=== PATIENT | female | born 1975 | race Hispanic/Latino ===

== ENCOUNTER 2017-11-16 13:08 | Emergency (ER) | payer OTHER ==
[2017-11-16] MEDS ORDERED: CYCLOBENZAPRINE 10 MG TAB ONE (14:30)
[2017-11-16] MEDS ORDERED: HYDROCODONE/APAP 5/325 MG TAB ONE (14:30)
--- NOTE | 2017-11-16 15:04 | RAD REPORT ---
EXAM DESCRIPTION: VAS - Extremity Venous Uni Ltd - 11/16/2017 2:38 pm CLINICAL HISTORY: Left arm pain and swelling COMPARISON: None. TECHNIQUE: Real-time sonographic evaluation of the left upper extremity deep venous systems was perf ormed. FINDINGS: Normal compressibility, flow augmentation, phasic flow and spontaneous flow are identified in the left upper extremity deep venous system. No intraluminal filling defects seen. Internal jugul ar and subclavian veins are normal as well. IMPRESSION: No DVT in the left upper extremity.
--- NOTE | 2017-11-16 15:07 | EDPHYS ---
Physician Documentation [facility] Name: Tanya Solo Age: 42 yrs Sex: Female : 1975 Arrival Date: 11/16/2017 Time: 13:11 Bed 2 Private MD: ED Physician Michel Kaminski HPI: 11/16 14:06 This 42 yrs old Female presents to ER via Ambulatory with complaints of Neck cp Pain, <24hrs Old, Arm Pain. 14:06 The patient presents with pain that is acute, with no known mechanism of injury. The cp symptoms are located in the medial to left scapula. 14:06 Onset: The symptoms/episode began/occurred today. The pain radiates to the left arm. cp Associated signs and symptoms: Pertinent negatives: abdominal pain, fever, numbness, weakness. Patient reports history of RUE DVT and concerned about possible LUE DVT. Patient takes Xarelto and reports she has been taking medication as prescribed. 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 aj Historical: - Allergies: 13:24 Iodine; aj - Home Meds: 13:24 carvedilol 3.125 mg Oral tab 1 tab 2 times per day [Active]; digoxin 125 mcg Oral tab 1 aj tab once daily [Active]; Fish Oil 1,000 mg Oral cap daily [Active]; Lasix 40 mg Oral tab 1 tab 2 times per day [Active]; penicillin V potassium 250 mg Oral tab 1 tab daily [Active]; ramipril 5 mg Oral cap 1 cap 2 times per day [Active]; spironolactone 25 mg Oral tab 1 tab 2 times per day [Active]; Xarelto 20 mg oral tab 1 tab once daily [Active]; - PMHx: 13:24 Dextrocardia; Hypertension; aj - PSHx: 13:24 Appendectomy; Tubal ligation; uterine ablation; aj - Immunization history:: Adult Immunizations up to date. - Social history:: Smoking status: Patient/guardian denies using tobacco. ROS: 14:10 Constitutional: Negative for body aches, chills, fever, poor PO intake. cp 14:10 Eyes: Negative for injury, pain, redness, and discharge, ENT: Negative for injury, cp pain, and discharge, Neck: Negative for injury, pain, and swelling. 14:10 Cardiovascular: Negative for chest pain, edema, palpitations. 14:10 Respiratory: Negative for cough, shortness of breath, wheezing. 14:10 Back: Positive for of the right side medial to scapula, tenderness to palpation. 14:10 : Negative for urinary symptoms. 14:10 Skin: Negative for cellulitis, rash. 14:10 Neuro: Negative for altered mental status, headache, weakness. 14:10 All other systems are negative. Exam: 14:20 Constitutional: The patient appears in no acute distress, alert, awake, non-toxic, well cp developed, well nourished. 14:20 Head/Face: Normocephalic, atraumatic. cp 14:20 Eyes: Periorbital structures: appear normal, Conjunctiva: normal, no exudate, no injection, Sclera: no appreciated abnormality, Lids and lashes: appear normal, bilaterally. 14:20 ENT: External ear(s): are unremarkable, Nose: is normal, Mouth: is normal, Posterior pharynx: is normal, airway is patent. 14:20 Neck: C-spine: vertebral tenderness, is not appreciated, crepitus, is not appreciated, ROM/movement: is normal, is supple, without pain, no range of motions limitations, no meningismus, no nuchal rigidity. 14:20 Chest/axilla: Inspection: normal, Palpation: is normal, no crepitus, no tenderness. 14:20 Cardiovascular: Rate: normal, Rhythm: regular, Pulses: Pulses are 2+ in right radial artery and left radial artery. Edema: is not appreciated. 14:20 Respiratory: the patient does not display signs of respiratory distress, Respirations: normal, no use of accessory muscles, no retractions, no splinting, no tachypnea, labored breathing, is not present. 14:20 Abdomen/GI: Exam negative for discomfort, distension, guarding, Inspection: abdomen appears normal. 14:20 Back: pain, that is mild, of the medial to right scapula, vertebral tenderness, is not appreciated, muscle spasm, is appreciated in the medial to right scapula. 14:20 Musculoskeletal/extremity: Exam is negative for decreased range of motion, deformity, injury. 14:20 Skin: cellulitis, is not appreciated, no rash present. 14:20 Neuro: Motor: moves all fours, strength is normal, Sensation: no obvious gross deficits. Vital Signs: 13:24 BP 114 / 63; Pulse 79; Resp 20; Temp 97.2; Pulse Ox 97% on R/A; Weight 60.78 kg; Height aj 5 ft. 1 in. (154.94 cm); Pain 6/10; 13:24 Body Mass Index 25.32 (60.78 kg, 154.94 cm) aj MDM: 13:39 Patient medically screened. cp 14:00 Differential diagnosis: muscle spasm, DVT, cellulitis. cp 15:00 Data reviewed: vital signs, nurses notes, radiologic studies, ultrasound. ED course: cp VSS. Pain improved with oral meds. Will treat for musculoskeletal pain and discharge to home for continued monitoring. 11/16 13:57 Order name: US Extremity Venous Uni Ltd; Complete Time: 15:09 cp 11/16 15:09 Interpretation: Report reviewed. cp Administered Medications: 14:12 Drug: Flexeril 10 mg Route: PO; hb 15:00 Follow up: Response: No adverse reaction; Pain is decreased hb 14:12 Drug: HYDROcodone-acetaminophen 5 mg-325 mg 1 tabs Route: PO; hb 15:00 Follow up: Response: No adverse reaction; Pain is decreased hb Disposition: 11/16/17 15:06 Discharged to Home. Impression: Muscle spasm of back - Right Upper, Pain in left arm. - Condition is Stable. - Discharge Instructions: Muscle Cramps and Spasms, Musculoskeletal Pain. - Prescriptions for Cyclobenzaprine 10 mg Oral Tablet - take 1 tablet by ORAL route every 8 hours As needed no driving while taking medication; 20 tablet. Tramadol 50 mg Oral Tablet - take 1 tablet by ORAL route every 8 hours as needed. no driving while taking medication; 12 tablet. - Medication Reconciliation Form, Thank You Letter, Antibiotic Education, Prescription Opioid Use form. - Follow up: Private Physician; When: 1 - 2 days; Reason: Recheck today's complaints. - Problem is new. - Symptoms have improved. Signatures: Dispatcher [employer] Jenniffer Gonsales, RN RN Chriss Amaro PA PA cp Baxter, Heather, RN RN hb
--- NOTE | 2017-11-16 15:07 | ER ---
Nurse's Notes [facility] Name: Tanya Solo Age: 42 yrs Sex: Female : 1975 Arrival Date: 11/16/2017 Time: 13:11 Bed 2 Private MD: Diagnosis: Muscle spasm of back-Right Upper;Pain in left arm Presentation: 11/16 13:21 Presenting complaint: Patient states: Pain in left arm and neck that started yesterday. aj Patient has HX of DVT in right arm, believes she has another DVT in left arm. Left hand is slightly discolored. Transition of care: patient was not received from another setting of care. Onset of symptoms was November 15, 2017. Care prior to arrival: None. 13:21 Method Of Arrival: Ambulatory aj 13:21 Acuity: JOSE L 2 aj Triage Assessment: 13:24 General: Appears in no apparent distress. comfortable, Behavior is calm, cooperative, aj appropriate for age. Pain: Complains of pain in left arm Pain currently is 9 out of 10 on a pain scale. Neuro: Level of Consciousness is awake, alert, obeys commands, Oriented to person, place, time, situation. Respiratory: Airway is patent Respiratory effort is even, unlabored, Respiratory pattern is regular, symmetrical. Derm: Skin is intact, is healthy with good turgor, Skin is pink, warm \T\ dry. normal, discoloration to left hand. Musculoskeletal: Reports pain in left arm. 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 aj Historical: - Allergies: 13:24 Iodine; aj - Home Meds: 13:24 carvedilol 3.125 mg Oral tab 1 tab 2 times per day [Active]; digoxin 125 mcg Oral tab 1 aj tab once daily [Active]; Fish Oil 1,000 mg Oral cap daily [Active]; Lasix 40 mg Oral tab 1 tab 2 times per day [Active]; penicillin V potassium 250 mg Oral tab 1 tab daily [Active]; ramipril 5 mg Oral cap 1 cap 2 times per day [Active]; spironolactone 25 mg Oral tab 1 tab 2 times per day [Active]; Xarelto 20 mg oral tab 1 tab once daily [Active]; - PMHx: 13:24 Dextrocardia; Hypertension; aj - PSHx: 13:24 Appendectomy; Tubal ligation; uterine ablation; aj - Immunization history:: Adult Immunizations up to date. - Social history:: Smoking status: Patient/guardian denies using tobacco. Screenin:00 Abuse screen: Denies threats or abuse. Denies injuries from another. Nutritional hb screening: No deficits noted. Tuberculosis screening: No symptoms or risk factors identified. Fall Risk None identified. Assessment: 13:30 General: Appears in no apparent distress. Behavior is calm, cooperative. Pain: Pain hb currently is 7 out of 10 on a pain scale. Neuro: Level of Consciousness is awake, alert, obeys commands, Oriented to person, place, time, situation. Cardiovascular: Capillary refill < 3 seconds Patient's skin is warm and dry. Respiratory: Airway is patent Trachea midline Respiratory effort is even, unlabored, Respiratory pattern is regular, symmetrical, Breath sounds are clear bilaterally. GI: No signs and/or symptoms were reported involving the gastrointestinal system. : No signs and/or symptoms were reported regarding the genitourinary system. EENT: No signs and/or symptoms were reported regarding the EENT system. Derm: Skin is intact, is healthy with good turgor. Musculoskeletal: Circulation, motion, and sensation intact. 14:30 Reassessment: Patient appears in no apparent distress at this time. No changes from previously documented assessment. Patient and/or family updated on plan of care and expected duration. Pain level reassessed. Patient is alert, oriented x 3, equal unlabored respirations, skin warm/dry/pink. Vital Signs: 13:24 BP 114 / 63; Pulse 79; Resp 20; Temp 97.2; Pulse Ox 97% on R/A; Weight 60.78 kg; Height aj 5 ft. 1 in. (154.94 cm); Pain 6/10; 13:24 Body Mass Index 25.32 (60.78 kg, 154.94 cm) ED Course: 13:11 Patient arrived in ED. rg4 13:22 Triage completed. aj 13:24 Arm band placed on Patient placed in an exam room. aj 13:26 Georgina Bautista, RN is Primary Nurse. hb 13:30 Patient has correct armband on for positive identification. Bed in low position. Call light in reach. Side rails up X 1. 13:36 Chriss Ramirez PA is PHCP. cp 13:36 Michel Kaminski MD is Attending Physician. cp 14:25 US Extremity Venous Uni Ltd In Process Unspecified. EDMS 14:44 Ultrasound completed. Patient tolerated well. aa4 14:44 Patient moved back from ultrasound. aa4 15:20 No provider procedures requiring assistance completed. Patient did not have IV access hb during this emergency room visit. Administered Medications: 14:12 Drug: Flexeril 10 mg Route: PO; hb 15:00 Follow up: Response: No adverse reaction; Pain is decreased hb 14:12 Drug: HYDROcodone-acetaminophen 5 mg-325 mg 1 tabs Route: PO; hb 15:00 Follow up: Response: No adverse reaction; Pain is decreased hb Outcome: 15:06 Discharge ordered by MD. cp 15:20 Discharged to home ambulatory, with family. hb 15:20 Condition: stable 15:20 Discharge instructions given to patient, family, Instructed on discharge instructions, follow up and referral plans. medication usage, Demonstrated understanding of instructions, follow-up care, medications, Prescriptions given X 2. 15:21 Patient left the ED. hb Signatures: Dispatcher [employer] EDJenniffer Cárdenas, RN RN Jenniffer Petit aa4 Chriss Ramirez PA PA Georgina Renteria RN RN Kena Bolanos rg4
[2017-11-16 15:30] VITALS: BP 114/63; TEMP 97.2; O2SAT 97
== END 2017-11-16 15:21 | disposition home or self-care (01) ==
LOC: ER 13:08
DX: M62.830 Muscle spasm of back (principal); I10 Essential (primary) hypertension; Z86.718 Personal history of other venous thrombosis and embolism; Z79.01 Long term (current) use of anticoagulants; Z91.048 Other nonmedicinal substance allergy status
CPT/HCPCS: 93971; 99284

== ENCOUNTER 2018-01-07 22:04 | Emergency (ER) | payer OTHER ==
[2018-01-07] MEDS ORDERED: METOPROLOL TARTRATE 5 MG/5 ML INJ IV ONE (22:26)
[2018-01-07 22:55] LABS: Absolute Lymphocytes (CBC) 1.1 K/uL (0.7-4.9); Absolute Monocytes 0.8 K/uL (0.1-1.3); Absolute Neutrophil 4.2 K/uL (1.8-8.0); Basophils % 2.3 % (0-1.3); Eosinophils % 2.2 % (0-4.4); MCH 32.3 pg (27.0-35.0); MCV 99.4 fL (80-100); MPV 9.2 fL (7.6-11.3); Monocytes % 12.3 % (3.3-12.3); RBC Red Blood Cell Count 7.23 M/uL (3.86-4.86)
[2018-01-07 23:00] LABS: Hematocrit 71.9 % (36.0-45.0)
[2018-01-07 23:04] LABS: Protime INR 1.08
[2018-01-07] MEDS ORDERED: NA CHLORIDE 0.9% 250 ML ONE (23:12)
[2018-01-07 23:27] LABS: Albumin 3.7 g/dL (3.2-5.5); Bilirubin Direct 0.3 mg/dL (0-0.2); Bilirubin Total 1.4 mg/dL (0.3-1.2); Digoxin Level 0.2 ng/ml (1.0-2.0); Magnesium 1.8 mg/dL (1.8-2.5); Protein, Total 7.9 g/dL (6.0-8.3)
[2018-01-07 23:30] LABS: CKMB Creatine Kinase MB 2.9 ng/ml (0.3-4.0)
[2018-01-07 23:43] LABS: Potassium 3.2 mEq/L (3.6-5.0)
[2018-01-08] MEDS ORDERED: NA CHLORIDE 0.9% 250 ML ONE (00:02)
[2018-01-08] MEDS ORDERED: DIGOXIN 0.25 MG/ML AMP ONE ×2 (00:21→03:19)
[2018-01-08] MEDS ORDERED: POTASSIUM 25 MEQ EFFERV TAB ONE (02:08)
[2018-01-08 03:26] LABS: Urine Blood TRACE (NEG); Urine Glucose NEGATIVE (NEG); Urine Protein NEGATIVE (NEG); Urine pH 5.5 (5.0-7.0)
--- NOTE | 2018-01-08 03:35 | EDPHYS ---
Physician Documentation [facility] Name: Tanya Solo Age: 42 yrs Sex: Female : 1975 Arrival Date: 01/07/2018 Time: 22:05 Bed 2 Private MD: Terry Pope ED Physician Michel Kaminski HPI: 01/07 23:00 This 42 yrs old Female presents to ER via Ambulatory with complaints of pm1 Irregular Pulse. 23:00 The patient presents with a history of heart racing. Context: The symptoms occur at pm1 rest. Onset: The symptoms/episode began/occurred 30 minutes prior to arrival. Duration: The patient or guardian reports a single episode, that is still ongoing. Modifying factors: The symptoms are aggravated by nothing. The symptoms are alleviated by nothing. patient attempted valsalva maneuvers, patient usually coughs and its resolved it in the past. Associated signs and symptoms: Pertinent positives: SOB, Pertinent negatives: chest pain, fever, nausea, vomiting. The patient has experienced similar episodes in the past, multiple times. The patient has not recently seen a physician, the patient's primary care provider is Dr. Niko Stewart MD, Master Certified Rv Technician at [facility]. 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 ao Historical: - Allergies: 22:20 Iodine; ao - Home Meds: 22:20 carvedilol 3.125 mg Oral tab 1 tab 2 times per day [Active]; digoxin 125 mcg Oral tab 1 ao tab once daily [Active]; Fish Oil 1,000 mg Oral cap daily [Active]; Lasix 40 mg Oral tab 1 tab 2 times per day [Active]; penicillin V potassium 250 mg Oral tab 1 tab daily [Active]; ramipril 5 mg Oral cap 1 cap 2 times per day [Active]; spironolactone 25 mg Oral tab 1 tab 2 times per day [Active]; Xarelto 20 mg Oral tab 1 tab once daily [Active]; - PMHx: 22:20 Dextrocardia; Hypertension; ao - PSHx: 22:20 None; ao - Immunization history:: Adult Immunizations up to date. - Social history:: Smoking status: Patient/guardian denies using tobacco, Patient/guardian denies using alcohol, street drugs. - Ebola Screening: : Patient negative for fever greater than or equal to 101.5 degrees Fahrenheit, and additional compatible Ebola Virus Disease symptoms Patient denies exposure to infectious person Patient denies travel to an Ebola-affected area in the 21 days before illness onset. ROS: 23:00 Constitutional: Negative for fever, chills, and weight loss, Eyes: Negative for injury, pm1 pain, redness, and discharge, ENT: Negative for injury, pain, and discharge, Neck: Negative for injury, pain, and swelling. 23:00 Abdomen/GI: Negative for abdominal pain, nausea, vomiting, diarrhea, and constipation, Back: Negative for injury and pain, MS/Extremity: Negative for injury and deformity, Skin: Negative for injury, rash, and discoloration, Neuro: Negative for headache, weakness, numbness, tingling, and seizure. 23:00 Cardiovascular: Positive for palpitations, Negative for chest pain, Recent issues with edema. Lasix increased recently from 40 mg BID to 80 mg BID. 23:00 Respiratory: Positive for shortness of breath, Negative for cough, wheezing. Exam: 23:00 Constitutional: This is a well developed, well nourished patient who is awake, alert, pm1 and in no acute distress. Head/Face: Normocephalic, atraumatic. Eyes: Pupils equal round and reactive to light, extra-ocular motions intact. Lids and lashes normal. Conjunctiva and sclera are non-icteric and not injected. Cornea within normal limits. Periorbital areas with no swelling, redness, or edema. ENT: Nares patent. No nasal discharge, no septal abnormalities noted. Tympanic membranes are normal and external auditory canals are clear. Oropharynx with no redness, swelling, or masses, exudates, or evidence of obstruction, uvula midline. Mucous membranes moist. Neck: Trachea midline, no thyromegaly or masses palpated, and no cervical lymphadenopathy. Supple, full range of motion without nuchal rigidity, or vertebral point tenderness. No Meningismus. Chest/axilla: Normal chest wall appearance and motion. Nontender with no deformity. No lesions are appreciated. 23:00 Respiratory: Lungs have equal breath sounds bilaterally, clear to auscultation and percussion. No rales, rhonchi or wheezes noted. No increased work of breathing, no retractions or nasal flaring. Abdomen/GI: Soft, non-tender, with normal bowel sounds. No distension or tympany. No guarding or rebound. No evidence of tenderness throughout. Back: No spinal tenderness. No costovertebral tenderness. Full range of motion. Skin: Warm, dry with normal turgor. Normal color with no rashes, no lesions, and no evidence of cellulitis. MS/ Extremity: Pulses equal, no cyanosis. Neurovascular intact. Full, normal range of motion. Neuro: Awake and alert, GCS 15, oriented to person, place, time, and situation. Cranial nerves II-XII grossly intact. Motor strength 5/5 in all extremities. Sensory grossly intact. Cerebellar exam normal. Normal gait. 23:00 Cardiovascular: Rate: tachycardic, Rhythm: regular, Pulses: no pulse deficits are appreciated, Edema: is not appreciated. 23:00 ECG was reviewed by the Attending Physician. 23:00 Skin: Appearance: normal except for affected area, clubbing present to all finger and pm1 toe nails. Vital Signs: 22:17 BP 142 / 80; Pulse 108; Resp 18; Pulse Ox 88% on R/A; Weight 63.5 kg; Height 5 ft. 1 ao in. (154.94 cm); Pain 0/10; 22:41 BP 106 / 63; Pulse 103; Resp 19; Temp 97.8; Pulse Ox 89% on R/A; ao 23:04 BP 103 / 63; Pulse 99; Resp 18; Pulse Ox 90% on R/A; ao 23:40 BP 96 / 61; Pulse 100; Resp 18; Pulse Ox 82% on R/A; Pain 0/10; ao 01/08 00:10 BP 88 / 66; Pulse 97; Resp 18; Pulse Ox 86% ; Pain 0/10; ao 00:34 BP 100 / 63; Pulse 96; Resp 18; Pulse Ox 81% on R/A; Pain 0/10; ao 01:00 BP 91 / 57; Pulse 98; Resp 17; Pulse Ox 88% ; ao 01:30 BP 84 / 54; Pulse 115; Resp 16; Pulse Ox 88% on R/A; ao 02:00 BP 88 / 54; Pulse 105; Resp 18; Pulse Ox 88% on R/A; ao 02:31 BP 97 / 63; Pulse 93; Resp 23; Pulse Ox 93% ; ao 03:03 BP 86 / 56; Pulse 71; Resp 20; Pulse Ox 83% ; Pain 0/10; ao 03:30 BP 94 / 61; Pulse 92; Resp 19; Pulse Ox 87% on R/A; Pain 0/10; ao 03:45 BP 74 / 55; Pulse 49; Resp 19; Pulse Ox 84% on R/A; ao 03:57 BP 71 / 50; Pulse 55; Resp 14; Pulse Ox 81% on R/A; ao 04:00 BP 79 / 50; Pulse 47; Resp 24; Pulse Ox 82% on R/A; Pain 0/10; ao 04:10 BP 79 / 59; Pulse 48; Resp 20; Pulse Ox 85% on R/A; ao 04:15 BP 91 / 52; Pulse 51; Resp 18; Pulse Ox 83% on R/A; ao 04:25 BP 90 / 49; Pulse 63; Resp 12; Pulse Ox 82% on R/A; ao 04:37 BP 88 / 53; Pulse 61; Resp 19; Pulse Ox 89% on R/A; Pain 0/10; ao 01/07 22:17 Body Mass Index 26.45 (63.50 kg, 154.94 cm) ao MDM: 01/07 22:08 Patient medically screened. pm1 01/08 02:29 Physician consultation: Physician consultation: Terry Pope Received message from pm1 [facility] intensivists after consulting with him, that Dr. Stewart would like the patient to be transferred to [facility] cardiac unit instead of [facility] cardiac unit. He has admission privileges at [facility]. 03:21 Data reviewed: vital signs. Physician consultation: Terry Pope Accepted patient pm1 without report. Consulted with physicians from [facility]. 01/07 22:12 Order name: Basic Metabolic Panel; Complete Time: 23:47 pm01/07 22:12 Order name: BNP; Complete Time: 23:47 pm01/07 22:12 Order name: CBC with Diff; Complete Time: 23:29 pm01/07 22:12 Order name: Ckmb; Complete Time: 23:47 pm01/07 22:12 Order name: CPK; Complete Time: 23:47 pm01/07 22:12 Order name: LFT's; Complete Time: 23:47 pm01/07 22:12 Order name: Magnesium; Complete Time: 23:47 pm01/07 22:12 Order name: PT-INR; Complete Time: 23:29 pm01/07 22:12 Order name: Ptt, Activated; Complete Time: 23:29 pm01/07 22:12 Order name: Troponin (emerg Dept Use Only); Complete Time: 23:29 pm01/07 22:12 Order name: XRAY Chest (1 view) 01/07 22:30 Order name: Digoxin; Complete Time: 23:47 pm01/08 02:51 Order name: Urine Dipstick--Ancillary (enter results); Complete Time: 03:36 rg01/08 02:51 Order name: Urine --Ancillary (enter results); Complete Time: 03:36 01/07 22:12 Order name: Urine Test (obtain specimen); Complete Time: 04:16 pm01/07 22:12 Order name: EKG; Complete Time: 22:42 pm01/07 22:12 Order name: Cardiac monitoring; Complete Time: 22:48 pm01/07 22:12 Order name: EKG - Nurse/Tech; Complete Time: 22:48 pm01/07 22:12 Order name: IV Saline Lock; Complete Time: 22:22 pm01/07 22:12 Order name: Labs collected and sent; Complete Time: 22:48 pm01/07 22:12 Order name: O2 Per Protocol; Complete Time: 22:48 pm01/07 22:12 Order name: O2 Sat Monitoring; Complete Time: 22:49 pm01/08 01:39 Order name: EKG; Complete Time: 01:39 2 01/07 22:12 Order name: Urine Dipstick-Ancillary (obtain specimen); Complete Time: 04:16 pm01/08 01:39 Order name: EKG - Nurse/Tech; Complete Time: 02:10 rg2 Administered Medications: 01/07 22:27 Drug: Lopressor 5 mg Route: IVP; Site: right antecubital; ao 22:36 Drug: Lopressor 5 mg Route: IVP; Site: right antecubital; ao 22:41 Drug: Lopressor 5 mg Route: IVP; Site: right antecubital; ao 01/08 05:13 Follow up: Response: No adverse reaction; Cardiac rhythm changed ao 01/07 23:14 Drug: NS 0.9% 250 ml Route: IV; Rate: bolus; Site: left antecubital; ao 01/08 02:00 Follow up: IV Status: Completed infusion; IV Intake: 250ml ao 00:05 Drug: NS 0.9% 250 ml Route: IV; Rate: bolus; Site: left antecubital; ao 02:18 Follow up: Response: No adverse reaction; IV Status: Completed infusion; IV Intake: ea 1000ml 04:17 Follow up: IV Status: Completed infusion; IV Intake: 250ml ao 00:29 Drug: Digoxin 0.25 mg {Note: Order was verified with ANGI Junior and Dr Kaminski that ao would not affect BP and would be beneficial for the Pt..} Route: IVP; Site: left antecubital; 04:17 Follow up: Response: No adverse reaction; Other; Lower HR to 70st ao 02:18 Drug: Potassium Effervescent Tablet 50 mEq Route: PO; ea 04:18 Follow up: Response: No adverse reaction ao 03:30 Drug: Digoxin 0.25 mg {Note: order verified with elder WHITLEY. EXECUTIVE SOUS CHEF stated that it would ao not lower HR and it would be beneficial to the patient. HR is 74 at this moment ..} Route: IVP; Site: left antecubital; 04:18 Follow up: Response: Lower HR to the 40st. ANGI Junior aware of HR ao 03:48 Drug: Zofran 4 mg Route: IVP; Site: right antecubital; 04:19 Follow up: Response: No adverse reaction ao Disposition: 01/08/18 03:34 Transfer ordered to [facility]. Diagnosis are Paroxysmal tachycardia, Hypotension. - Reason for transfer: Higher level of care. - Accepting physician is Niko Stewart MD. - Condition is Stable. - Problem is new. - Symptoms have improved. Addendum: 01/11/2018 07:17 Co-signature as Attending Physician, Michel Kaminski MD. g s Signatures: Dispatcher [employer] Jane Kate rg2 Livia Snow RN RN fc Ortiz, Alex, RN RN ao Marinas, Patrick, NP EXECUTIVE SOUS CHEF pm1 Nita Perez RN RN ea Starr, Gregory, MD MD gs Corrections: (The following items were deleted from the chart) 01/08 03:25 02:29 Physician consultation: pm1 pm1 04:55 03:34 01/08/2018 03:34 Transfer ordered to [facility]. Diagnosis is ao Paroxysmal tachycardia; Hypotension. Reason for transfer: Higher level of care. Accepting physician is Niko Stewart MD. Condition is Stable. Problem is new. Symptoms have improved. pm1
--- NOTE | 2018-01-08 03:35 | ER ---
Nurse's Notes [facility] Name: Tanya Solo Age: 42 yrs Sex: Female : 1975 Arrival Date: 01/07/2018 Time: 22:05 Bed 2 Private MD: Terry Pope Diagnosis: Paroxysmal tachycardia;Hypotension Presentation: 01/07 22:16 Presenting complaint: Patient states: "C/O chest palpitations and SOB starting 30 min ao ago" Patient has a cardiac history. Transition of care: patient was not received from another setting of care. Onset of symptoms is unknown. Risk Assessment: Do you want to hurt yourself or someone else? Patient reports no desire to harm self or others. Initial Sepsis Screen: Does the patient meet any 2 criteria? No. Patient's initial sepsis screen is negative. Does the patient have a suspected source of infection? No. Patient's initial sepsis screen is negative. Care prior to arrival: None. 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: 22:17 LMP N/A - Hysterectomy ao Historical: - Allergies: 22:20 Iodine; ao - Home Meds: 22:20 carvedilol 3.125 mg Oral tab 1 tab 2 times per day [Active]; digoxin 125 mcg Oral tab 1 ao tab once daily [Active]; Fish Oil 1,000 mg Oral cap daily [Active]; Lasix 40 mg Oral tab 1 tab 2 times per day [Active]; penicillin V potassium 250 mg Oral tab 1 tab daily [Active]; ramipril 5 mg Oral cap 1 cap 2 times per day [Active]; spironolactone 25 mg Oral tab 1 tab 2 times per day [Active]; Xarelto 20 mg Oral tab 1 tab once daily [Active]; - PMHx: 22:20 Dextrocardia; Hypertension; ao - PSHx: 22:20 None; ao - Immunization history:: Adult Immunizations up to date. - Social history:: Smoking status: Patient/guardian denies using tobacco, Patient/guardian denies using alcohol, street drugs. - Ebola Screening: : Patient negative for fever greater than or equal to 101.5 degrees Fahrenheit, and additional compatible Ebola Virus Disease symptoms Patient denies exposure to infectious person Patient denies travel to an Ebola-affected area in the 21 days before illness onset. Screenin:20 Abuse screen: Denies threats or abuse. Denies injuries from another. Nutritional ao screening: No deficits noted. Tuberculosis screening: No symptoms or risk factors identified. Fall Risk None identified. Assessment: 22:15 General: Appears in no apparent distress. uncomfortable, Behavior is agitated, anxious. ao Pain: Complains of pain in chest Pain does not radiate. Pain radiates to chest Pain currently is 0 out of 10 on a pain scale. Pain began 30 min ago. Neuro: Level of Consciousness is awake, alert, obeys commands, Oriented to person, place, time, situation, Appropriate for age Moves all extremities. Speech is normal, Facial symmetry appears normal, Pupils are PERRLA. Cardiovascular: Capillary refill < 3 seconds Patient's skin is warm and dry. Respiratory: Airway is patent Respiratory effort is even, unlabored, Respiratory pattern is regular, symmetrical. Respiratory: Low O2 as reported by patient o be her norm. GI: Abdomen is non-distended. : No signs and/or symptoms were reported regarding the genitourinary system. EENT: No signs and/or symptoms were reported regarding the EENT system. Derm: No signs and/or symptoms reported regarding the dermatologic system. Skin is intact, Skin temperature is warm. 23:07 Reassessment: Patient appears in no apparent distress at this time. Patient and/or ao family updated on plan of care and expected duration. Pain level reassessed. Patient states feeling better. 01/08 00:30 Reassessment: Patient appears in no apparent distress at this time. Patient and/or ao family updated on plan of care and expected duration. Pain level reassessed. Patient was medicated with Digoxin as order by Elder WHITLEY. Orders was verified with elder and Dr Patel due to patient's BP is low. Dr patel and Elder CAFE SERVER stated that it would not bring down the BP and would be beneficial for the patient. 01:30 Reassessment: Patient appears in no apparent distress at this time. Patient and/or ao family updated on plan of care and expected duration. Pain level reassessed. 02:27 Reassessment: Patient appears in no apparent distress at this time. Patient and/or ao family updated on plan of care and expected duration. Pain level reassessed. Patient pending to be transferred. 03:03 Reassessment: Patient appears in no apparent distress at this time. Patient and/or ao family updated on plan of care and expected duration. Pain level reassessed. Pending transferred. 03:40 Reassessment: Patient medicated with digoxin as ordered by Elder Pepe NP. Order ao verified with ANGI Junior and stated that it would not lower her HR or BP. HR is about 74 at this moment and there is no parameter to hold medication. 03:41 Reassessment: Patient is alert, oriented x 3, equal unlabored respirations, skin fc warm/dry/pink. Pt started to complain of nausea and then vomited approx 100 ml of orange liquid. Discussed with Elder WHITLEY, pt to get Zofran. 03:54 Reassessment: Report called to Fela JORDAN at [facility]. 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 Patient VS at this moment 88/53, P 69, O2 ao 87, resp 17. Patient states that she is not in pain and is feeling good. Vital Signs: 01/07 22:17 BP 142 / 80; Pulse 108; Resp 18; Pulse Ox 88% on R/A; Weight 63.5 kg; Height 5 ft. 1 ao in. (154.94 cm); Pain 0/10; 22:41 BP 106 / 63; Pulse 103; Resp 19; Temp 97.8; Pulse Ox 89% on R/A; ao 23:04 BP 103 / 63; Pulse 99; Resp 18; Pulse Ox 90% on R/A; ao 23:40 BP 96 / 61; Pulse 100; Resp 18; Pulse Ox 82% on R/A; Pain 0/10; ao 01/08 00:10 BP 88 / 66; Pulse 97; Resp 18; Pulse Ox 86% ; Pain 0/10; ao 00:34 BP 100 / 63; Pulse 96; Resp 18; Pulse Ox 81% on R/A; Pain 0/10; ao 01:00 BP 91 / 57; Pulse 98; Resp 17; Pulse Ox 88% ; ao 01:30 BP 84 / 54; Pulse 115; Resp 16; Pulse Ox 88% on R/A; ao 02:00 BP 88 / 54; Pulse 105; Resp 18; Pulse Ox 88% on R/A; ao 02:31 BP 97 / 63; Pulse 93; Resp 23; Pulse Ox 93% ; ao 03:03 BP 86 / 56; Pulse 71; Resp 20; Pulse Ox 83% ; Pain 0/10; ao 03:30 BP 94 / 61; Pulse 92; Resp 19; Pulse Ox 87% on R/A; Pain 0/10; ao 03:45 BP 74 / 55; Pulse 49; Resp 19; Pulse Ox 84% on R/A; ao 03:57 BP 71 / 50; Pulse 55; Resp 14; Pulse Ox 81% on R/A; ao 04:00 BP 79 / 50; Pulse 47; Resp 24; Pulse Ox 82% on R/A; Pain 0/10; ao 04:10 BP 79 / 59; Pulse 48; Resp 20; Pulse Ox 85% on R/A; ao 04:15 BP 91 / 52; Pulse 51; Resp 18; Pulse Ox 83% on R/A; ao 04:25 BP 90 / 49; Pulse 63; Resp 12; Pulse Ox 82% on R/A; ao 04:37 BP 88 / 53; Pulse 61; Resp 19; Pulse Ox 89% on R/A; Pain 0/10; ao 01/07 22:17 Body Mass Index 26.45 (63.50 kg, 154.94 cm) ao ED Course: 01/07 22:05 Patient arrived in ED. ds1 22:08 Elder Pepe NP is PHCP. pm1 22:08 Michel Patel MD is Attending Physician. pm1 22:16 Sarthak Ruiz RN is Primary Nurse. ao 22:17 Triage completed. ao 22:17 Arm band placed on right wrist. Patient placed in an exam room, on a stretcher, on ao oxygen, on ekg monitor tech, on pulse oximetry. 22:21 Patient has correct armband on for positive identification. color television console monitor on. Pulse ao ox on. NIBP on. 22:21 Inserted saline lock: 18 gauge in right antecubital area, using aseptic technique. ao Blood collected. Patient maintains SpO2 saturation greater than 95% on room air. 22:52 XRAY Chest (1 view) In Process Unspecified. EDMS 22:59 Notified Nurse Practitioner and/or Physician Environmental Director of a critical lab result(s), hct fc 71.9, hgb 23.4. 23:00 Terry Pope is Private Physician. ds1 01/08 03:55 No provider procedures requiring assistance completed. ea 04:39 Patient transferred, IV remains in place. ao Administered Medications: 01/07 22:27 Drug: Lopressor 5 mg Route: IVP; Site: right antecubital; ao 22:36 Drug: Lopressor 5 mg Route: IVP; Site: right antecubital; ao 22:41 Drug: Lopressor 5 mg Route: IVP; Site: right antecubital; ao 01/08 05:13 Follow up: Response: No adverse reaction; Cardiac rhythm changed ao 01/07 23:14 Drug: NS 0.9% 250 ml Route: IV; Rate: bolus; Site: left antecubital; ao 01/08 02:00 Follow up: IV Status: Completed infusion; IV Intake: 250ml ao 00:05 Drug: NS 0.9% 250 ml Route: IV; Rate: bolus; Site: left antecubital; ao 02:18 Follow up: Response: No adverse reaction; IV Status: Completed infusion; IV Intake: ea 1000ml 04:17 Follow up: IV Status: Completed infusion; IV Intake: 250ml ao 00:29 Drug: Digoxin 0.25 mg {Note: Order was verified with ANGI Junior and Dr Patel that ao would not affect BP and would be beneficial for the Pt..} Route: IVP; Site: left antecubital; 04:17 Follow up: Response: No adverse reaction; Other; Lower HR to 70st ao 02:18 Drug: Potassium Effervescent Tablet 50 mEq Route: PO; ea 04:18 Follow up: Response: No adverse reaction ao 03:30 Drug: Digoxin 0.25 mg {Note: order verified with eledr WHITLEY. CAFE SERVER stated that it would ao not lower HR and it would be beneficial to the patient. HR is 74 at this moment ..} Route: IVP; Site: left antecubital; 04:18 Follow up: Response: Lower HR to the 40st. ANGI Junior aware of HR ao 03:48 Drug: Zofran 4 mg Route: IVP; Site: right antecubital; fc 04:19 Follow up: Response: No adverse reaction ao Intake: 02:00 IV: 250ml; Total: 250ml. ao 02:18 IV: 1000ml; Total: 1250ml. ea 04:17 IV: 250ml; Total: 1500ml. ao Outcome: 03:34 ER care complete, transfer ordered by MD. pm1 04:38 Transferred by ground EMS to [facility], Transfer form completed. ao X-rays sent w/ patient. 04:38 Condition: stable 04:38 Instructed on the need for transfer. 04:55 Patient left the ED. ao Signatures: Dispatcher [employer] EDMS Livia Snow RN RN fc Sanford, Demi ds1 Sarthak Ruiz RN RN ao Marinas, Patrick CAFE SERVER CAFE SERVER pm1 Nita Perez RN RN ea Corrections: (The following items were deleted from the chart) 04:04 03:30 Digoxin 0.25 mg IVP in left antecubital ao ao
[2018-01-08] MEDS ORDERED: ONDANSETRON 4 MG/2 ML VIAL ONE (03:45)
[2018-01-08 05:00] VITALS: TEMP 97.8
[2018-01-08 05:21] VITALS: BP 88/53; O2SAT 89
--- NOTE | 2018-01-08 10:04 | RAD REPORT ---
EXAM DESCRIPTION: RAD - Chest Single View - 01/07/2018 10:52 pm CLINICAL HISTORY: Chest pain. COMPARISON: 08/23/2017, 10/19/2016, 11/02/2014 FINDINGS: Portable technique limits examination quality. Prominent interstitial markings are again noted, chronic. The heart is mildly enlarged in size with d extrocardia is seen. No displaced fractures.No new finding is evident. IMPRESSION: Stable chest.
--- NOTE | 2018-01-08 10:19 | EKG ---
Test Date: 2018-01-07 Test Time: 22:14:39 Hired Help: JAZMIN MEASUREMENT RESULTS: Intervals: Rate: 124 SD: 272 QRSD: 86 QT: 260 QTc: 373 [place]: P: 108 SD: 272 QRS: 2 T: 242 INTERPRETIVE STATEMENTS: Sinus tachycardia with 1st degree AV block with premature supraventricular complexes and with frequent and consecutive prematur Low voltage QRS ST & T wave abnormality, consider inferior ischemia ST & T wave abnormality, consider anterolateral ischemia Abnormal ECG Compared to ECG 08/24/2017 07:59:27 Atrial premature complex(es) now present First degree AV block now present Low QRS voltage now present ST (T wave) deviation now present Possible ischemia now present Sinus rhythm no longer present Fusion complex(es) no longer present Left anterior fascicular block no longer present Myocardial infarct finding no longer present Electronically Signed On 01-08-18 10:18:24 CDT by Rajiv Lewis
--- NOTE | 2018-01-08 10:19 | EKG ---
Test Date: 2018-01-07 Test Time: 22:16:18 Manager Mortgage: JAZMIN MEASUREMENT RESULTS: Intervals: Rate: 138 DC: 152 QRSD: 116 QT: 468 QTc: 709 [place]: P: -44 DC: 152 QRS: -74 T: 266 INTERPRETIVE STATEMENTS: Age and gender specific ECG analysis afib with rvrLeft axis deviation Inferior-posterior infarct, age undetermined Abnormal ECG Compared to ECG 01/07/2018 22:14:39 Left-axis deviation now present Myocardial infarct finding now present Sinus tachycardia no longer present Atrial premature complex(es) no longer present First degree AV block no longer present ST (T wave) deviation no longer present Possible ischemia no longer present Electronically Signed On 01-08-18 10:18:17 CDT by Rajiv Lewis
--- NOTE | 2018-01-09 11:22 | EKG ---
Test Date: 2018-01-08 Test Time: 01:43:40 Tank Maker Wood: MIRIAM MEASUREMENT RESULTS: Intervals: Rate: 87 WI: 306 QRSD: 104 QT: 340 QTc: 409 [place]: P: WI: 306 QRS: -74 T: 148 INTERPRETIVE STATEMENTS: Sinus rhythm with 1st degree AV block with occasional premature ventricular complexes Left axis deviation Low voltage QRS Lateral infarct, age undetermined Inferior-posterior infarct, age undetermined Abnormal ECG Compared to ECG 01/07/2018 22:20:38 Left-axis deviation now present Low QRS voltage now present Myocardial infarct finding now present Sinus tachycardia no longer present Atrial abnormality no longer present ST (T wave) deviation no longer present Electronically Signed On 01-09-18 11:19:40 CDT by Rajiv Lewis
--- NOTE | 2018-01-09 11:22 | EKG ---
Test Date: 2018-01-07 Test Time: 22:20:38 Gps Field Data Collector: JAZMIN MEASUREMENT RESULTS: Intervals: Rate: 114 CO: 318 QRSD: 86 QT: 334 QTc: 460 [place]: P: 100 CO: 318 QRS: -6 T: 238 INTERPRETIVE STATEMENTS: Sinus tachycardia with 1st degree AV block with frequent and consecutive premature ventricular complexes Right atrial enlargement Marked ST abnormality, possible inferior subendocardial injury Abnormal ECG Compared to ECG 01/07/2018 22:16:18 Ventricular premature complex(es) now present First degree AV block now present Atrial abnormality now present ST (T wave) deviation now present Atrial fibrillation no longer present Myocardial infarct finding no longer present Electronically Signed On 01-09-18 11:19:42 CDT by Rajiv Lewis
== END 2018-01-08 04:55 | disposition short-term general hospital (02) ==
LOC: ER 22:04
DX: I47.9 Paroxysmal tachycardia, unspecified (principal); I95.9 Hypotension, unspecified; I10 Essential (primary) hypertension; Z79.02 Long term (current) use of antithrombotics/antiplatelets
CPT/HCPCS: 36415; 71045; 80048; 80076; 80162; 81003; 81025; 82550; 82553; 83735; 83880; 84484; 85025; 85610; 85730; 93005 ×4; 99285; J1160 ×2; J2405

== ENCOUNTER 2018-04-22 23:48 | Observation (INO) | payer OTHER ==
--- OUTSIDE RECORDS SUMMARY | 2018-04-22 23:50 | XMS REPORT | Clinical Summary ---
:1975 Author Organization [facility] Address [address] [place] [address] Phone Care Team Providers Name Role Phone Unavailable Primary Care Provider Unavailable Allergies Active Allergy Reactions Severity Noted Date Comments Shellfish Containing Products Itching 11/02/2014 Current Medications Prescription Sig. Disp. Refills Start Date End Date Status spironolactone Take 25 mg by mouth Active (ALDACTONE) 25 MG daily. tablet ramipril (ALTACE) 5 Take 5 mg by mouth 2 Active MG capsule (two) times daily. allopurinol Take 300 mg by mouth Active (ZYLOPRIM) 300 MG daily. tablet carvedilol (COREG) Take 3.125 mg by Active 3.125 MG tablet mouth 2 (two) times daily with breakfast and dinner. digoxin (LANOXIN) Take 125 mcg by Active 0.125 MG tablet mouth daily. penicillin v Take 250 mg by mouth 01/10/20 Discontinued potassium (VEETID) daily. 18 250 MG tablet furosemide (LASIX) Take 40 mg by mouth 01/10/20 Discontinued 40 MG tablet 2 (two) times daily 18 . aspirin 162 MG EC Take 162 mg by mouth 01/10/20 Discontinued tablet daily. 18 pneumoc 13-edita Inject 0.5 mLs 0.5 mL 0 01/09/2018 01/10/20 conj-dip cr,PF, intramuscularly once 18 (PRENVAR 13) 0.5 mL for 1 dose. 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 11/02/2014 Bradycardia - junctional escape down to 20s requiring resuscitation 11/02/2014 11/02/14 Sick sinus syndrome (HCC) 11/02/2014 Resolved Problems Problem Noted Date Resolved Date Tachycardia 01/08/2018 01/09/2018 Encounters Date Type Specialty Care Team Description 01/08/2018 - Hospital Encounter Cardiac Intensive Terry, Atrial flutter, 01/09/2018 Care Niko Ojeda MD unspecified type (HCC) 01/08/2018 Orders Only General Internal Medicine after 04/21/2017 Immunizations Name Dates Previously Given Next Due Pneumococcal Conjugate (Prevnar) 13-Valent 01/09/2018 Family History Medical History Relation Name Comments Cancer Father Hypertension Mother Hypertension Sister Relation Name Status Comments Father Mother Sister Social History Tobacco Use Types Packs/Day Years Used Date Never Smoker Smokeless Tobacco: Never Used Alcohol Use Drinks/Week oz/Week Comments No Sex Assigned at Date Recorded Not on file Last Filed Vital Signs Vital Sign Reading Time Taken Blood Pressure 100/65 01/09/2018 11:09 AM CDT Pulse 69 01/09/2018 11:09 AM CDT Temperature 36.6 C (97.8 F) 01/09/2018 9:00 AM CDT Respiratory Rate 30 01/09/2018 11:09 AM CDT Oxygen Saturation 81% 01/09/2018 11:09 AM CDT Inhaled Oxygen Concentration - - Weight 59.8 kg (131 lb 13.4 oz) 01/08/2018 6:16 AM CDT Height 154.9 cm (5' 1") 01/08/2018 6:16 AM CDT Body Mass Index 24.91 01/08/2018 6:16 AM CDT Plan of Treatment Not on file Results Magnesium (01/09/2018 6:33 AM)Only the most recent of2 resultswithin the time period is included. Component Value Ref Range Magnesium 2.1Comment: Specimen slightly hemolyzed 1.6 - 2.6 mg/dL Specimen Performing Laboratory Blood - Arm, Right [address] [address] Basic metabolic panel (01/09/2018 6:33 AM) Component Value Ref Range Sodium 133 (L) 136 - 145 meq/L Potassium 4.5Comment: Specimen slightly hemolyzed 3.5 - 5.1 meq/L Chloride 103 98 - 107 meq/L CO2 23 22 - 29 meq/L BUN 32 (H) 7 - 21 mg/dL Creatinine 0.84Comment: Specimen slightly hemolyzed 0.57 - 1.25 mg/dL Glucose 105 70 - 105 mg/dL Calcium 9.1 8.4 - 10.2 mg/dL EGFR 74Comment: ESTIMATED GFR IS NOT ACCURATE mL/min/1.73 sq m CREATININE CLEARANCE IN PREDICTING GLOMERULAR FILTRATION RATE. ESTIMATED GFR IS NOT APPLICABLE FOR DIALYSIS PATIENTS. Specimen Performing Laboratory Blood - Arm, [address] [address] CBC (Hemogram only) (01/09/2018 5:23 AM) Component Value Ref Range WBC 6.0 3.5 - 10.5 K/L RBC 6.40 (H) 3.93 - 5.22 M/L Hemoglobin 21.3 (H) 11.2 - 15.7 GM/DL Hematocrit 64.3 (H) 34.1 - 44.9 % MCV 100.5 (H) 79.4 - 94.8 fL MCH 33.3 (H) 25.6 - 32.2 pg MCHC 33.1 32.2 - 35.5 GM/DL RDW 17.5 (H) 11.7 - 14.4 % Platelets 184 150 - 450 K/CU MM MPV 10.2 9.4 - 12.3 fL nRBC 0 0 - 0 /100 WBC Specimen Performing Laboratory Blood - Arm, [address] [address] ECG 12 lead (01/08/2018 11:15 AM)Only the most recent of2 resultswithin the time period is included. Specimen Performing Laboratory GE MUSE Narrative Ventricular Rate 66 BPM Atrial Rate 66 BPM P-R Interval 258 ms QRS Duration 116 ms Q-T Interval 408 ms QTC Calculation(Bazett) 427 ms P [place] -36 degrees R [place] 229 degrees T [place] -5 degrees Unusual P axis, possible ectopic atrial rhythm with Fusion complexes Right bundle branch block Abnormal ECG When compared with ECG of 08-JAN-2018 06:39, PREVIOUS EKG HAD REVERSED LEADS Right bundle branch block has replaced RSR' pattern in V1 Criteria for Lateral infarct are no longer Present Criteria for Inferior-posterior infarct are no longer Present Confirmed by MD Enciso Roberto ([id number]) on 01/08/2018 11:07:21 PM Procedure Note Interface, External Ris In - 01/08/2018 11:07 PM CDT Ventricular Rate 66 BPM Atrial Rate 66 BPM P-R Interval 258 ms QRS Duration 116 ms Q-T Interval 408 ms QTC Calculation(Bazett) 427 ms P [place] -36 degrees R [place] 229 degrees T [place] -5 degrees Unusual P axis, possible ectopic atrial rhythm with Fusion complexes Right bundle branch block Abnormal ECG When compared with ECG of 08-JAN-2018 06:39, PREVIOUS EKG HAD REVERSED LEADS Right bundle branch block has replaced RSR' pattern in V1 Criteria for Lateral infarct are no longer Present Criteria for Inferior-posterior infarct are no longer Present Confirmed by MD Enciso Roberto ([id number]) on 01/08/2018 11:07:21 PM Phosphorus (01/08/2018 7:44 AM) Component Value Ref Range Phosphorus 4.1Comment: Specimen slightly hemolyzed 2.3 - 4.7 mg/dL Specimen Performing Laboratory Blood - Arm, [address] [address] Comprehensive metabolic panel (01/08/2018 7:44 AM) Component Value Ref Range Protein, Total 7.5Comment: Specimen slightly hemolyzed 6.0 - 8.3 gm/dL Albumin 3.5Comment: Specimen slightly hemolyzed 3.5 - 5.0 g/dL Alkaline Phosphatase 223 (H) 40 - 150 U/L Total Bilirubin 1.4 (H)Comment: Specimen slightly hemolyzed 0.2 - 1.2 mg/dL Sodium 135 (L) 136 - 145 meq/L Potassium 5.2 (H)Comment: Specimen slightly hemolyzed 3.5 - 5.1 meq/L Chloride 102 98 - 107 meq/L CO2 21 (L) 22 - 29 meq/L BUN 31 (H) 7 - 21 mg/dL Creatinine 1.06Comment: Specimen slightly hemolyzed 0.57 - 1.25 mg/dL Glucose 113 (H) 70 - 105 mg/dL Calcium 9.5 8.4 - 10.2 mg/dL AST 40 (H)Comment: Specimen slightly hemolyzed 5 - 34 U/L ALT 66 (H)Comment: Specimen slightly hemolyzed 6 - 55 U/L EGFR 56Comment: ESTIMATED GFR IS NOT ACCURATE mL/min/1.73 sq m CREATININE CLEARANCE IN PREDICTING GLOMERULAR FILTRATION RATE. ESTIMATED GFR IS NOT APPLICABLE FOR DIALYSIS PATIENTS. Specimen Performing Laboratory Blood - Arm, Left [address] [address] CBC with platelet count + automated diff (01/08/2018 6:54 AM) Component Value Ref Range WBC 6.9 3.5 - 10.5 K/L RBC 7.06 (H) 3.93 - 5.22 M/L Hemoglobin 22.8 (H) 11.2 - 15.7 GM/DL Hematocrit 69.9 (H) 34.1 - 44.9 % MCV 99.0 (H) 79.4 - 94.8 fL MCH 32.3 (H) 25.6 - 32.2 pg MCHC 32.6 32.2 - 35.5 GM/DL RDW 17.7 (H) 11.7 - 14.4 % Platelets 217 150 - 450 K/CU MM MPV 10.1 9.4 - 12.3 fL nRBC 0 0 - 0 /100 WBC % Neutros 77 % % Lymphs 11 % % Monos 10 % % Eos 1 % % Baso 2 % # Neutros 5.28 1.56 - 6.13 K/L # Lymphs 0.72 (L) 1.18 - 3.74 K/L # Monos 0.66 (H) 0.24 - 0.36 K/L # Eos 0.04 0.04 - 0.36 K/L # Baso 0.12 (H) 0.01 - 0.08 K/L Immature Granulocytes-Relative 1 0 - 1 % Specimen Performing Laboratory Blood - Arm, Right [address] [address] CBC with platelet count + automated diff (01/08/2018 6:54 AM) Specimen Performing Laboratory Blood Narrative The following orders were created for panel order CBC with platelet count + automated diff. Procedure Abnormality Status --------- ------ CBC with platelet count ...[[id number]]AbnormalFinal result Please view results for these tests on the individual orders. after 04/21/2017
--- OUTSIDE RECORDS SUMMARY | 2018-04-22 23:50 | XMS REPORT ---
:1975 [facility] [address] [place] [address] Care Team Providers Name Role Phone RADHAJIMIADDY BLAKE Unavailable Unavailable Problems This patient has no known problems. Allergies, Adverse Reactions, Alerts This patient has no known allergies or adverse reactions. Medications This patient has no known medications. Results Test Description Test Time Test Comments Text Results Atomic Results Result Comments MAGNESIUM 2018-01-09 07:13:00 Test Item Value Reference Range Comments MAGNESIUM (BEAKER) (test simw=489) 2.1 mg/dL 1.6-2.6 Specimen slightly hemolyzed BASIC METABOLIC [id number] 07:13:00 Test Item Value Reference Range Comments SODIUM (BEAKER) (test 133 meq/L 136-145 gcqz=786) POTASSIUM (BEAKER) (test 4.5 meq/L 3.5-5.1 Specimen slightly roxx=772) hemolyzed CHLORIDE (BEAKER) (test 103 meq/L 98-107 mlvd=077) CO2 (BEAKER) (test 23 meq/L 22-29 caxp=090) BLOOD UREA NITROGEN 32 mg/dL 7-21 (BEAKER) (test lhpw=620) CREATININE (BEAKER) (test 0.84 mg/dL 0.57-1.25 Specimen slightly feph=418) hemolyzed GLUCOSE RANDOM (BEAKER) 105 mg/dL 70-105 (test wfwe=909) CALCIUM (BEAKER) (test 9.1 mg/dL 8.4-10.2 jmwa=422) EGFR (BEAKER) (test 74 mL/min/1.73 sq m ESTIMATED GFR IS NOT mlnc=4492) ACCURATE CREATININE CLEARANCE IN PREDICTING GLOMERULAR FILTRATION RATE. ESTIMATED GFR IS NOT APPLICABLE FOR DIALYSIS PATIENTS. CBC (HEMOGRAM ONLY)2018-01-09 06:04:00 Test Item Value Reference Range Comments WHITE BLOOD CELL COUNT (BEAKER) (test umwd=486) 6.0 K/ L 3.5-10.5 RED BLOOD CELL COUNT (BEAKER) (test fvxa=323) 6.40 M/ L 3.93-5.22 HEMOGLOBIN (BEAKER) (test rixk=464) 21.3 GM/DL 11.2-15.7 HEMATOCRIT (BEAKER) (test dgrv=713) 64.3 % 34.1-44.9 MEAN CORPUSCULAR VOLUME (BEAKER) (test lmba=677) 100.5 fL 79.4-94.8 MEAN CORPUSCULAR HEMOGLOBIN (BEAKER) (test 33.3 pg 25.6-32.2 hoim=895) MEAN CORPUSCULAR HEMOGLOBIN CONC (BEAKER) (test 33.1 GM/DL 32.2-35.5 xmpi=852) RED CELL DISTRIBUTION WIDTH (BEAKER) (test 17.5 % 11.7-14.4 cbuf=006) PLATELET COUNT (BEAKER) (test skhf=079) 184 K/CU MM 150-450 MEAN PLATELET VOLUME (BEAKER) (test xzvo=710) 10.2 fL 9.4-12.3 NUCLEATED RED BLOOD CELLS (BEAKER) (test 0 /100 WBC 0-0 lkkk=540) [id number] 08:59:00 Test Item Value Reference Range Comments MAGNESIUM (BEAKER) (test 2.1 mg/dL 1.6-2.6 Specimen slightly hemolyzed jgad=024) [id number] 08:59:00 Test Item Value Reference Range Comments PHOSPHORUS (BEAKER) (test 4.1 mg/dL 2.3-4.7 Specimen slightly hemolyzed mxzm=482) COMPREHENSIVE METABOLIC [id number] 08:59:00 Test Item Value Reference Range Comments TOTAL PROTEIN (BEAKER) 7.5 gm/dL 6.0-8.3 Specimen slightly (test bzua=502) hemolyzed ALBUMIN (BEAKER) (test 3.5 g/dL 3.5-5.0 Specimen slightly tavr=5245) hemolyzed ALKALINE PHOSPHATASE 223 U/L 40-150 (BEAKER) (test tdsl=314) BILIRUBIN TOTAL (BEAKER) 1.4 mg/dL 0.2-1.2 Specimen slightly (test fqco=354) hemolyzed SODIUM (BEAKER) (test 135 meq/L 136-145 mrsw=183) POTASSIUM (BEAKER) (test 5.2 meq/L 3.5-5.1 Specimen slightly mood=980) hemolyzed CHLORIDE (BEAKER) (test 102 meq/L 98-107 irlk=531) CO2 (BEAKER) (test 21 meq/L 22-29 jdcg=879) BLOOD UREA NITROGEN 31 mg/dL 7-21 (BEAKER) (test wnmi=021) CREATININE (BEAKER) (test 1.06 mg/dL 0.57-1.25 Specimen slightly grlz=151) hemolyzed GLUCOSE RANDOM (BEAKER) 113 mg/dL 70-105 (test xcoc=029) CALCIUM (BEAKER) (test 9.5 mg/dL 8.4-10.2 ddaz=676) AST (SGOT) (BEAKER) (test 40 U/L 5-34 Specimen slightly sujz=803) hemolyzed ALT (SGPT) (BEAKER) (test 66 U/L 6-55 Specimen slightly smlg=282) hemolyzed EGFR (BEAKER) (test 56 mL/min/1.73 sq m ESTIMATED GFR IS NOT idpk=3456) ACCURATE CREATININE CLEARANCE IN PREDICTING GLOMERULAR FILTRATION RATE. ESTIMATED GFR IS NOT APPLICABLE FOR DIALYSIS PATIENTS. CBC W/PLT COUNT & AUTO [id number] 07:20:00 Test Item Value Reference Range Comments WHITE BLOOD CELL COUNT (BEAKER) (test yttb=906) 6.9 K/ L 3.5-10.5 RED BLOOD CELL COUNT (BEAKER) (test cduf=533) 7.06 M/ L 3.93-5.22 HEMOGLOBIN (BEAKER) (test xidc=347) 22.8 GM/DL 11.2-15.7 HEMATOCRIT (BEAKER) (test tswo=568) 69.9 % 34.1-44.9 MEAN CORPUSCULAR VOLUME (BEAKER) (test rggi=052) 99.0 fL 79.4-94.8 MEAN CORPUSCULAR HEMOGLOBIN (BEAKER) (test 32.3 pg 25.6-32.2 nhzv=964) MEAN CORPUSCULAR HEMOGLOBIN CONC (BEAKER) (test 32.6 GM/DL 32.2-35.5 pcnf=393) RED CELL DISTRIBUTION WIDTH (BEAKER) (test 17.7 % 11.7-14.4 exwq=921) PLATELET COUNT (BEAKER) (test ugwc=010) 217 K/CU MM 150-450 MEAN PLATELET VOLUME (BEAKER) (test nmid=338) 10.1 fL 9.4-12.3 NUCLEATED RED BLOOD CELLS (BEAKER) (test 0 /100 WBC 0-0 pabx=616) NEUTROPHILS RELATIVE PERCENT (BEAKER) (test 77 % xskk=130) LYMPHOCYTES RELATIVE PERCENT (BEAKER) (test 11 % ades=019) MONOCYTES RELATIVE PERCENT (BEAKER) (test 10 % kxcy=534) EOSINOPHILS RELATIVE PERCENT (BEAKER) (test 1 % sriw=382) BASOPHILS RELATIVE PERCENT (BEAKER) (test 2 % caii=160) NEUTROPHILS ABSOLUTE COUNT (BEAKER) (test 5.28 K/ L 1.56-6.13 eteg=855) LYMPHOCYTES ABSOLUTE COUNT (BEAKER) (test 0.72 K/ L 1.18-3.74 iwez=063) MONOCYTES ABSOLUTE COUNT (BEAKER) (test 0.66 K/ L 0.24-0.36 pmic=252) EOSINOPHILS ABSOLUTE COUNT (BEAKER) (test 0.04 K/ L 0.04-0.36 kpjj=310) BASOPHILS ABSOLUTE COUNT (BEAKER) (test 0.12 K/ L 0.01-0.08 joxf=520) IMMATURE GRANULOCYTES-RELATIVE PERCENT (BEAKER) 1 % 0-1 (test izlz=1804)
[2018-04-23] MEDS ORDERED: ONDANSETRON 4 MG/2 ML VIAL ONE (00:28)
[2018-04-23] MEDS ORDERED: FENTANYL CITR 100 MCG/2 ML ONE (00:28)
[2018-04-23 00:56] LABS: Absolute Lymphocytes (CBC) 2.3 K/uL (0.7-4.9); Absolute Monocytes 0.7 K/uL (0.1-1.3); Absolute Neutrophil 4.2 K/uL (1.8-8.0); Basophils % 1.1 % (0-1.3); Eosinophils % 3.8 % (0-4.4); Lymphocytes % 29.7 % (15.3-44.8); MCH 33.3 pg (27.0-35.0); MCV 99.1 fL (80-100); MPV 8.8 fL (7.6-11.3); Monocytes % 9.6 % (3.3-12.3)
[2018-04-23 01:00] LABS: Protime INR 1.24
[2018-04-23 01:02] LABS: Hematocrit 69.4 % (36.0-45.0)
[2018-04-23 01:24] LABS: ALT/SGPT 43 U/L (12-78); AST/SGOT 39 U/L (15-37); Albumin 2.9 g/dL (3.4-5.0); Alkaline Phosphatase 194 U/L (45-117); BUN Blood Urea Nitrogen 31 mg/dL (7-18); Bicarbonate 22 mmol/L (21-32); Bilirubin Direct 0.2 mg/dL (0-0.2); CKMB Creatine Kinase MB 1.5 ng/mL (0.3-3.6); Creatine Phosphokinase 73 U/L (26-192); Glucose Level 102 mg/dL (74-106); Magnesium 1.8 mg/dL (1.8-2.4); NT PRO-BNP 2254 pg/mL (<125); Potassium 4.5 mmol/L (3.5-5.1); Protein, Total 7.4 g/dL (6.4-8.2); Sodium Level 133 mmol/L (136-145); Troponin (Emerg Dept Use Only) < 0.02 ng/mL (0.0-0.045)
[2018-04-23] MEDS ORDERED: NA CHLORIDE 0.9% 250 ML ONE (01:24)
[2018-04-23 01:43] LABS: Blood Morphology Comment NOT SEEN (NOT SEEN); Platelet Estimate ADEQ; Urine White Blood Cell Casts OK
--- NOTE | 2018-04-23 02:57 | EDPHYS ---
Physician Documentation [facility] Name: Tanya Solo Age: 42 yrs Sex: Female : 1975 Arrival Date: 04/22/2018 Time: 23:48 Bed 4 Private MD: ED Physician Amol Salas HPI: 04/23 00:08 This 42 yrs old Female presents to ER via Ambulatory with complaints of Chest cp Pain, Irregular Pulse. 00:08 The patient or guardian reports chest pain that is located primarily in the anterior cp chest wall. Onset: today, at 17:00. The pain radiates to Duration: The patient or guardian reports a single episode, that is still ongoing. 00:09 The chest pain is described as a pressure. Severity of pain: in the emergency cp department the pain is a 8 / 10. SHACTOR: 04:51 LMP N/A - ablasion to uterus. ak1 Historical: - Allergies: 00:00 Iodine; la1 - PMHx: 00:00 Dextrocardia; Hypertension; la1 - PSHx: 01:58 oblasion of uterus; jd3 - Immunization history:: Adult Immunizations up to date. - Social history:: Smoking status: unknown. - Ebola Screening: : No symptoms or risks identified at this time. ROS: 00:22 Eyes: Negative for injury, pain, redness, and discharge. cp 00:22 Constitutional: Negative for body aches, chills, fever, poor PO intake. 00:22 ENT: Negative for drainage from ear(s), ear pain, sore throat, difficulty swallowing, difficulty handling secretions. 00:22 Cardiovascular: Positive for chest pain, palpitations, Negative for edema. 00:22 Respiratory: Negative for cough, shortness of breath, wheezing. 00:22 Abdomen/GI: Negative for abdominal pain, nausea, vomiting, and diarrhea. 00:22 Back: Positive for radiated pain. 00:22 : Negative for urinary symptoms. 00:22 Skin: Negative for cellulitis, rash. 00:22 Neuro: Negative for altered mental status, dizziness, headache, syncope, near syncope, weakness. 00:22 All other systems are negative. Exam: 00:05 ECG was reviewed by the Attending Physician. cp 00:20 ECG was reviewed by the Attending Physician. cp 00:22 Head/Face: Normocephalic, atraumatic. cp 00:22 Constitutional: The patient appears in no acute distress, alert, awake, non-diaphoretic, non-toxic, well developed, well nourished, uncomfortable. 00:22 Eyes: Periorbital structures: appear normal, Pupils: equal, round, and reactive to light and accomodation, Extraocular movements: intact throughout, Conjunctiva: normal, no exudate, no injection, Sclera: no appreciated abnormality, Lids and lashes: appear normal, bilaterally. 00:22 ENT: External ear(s): are unremarkable, Nose: is normal, Mouth: Lips: moist, Oral mucosa: pink and intact, moist, Posterior pharynx: is normal, airway is patent, no erythema, no exudate. 00:22 Neck: ROM/movement: is normal, is supple, without pain, no range of motions limitations, no nuchal rigidity. 00:22 Chest/axilla: Inspection: normal, Palpation: crepitus, is not appreciated, tenderness, is not appreciated. 00:22 Cardiovascular: Rate: tachycardic, Rhythm: regular, Pulses: Pulses are 2+ in right radial artery and left radial artery. Edema: is not appreciated, JVD: is not appreciated. 00:22 Respiratory: the patient does not display signs of respiratory distress, Respirations: normal, no use of accessory muscles, no retractions, no splinting, no tachypnea, labored breathing, is not present, Breath sounds: are clear throughout, no decreased breath sounds, no stridor, no wheezing. 00:22 Abdomen/GI: Inspection: abdomen appears normal, Bowel sounds: active, all quadrants, Palpation: abdomen is soft and non-tender, in all quadrants. 00:22 Back: pain, that is moderate, ROM is normal. 00:22 Skin: appears cyanotic, nail clubbing noted. 00:22 Neuro: Orientation: to person, place \T\ time. Mentation: lucid, able to follow commands, Cerebellar function: is grossly normal, Motor: moves all fours, strength is normal, Sensation: no obvious gross deficits. Vital Signs: 00:01 BP 94 / 66; Pulse 104; Resp 16; Temp 98.6(O); Pulse Ox 78% on R/A; Weight 60.33 kg; la1 Height 5 ft. 1 in. (154.94 cm); 00:33 BP 84 / 62; Pulse 107; Resp 15 S; Pulse Ox 82% on 2 lpm NC; jd3 00:45 Pain 4/10; jd3 00:56 BP 87 / 61; Pulse 104; Resp 19 S; Pulse Ox 81% on 2 lpm NC; jd3 01:15 BP 83 / 60; Pulse 105; Resp 14 S; Pulse Ox 80% on 2 lpm NC; jd3 01:30 BP 84 / 59; Pulse 103; Resp 16 S; Pulse Ox 80% on 2 lpm NC; jd3 01:45 BP 89 / 58; Pulse 100; Resp 18 S; Pulse Ox 80% on 2 lpm NC; Pain 3/10; jd3 02:00 BP 85 / 61; Pulse 99; Resp 14 S; Pulse Ox 80% on R/A; jd3 02:30 BP 89 / 67; Pulse 107; Resp 18 S; Pulse Ox 79% on 2 lpm NC; jd3 03:00 BP 91 / 66; Pulse 106; Resp 16 S; Pulse Ox 81% on 2 lpm NC; jd3 03:30 BP 89 / 60; Pulse 108; Resp 19 S; Pulse Ox 80% on 2 lpm NC; jd3 04:32 BP 83 / 56; Pulse 108; Resp 20; Pulse Ox 76% on 2 lpm NC; ak1 00:01 Body Mass Index 25.13 (60.33 kg, 154.94 cm) la1 00:33 provider notified of vitals. jd3 MDM: 04/22 23:53 Patient medically screened. cp 04/23 01:00 Differential diagnosis: abnormal EKG, acute myocardial infarction, chest wall pain, cp pleurisy, pneumonia, pneumothorax, pulmonary embolus, stable angina, thoracic aortic disection, unstable angina. The patient was not given aspirin in the Emergency Department. Not indicated due to patient's past medical history. 02:45 Data reviewed: vital signs, nurses notes, lab test result(s), EKG, radiologic studies, cp plain films, I have discussed the patient's presentation/case with the attending Emergency Department Physician; and as a result, I will admit patient. 02:47 Physician consultation: Miriam Ruffin MD was called at 02:47, was contacted at 02:47, regarding admission, to the telemetry unit. patient's condition. 09/08 00:07 Order name: Basic Metabolic Panel 04/23 01:28 Interpretation: Normal except: NA 133; BUN 31; GFR 60. 04/23 00:07 Order name: CBC with Diff; Complete Time: 01:58 cp 04/23 01:03 Interpretation: Normal except: RBC 7.00; HGB 23.3; HCT 69.4; RDW 15.6. 04/23 00:07 Order name: Ckmb 04/23 00:07 Order name: CPK 04/23 00:07 Order name: LFT's 04/23 01:59 Interpretation: Normal except: AST 39; ALK 194; ALB 2.9; GLOB 4.5; A/G 0.6. 04/23 00:07 Order name: Magnesium 04/23 00:07 Order name: NT PRO-BNP 04/23 01:28 Interpretation: Abnormal: NT PRO-BNP 2254. 04/23 00:07 Order name: PT-INR; Complete Time: 01:10 04/23 01:10 Interpretation: Reviewed. 04/23 00:07 Order name: Ptt, Activated; Complete Time: 01:10 04/23 01:59 Interpretation: PTT 47.5; Reviewed. 04/23 00:07 Order name: Troponin (emerg Dept Use Only) 04/23 01:59 Interpretation: TROPED < 0.02; Reviewed. 04/23 00:07 Order name: TSH 04/23 00:07 Order name: T3 Free 04/23 01:03 Order name: CBC Smear Scan; Complete Time: 01:58 EDMS 04/23 01:31 Order name: Digoxin 04/23 00:07 Order name: XRAY Chest (1 view) 04/23 00:07 Order name: EKG; Complete Time: 00:09 cp 04/23 01:15 Order name: CT Chest Wo Con cp 04/23 01:31 Order name: LAB Add On 04/23 01:57 Order name: Digoxin Level EDMS 04/23 03:01 Order name: T4 Free EDMS 04/23 03:16 Order name: Urine Dipstick--Ancillary (enter results) mw2 04/23 03:45 Order name: Urine Dipstick-Ancillary EDMS 09/08 00:07 Order name: Cardiac monitoring; Complete Time: 00:17 cp 09/08 00:07 Order name: EKG - Nurse/Tech; Complete Time: 00:17 cp 09/08 00:07 Order name: IV Saline Lock; Complete Time: 00:17 cp 09/08 00:07 Order name: Labs collected and sent; Complete Time: 00:17 cp 09/08 00:07 Order name: O2 Per Protocol; Complete Time: 00:17 cp 09/08 00:07 Order name: O2 Sat Monitoring; Complete Time: 00:17 cp 09/08 00:07 Order name: Urine Dipstick-Ancillary (obtain specimen); Complete Time: 03:39 cp EC:05 Rate is 113 beats/min. Rhythm is regular. RI interval is prolonged at 206 msec. QRS cp interval is prolonged at 118 msec. QT interval is normal. Clinical impression: Abnormal EKG without significant change. Interpreted by me. Reviewed by me. 00:20 Rate is 105 beats/min. Rhythm is regular. RI interval is normal. QRS interval is cp prolonged at 108 msec. QT interval is normal. Interpreted by me. Reviewed by me. Administered Medications: 00:17 CANCELLED (Physician Discretion): NS 0.9% 1000 ml IV at 75 ml/hr continuous cp 00:17 CANCELLED (Physician Discretion): NS 0.9% 250 ml IV at bolus once cp 00:27 Drug: fentaNYL (PF) 25 mcg Route: IVP; Site: left antecubital; jd3 00:45 Follow up: Pain 4/10 Adult; Response: No adverse reaction; Pain is decreased jd3 00:27 Drug: Zofran 4 mg Route: IVP; Site: left antecubital; jd3 00:42 Follow up: Response: No adverse reaction jd3 01:14 Drug: fentaNYL (PF) 25 mcg Route: IVP; Site: left antecubital; jd3 01:28 Follow up: Response: No adverse reaction jd3 01:28 Follow up: Response: Pain is decreased jd3 01:22 Drug: NS 0.9% 250 ml Route: IV; Rate: bolus; Site: left antecubital; jd3 01:44 Follow up: Response: No adverse reaction; IV Status: Completed infusion; IV Intake: jd3 250ml 03:35 Drug: fentaNYL (PF) 25 mcg Route: IVP; Site: left antecubital; jd3 04:52 Follow up: Response: No adverse reaction; Pain is decreased ak1 Disposition: 04/23/18 02:56 Hospitalization ordered by Miriam Ruffin for Observation. Preliminary diagnosis is Chest pain, unspecified. - Bed requested for Telemetry/MedSurg (observation). - Status is Observation. ak1 - Condition is Stable. - Problem is new. - Symptoms have improved. UTI on Admission? No Addendum: 04/24/2018 08:19 Co-signature as Attending Physician, Amol Salas MD I agree with the assessment and w a plan of care. Signatures: Dispatcher [employer] EDKY Lia Stark RN NIKKI kl Hermes Villarreal RN RN Carol Jose RN RN ak1 Chriss Ramirez PA PA cp Appiah, William, MD MD wa Davies, Jonathon, RN RN jd3 Corrections: (The following items were deleted from the chart) 04/23 00:17 00:10 NS 0.9% 1000 ml IV at 75 ml/hr continuous ordered. cp cp 00:17 00:10 NS 0.9% 250 ml IV at bolus once ordered. cp cp 01:56 01:31 Digoxin Level ordered. EDKY EDKY 04:13 02:56 Hospitalization Ordered by Miriam Ruffin MD for Observation. Preliminary kl diagnosis is Chest pain, unspecified. Bed requested for Telemetry/MedSurg (observation). Status is Observation. Condition is Stable. Problem is new. Symptoms have improved. UTI on Admission? No. cp 04:54 04:13 04/23/2018 02:56 Hospitalization Ordered by Miriam Ruffin MD for Observation. ak1 Preliminary diagnosis is Chest pain, unspecified. Bed requested for Telemetry/MedSurg (observation). Status is Observation. Condition is Stable. Problem is new. Symptoms have improved. UTI on Admission? No. kl
--- NOTE | 2018-04-23 02:57 | ER ---
Nurse's Notes [facility] Name: Tanya Solo Age: 42 yrs Sex: Female : 1975 Arrival Date: 04/22/2018 Time: 23:48 Bed 4 Private MD: Diagnosis: Chest pain, unspecified Presentation: 04/23 00:00 Presenting complaint: Patient states: 8/10 pressure like CP, extensive cardiac history. la1 Transition of care: patient was not received from another setting of care. Onset of symptoms was April 23, 2018. Risk Assessment: Do you want to hurt yourself or someone else? Patient reports no desire to harm self or others. Initial Sepsis Screen: Does the patient meet any 2 criteria? No. Patient's initial sepsis screen is negative. Does the patient have a suspected source of infection? No. Patient's initial sepsis screen is negative. Care prior to arrival: None. 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 ak1 Historical: - Allergies: 00:00 Iodine; la1 - PMHx: 00:00 Dextrocardia; Hypertension; la1 - PSHx: 01:58 oblasion of uterus; jd3 - Immunization history:: Adult Immunizations up to date. - Social history:: Smoking status: unknown. - Ebola Screening: : No symptoms or risks identified at this time. Screenin:16 Abuse screen: Denies threats or abuse. Nutritional screening: No deficits noted. la1 Tuberculosis screening: No symptoms or risk factors identified. Fall Risk None identified. Assessment: 00:15 Reassessment: pt states normal 02 sats for her are high 70s low 80s. General: Appears la1 uncomfortable, Behavior is cooperative. Pain: Complains of pain in mid-sternal area Pain radiates to back Pain currently is 8 out of 10 on a pain scale. Quality of pain is described as pressure, Pain began 4 hours ago. Neuro: Level of Consciousness is awake, alert, obeys commands, Oriented to person, place, time, situation. Cardiovascular: Heart tones S1 S2 present Murmur present Clubbing of nail beds is present Patient's skin is warm and dry. Rhythm is sinus tachycardia. Respiratory: Airway is patent Respiratory effort is even, unlabored, Respiratory pattern is regular, symmetrical, Breath sounds are clear bilaterally. GI: No signs and/or symptoms were reported involving the gastrointestinal system. : No signs and/or symptoms were reported regarding the genitourinary system. 00:19 Reassessment: No changes from previously documented assessment. Patient and/or family jd3 updated on plan of care and expected duration. Pain level reassessed. Patient is alert, oriented x 3, equal unlabored respirations, skin warm/dry/pink. 00:58 Reassessment: Patient and/or family updated on plan of care and expected duration. Pain jd3 level reassessed. Patient is alert, oriented x 3, equal unlabored respirations, skin warm/dry/pink. 01:15 Reassessment: No changes from previously documented assessment. Patient and/or family jd3 updated on plan of care and expected duration. Pain level reassessed. Patient is alert, oriented x 3, equal unlabored respirations, skin warm/dry/pink. report pain returning, provider notified. 01:30 Reassessment: No changes from previously documented assessment. Patient and/or family jd3 updated on plan of care and expected duration. Pain level reassessed. Patient is alert, oriented x 3, equal unlabored respirations, skin warm/dry/pink. 01:45 Reassessment: No changes from previously documented assessment. Patient and/or family jd3 updated on plan of care and expected duration. Pain level reassessed. Patient is alert, oriented x 3, equal unlabored respirations, skin warm/dry/pink. 02:00 Reassessment: No changes from previously documented assessment. Patient and/or family jd3 updated on plan of care and expected duration. Pain level reassessed. Patient is alert, oriented x 3, equal unlabored respirations, skin warm/dry/pink. 02:30 Reassessment: No changes from previously documented assessment. Patient and/or family jd3 updated on plan of care and expected duration. Pain level reassessed. Patient is alert, oriented x 3, equal unlabored respirations, skin warm/dry/pink. 03:00 Reassessment: No changes from previously documented assessment. Patient and/or family jd3 updated on plan of care and expected duration. Pain level reassessed. Patient is alert, oriented x 3, equal unlabored respirations, skin warm/dry/pink. 03:30 Reassessment: No changes from previously documented assessment. Patient and/or family jd3 updated on plan of care and expected duration. Pain level reassessed. Patient is alert, oriented x 3, equal unlabored respirations, skin warm/dry/pink. 04:42 Reassessment: No changes from previously documented assessment. Patient and/or family ak1 updated on plan of care and expected duration. Pain level reassessed. Patient is alert, oriented x 3, equal unlabored respirations, skin warm/dry/pink. Vital Signs: 00:01 BP 94 / 66; Pulse 104; Resp 16; Temp 98.6(O); Pulse Ox 78% on R/A; Weight 60.33 kg; la1 Height 5 ft. 1 in. (154.94 cm); 00:33 BP 84 / 62; Pulse 107; Resp 15 S; Pulse Ox 82% on 2 lpm NC; jd3 00:45 Pain 4/10; jd3 00:56 BP 87 / 61; Pulse 104; Resp 19 S; Pulse Ox 81% on 2 lpm NC; jd3 01:15 BP 83 / 60; Pulse 105; Resp 14 S; Pulse Ox 80% on 2 lpm NC; jd3 01:30 BP 84 / 59; Pulse 103; Resp 16 S; Pulse Ox 80% on 2 lpm NC; jd3 01:45 BP 89 / 58; Pulse 100; Resp 18 S; Pulse Ox 80% on 2 lpm NC; Pain 3/10; jd3 02:00 BP 85 / 61; Pulse 99; Resp 14 S; Pulse Ox 80% on R/A; jd3 02:30 BP 89 / 67; Pulse 107; Resp 18 S; Pulse Ox 79% on 2 lpm NC; jd3 03:00 BP 91 / 66; Pulse 106; Resp 16 S; Pulse Ox 81% on 2 lpm NC; jd3 03:30 BP 89 / 60; Pulse 108; Resp 19 S; Pulse Ox 80% on 2 lpm NC; jd3 04:32 BP 83 / 56; Pulse 108; Resp 20; Pulse Ox 76% on 2 lpm NC; ak1 00:01 Body Mass Index 25.13 (60.33 kg, 154.94 cm) la1 00:33 provider notified of vitals. jd3 ED Course: 04/22 23:48 Patient arrived in ED. al2 23:50 Page, Chriss, PA is PHCP. cp 23:51 Amol Salas MD is Attending Physician. cp 23:59 Hermes Villarreal RN is Primary Nurse. la1 09/08 00:00 Triage completed. la1 00:01 Arm band placed on right wrist. EKG completed in triage. Results shown to MD. la1 00:06 Inserted saline lock: 20 gauge in left antecubital area, using aseptic technique. Blood mg2 collected. 00:16 Placed in gown. Bed in low position. Call light in reach. manager monitoring on. Pulse ox la1 on. NIBP on. 00:19 Primary Nurse role handed off by Hermes Villarreal, RN jd3 00:19 Rell Hook RN is Primary Nurse. jd3 00:20 Oxygen administration via nasal cannula \T\ 2L/min. jd3 00:54 X-ray completed. Portable x-ray completed in exam room. Patient tolerated procedure kp1 well. 01:02 XRAY Chest (1 view) In Process Unspecified. EDMS 01:02 Notified Nurse Practitioner and/or Physician Data Collection Specialist of a critical lab result(s), fc hematocrit of 69.4. 01:29 Radiology exam delayed due to test not completed at this time. vr 01:49 Radiology exam delayed due to test not completed at this time. vr 02:[address] via stretcher. kw1 02:11 CT completed. Patient tolerated procedure well. Patient moved back from CT. kw1 02:14 CT Chest Wo Con In Process Unspecified. EDMS 02:56 Miriam Ruffin MD is Hospitalizing Provider. cp 04:49 No provider procedures requiring assistance completed. Patient admitted, IV remains in ak1 place. Administered Medications: 00:17 CANCELLED (Physician Discretion): NS 0.9% 1000 ml IV at 75 ml/hr continuous cp 00:17 CANCELLED (Physician Discretion): NS 0.9% 250 ml IV at bolus once cp 00:27 Drug: fentaNYL (PF) 25 mcg Route: IVP; Site: left antecubital; jd3 00:45 Follow up: Pain 4/10 Adult; Response: No adverse reaction; Pain is decreased jd3 00:27 Drug: Zofran 4 mg Route: IVP; Site: left antecubital; jd3 00:42 Follow up: Response: No adverse reaction jd3 01:14 Drug: fentaNYL (PF) 25 mcg Route: IVP; Site: left antecubital; jd3 01:28 Follow up: Response: No adverse reaction jd3 01:28 Follow up: Response: Pain is decreased jd3 01:22 Drug: NS 0.9% 250 ml Route: IV; Rate: bolus; Site: left antecubital; jd3 01:44 Follow up: Response: No adverse reaction; IV Status: Completed infusion; IV Intake: jd3 250ml 03:35 Drug: fentaNYL (PF) 25 mcg Route: IVP; Site: left antecubital; jd3 04:52 Follow up: Response: No adverse reaction; Pain is decreased ak1 Intake: 01:44 IV: 250ml; Total: 250ml. jd3 Outcome: 02:56 Decision to Hospitalize by Provider. cp 04:49 Admitted to Tele accompanied by junior, via stretcher, room 413, with chart, Report ak1 called to Ney 04:49 Condition: stable 04:49 Instructed on the need for admit, Demonstrated understanding of instructions. 04:54 Patient left the ED. ak1 Signatures: Dispatcher [employer] EDMS Livia Snow RN RN fc Davis, Victoria vr Attema, Lee, RN RN la1 Krenek, Amber, RN RN ak1 Chriss Ramirez PA PA cp Poole, Kathy kp1 Rell Hook RN RN jd3 Lia Alvarez1 Katarzyna Garcia al2 Gen Claros RN RN mg2 Corrections: (The following items were deleted from the chart) 00:58 00:19 Reassessment: No changes from previously documented assessment. Patient and/or jd3 family updated on plan of care and expected duration. Pain level reassessed. jd3 01:15 01:15 BP 83 / 60; Pulse 105bpm; Resp 14bpm; Spontaneous; Pulse Ox 80% 2 lpm Nasal jd3 Cannula; jd3 01:46 00:58 Reassessment: Patient and/or family updated on plan of care and expected jd3 duration. Pain level reassessed. Patient is alert, oriented x 3, equal unlabored respirations, skin warm/dry/pink. Patient states feeling better. jd3
[2018-04-23 02:58] LABS: T3 Free 2.83 pg/mL (2.18-3.98)
--- NOTE | 2018-04-23 03:39 | P.HP ---
Certification for Inpatient Patient admitted to: Observation With expected LOS: <2 Midnights Practitioner: I am a practitioner with admitting privileges, knowledge of patient current condition, hospital course, and medical plan of care. Services: Services provided to patient in accordance with Admission requirements found in Title 42 Section 412.3 of the Code of Federal Regulations Patient History Date of Service: 04/23/18 Reason for admission: chest pain History of Present Illness: Ms Solo is a 42 years old woman with history of congenital heart disease, dextrocardia, polycytemia, chronic hypoxemia, last time admitted to this hospital due to upper extremity DVT, she is still anticoagulated by his enamel shader cristi, who came to ER at this time complaining of chest pain. The pain is located on her left side of the chest, radiated to left neck and back. She describe the pain as dull, constant, worse with head movement and is reproducible with palpation. She denied any nausea, SOB or diaphoresis episode. Initial troponin I is negative, EKG shows sinus tachycardia with RBBB similar to previous one. Allergies iodine Allergy (Severe, Verified 08/24/17 00:48) Anaphylaxis SHELLFISH Allergy (Severe, Uncoded 08/24/17 00:48) Anaphylaxis Home medications list reviewed: Yes Home Medications: Aspirin [Aspirin EC 81 MG] 81 mg PO BID 08/24/17 Carvedilol [Coreg] 3.125 mg PO BID 08/24/17 Digoxin [Lanoxin] 0.125 mg PO DAILY 08/24/17 Furosemide 40 mg PO BID 08/24/17 Penicillin Vk [Veetids (Pen-Vee K)*] 250 mg PO DAILY 08/24/17 Ramipril [Altace*] 5 mg PO Q12H 08/24/17 Rivaroxaban [Xarelto] 20 mg PO DAILY #30 tablet 08/24/17 Spironolactone [Aldactone] 25 mg PO BID 08/24/17 - Past Medical/Surgical History Diabetic: No -: congenital heart disease -: dextrocardia -: polycytemia -: tubal ligation -: appendectomy -: uterine ablation -: cardiac surgery - Family History Family History: Reviewed- Non-Contributory - Social History Smoking Status: Never smoker Alcohol use: No CD- Drugs: No Caffeine use: Yes Place of Residence: Home Review of Systems 10-point ROS is otherwise unremarkable Physical Examination - Physical Exam General: Alert, In no apparent distress HEENT: Atraumatic, PERRLA, Mucous membr. moist/pink, EOMI, Sclerae nonicteric Neck: Supple, 2+ carotid pulse no bruit, No LAD, Without JVD or thyroid abnormality Respiratory: Clear to auscultation bilaterally, Normal air movement Cardiovascular: Regular rate/rhythm, Normal S1 S2 Gastrointestinal: Normal bowel sounds, No tenderness Musculoskeletal: Clubbing, Tenderness (tender to palpation on left chest wall) Integumentary: No rashes, Other Neurological: Normal speech, Normal strength at 5/5 x4 extr, Normal tone, Normal affect Lymphatics: No axilla or inguinal lymphadenopathy - Studies Laboratory Data (last 24 hrs) 04/23/18 00:12: PT 14.7 H, INR 1.24, APTT 47.5 H 04/23/18 00:12: WBC 7.6, Hgb 23.3 H, Hct 69.4 H*, Plt Count 204 04/23/18 00:12: Sodium 133 L, Potassium 4.5, BUN 31 H, Creatinine 1.00, Glucose 102, Magnesium 1.8, Total Bilirubin 1.0, AST 39 H, ALT 43, Alkaline Phosphatase 194 H Assessment and Plan - Problems (Diagnosis) (1) Chest pain Current Visit: Yes Status: Acute Qualifiers: Chest pain type: chest pain on breathing Qualified Code(s): R07.1 - Chest pain on breathing; R07.81 - Pleurodynia (2) Dextrocardia Onset Date: 08/24/17 Current Visit: No Status: Chronic (3) Polycythemia secondary to hypoxia Onset Date: 08/24/17 Current Visit: No Status: Chronic - Plan The patient will be admitted to the hospital due to atypical chest pain, initial troponin I is negative, EKG shows sinus tachycardia with RBBB similar to previous in record. However, due to her significant cardiac past medical history, she warranted to be evaluated by enamel shader before to be discharge home. Will order serial cardiac enzymes and EKG. - Advance Directives Does patient have a Living Will: No Does patient have a Durable POA for Healthcare: Yes - Code Status/Comfort Care Code Status Assessed: Yes Code Status: Full Code
[2018-04-23 03:45] LABS: Urine Blood 1+ (NEG); Urine Glucose NEGATIVE (NEG); Urine Protein 2+ (NEG); Urine Specific Gravity 1.015 (1.005-1.030)
[2018-04-23] MEDS ORDERED: ONDANSETRON 4 MG/2 ML VIAL IV PRN (05:05)
[2018-04-23] MEDS ORDERED: ACETAMINOPHEN 500 MG TAB PO PRN (05:05)
[2018-04-23 05:41] VITALS: BMI 25.1
[2018-04-23] MEDS ORDERED: RAMIPRIL 5 MG CAP PO SCH (06:00)
[2018-04-23 08:38] VITALS: O2SAT 85
[2018-04-23] MEDS ORDERED: FUROSEMIDE 40 MG TABLET PO SCH (09:00)
[2018-04-23] MEDS ORDERED: SPIRONOLACTONE 25 MG TABLET PO SCH (09:00)
[2018-04-23] MEDS ORDERED: ASPIRIN EC 81 MG TAB PO SCH (09:00)
[2018-04-23] MEDS ORDERED: CARVEDILOL 3.125 MG TAB PO SCH (09:00)
[2018-04-23] MEDS ORDERED: DIGOXIN 0.125 MG TABLET PO SCH (09:00)
--- NOTE | 2018-04-23 11:22 | CON ---
Date of Consultation: 04/23/2018 Admitted on 04/23/[address] Peters's service. Reason For Consultation: Chest pain and palpitation. History Of Present Illness: Mrs. Solo is a 42-year-old white woman who has a history of congenital heart disease, had her surgery at age 1, details are unknown. She used to see Dr. Niko rojas at [facility], but she moved to [place] now. She is about to see Dr. Gomes, who has replaced Dr. Stewart. She has a history of dextrocardia, has [id number] ASD shunt that is known by echocardiography here in the hospital in August of 2017. She has left ve ntricular hypertrophy. She has normal ejection fraction. She has chronic clubbing and cyanosis. Sh e runs at 84% oxygen saturation on room air at baseline. She also has polycythemia secondary to her hypoxia. Her hemoglobin is 23, hematocrit is 69. Her RBCs are 7000. She came in with palpitation a nd chest soreness. Denied nausea, vomiting, diaphoresis, PND, orthopnea, pedal edema, or syncope. W orkup so far shows BNP of 2254. CPKs, MBs, and troponin are negative. Rest of her blood work is neg ative. Chest x-ray did not show CHF. EKG shows right bundle-branch block. Allergies: SHE IS ALLERGIC TO IODINE. Review of Systems: Negative. Social History: Negative. Family History: Noncontributory. Medications At Home: Include Coreg, digoxin, Uloric, Altace, Xarelto, Demadex, and Aldactone. Physical Examination: Vital Signs: Stable. She was afebrile. She was in a sinus rhythm. O2 sats 84% on room air. HEENT: Negative. Neck: Supple. No bruit. Chest: Clear. Cardiac: Revealed a regular rhythm and rate with a 2/6 systolic ejection murmur at the left second i ntercostal space. It does not radiate. No gallops or rubs. Abdomen: Benign. Extremities: Revealed no clubbing, cyanosis, or edema. Diagnostic Data: As stated earlier. Impression And Plan: 1.Palpitation secondary to sinus tachycardia. 2.Congenital heart disease with [id number] shunt, left ventricular hypertrophy, dextrocardia, nor mal ejection fraction, cyanotic, congenital heart disease, chronically hypoxic with chronic polycythe jassi. 3.Hypertension. I think tachycardia may be secondary to dehydration, certainly could be related to some of her medication. Personally, I would continue her digoxin, Uloric, Demadex as well as the Xar elto and Aldactone. I would like her to double up her Coreg and maybe stop her Altace for now, and h opefully, she will see Dr. Gomes in the near future. She can go home from my standpoint. KAN/STEVO Voice ID: [id number] Report ID: [id number]
--- NOTE | 2018-04-23 12:05 | RAD REPORT ---
EXAM DESCRIPTION: RAD - Chest Single View - 04/23/2018 9:37 am CLINICAL HISTORY: CHEST PAIN Chest pain. COMPARISON: Chest Single View dated 01/07/2018; Chest Single View dated 08/23/2017; Chest Single View d ated 10/19/2016; CHEST SINGLE VIEW dated 11/02/2014 FINDINGS: Portable technique limits examination quality. Interstitial markings are prominent bilaterally, chronic. Cardiac size is moderately enlarged with de xtrocardia. No focal infiltrate seen. No displaced fracture. IMPRESSION: Stable chest since 01/07/2018.
[2018-04-23 12:22] VITALS: BP 97/64; TEMP 97
--- NOTE | 2018-04-23 12:27 | RAD REPORT ---
EXAM DESCRIPTION: CT - Thorax Wo Con CLINICAL HISTORY: Chest pain PAIN COMPARISON: Chest Single View dated 04/23/2018 FINDINGS: Mild pulmonary vascular congestion is noted. No focal pulmonary infiltrate. No pleural thi ckening or pleural effusion. No pneumothorax. No axillary, mediastinal or hilar adenopathy. Dextrocardia is seen. Aorta at the arch is ectatic magalie uring up to 4 cm. IVC is enlarged suggesting a component of right heart failure. No concerning bony finding. No gross upper abdominal finding. All CT scans are performed using dose optimization technique as appropriate and may include automated exposure control or mA/KV adjustment according to patient size. IMPRESSION: Dextrocardia. Mild pulmonary vascular congestion with findings suggesting a component of right heart failure.
--- NOTE | 2018-04-23 13:48 | P.DS ---
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 The pain is located on her left side of the chest, radiated to left neck and back. She describe the pain as dull, constant, worse with head movement and is reproducible with palpation. She denied any nausea, SOB or diaphoresis episode. Initial troponin I is negative, EKG shows sinus tachycardia with RBBB similar to previous one. Hospital Course: She was admitted for chest pain. Of note she has dextracardia and her kilo pain is located to left chest. She saw cardioogist Dr lewis. Dr Lewis cleared her of discharge. Chest pain is thought due to tachycardia. Her Coreg was increased to 6/25 mg. She is much better. Reviewing her record, she has sig increase H/H in the past 5 years and she had a normal reading of H/H in 2011. The possibility of P. Vera cannot be ruled out even she has a congenital heart disease and hypoxemia. Therefore she will need a hematology evaluation. Since the importance of P vera in the setting of DVT is high, and treatment of P vrera and secondary polycythemia is profoundly different. Vital Signs/Physical Exam: Temp Pulse Resp BP Pulse Ox 97 F 110 H 18 97/64 85 L 04/23/18 12:00 04/23/18 12:00 04/23/18 12:00 04/23/18 12:00 04/23/18 12:00 General: Alert, In no apparent distress HEENT: Atraumatic, PERRLA, EOMI Neck: Supple, JVD not distended Respiratory: Clear to auscultation bilaterally, Normal air movement Cardiovascular: Regular rate/rhythm, Normal S1 S2 Gastrointestinal: Normal bowel sounds, No tenderness Musculoskeletal: No tenderness Integumentary: No rashes Neurological: Normal speech, Normal tone, Normal affect Lymphatics: No axilla or inguinal lymphadenopathy Laboratory Data at Discharge: WBC 7.6 K/uL (4.3-10.9) 04/23/18 00:12 Hgb 23.3 g/dL (12.0-15.0) H 04/23/18 00:12 Hct 69.4 % (36.0-45.0) H* 04/23/18 00:12 Plt Count 204 K/uL (152-406) 04/23/18 00:12 PT 14.7 SECONDS (9.5-12.5) H 04/23/18 00:12 INR 1.24 04/23/18 00:12 APTT 47.5 SECONDS (24.3-36.9) H 04/23/18 00:12 Sodium 133 mmol/L (136-145) L 04/23/18 00:12 Potassium 4.5 mmol/L (3.5-5.1) 04/23/18 00:12 BUN 31 mg/dL (7-18) H 04/23/18 00:12 Creatinine 1.00 mg/dL (0.55-1.3) 04/23/18 00:12 Glucose 102 mg/dL (74-106) 04/23/18 00:12 Magnesium 1.8 mg/dL (1.8-2.4) 04/23/18 00:12 Total Bilirubin 1.0 mg/dL (0.2-1.0) 04/23/18 00:12 AST 39 U/L (15-37) H 04/23/18 00:12 ALT 43 U/L (12-78) 04/23/18 00:12 Alkaline Phosphatase 194 U/L (45-117) H 04/23/18 00:12 Troponin I < 0.02 ng/mL (0.0-0.045) 04/23/18 05:31 Home Medications: Carvedilol [Coreg] 3.125 mg PO BID 08/24/17 Digoxin [Lanoxin] 0.125 mg PO DAILY 08/24/17 Penicillin Vk [Veetids (Pen-Vee K)*] 250 mg PO DAILY 08/24/17 Ramipril [Altace*] 5 mg PO Q12H 08/24/17 Spironolactone [Aldactone] 25 mg PO BID 08/24/17 Febuxostat [Uloric] 40 mg PO DAILY 04/23/18 Rivaroxaban [Xarelto*] 10 mg PO DAILY 04/23/18 Torsemide 10 mg PO DAILY 04/23/18 Diet: Regular Activity: Ad tucker Time spent managing pt's care (in minutes): 15
[2018-04-23] MEDS ORDERED: RIVAROXABAN 20 MG TABLET PO SCH (17:00)
[2018-04-23] MEDS ORDERED: RIVAROXABAN 10 MG TABLET PO SCH (17:00)
[2018-04-23] MEDS ORDERED: CARVEDILOL 6.25 MG TAB PO SCH (21:00)
--- NOTE | 2018-04-24 08:56 | EKG ---
Test Date: 2018-04-23 Test Time: 00:14:03 Spray Gun Sizer: MARIO MEASUREMENT RESULTS: Intervals: Rate: 105 WI: 190 QRSD: 108 QT: 314 QTc: 415 [place]: P: 96 WI: 190 QRS: -76 T: 96 INTERPRETIVE STATEMENTS: Sinus tachycardia with premature atrial complexes with aberrant conduction Biatrial enlargement Left axis deviation Inferior-posterior infarct, age undetermined Anterolateral infarct, age undetermined Abnormal ECG Compared to ECG 04/22/2018 23:57:30 Atrial premature complex(es) now present Aberrant conduction of supraventricular beat(s) now present Ventricular premature complex(es) no longer present Myocardial infarct finding still present Electronically Signed On 04-24-18 08:53:29 CDT by Rajiv Lewis
--- NOTE | 2018-04-24 08:57 | EKG ---
Test Date: 2018-04-22 Test Time: 23:57:30 Budget Technician: MARIO MEASUREMENT RESULTS: Intervals: Rate: 113 MN: 206 QRSD: 118 QT: 320 QTc: 438 [place]: P: 94 MN: 206 QRS: -74 T: 98 INTERPRETIVE STATEMENTS: Age and gender specific ECG analysis Sinus tachycardia with frequent and consecutive premature ventricular complexes Biatrial enlargement Left axis deviation RBBB Abnormal ECG Compared to ECG 01/08/2018 01:43:40 Atrial abnormality now present Sinus rhythm no longer present First degree AV block no longer present Electronically Signed On 04-24-18 08:54:18 CDT by Rajiv Lewis
== END 2018-04-23 15:50 | disposition home or self-care (01) ==
LOC: ER 23:48 → ERHOLD 04-23 03:01 → 4TH 04-23 04:24
PROVIDERS: ADMIT Internal Medicine; ATTEND Internal Medicine Hematology & Oncology
DX: R07.81 Pleurodynia (principal); R00.0 Tachycardia, unspecified; D45 Polycythemia vera; I82.721 Chronic embolism and thrombosis of deep veins of right upper extremity; Q24.0 Dextrocardia; R09.02 Hypoxemia; I49.1 Atrial premature depolarization; I10 Essential (primary) hypertension; Z87.74 Personal history of (corrected) congenital malformations of heart and circulatory system; Z91.041 Radiographic dye allergy status; Z79.82 Long term (current) use of aspirin; Z79.01 Long term (current) use of anticoagulants
CPT/HCPCS: 36415; 71045; 71250; 80048; 80076; 80162; 81003; 82550; 82553; 83735; 83880; 84439; 84443; 84481; 84484 ×3; 85025; 85610; 85730; 93005 ×2; 94760 ×2; 96361; 96374; 96375; 99285; G0378 ×2; J2405; J3010; 96365

== ENCOUNTER 2018-10-03 13:52 | Emergency (ER) | payer OTHER ==
--- OUTSIDE RECORDS SUMMARY | 2018-10-03 13:55 | XMS REPORT | Clinical Summary ---
:1975 Author Organization [facility] Address [address] [place] [address] Care Team Providers Name Role Phone Niko Stewart MD Primary Care Provider Allergies Active Allergy Reactions Severity Noted Date Comments Shellfish Containing Products Itching 11/02/2014 Medications Medication Sig Dispensed Refills Start End Date Status Date spironolactone Take 25 mg by mouth 0 Active (ALDACTONE) 25 MG daily. tablet digoxin (LANOXIN) Take 125 mcg by 0 Active 0.125 MG tablet mouth daily. febuxostat 40 mg Take 40 mg by mouth 0 Active tablet daily. penicillin v Take 250 mg by 0 Active potassium (VEETID) mouth daily. 8 250 MG tablet torsemide Take 10 mg by mouth 0 Active (DEMADEX) 10 MG daily. 8 tablet carvedilol (COREG) Take 3.125 mg by 0 Active 3.125 MG tablet mouth 2 (two) times daily with breakfast and dinner. ramipril (ALTACE) Take 5 mg by mouth 0 Active 5 MG capsule 2 (two) times daily. rivaroxaban Take 1 tablet (20 90 tablet 0 Active (XARELTO) 20 mg mg total) by mouth 8 Tab tablet daily with dinner. penicillin v Take 250 mg by 0 01/10/20 Discontinued potassium (VEETID) mouth daily. 18 250 MG tablet furosemide (LASIX) Take 40 mg by mouth 0 01/10/20 Discontinued 40 MG tablet 2 (two) times daily 18 . aspirin 162 MG EC Take 162 mg by 0 01/10/20 Discontinued tablet mouth daily. 18 ramipril (ALTACE) Take 5 mg by mouth 0 04/26/20 Discontinued 5 MG capsule 2 (two) times 18 daily. allopurinol Take 300 mg by 0 04/26/20 Discontinued (ZYLOPRIM) 300 MG mouth daily. 18 tablet carvedilol (COREG) Take 3.125 mg by 0 04/26/20 Discontinued 3.125 MG tablet mouth 2 (two) times 18 daily with breakfast and dinner. pneumoc 13-edita Inject 0.5 mLs 0.5 mL 0 01/10/20 conj-dip cr,PF, intramuscularly 8 18 (PRENVAR 13) 0.5 once for 1 dose. mL Syrg carvedilol (COREG) Take 6.25 mg by 0 04/27/20 Discontinued 6.25 MG tablet mouth 2 (two) times 18 daily with breakfast and dinner. rivaroxaban Take 10 mg by mouth 0 04/27/20 Discontinued (XARELTO) 10 mg daily. 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 H/O Endocarditis 11/02/2014 Bradycardia - junctional escape down to 20s requiring resuscitation 11/02/2014 11/02/14 Sick sinus syndrome 11/02/2014 Resolved Problems Problem Noted Date Resolved Date Tachycardia 01/08/2018 01/09/2018 Encounters Date Type Specialty Care Team Description 04/26/2018 - Emergency Cardiology Georgina Nina Atrial flutter with rapid ventricular response (HCC) (Primary Dx); 04/27/2018 Luigi Dai MD Dextrocardia; Isaiah Gomes [place] Shunt 1975 [place]; MD Oziel Pulmonary atresia; Complete A-V canal, right dominant - unrepaired; SOB (shortness of breath) 04/26/2018 Orders Only General Internal Medicine 01/08/2018 - Hospital Encounter Cardiac Intensive Terry, Atrial flutter, 01/09/2018 Care Niko Ojeda MD unspecified type (HCC) 01/08/2018 Orders Only General Internal Medicine after 10/02/2017 Immunizations Name Dates Previously Given Next Due Pneumococcal Conjugate (Prevnar) 13-Valent 01/09/2018 Family History Medical History Relation Name Comments Cancer Father Hypertension Mother Diabetes Paternal Grandmother Hypertension Sister Relation Name Status Comments Father Mother Paternal Grandmother Sister Social History Tobacco Use Types Packs/Day Years Used Date Never Smoker Smokeless Tobacco: Never Used Tobacco Cessation: Counseling Given: No Alcohol Use Drinks/Week oz/Week Comments No Sex Assigned at Date Recorded Not on file Job Start Date Occupation Industry Not on file Not on file Not on file Travel History Travel Start Travel End No recent travel history available. Last Filed Vital Signs Vital Sign Reading Time Taken Blood Pressure 86/54 04/27/2018 7:24 AM CDT Pulse 64 04/27/2018 8:27 AM CDT Temperature 36.4 C (97.5 F) 04/27/2018 7:24 AM CDT Respiratory Rate 18 04/27/2018 7:24 AM CDT Oxygen Saturation 82% 04/27/2018 7:24 AM CDT Inhaled Oxygen Concentration - - Weight 60.6 kg (133 lb 9.6 oz) 04/27/2018 7:24 AM CDT Height 154.9 cm (5' 1") 04/26/2018 4:46 PM CDT Body Mass Index 25.24 04/27/2018 7:24 AM CDT Plan of Treatment Not on file Procedures Procedure Name Priority Date/Time Associated Diagnosis Comments RHYTHM STRIP - SCAN 04/28/2018 11:50 AM CDT ECG 12-LEAD Routine 04/27/2018 6:00 AM CDT Procedure Note - Interface, External Ris In - 04/27/2018 6:02 AM CDT Ventricular Rate 122 BPM Atrial Rate 122 BPM QRS Duration 136 ms Q-T Interval 236 ms QTC Calculation(Bazett) 336 ms R [place] 235 degrees T [place] 57 degrees Suspect arm lead reversal, interpretation assumes no reversal Wide QRS tachycardia with frequent Premature ventricular complexes in a pattern of bigeminy Non-specific intra-ventricular conduction block Possible Right ventricular hypertrophy Inferior infarct , age undetermined Anterolateral infarct , age undetermined Abnormal ECG When compared with ECG of 26-APR-2018 14:20, Wide QRS tachycardia has replaced Sinus rhythm Vent. rate has increased BY 58 BPM ECG 12-LEAD Routine 04/27/2018 6:00 AM CDT PROCEDURAL SEDATION Routine 04/26/2018 2:50 PM CDT ELECTRICAL CARDIOVERSION Routine 04/26/2018 2:50 PM CDT ECG 12-LEAD Routine 04/26/2018 2:20 PM CDT ECG 12-LEAD Routine 04/26/2018 2:20 PM CDT Procedure Note - Interface, External Ris In - 04/26/2018 3:30 PM CDT Ventricular Rate 64 BPM Atrial Rate 64 BPM P-R Interval 164 ms QRS Duration 110 ms Q-T Interval 402 ms QTC Calculation(Bazett) 414 ms P [place] 60 degrees R [place] -42 degrees T [place] 39 degrees Normal sinus rhythm Left axis deviation Inferior-posterior infarct , age undetermined Anterolateral infarct , age undetermined Abnormal ECG When compared with ECG of 26-APR-2018 11:34, Significant changes have occurred XR CHEST 1 VIEW STAT 04/26/2018 11:57 AM CDT Results for this PORTABLE/BEDSIDE procedure are in the results section. CBC W/PLT COUNT & AUTO STAT 04/26/2018 11:54 AM CDT Results for this DIFFERENTIAL procedure are in the results section. TSH/FREE T4 IF INDICATED STAT 04/26/2018 11:54 AM CDT DIGOXIN LEVEL STAT 04/26/2018 11:54 AM CDT PT/APTT STAT 04/26/2018 11:54 AM CDT CBC W/PLT COUNT & AUTO STAT 04/26/2018 11:54 AM CDT Results for this DIFFERENTIAL procedure are in the results section. TROPONIN I STAT 04/26/2018 11:54 AM CDT B-TYPE NATRIURETIC FACTOR STAT 04/26/2018 11:54 AM CDT Results for this (BNP) procedure are in the results section. MAGNESIUM STAT 04/26/2018 11:54 AM CDT BASIC METABOLIC PANEL (7) STAT 04/26/2018 11:54 AM CDT ECG 12-LEAD Routine 04/26/2018 11:34 AM CDT Procedure Note - Interface, External Ris In - 04/26/2018 3:29 PM CDT Ventricular Rate 181 BPM Atrial Rate 181 BPM QRS Duration 76 ms Q-T Interval 206 ms QTC Calculation(Bazett) 357 ms R [place] 71 degrees T [place] 232 degrees Undetermined rhythm Low voltage QRS ST & T wave abnormality, consider inferolateral ischemia Abnormal ECG When compared with ECG of 08-JAN-2018 11:15, Current undetermined rhythm precludes rhythm comparison, needs review Right bundle branch block is no longer Present ECG 12-LEAD STAT 04/26/2018 11:34 AM CDT MAGNESIUM Routine 01/09/2018 6:33 AM CDT BASIC METABOLIC PANEL (7) Routine 01/09/2018 6:33 AM CDT CBC (HEMOGRAM ONLY) Routine 01/09/2018 5:23 AM CDT ECG 12-LEAD Routine 01/08/2018 11:15 AM CDT PHOSPHORUS Routine 01/08/2018 7:44 AM CDT MAGNESIUM Routine 01/08/2018 7:44 AM CDT COMPREHENSIVE METABOLIC Routine 01/08/2018 7:44 AM CDT Results for this PANEL procedure are in the results section. CBC W/PLT COUNT & AUTO Routine 01/08/2018 6:54 AM CDT Results for this DIFFERENTIAL procedure are in the results section. CBC W/PLT COUNT & AUTO Routine 01/08/2018 6:54 AM CDT Results for this DIFFERENTIAL procedure are in the results section. ECG 12-LEAD Routine 01/08/2018 6:39 AM CDT Procedure Note - Interface, External Ris In - 01/08/2018 6:50 AM CDT Ventricular Rate 68 BPM Atrial Rate 68 BPM P-R Interval 210 ms QRS Duration 104 ms Q-T Interval 380 ms QTC Calculation(Bazett) 404 ms P [place] 56 degrees R [place] -29 degrees T [place] 107 degrees Sinus rhythm with 1st degree A-V block RSR' or QR pattern in V1 suggests right ventricular conduction delay Lateral infarct (cited on or before 11-JAN-2011) Inferior-posterior infarct , age undetermined Abnormal ECG When compared with ECG of 04-NOV-2014 06:05, Fusion complexes are no longer Present Inferior-posterior infarct is now Present Questionable change in initial forces of Lateral leads QT has shortened ECG 12-LEAD Routine 01/08/2018 6:39 AM CDT after 10/02/2017 Results RHYTHM STRIP - SCAN (04/28/2018 11:50 AM CDT) Narrative Performed At ECG 12 lead (04/27/2018 6:00 AM CDT)Only the most recent of5 resultswithin the time period is included. Narrative Performed At Ventricular Rate 122 BPM GE MUSE Atrial Rate 122 BPM QRS Duration 136 ms Q-T Interval 236 ms QTC Calculation(Bazett) 336 ms R [place] 235 degrees T [place] 57 degrees Suspect arm lead reversal, interpretation assumes no reversal SUGGEST REPEAT ECG Sinus rhythm first degree AV block Intra-atrial conduction delay. Non-specific intra-ventricular conduction block Abnormal ECG When compared with ECG of 26-APR-2018 14:20, Vent. rate has increased BY58 BPM QRS configuration has changed. Confirmed by Edmar TINEO MICHAEL ([id number]) on 04/27/2018 7:54:16 AM Procedure Note Interface, External Ris In - 04/27/2018 7:54 AM CDT Ventricular Rate 122 BPM Atrial Rate 122 BPM QRS Duration 136 ms Q-T Interval 236 ms QTC Calculation(Bazett) 336 ms R [place] 235 degrees T [place] 57 degrees Suspect arm lead reversal, interpretation assumes no reversal SUGGEST REPEAT ECG Sinus rhythm first degree AV block Intra-atrial conduction delay. Non-specific intra-ventricular conduction block Abnormal ECG When compared with ECG of 26-APR-2018 14:20, Vent. rate has increased BY 58 BPM QRS configuration has changed. Confirmed by Edmar TINEO MICHAEL ([id number]) on 04/27/2018 7:54:16 AM Performing Organization Address City/State/Zipcode Phone Number GE MUSE ELECTRICAL CARDIOVERSION (04/26/2018 2:50 PM CDT) Narrative Performed At Georgina Nina MD 04/26/20182:50 PM Cardioversion Date/Time: 04/26/2018 3:35 AM Performed by: GEORGINA NINA Authorized by: GEORGINA NINA Consent: Verbal consent obtained. Written consent obtained. Risks and benefits: risks, benefits and alternatives were discussed Consent given by: patient Patient understanding: patient states understanding of the procedure being performed Patient consent: the patient's understanding of the procedure matches consent given Procedure consent: procedure consent matches procedure scheduled Relevant documents: relevant documents present and verified Test results: test results available and properly labeled Site marked: the operative site was marked Imaging studies: imaging studies available Required items: required blood products, implants, devices, and special equipment available Patient identity confirmed: verbally with patient and hospital-assigned identification number Time out: Immediately prior to procedure a "time out" was called to verify the correct patient, procedure, equipment, clinical support specialist and site/side marked as required. Sedation: Patient sedated: yes Cardioversion basis: emergent Pre-procedure rhythm: atrial flutter Patient position: patient was placed in a supine position Chest area: chest area exposed Electrodes: pads Electrodes placed: anterior-posterior Number of attempts: 1 Attempt 1 mode: synchronous Attempt 1 waveform: biphasic Attempt 1 shock (in Joules): 50 Attempt 1 outcome: conversion to normal sinus rhythm Post-procedure rhythm: normal sinus rhythm Immediate Post-Procedure Note Date/Time: 04/26/2018 2:46 PM Assistants to the procedure: None Pre-procedure diagnosis: a flut Post-procedure diagnosis: nsr Procedures Performed: Cardioversion Specimens removed: None Estimated blood loss (mL): None Complications: None Type of anesthesia: None Grafts or Implants: None Comments: No comps Procedural sedation (04/26/2018 2:50 PM CDT) Narrative Performed At Georgina Nina MD 04/26/20182:50 PM Procedural sedation Date/Time: 04/26/2018 1:35 PM Performed by: GEORGINA NINA Authorized by: GEORGINA NINA Consent: Consent obtained:Written See paper consent form. Indications: Sedation is required to allow for: See chart. Procedure necessitating sedation performed by:Physician performing sedation Pre-sedation assessment: Clinician reviewed the following: allergies, anesthesia history, family history, patient summary, pertinent labs, problem list, family history of anesthetic complications and social history reviewed ASA classification: class 1 - normal, healthy patient Neck mobility: normal Mouth openin or more finger widths Mallampati score:I - soft palate, uvula, fauces, pillars visible History of difficult intubation: no Pre-sedation assessment completed:04/26/2018 1:37 PM Immediate pre-procedure details: Reassessment: Patient reassessed immediately prior to procedure Procedure details (see MAR for exact dosages): Sedation level: deep sedation, Sedation start time:04/26/2018 1:53 PM Preoxygenation:Nasal cannula Sedation:Methohexital Intra-procedure monitoring:Blood pressure monitoring, equipment monitor phototypesetting, continuous pulse oximetry, frequent vital sign checks and frequent LOC assessments Intra-procedure events: none Post Sedation Evaluation: Respiration: airway patent and returned to pre-procedure baselinsMental Status: returned to pre-procedure baseline. Cardiovascular Function: returned to pre-procedure baseline and post-procedural equipment monitor phototypesetting reviewed The following have been reviewed and found to be within acceptable parameters: RR, HR, pulse ox and BP Pain Scale: 0/10 Nausea/Vomiting: no Hydration status: wnl Temperature within expected parameters :Temperature within defined limits @SLHSEDMULTIPLEVITALS@ Comments: Sedated for cardioversion, 2 small doses of brevital given, no comps XR chest 1 view portable/bedside (04/26/2018 11:57 AM CDT) Narrative Performed At FINAL REPORT [facility] Chest x-ray Clinical History: chest pain Comparison: January 11, 2011 Views: One AP lordotic Chest x-ray: The cardiac and mediastinal silhouettes are remarkable for dextrocardia.There is no evidence of a pneumothorax.There is no evidence of apleural effusion.There is no evidence of overt cardiac failure.The visible regional skeleton is intact.There is no evidence of a focal parenchymal opacity. There is a mild increase in pulmonary vascular markings. Impression: Mild increase in pulmonary vascular congestion. Dextrocardia. Signed: Yolanda Champion MD Report Verified Date/Time:04/26/2018 12:19:57 Reading Location: [address] Radiology Reading Room Procedure Note Interface, External Ris In - 04/26/2018 12:22 PM CDT FINAL REPORT Chest x-ray Clinical History: chest pain Comparison: January 11, 2011 Views: One AP lordotic Chest x-ray: The cardiac and mediastinal silhouettes are remarkable for dextrocardia. There is no evidence of a pneumothorax. There is no evidence of a pleural effusion. There is no evidence of overt cardiac failure. The visible regional skeleton is intact. There is no evidence of a focal parenchymal opacity. There is a mild increase in pulmonary vascular markings. Impression: Mild increase in pulmonary vascular congestion. Dextrocardia. Signed: Yolanda Champion MD Report Verified Date/Time: 04/26/2018 12:19:57 Reading Location: [address] Radiology Reading Room Performing Organization Address City/[facility] Phone Number GE RIS TSH/Free T4 If Indicated (04/26/2018 11:54 AM CDT) TSH 2.04 0.35 - 4.94 uIU/mL [facility] Specimen Blood Performing Organization Address [facility] Phone Number [address] [address] CENTER PT/aPTT (04/26/2018 11:54 AM CDT) Protime 20.3 (H) 11.7 - 14.7 seconds [facility] INR 1.7 <=5.9 [facility] PTT 39.1 (H) 22.5 - 36.0 seconds [facility] Specimen Blood Narrative Performed At [facility] RECOMMENDED COUMADIN/WARFARIN INR THERAPY RANGES STANDARD DOSE: 2.0 - 3.0 Includes: PROPHYLAXIS for venous thrombosis, systemic embolization; TREATMENT for venous thrombosis and/or pulmonary embolus. HIGH RISK: Target INR is 2.5-3.5 for patients with mechanical heart valves. Performing Organization Address [facility] Phone Number [address] [address] [phone] CENTER CBC with platelet count + automated diff (04/26/2018 11:54 AM CDT)Only the most recent of2 resultswithin the time period is included. WBC 6.6 3.5 - 10.5 K/L [facility] RBC 7.02 (H) 3.93 - 5.22 M/L [facility] Hemoglobin 22.8 (H) 11.2 - 15.7 GM/DL [facility] Hematocrit 68.7 (H) 34.1 - 44.9 % [facility] MCV 97.9 (H) 79.4 - 94.8 fL [facility] MCH 32.5 (H) 25.6 - 32.2 pg [facility] MCHC 33.2 32.2 - 35.5 GM/DL [facility] RDW 16.9 (H) 11.7 - 14.4 % [facility] Platelets 183 150 - 450 K/CU MM [facility] MPV 10.0 9.4 - 12.3 fL [facility] nRBC 0 0 - 0 /100 WBC [facility] % Neutros 67 % [facility] % Lymphs 23 % [facility] % Monos 7 % [facility] % Eos 1 % [facility] % Baso 2 % [facility] # Neutros 4.43 1.56 - 6.13 K/L [facility] # Lymphs 1.48 1.18 - 3.74 K/L [facility] # Monos 0.44 (H) 0.24 - 0.36 K/L [facility] # Eos 0.07 0.04 - 0.36 K/L [facility] # Baso 0.13 (H) 0.01 - 0.08 K/L [facility] Immature Granulocytes-Relative 1 0 - 1 % [facility] Specimen Blood Performing Organization Address City/State/Zipcode Phone Number [facility] [address] [place] [address] CENTER Troponin I (04/26/2018 11:54 AM CDT) Troponin I <0.01 0.00 - 0.03 ng/mL [facility] Specimen Blood Narrative Performed At [facility] Troponin I (TnI) levels must be interpreted in the context of the presenting symptoms and the clinical findings. Elevated TnI levels indicate myocardial damage, but are not specific for ischemic heart disease. Elevated TnI levels are seen in patients with other cardiac conditions (including myocarditis and congestive heart failure), and slight TnI elevations occur in patients with other conditions, including sepsis, renal failure, acidosis, acute neurological disease, and persistent tachyarrhythmia. Performing Organization Address [facility] Cent[facility]ode Phone Number [address] [address] CENTER B-type Natriuretic Factor (BNP) (04/26/2018 11:54 AM CDT) BNP 1,527 (H) 0 - 100 pg/mL [facility] Specimen Blood Performing Organization Address [facility] Phone Number [address] [address] CENTER Magnesium (04/26/2018 11:54 AM CDT)Only the most recent of3 resultswithin the time period is included. Magnesium 2.1Comment: Specimen slightly 1.6 - 2.6 mg/dL [facility] hemolyzed [facility] Specimen Blood Performing Organization Address [facility] Phone Number [address] [address] CENTER Digoxin level (04/26/2018 11:54 AM CDT) Digoxin Lvl 0.5 (L) 0.8 - 2.0 ng/mL [facility] Specimen Blood Performing Organization Address [facility] Phone Number [address] [address] [phone] CENTER Basic Metabolic Panel (04/26/2018 11:54 AM CDT)Only the most recent of2 resultswithin the time period is included. Sodium 135 (L) 136 - 145 meq/L [facility] Potassium 5.4 (H)Comment: Specimen 3.5 - 5.1 meq/L [facility] slightly hemolyzed [facility] Chloride 106 98 - 107 meq/L [facility] CO2 20 (L) 22 - 29 meq/L [facility] BUN 31 (H) 7 - 21 mg/dL [facility] Creatinine 1.00Comment: Specimen 0.57 - 1.25 mg/dL [facility] slightly hemolyzed [facility] Glucose 185 (H) 70 - 105 mg/dL [facility] Calcium 9.5 8.4 - 10.2 mg/dL [facility] EGFR 60Comment: ESTIMATED GFR IS mL/min/1.73 sq m [facility] NOT ACCURATE CREATININE [facility] CLEARANCE IN PREDICTING GLOMERULAR FILTRATION RATE. ESTIMATED GFR IS NOT APPLICABLE FOR DIALYSIS PATIENTS. Specimen Blood Performing Organization Address City/State/Zipcode Phone Number [facility] [address] [place] [address] [phone] CENTER CBC (Hemogram only) (01/09/2018 5:23 AM CDT) WBC 6.0 3.5 - 10.5 K/L [facility] RBC 6.40 (H) 3.93 - 5.22 M/L [facility] Hemoglobin 21.3 (H) 11.2 - 15.7 GM/DL [facility] Hematocrit 64.3 (H) 34.1 - 44.9 % [facility] MCV 100.5 (H) 79.4 - 94.8 fL [facility] MCH 33.3 (H) 25.6 - 32.2 pg [facility] MCHC 33.1 32.2 - 35.5 GM/DL [facility] RDW 17.5 (H) 11.7 - 14.4 % [facility] Platelets 184 150 - 450 K/CU MM [facility] MPV 10.2 9.4 - 12.3 fL [facility] nRBC 0 0 - 0 /100 WBC [facility] Specimen Blood - Arm, Right Performing Organization Address [facility] Phone Number [address] [address] [phone] CENTER Phosphorus (01/08/2018 7:44 AM CDT) Phosphorus 4.1Comment: Specimen slightly 2.3 - 4.7 mg/dL [facility] Spec[facility] Blood - Arm, Left Performing Organization Address [facility] Phone Number [address] [address] [place] Comprehensive metabolic panel (01/08/2018 7:44 AM CDT) Protein, Total 7.5Comment: Specimen 6.0 - 8.3 gm/dL [facility] slightly hemolyzed [facility] Albumin 3.5Comment: Specimen 3.5 - 5.0 g/dL [facility] slightly hemolyzed [facility] Alkaline Phosphatase 223 (H) 40 - 150 U/L [facility] Total Bilirubin 1.4 (H)Comment: Specimen 0.2 - 1.2 mg/dL [facility] slightly hemolyzed [facility] Sodium 135 (L) 136 - 145 meq/L [facility] Potassium 5.2 (H)Comment: Specimen 3.5 - 5.1 meq/L [facility] slightly hemolyzed [facility] Chloride 102 98 - 107 meq/L [facility] CO2 21 (L) 22 - 29 meq/L [facility] BUN 31 (H) 7 - 21 mg/dL [facility] Creatinine 1.06Comment: Specimen 0.57 - 1.25 mg/dL [facility] slightly hemolyzed [facility] Glucose 113 (H) 70 - 105 mg/dL [facility] Calcium 9.5 8.4 - 10.2 mg/dL [facility] AST 40 (H)Comment: Specimen 5 - 34 U/L [facility] slightly hemolyzed [facility] ALT 66 (H)Comment: Specimen 6 - 55 U/L [facility] slightly hemolyzed [facility] EGFR 56Comment: ESTIMATED GFR mL/min/1.73 sq m [facility] IS NOT ACCURATE [facility] CREATININE CLEARANCE IN PREDICTING GLOMERULAR FILTRATION RATE. ESTIMATED GFR IS NOT APPLICABLE FOR DIALYSIS PATIENTS. Specimen Blood - Arm, Left Performing Organization Address City/State/Zipcode Phone Number [facility] [address] [place] [address] CENTER after 10/02/2017 Insurance Payer Benefit Plan / Group Subscriber ID Type Phone Address MEDICARE MEDICARE A B xxxxxxxxxxx Medicare (Home) [place] [address] Advance Directives For more information, please contact:[facility] [place], [place] [phone] Code Status Date Activated Date Inactivated Comments Full Code 04/26/2018 5:16 PM 04/27/2018 1:33 PM This code status was determined by: Patient Full Code 01/08/2018 6:31 AM 01/09/2018 2:01 PM This code status was determined by: Patient Full Code 11/02/2014 1:12 PM 11/04/2014 2:15 PM This code status was determined by: Patient
--- OUTSIDE RECORDS SUMMARY | 2018-10-03 13:55 | XMS REPORT ---
:1975 [facility] Address [address] [place] [address] Care Team Providers Name Role Phone GEORGINA HYLTON TASIA Unavailable Unavailable ADENIKE GARCIA Unavailable Unavailable Problems This patient has no known problems. Allergies, Adverse Reactions, Alerts This patient has no known allergies or adverse reactions. Medications This patient has no known medications. Results Test Description Test Time Test Comments Text Results Atomic Results Result Comments DIGOXIN LEVEL 2018-04-26 12:51:00 Test Item Value Reference Range Comments DIGOXIN LEVEL (BEAKER) (test dwjk=560) 0.5 ng/mL 0.8-2.0 TSH/FREE T4 IF [id number] 12:51:00 Test Item Value Reference Range Comments THYROID STIMULATING HORMONE (BEAKER) (test 2.04 uIU/mL 0.35-4.94 dmqa=512) TROPONIN [id number] 12:36:00 Test Item Value Reference Range Comments TROPONIN I (BEAKER) (test wepi=281) < ng/mL 0.00-0.03 Troponin I (TnI) levels must be interpreted [...] failure, acidosis, acute neurological disease, and persistent tachyarrhythmia.B-TYPE NATRIURETIC FACTOR (BNP) 12:36:00 Test Item Value Reference Range Comments B-TYPE NATRIURETIC PEPTIDE (BEAKER) (test 1527 pg/mL 0-100 kvfm=927) [id number] 12:28:00 Test Item Value Reference Range Comments MAGNESIUM (BEAKER) (test 2.1 mg/dL 1.6-2.6 Specimen slightly hemolyzed vxes=148) BASIC METABOLIC [id number] 12:28:00 Test Item Value Reference Range Comments SODIUM (BEAKER) (test 135 meq/L 136-145 lccz=697) POTASSIUM (BEAKER) (test 5.4 meq/L 3.5-5.1 Specimen slightly ncwp=560) hemolyzed CHLORIDE (BEAKER) (test 106 meq/L 98-107 zvsy=826) CO2 (BEAKER) (test 20 meq/L 22-29 pwjn=280) BLOOD UREA NITROGEN 31 mg/dL 7-21 (BEAKER) (test pjxh=012) CREATININE (BEAKER) (test 1.00 mg/dL 0.57-1.25 Specimen slightly xido=976) hemolyzed GLUCOSE RANDOM (BEAKER) 185 mg/dL 70-105 (test wtrn=665) CALCIUM (BEAKER) (test 9.5 mg/dL 8.4-10.2 ushx=723) EGFR (BEAKER) (test 60 mL/min/1.73 sq m ESTIMATED GFR IS NOT hnab=9387) ACCURATE CREATININE CLEARANCE IN PREDICTING GLOMERULAR FILTRATION RATE. ESTIMATED GFR IS NOT APPLICABLE FOR DIALYSIS PATIENTS. CBC W/PLT COUNT & AUTO [id number] 12:22:00 Test Item Value Reference Range Comments WHITE BLOOD CELL COUNT (BEAKER) (test wfik=550) 6.6 K/ L 3.5-10.5 RED BLOOD CELL COUNT (BEAKER) (test ufud=840) 7.02 M/ L 3.93-5.22 HEMOGLOBIN (BEAKER) (test llpm=115) 22.8 GM/DL 11.2-15.7 HEMATOCRIT (BEAKER) (test eukp=466) 68.7 % 34.1-44.9 MEAN CORPUSCULAR VOLUME (BEAKER) (test cbuh=126) 97.9 fL 79.4-94.8 MEAN CORPUSCULAR HEMOGLOBIN (BEAKER) (test 32.5 pg 25.6-32.2 gjkn=753) MEAN CORPUSCULAR HEMOGLOBIN CONC (BEAKER) (test 33.2 GM/DL 32.2-35.5 kfle=665) RED CELL DISTRIBUTION WIDTH (BEAKER) (test 16.9 % 11.7-14.4 mbdk=716) PLATELET COUNT (BEAKER) (test lgni=954) 183 K/CU MM 150-450 MEAN PLATELET VOLUME (BEAKER) (test anch=346) 10.0 fL 9.4-12.3 NUCLEATED RED BLOOD CELLS (BEAKER) (test 0 /100 WBC 0-0 vzpk=498) NEUTROPHILS RELATIVE PERCENT (BEAKER) (test 67 % dwzw=001) LYMPHOCYTES RELATIVE PERCENT (BEAKER) (test 23 % bdwa=524) MONOCYTES RELATIVE PERCENT (BEAKER) (test 7 % xkpe=038) EOSINOPHILS RELATIVE PERCENT (BEAKER) (test 1 % lcjq=752) BASOPHILS RELATIVE PERCENT (BEAKER) (test 2 % qbtc=443) NEUTROPHILS ABSOLUTE COUNT (BEAKER) (test 4.43 K/ L 1.56-6.13 nidi=692) LYMPHOCYTES ABSOLUTE COUNT (BEAKER) (test 1.48 K/ L 1.18-3.74 mkiu=486) MONOCYTES ABSOLUTE COUNT (BEAKER) (test 0.44 K/ L 0.24-0.36 cjqk=446) EOSINOPHILS ABSOLUTE COUNT (BEAKER) (test 0.07 K/ L 0.04-0.36 bxel=459) BASOPHILS ABSOLUTE COUNT (BEAKER) (test 0.13 K/ L 0.01-0.08 sdxl=389) IMMATURE GRANULOCYTES-RELATIVE PERCENT (BEAKER) 1 % 0-1 (test wdzk=0056) [id number] 12:21:00 Test Item Value Reference Range Comments PROTIME (BEAKER) (test ztyh=319) 20.3 seconds 11.7-14.7 INR (BEAKER) (test bkas=678) 1.7 <=5.9 PARTIAL THROMBOPLASTIN TIME (BEAKER) (test 39.1 seconds 22.5-36.0 fhnx=308) RECOMMENDED COUMADIN/WARFARIN INR THERAPY RANGESSTANDARD DOSE: 2.0 - 3.0 Includes: PROPHYLAXIS forvenous thrombosis, systemic embolization; TREATMENT for venous thrombosis and/or pulmonary embolus.HIGH RISK: Target INR is 2.5-3.5 for patients with mechanical heart valves.RAD, CHEST, 1 VIEW, NON [id number] 12:19:00Reason for exam:->chest painIs the patient ?-> UnknownFINAL REPORT Chest x-ray Clinical History: chest pain Comparison: January 11, 2011 Views: One AP lordotic Chest x-ray:The cardiac and mediastinal silhouettes are remarkable for dextrocardia. There is no evidence of a pneumothorax. There is no evidence of a pleural effusion. There is no evidence of overt cardiac failure. The visible regional skeleton is intact. There is no evidence of a focal parenchymal opacity. There is a mild increase in pulmonary vascular markings. Impression: Mild increase in pulmonary vascular congestion.Dextrocardia. Signed: Yolanda Championeport Verified Date/Time: 04/26/2018 12:19:57 Reading Location: [address] Radiology Reading Room Electronically signed by: YOLANDA CHAMPION M.D. on 06/2018 12:19 [id number] 07:13:00 Test Item Value Reference Range Comments MAGNESIUM (BEAKER) (test 2.1 mg/dL 1.6-2.6 Specimen slightly hemolyzed hfvw=279) BASIC METABOLIC [id number] 07:13:00 Test Item Value Reference Range Comments SODIUM (BEAKER) (test 133 meq/L 136-145 utmo=354) POTASSIUM (BEAKER) (test 4.5 meq/L 3.5-5.1 Specimen slightly yejv=869) hemolyzed CHLORIDE (BEAKER) (test 103 meq/L 98-107 vnbv=020) CO2 (BEAKER) (test 23 meq/L 22-29 qvay=317) BLOOD UREA NITROGEN 32 mg/dL 7-21 (BEAKER) (test euit=147) CREATININE (BEAKER) (test 0.84 mg/dL 0.57-1.25 Specimen slightly zabe=765) hemolyzed GLUCOSE RANDOM (BEAKER) 105 mg/dL 70-105 (test deii=119) CALCIUM (BEAKER) (test 9.1 mg/dL 8.4-10.2 tuoe=636) EGFR (BEAKER) (test 74 mL/min/1.73 sq m ESTIMATED GFR IS NOT idqq=1170) ACCURATE CREATININE CLEARANCE IN PREDICTING GLOMERULAR FILTRATION RATE. ESTIMATED GFR IS NOT APPLICABLE FOR DIALYSIS PATIENTS. CBC (HEMOGRAM ONLY)2018-01-09 06:04:00 Test Item Value Reference Range Comments WHITE BLOOD CELL COUNT (BEAKER) (test ftqk=624) 6.0 K/ L 3.5-10.5 RED BLOOD CELL COUNT (BEAKER) (test oitw=270) 6.40 M/ L 3.93-5.22 HEMOGLOBIN (BEAKER) (test kxpp=605) 21.3 GM/DL 11.2-15.7 HEMATOCRIT (BEAKER) (test ifnh=353) 64.3 % 34.1-44.9 MEAN CORPUSCULAR VOLUME (BEAKER) (test cryy=533) 100.5 fL 79.4-94.8 MEAN CORPUSCULAR HEMOGLOBIN (BEAKER) (test 33.3 pg 25.6-32.2 buik=909) MEAN CORPUSCULAR HEMOGLOBIN CONC (BEAKER) (test 33.1 GM/DL 32.2-35.5 vyoc=165) RED CELL DISTRIBUTION WIDTH (BEAKER) (test 17.5 % 11.7-14.4 unrk=688) PLATELET COUNT (BEAKER) (test xvly=254) 184 K/CU MM 150-450 MEAN PLATELET VOLUME (BEAKER) (test tuoo=415) 10.2 fL 9.4-12.3 NUCLEATED RED BLOOD CELLS (BEAKER) (test 0 /100 WBC 0-0 hbmv=189) [id number] 08:59:00 Test Item Value Reference Range Comments MAGNESIUM (BEAKER) (test 2.1 mg/dL 1.6-2.6 Specimen slightly hemolyzed swfj=881) [id number] 08:59:00 Test Item Value Reference Range Comments PHOSPHORUS (BEAKER) (test 4.1 mg/dL 2.3-4.7 Specimen slightly hemolyzed tcww=881) COMPREHENSIVE METABOLIC [id number] 08:59:00 Test Item Value Reference Range Comments TOTAL PROTEIN (BEAKER) 7.5 gm/dL 6.0-8.3 Specimen slightly (test rvwj=140) hemolyzed ALBUMIN (BEAKER) (test 3.5 g/dL 3.5-5.0 Specimen slightly egaf=6300) hemolyzed ALKALINE PHOSPHATASE 223 U/L 40-150 (BEAKER) (test jrlu=361) BILIRUBIN TOTAL (BEAKER) 1.4 mg/dL 0.2-1.2 Specimen slightly (test jvnp=687) hemolyzed SODIUM (BEAKER) (test 135 meq/L 136-145 etuf=883) POTASSIUM (BEAKER) (test 5.2 meq/L 3.5-5.1 Specimen slightly zaoz=188) hemolyzed CHLORIDE (BEAKER) (test 102 meq/L 98-107 opwb=458) CO2 (BEAKER) (test 21 meq/L 22-29 qdor=832) BLOOD UREA NITROGEN 31 mg/dL 7-21 (BEAKER) (test fzcp=081) CREATININE (BEAKER) (test 1.06 mg/dL 0.57-1.25 Specimen slightly fble=839) hemolyzed GLUCOSE RANDOM (BEAKER) 113 mg/dL 70-105 (test uwjw=972) CALCIUM (BEAKER) (test 9.5 mg/dL 8.4-10.2 imns=111) AST (SGOT) (BEAKER) (test 40 U/L 5-34 Specimen slightly wjqt=055) hemolyzed ALT (SGPT) (BEAKER) (test 66 U/L 6-55 Specimen slightly lumi=684) hemolyzed EGFR (BEAKER) (test 56 mL/min/1.73 sq m ESTIMATED GFR IS NOT cmbp=2950) ACCURATE CREATININE CLEARANCE IN PREDICTING GLOMERULAR FILTRATION RATE. ESTIMATED GFR IS NOT APPLICABLE FOR DIALYSIS PATIENTS. CBC W/PLT COUNT & AUTO [id number] 07:20:00 Test Item Value Reference Range Comments WHITE BLOOD CELL COUNT (BEAKER) (test hhjs=902) 6.9 K/ L 3.5-10.5 RED BLOOD CELL COUNT (BEAKER) (test qcrs=110) 7.06 M/ L 3.93-5.22 HEMOGLOBIN (BEAKER) (test fqbi=776) 22.8 GM/DL 11.2-15.7 HEMATOCRIT (BEAKER) (test uoxw=510) 69.9 % 34.1-44.9 MEAN CORPUSCULAR VOLUME (BEAKER) (test mezi=224) 99.0 fL 79.4-94.8 MEAN CORPUSCULAR HEMOGLOBIN (BEAKER) (test 32.3 pg 25.6-32.2 qpcp=658) MEAN CORPUSCULAR HEMOGLOBIN CONC (BEAKER) (test 32.6 GM/DL 32.2-35.5 ehjg=126) RED CELL DISTRIBUTION WIDTH (BEAKER) (test 17.7 % 11.7-14.4 spes=331) PLATELET COUNT (BEAKER) (test dyff=130) 217 K/CU MM 150-450 MEAN PLATELET VOLUME (BEAKER) (test edix=245) 10.1 fL 9.4-12.3 NUCLEATED RED BLOOD CELLS (BEAKER) (test 0 /100 WBC 0-0 gifl=366) NEUTROPHILS RELATIVE PERCENT (BEAKER) (test 77 % gwng=747) LYMPHOCYTES RELATIVE PERCENT (BEAKER) (test 11 % lmhy=970) MONOCYTES RELATIVE PERCENT (BEAKER) (test 10 % lltv=283) EOSINOPHILS RELATIVE PERCENT (BEAKER) (test 1 % gjbr=789) BASOPHILS RELATIVE PERCENT (BEAKER) (test 2 % mtld=419) NEUTROPHILS ABSOLUTE COUNT (BEAKER) (test 5.28 K/ L 1.56-6.13 dpdc=846) LYMPHOCYTES ABSOLUTE COUNT (BEAKER) (test 0.72 K/ L 1.18-3.74 aqve=289) MONOCYTES ABSOLUTE COUNT (BEAKER) (test 0.66 K/ L 0.24-0.36 iblw=889) EOSINOPHILS ABSOLUTE COUNT (BEAKER) (test 0.04 K/ L 0.04-0.36 oqpp=197) BASOPHILS ABSOLUTE COUNT (BEAKER) (test 0.12 K/ L 0.01-0.08 dekd=730) IMMATURE GRANULOCYTES-RELATIVE PERCENT (BEAKER) 1 % 0-1 (test vsmf=3500)
[2018-10-03 15:00] LABS: Absolute Lymphocytes (CBC) 1.2 K/uL (0.7-4.9); Absolute Monocytes 0.6 K/uL (0.1-1.3); Absolute Neutrophil 5.5 K/uL (1.8-8.0); Basophils % 1.1 % (0-1.3); Lymphocytes % 16.3 % (15.3-44.8); MPV 8.9 fL (7.6-11.3); Monocytes % 7.6 % (3.3-12.3); RBC Red Blood Cell Count 7.31 M/uL (3.86-4.86)
--- NOTE | 2018-10-03 15:15 | ER ---
Nurse's Notes [facility] Name: Tanya Solo Age: 43 yrs Sex: Female : 1975 Arrival Date: 10/03/2018 Time: 13:55 Bed 23 Private MD: Diagnosis: Other chest pain;Hypoxemia;Dextrocardia;Atrial fibrillation and flutter-RVR;Polycythemia vera;Cardiomegaly;Hypomagnesemia Presentation: 10/03 14:08 Presenting complaint: Patient states: right sided chest pain and right arm pain that aa5 began 1 hour ago. 14:08 Transition of care: patient was not received from another setting of care. Onset of aa5 symptoms was October 03, 2018. Care prior to arrival: None. 14:08 Method Of Arrival: Wheelchair aa5 14:08 Acuity: JOSE L 2 aa5 14:23 Initial Sepsis Screen: Does the patient meet any 2 criteria?. ca1 14:25 Risk Assessment: Do you want to hurt yourself or someone else? Patient reports no ca1 desire to harm self or others. Initial Sepsis Screen: Does the patient meet any 2 criteria? No. Patient's initial sepsis screen is negative. Does the patient have a suspected source of infection? No. Patient's initial sepsis screen is negative. 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: 14:22 LMP N/A - Uterine Ablation ca1 Historical: - Allergies: 14:08 Iodine; aa5 14:38 amoxicillin; ca1 - Home Meds: 14:38 ramipril 5 mg Oral cap 1 cap 2 times per day [Active]; B12 5000 mcg daily [Active]; ca1 Fish Oil 1,000 mg Oral cap daily [Active]; digoxin 125 mcg Oral tab 1 tab once daily [Active]; penicillin V potassium 250 mg Oral tab 1 tab daily [Active]; Oracea 40 mg oral CpID 1 cap once daily [Active]; spironolactone 25 mg Oral tab 1 tab 2 times per day [Active]; carvedilol 3.125 mg Oral tab 1 tab 2 times per day [Active]; torsemide 10 mg oral tab 1 tab once daily [Active]; Uloric 40 mg oral tab 1 tab once daily [Active]; Xarelto 20 mg Oral tab 1 tab once daily [Active]; - PMHx: 14:08 Dextrocardia; Hypertension; Blood clot to right arm; aa5 14:38 Singular Ventroculat Pulmonaryu Atresia; Gout; Rosacea; ca1 - PSHx: 14:08 Uterine ablation; aa5 14:38 Appendectomy; Open Heart Surgery \\T\\ 1YO; Water stent shunt; ca1 - Immunization history:: Flu vaccine is not up to date. - Ebola Screening: : No symptoms or risks identified at this time. - Social history:: Smoking status: Patient/guardian denies using tobacco. Screenin:16 Abuse screen: Denies threats or abuse. Denies injuries from another. Nutritional ca1 screening: No deficits noted. Tuberculosis screening: No symptoms or risk factors identified. Fall Risk 14:16 Fall Risk IV access (20 points). ca1 Assessment: 14:16 General: Appears in no apparent distress. uncomfortable, Behavior is calm, cooperative, ca1 appropriate for age. Pain: Complains of pain in chest Pain radiates to right arm and R neck Pain currently is 8 out of 10 on a pain scale. Pain began 1 hour ago. Neuro: Level of Consciousness is awake, alert, obeys commands, Oriented to person, place, time, situation, Appropriate for age. Neuro: Reports headache. Cardiovascular: Heart tones S1 S2 present Capillary refill is > 3 seconds Clubbing of nail beds is present Patient's skin is warm and dry. Rhythm is sinus tachycardia. Respiratory: Airway is patent Respiratory effort is even, unlabored, Respiratory pattern is regular, symmetrical, Breath sounds are clear bilaterally. GI: Abdomen is round non-distended, Bowel sounds present X 4 quads. Abd is soft and non tender X 4 quads. : No signs and/or symptoms were reported regarding the genitourinary system. EENT: No signs and/or symptoms were reported regarding the EENT system. Derm: Skin is intact, Skin is pink, warm \\T\\ dry. Musculoskeletal: Circulation, motion, and sensation intact. Capillary refill is > 3 seconds. 15:01 Reassessment: Patient appears in no apparent distress at this time. Patient and/or ca1 family updated on plan of care and expected duration. Pain level reassessed. Patient is alert, oriented x 3, equal unlabored respirations, skin warm/dry/pink. Dr. Kelly at bedside. 16:00 Reassessment: Patient appears in no apparent distress at this time. Patient and/or ca1 family updated on plan of care and expected duration. Pain level reassessed. Patient is alert, oriented x 3, equal unlabored respirations, skin warm/dry/pink. Called for report. [place] nurse says they don't have a room assignment for the pt. yet. 16:15 Reassessment: Called for report, no answer. ca1 16:40 Reassessment: Called report. Receiving facility gave another number. ca1 16:45 Reassessment: Pt reports nausea, notified provider. ca1 16:58 Reassessment: Patient appears in no apparent distress at this time. Patient and/or ca1 family updated on plan of care and expected duration. Pain level reassessed. Patient is alert, oriented x 3, equal unlabored respirations, skin warm/dry/pink. 17:30 Reassessment: Gave report to Jamar Dozier RN at [facility]. ca1 17:40 Reassessment: Pt vomiting. Notified provider. ca1 18:05 Reassessment: Patient appears in no apparent distress at this time. Patient and/or ca1 family updated on plan of care and expected duration. Pain level reassessed. Patient is alert, oriented x 3, equal unlabored respirations, skin warm/dry/pink. Vital Signs: 14:08 Resp 20 S; Pulse Ox 89% on R/A; aa5 14:23 BP 100 / 59; Pulse 126; Resp 21; Pulse Ox 86% on 2 lpm NC; ca1 14:23 Weight 58.97 kg; Height 5 ft. 1 in. (154.94 cm); Pain 8/10; ca1 15:01 BP 101 / 63; Pulse 103; Resp 23; Pulse Ox 85% on 2 lpm NC; ca1 16:10 BP 98 / 73; Pulse 100; Resp 16; Pulse Ox 83% 2 lpm ; ca1 17:00 BP 90 / 67; Pulse 96; Resp 24; Pulse Ox 88% on 2 lpm NC; ca1 17:59 BP 96 / 78; Pulse 94; Resp 21; Pulse Ox 82% on 2 lpm NC; ca1 14:23 Body Mass Index 24.56 (58.97 kg, 154.94 cm) ca1 14:08 Pt's states "her oxygen is always in the 70s and 80s and it's normal for her". aa5 ED Course: 13:55 Patient arrived in ED. mr 14:05 Jania Carr, RN is Primary Nurse. ca1 14:08 Arm band placed on. aa5 14:13 EKG done, by veterinary technologist. reviewed by Chriss Kelly MD. at1 14:14 Triage completed. aa5 14:16 Patient has correct armband on for positive identification. Placed in gown. Bed in low ca1 position. Call light in reach. Side rails up X2. investment counselor on. Pulse ox on. NIBP on. Warm blanket given. 14:16 Oxygen administration via nasal cannula \\T\\ 2L/min Response to oxygen therapy: symptoms ca1 improved. 14:32 Inserted saline lock: 20 gauge in right antecubital area, using aseptic technique. lt1 forearm, using aseptic technique. 14:32 Initial lab(s) drawn, by me, sent to lab. lt1 14:49 X-ray completed. Portable x-ray completed in exam room. Patient tolerated procedure ls3 well. 14:52 Chriss Kelly MD is Attending Physician. [facility] 14:52 XRAY Chest (1 view) In Process Unspecified. EDMS 15:28 Lab(s) recollected, by me, sent to lab. additional lab ordered. ca1 15:37 Notified ED physician of a critical lab result(s). 73.[address] jg Kelly. 15:55 Initial lab(s) drawn, by me, special redraw for PT with non-vacuum blood tube. Sent to ca1 lab. 18:06 No provider procedures requiring assistance completed. Patient transferred, IV remains ca1 in place. Administered Medications: 15:15 Drug: Zofran 4 mg Route: IVP; Site: right antecubital; ca1 16:30 Follow up: Response: No adverse reaction; Nausea is decreased ca1 15:20 Drug: morphine 2 mg Route: IVP; Site: right antecubital; ca1 16:30 Follow up: Response: No adverse reaction; Pain is decreased ca1 15:25 Drug: Lasix 20 mg Route: IVP; Site: right antecubital; ca1 18:10 Follow up: Response: No adverse reaction ca1 15:58 Drug: morphine 2 mg Route: IVP; Site: right antecubital; ca1 16:30 Follow up: Response: No adverse reaction; Pain is decreased ca1 16:49 Drug: Zofran 4 mg Route: IVP; Site: right antecubital; ca1 18:09 Follow up: Response: No adverse reaction; Vomiting unchanged ca1 16:50 Drug: Magnesium Sulfate 1 grams Route: IVPB; Infused Over: 1 hrs; Site: right ca1 antecubital; 18:09 Follow up: IV Status: Completed infusion ca1 17:23 Drug: Digoxin 0.25 mg Route: IVP; Site: right antecubital; ca1 18:09 Follow up: Response: No adverse reaction ca1 17:45 Drug: Phenergan 12.5 mg Route: IVP; Site: right antecubital; ca1 18:10 Follow up: Response: No adverse reaction; Vomiting decreased ca1 Outcome: 15:15 ER care complete, transfer ordered by . [facility] 18:06 Transferred by ground EMS to [facility], Transfer form completed. X-rays sent ca1 w/ patient. Note: [facility]. Hand off given to [facility]. 18:06 Condition: stable 18:06 Instructed on the need for transfer. 18:24 Patient left the ED. ca1 Signatures: Dispatcher [employer] EDMS Chriss Kelly MD MD cha Rivera, Mary mr RinconRayna, RN RN aa5 Pamella Howard RN RN ss Jenniffer Prescott, ocean rescue lieutenant EKG Tat1 Brii Gill ls3 Jania Carr RN RN ca1 Leonor Chávez lt1 Corrections: (The following items were deleted from the chart) 14:14 14:00 Presenting complaint: Patient states: right sided chest pain and right arm pain aa5 that began 1 hour ago. aa5
--- NOTE | 2018-10-03 15:16 | EDPHYS ---
Physician Documentation [facility] Name: Tanya Solo Age: 43 yrs Sex: Female : 1975 Arrival Date: 10/03/2018 Time: 13:55 Bed 23 Private MD: EVERARDO Physician Chriss Kelly HPI: 10/03 15:07 This 43 yrs old Female presents to ER via Wheelchair with complaints of High lavinia Blood Pressure, Chest Pain. 15:07 The patient has elevated blood pressure and discovered this at home. Onset: The lavinia symptoms/episode began/occurred 2 day(s) ago. Modifying factors: The symptoms are aggravated by activity, The symptoms are alleviated by remaining still. Associated signs and symptoms: The patient has no apparent associated signs or symptoms. Severity of symptoms: At its worst the blood pressure was mild, in the emergency department the blood pressure is now normal. The blood pressure problem is resolved, and did so while in waiting room. The patient has experienced similar episodes in the past, a few times. 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 LMP N/A - Uterine Ablation ca1 Historical: - Allergies: 14:08 Iodine; aa5 14:38 amoxicillin; ca1 - Home Meds: 14:38 ramipril 5 mg Oral cap 1 cap 2 times per day [Active]; B12 5000 mcg daily [Active]; ca1 Fish Oil 1,000 mg Oral cap daily [Active]; digoxin 125 mcg Oral tab 1 tab once daily [Active]; penicillin V potassium 250 mg Oral tab 1 tab daily [Active]; Oracea 40 mg oral CpID 1 cap once daily [Active]; spironolactone 25 mg Oral tab 1 tab 2 times per day [Active]; carvedilol 3.125 mg Oral tab 1 tab 2 times per day [Active]; torsemide 10 mg oral tab 1 tab once daily [Active]; Uloric 40 mg oral tab 1 tab once daily [Active]; Xarelto 20 mg Oral tab 1 tab once daily [Active]; - PMHx: 14:08 Dextrocardia; Hypertension; Blood clot to right arm; aa5 14:38 Singular Ventroculat Pulmonaryu Atresia; Gout; Rosacea; ca1 - PSHx: 14:08 Uterine ablation; aa5 14:38 Appendectomy; Open Heart Surgery \\T\\ 1YO; Water stent shunt; ca1 - Immunization history:: Flu vaccine is not up to date. - Ebola Screening: : No symptoms or risks identified at this time. - Social history:: Smoking status: Patient/guardian denies using tobacco. ROS: 15:08 Constitutional: Negative for fever, chills, and weight loss, Eyes: Negative for injury, lavinia pain, redness, and discharge, ENT: Negative for injury, pain, and discharge, Neck: Negative for injury, pain, and swelling, Abdomen/GI: Negative for abdominal pain, nausea, vomiting, diarrhea, and constipation, Back: Negative for injury and pain, : Negative for injury, bleeding, discharge, and swelling, MS/Extremity: Negative for injury and deformity, Skin: Negative for injury, rash, and discoloration, Neuro: Negative for headache, weakness, numbness, tingling, and seizure, Psych: Negative for depression, anxiety, suicide ideation, homicidal ideation, and hallucinations, Allergy/Immunology: Negative for hives, rash, and allergies, Endocrine: Negative for neck swelling, polydipsia, polyuria, polyphagia, and marked weight changes, Hematologic/Lymphatic: Negative for swollen nodes, abnormal bleeding, and unusual bruising. 15:08 Cardiovascular: Positive for chest pain. 15:08 Respiratory: Positive for shortness of breath, at rest. Exam: 15:08 Constitutional: This is a well developed, well nourished patient who is awake, alert, lavinia and in no acute distress. Head/Face: Normocephalic, atraumatic. Eyes: Pupils equal round and reactive to light, extra-ocular motions intact. Lids and lashes normal. Conjunctiva and sclera are non-icteric and not injected. Cornea within normal limits. Periorbital areas with no swelling, redness, or edema. ENT: Nares patent. No nasal discharge, no septal abnormalities noted. Tympanic membranes are normal and external auditory canals are clear. Oropharynx with no redness, swelling, or masses, exudates, or evidence of obstruction, uvula midline. Mucous membranes moist. Neck: Trachea midline, no thyromegaly or masses palpated, and no cervical lymphadenopathy. Supple, full range of motion without nuchal rigidity, or vertebral point tenderness. No Meningismus. Chest/axilla: Normal chest wall appearance and motion. Nontender with no deformity. No lesions are appreciated. Cardiovascular: Regular rate and rhythm with a normal S1 and S2. No gallops, murmurs, or rubs. Normal PMI, no JVD. No pulse deficits. Respiratory: Lungs have equal breath sounds bilaterally, clear to auscultation and percussion. No rales, rhonchi or wheezes noted. No increased work of breathing, no retractions or nasal flaring. Abdomen/GI: Soft, non-tender, with normal bowel sounds. No distension or tympany. No guarding or rebound. No evidence of tenderness throughout. Back: No spinal tenderness. No costovertebral tenderness. Full range of motion. Skin: Warm, dry with normal turgor. Normal color with no rashes, no lesions, and no evidence of cellulitis. MS/ Extremity: Pulses equal, no cyanosis. Neurovascular intact. Full, normal range of motion. Neuro: Awake and alert, GCS 15, oriented to person, place, time, and situation. Cranial nerves II-XII grossly intact. Motor strength 5/5 in all extremities. Sensory grossly intact. Cerebellar exam normal. Normal gait. Psych: Awake, alert, with orientation to person, place and time. Behavior, mood, and affect are within normal limits. Vital Signs: 14:08 Resp 20 S; Pulse Ox 89% on R/A; aa5 14:23 BP 100 / 59; Pulse 126; Resp 21; Pulse Ox 86% on 2 lpm NC; ca1 14:23 Weight 58.97 kg; Height 5 ft. 1 in. (154.94 cm); Pain 8/10; ca1 15:01 BP 101 / 63; Pulse 103; Resp 23; Pulse Ox 85% on 2 lpm NC; ca1 16:10 BP 98 / 73; Pulse 100; Resp 16; Pulse Ox 83% 2 lpm ; ca1 17:00 BP 90 / 67; Pulse 96; Resp 24; Pulse Ox 88% on 2 lpm NC; ca1 17:59 BP 96 / 78; Pulse 94; Resp 21; Pulse Ox 82% on 2 lpm NC; ca1 14:23 Body Mass Index 24.56 (58.97 kg, 154.94 cm) ca1 14:08 Pt's states "her oxygen is always in the 70s and 80s and it's normal for her". aa5 MDM: 14:52 Patient medically screened. [facility] 15:10 Data reviewed: vital signs, nurses notes, lab test result(s), EKG, radiologic studies, lavinia plain films. 10/03 14:20 Order name: Basic Metabolic Panel; Complete Time: 16:38 ss 10/03 14:20 Order name: CBC with Diff; Complete Time: 18:16 ss 10/03 14:20 Order name: LFT's; Complete Time: 16:38 ss 10/03 14:20 Order name: Magnesium; Complete Time: 16:38 ss 10/03 14:20 Order name: NT PRO-BNP; Complete Time: 16:38 ss 10/03 14:20 Order name: PT-INR; Complete Time: 16:38 ss 10/03 14:20 Order name: Troponin (emerg Dept Use Only); Complete Time: 16:38 ss 10/03 14:20 Order name: XRAY Chest (1 view); Complete Time: 15:58 ss 10/03 15:06 Order name: TSH; Complete Time: 16:38 [facility] 10/03 15:06 Order name: Digoxin; Complete Time: 16:38 [facility] 10/03 16:23 Order name: CBC Smear Scan; Complete Time: 18:16 EDMS 10/03 14:15 Order name: EKG; Complete Time: 14:15 ss 10/03 14:15 Order name: EKG - Nurse/Tech; Complete Time: 14:15 ss 10/03 14:20 Order name: EKG; Complete Time: 14:22 ss 10/03 14:20 Order name: Cardiac monitoring; Complete Time: 14:36 ss 10/03 14:20 Order name: EKG - Nurse/Tech; Complete Time: 14:36 ss 10/03 14:20 Order name: IV Saline Lock; Complete Time: 14:35 ss 10/03 14:20 Order name: Labs collected and sent; Complete Time: 14:36 ss 10/03 14:20 Order name: O2 Per Protocol; Complete Time: 14:36 ss 10/03 14:20 Order name: O2 Sat Monitoring; Complete Time: 14:36 ss Administered Medications: 15:15 Drug: Zofran 4 mg Route: IVP; Site: right antecubital; ca1 16:30 Follow up: Response: No adverse reaction; Nausea is decreased ca1 15:20 Drug: morphine 2 mg Route: IVP; Site: right antecubital; ca1 16:30 Follow up: Response: No adverse reaction; Pain is decreased ca1 15:25 Drug: Lasix 20 mg Route: IVP; Site: right antecubital; ca1 18:10 Follow up: Response: No adverse reaction ca1 15:58 Drug: morphine 2 mg Route: IVP; Site: right antecubital; ca1 16:30 Follow up: Response: No adverse reaction; Pain is decreased ca1 16:49 Drug: Zofran 4 mg Route: IVP; Site: right antecubital; ca1 18:09 Follow up: Response: No adverse reaction; Vomiting unchanged ca1 16:50 Drug: Magnesium Sulfate 1 grams Route: IVPB; Infused Over: 1 hrs; Site: right ca1 antecubital; 18:09 Follow up: IV Status: Completed infusion ca1 17:23 Drug: Digoxin 0.25 mg Route: IVP; Site: right antecubital; ca1 18:09 Follow up: Response: No adverse reaction ca1 17:45 Drug: Phenergan 12.5 mg Route: IVP; Site: right antecubital; ca1 18:10 Follow up: Response: No adverse reaction; Vomiting decreased ca1 Disposition: 10/03/18 15:15 Transfer ordered to [facility]. Diagnosis are Other chest pain, Hypoxemia, Dextrocardia, Atrial fibrillation and flutter - RVR, Polycythemia vera, Cardiomegaly, Hypomagnesemia. - Reason for transfer: Higher level of care. - Accepting physician is to cardio , dr. ezio perla. - Condition is Serious. - Problem is new. - Symptoms have improved. Signatures: Dispatcher [employer] EDMS Chriss Kelly MD MD cha Calderon, Audri, RN RN aa5 Pamella Howard RN RN ss Jania Carr RN RN ca1 Corrections: (The following items were deleted from the chart) 16:01 15:15 10/03/2018 15:15 Transfer ordered to [facility]. lavinia Diagnosis is Other chest pain; Hypoxemia; Dextrocardia; Atrial fibrillation and flutter - RVR. Reason for transfer: Higher level of care. Accepting physician is to [facility]. Condition is Serious. Problem is new. Symptoms have improved. lavinia 16:02 16:01 10/03/2018 15:15 Transfer ordered to [facility]. lavinia Diagnosis is Other chest pain; Hypoxemia; Dextrocardia; Atrial fibrillation and flutter - RVR; Polycythemia vera. Reason for transfer: Higher level of care. Accepting physician is to cardio . Condition is Serious. Problem is new. Symptoms have improved. lavinia 16:40 16:02 10/03/2018 15:15 Transfer ordered to [facility]. lavinia Diagnosis is Other chest pain; Hypoxemia; Dextrocardia; Atrial fibrillation and flutter - RVR; Polycythemia vera. Reason for transfer: Higher level of care. Accepting physician is to cardio , dr. ezio perla. Condition is Serious. Problem is new. Symptoms have improved. lavinia 18:24 16:40 10/03/2018 15:15 Transfer ordered to [facility]. ca1 Diagnosis is Other chest pain; Hypoxemia; Dextrocardia; Atrial fibrillation and flutter - RVR; Polycythemia vera; Cardiomegaly; Hypomagnesemia. Reason for transfer: Higher level of care. Accepting physician is to cardio dr. ezio. Condition is Serious. Problem is new. Symptoms have improved. lavinia
--- NOTE | 2018-10-03 15:30 | RAD REPORT ---
EXAM DESCRIPTION: RAD - Chest Single View - 10/03/2018 2:51 pm CLINICAL HISTORY: CHEST PAIN Chest pain. COMPARISON: Chest Single View dated 04/23/2018; Chest Single View dated 01/07/2018; Chest Single View d ated 08/23/2017; Chest Single View dated 10/19/2016; Thorax Wo Con dated 04/23/2018 FINDINGS: Portable technique limits examination quality. Interstitial lung markings are mildly prominent, unchanged. Dextrocardia is seen, stable. No displace d fractures. IMPRESSION: No acute intrathoracic process suspected.
[2018-10-03 15:40] LABS: Hematocrit 73.2 % (36.0-45.0)
[2018-10-03] MEDS ORDERED: FUROSEMIDE 20 MG/ 2ML VIAL ONE (15:42)
[2018-10-03] MEDS ORDERED: MORPHINE 4 MG/ML SYR ONE (15:43)
[2018-10-03] MEDS ORDERED: ONDANSETRON 4 MG/2 ML VIAL ONE ×2 (15:43→17:00)
[2018-10-03 15:59] LABS: ALT/SGPT 48 U/L (12-78); AST/SGOT 37 U/L (15-37); Albumin 3.1 g/dL (3.4-5.0); Alkaline Phosphatase 168 U/L (45-117); BUN Blood Urea Nitrogen 20 mg/dL (7-18); Bicarbonate 20 mmol/L (21-32); Bilirubin Direct 0.3 mg/dL (0-0.2); Bilirubin Total 1.4 mg/dL (0.2-1.0); Glucose Level 112 mg/dL (74-106); Magnesium 1.6 mg/dL (1.8-2.4); NT PRO-BNP 1017 pg/mL (<125); Protein, Total 7.4 g/dL (6.4-8.2); Sodium Level 136 mmol/L (136-145); Troponin (Emerg Dept Use Only) < 0.02 ng/mL (0.0-0.045)
[2018-10-03 16:03] LABS: Potassium 4.6 mmol/L (3.5-5.1)
[2018-10-03 16:10] LABS: Protime INR 1.13
[2018-10-03 16:35] LABS: Digoxin Level 0.9 ng/mL (0.80-2.00); Thyroid Stimulating Hormone 2.45 uIU/mL (0.360-3.740)
[2018-10-03] MEDS ORDERED: MAGNESIUM SULFATE 1 gm IVPB 1 GM/100 ML BAG IV ONE (16:54)
[2018-10-03] MEDS ORDERED: DIGOXIN 0.25 MG/ML AMP ONE (16:54)
[2018-10-03 17:11] LABS: Blood Morphology Comment NOTED (NOT SEEN); Macrocytosis 1+; Platelet Estimate ADEQ
[2018-10-03 17:17] LABS: Urine White Blood Cell Casts OK
[2018-10-03] MEDS ORDERED: PROMETHAZINE 25 MG/ML VIAL ONE (17:48)
[2018-10-03 19:27] VITALS: BP 96/78; O2SAT 82
--- NOTE | 2018-10-04 08:49 | EKG ---
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: DESIRE MEASUREMENT RESULTS: Intervals: Rate: 123 NV: 264 QRSD: 144 QT: 292 QTc: 418 [place]: P: 105 NV: 264 QRS: -44 T: 147 INTERPRETIVE STATEMENTS: atrial fib with rvr Left axis deviation Right bundle branch block Septal infarct, age undetermined T wave abnormality, consider lateral ischemia Abnormal ECG Compared to ECG 04/23/2018 00:14:03 Fusion complex(es) now present Ventricular premature complex(es) now present First degree AV block now present Right bundle-branch block now present T-wave abnormality now present Myocardial infarct finding still present Electronically Signed On 10-04-18 08:48:00 STATIONARY STEAM ENGINEER by Rajiv Lewis
== END 2018-10-03 18:24 | disposition short-term general hospital (02) ==
LOC: ER 13:52
DX: R07.89 Other chest pain (principal); R09.02 Hypoxemia; Q24.0 Dextrocardia; I48.2 Chronic atrial fibrillation; D45 Polycythemia vera; I51.7 Cardiomegaly; E83.42 Hypomagnesemia; I10 Essential (primary) hypertension; Z79.01 Long term (current) use of anticoagulants; Z88.0 Allergy status to penicillin; Z88.8 Allergy status to other drugs, medicaments and biological substances
CPT/HCPCS: 36415; 71045; 80048; 80076; 80162; 83735; 83880; 84443; 84484; 85025; 85610; 93005 ×2; J1160; J1940; J2405 ×2; J2550; J3475; 96375; 99285

== ENCOUNTER 2018-10-10 18:33 | Emergency (ER) | payer OTHER ==
--- OUTSIDE RECORDS SUMMARY | 2018-10-10 18:36 | XMS REPORT | Clinical Summary ---
:1975 Author Organization [facility] Address [address] [place] [address] Care Team Providers Name Role Phone Niko [...] ventricular response 04/26/2018 Dextrocardia 11/02/2014 [place] Shunt [address] [place] [address] 11/02/2014 Pulmonary atresia 11/02/2014 Complete A-V canal, [...] MD Dextrocardia; Isaiah Gomes [place] Shunt 1975 [place]; MD Oziel Pulmonary atresia; Complete A-V canal, right dominant - unrepaired; SOB (shortness of breath) 04/26/2018 Orders Only General Internal Medicine 01/08/2018 - Hospital Encounter Cardiac Intensive Terry, Atrial flutter, 01/09/2018 Care Niko Ojeda MD unspecified type (HCC) 01/08/2018 Orders Only General Internal Medicine after 10/09/2017 Immunizations Name Dates Previously Given Next Due [...] 236 ms QTC Calculation(Bazett) 336 ms R [place] 235 degrees T [place] 57 degrees Suspect arm lead reversal, interpretation [...] 402 ms QTC Calculation(Bazett) 414 ms P [place] 60 degrees R [place] -42 degrees T [place] 39 degrees Normal sinus rhythm Left axis [...] 206 ms QTC Calculation(Bazett) 357 ms R [place] 71 degrees T [place] 232 degrees Undetermined rhythm Low voltage QRS [...] 380 ms QTC Calculation(Bazett) 404 ms P [place] 56 degrees R [place] -29 degrees T [place] 107 degrees Sinus rhythm with 1st degree [...] 12-LEAD Routine 01/08/2018 6:39 AM CDT after 10/09/2017 Results RHYTHM STRIP - SCAN (04/28/2018 11:50 AM CDT) Narrative Performed At ECG 12 lead (04/27/2018 6:00 AM CDT)Only the most recent of5 resultswithin the time period is included. Narrative Performed At Ventricular Rate 122 BPM GE MUSE Atrial Rate 122 BPM QRS Duration 136 ms Q-T Interval 236 ms QTC Calculation(Bazett) 336 ms R [place] 235 degrees T [place] 57 degrees Suspect arm lead reversal, interpretation [...] 236 ms QTC Calculation(Bazett) 336 ms R [place] 235 degrees T [place] 57 degrees Suspect arm lead reversal, interpretation [...] to verify the correct patient, procedure, equipment, accounting support specialist and site/side marked as required. [...] Preoxygenation:Nasal cannula Sedation:Methohexital Intra-procedure monitoring:Blood pressure monitoring, personnel monitor, continuous pulse oximetry, frequent vital sign checks and frequent LOC assessments Intra-procedure events: none Post Sedation Evaluation: Respiration: airway patent and returned to pre-procedure baselinsMental Status: returned to pre-procedure baseline. Cardiovascular Function: returned to pre-procedure baseline and post-procedural personnel monitor reviewed The following have been reviewed and found to be within acceptable parameters: RR, HR, pulse ox and BP Pain Scale: 0/10 Nausea/Vomiting: no Hydration status: wnl Temperature within expected parameters :Temperature within defined limits @SLHSEDMULTIPLEVITALS@ Comments: Sedated for cardioversion, 2 small doses of brevital given, no comps XR chest 1 view portable/bedside (04/26/2018 11:57 AM CDT) Narrative Performed At FINAL REPORT [facility] Chest x-ray Clinical History: [...] MD Report Verified Date/Time:04/26/2018 12:19:57 Reading Location: [address] Radiology Reading Room Procedure Note Interface, [...] Report Verified Date/Time: 04/26/2018 12:19:57 Reading Location: [address] Radiology Reading Room Performing Organization Address City/[facility] Phone Number GE RIS TSH/Free T4 If Indicated (04/26/2018 11:54 AM CDT) TSH 2.04 0.35 - 4.94 uIU/mL [facility] Specimen Blood Performing Organization Address [facility] Phone Number [address] [address] CENTER PT/aPTT (04/26/2018 11:54 AM CDT) Protime 20.3 (H) 11.7 - 14.7 seconds [facility] INR 1.7 <=5.9 [facility] PTT 39.1 (H) 22.5 - 36.0 seconds [facility] Specimen Blood Narrative Performed At [facility] RECOMMENDED COUMADIN/WARFARIN INR THERAPY RANGES STANDARD DOSE: 2.0 - 3.0 Includes: PROPHYLAXIS for venous thrombosis, systemic embolization; TREATMENT for venous thrombosis and/or pulmonary embolus. HIGH RISK: Target INR is 2.5-3.5 for patients with mechanical heart valves. Performing Organization Address [facility] Phone Number [address] [address] [phone] CENTER CBC with platelet count + automated diff (04/26/2018 11:54 AM CDT)Only the most recent of2 resultswithin the time period is included. WBC 6.6 3.5 - 10.5 K/L [facility] RBC 7.02 (H) 3.93 - 5.22 M/L [facility] Hemoglobin 22.8 (H) 11.2 - 15.7 GM/DL [facility] Hematocrit 68.7 (H) 34.1 - 44.9 % [facility] MCV 97.9 (H) 79.4 - 94.8 fL [facility] MCH 32.5 (H) 25.6 - 32.2 pg [facility] MCHC 33.2 32.2 - 35.5 GM/DL [facility] RDW 16.9 (H) 11.7 - 14.4 % [facility] Platelets 183 150 - 450 K/CU MM [facility] MPV 10.0 9.4 - 12.3 fL [facility] nRBC 0 0 - 0 /100 WBC [facility] % Neutros 67 % [facility] % Lymphs 23 % [facility] % Monos 7 % [facility] % Eos 1 % [facility] % Baso 2 % [facility] # Neutros 4.43 1.56 - 6.13 K/L [facility] # Lymphs 1.48 1.18 - 3.74 K/L [facility] # Monos 0.44 (H) 0.24 - 0.36 K/L [facility] # Eos 0.07 0.04 - 0.36 K/L [facility] # Baso 0.13 (H) 0.01 - 0.08 K/L [facility] Immature Granulocytes-Relative 1 0 - 1 % [facility] Specimen Blood Performing Organization Address City/State/Zipcode Phone Number [facility] [address] [place] [address] CENTER Troponin I (04/26/2018 11:54 AM CDT) Troponin I <0.01 0.00 - 0.03 ng/mL [facility] Specimen Blood Narrative Performed At [facility] Troponin I (TnI) levels must be interpreted [...] disease, and persistent tachyarrhythmia. Performing Organization Address [facility] Phone Number [address] [address] [phone] CENTER B-type Natriuretic Factor (BNP) (04/26/2018 11:54 AM CDT) BNP 1,527 (H) 0 - 100 pg/mL [facility] Specimen Blood Performing Organization Address [facility] Phone Number [address] [address] CENTER Magnesium (04/26/2018 11:54 AM CDT)Only the most recent of3 resultswithin the time period is included. Magnesium 2.1Comment: Specimen slightly 1.6 - 2.6 mg/dL [facility] hemolyzed [facility] Specimen Blood Performing Organization Address [facility] Phone Number [address] [address] [phone] CENTER Digoxin level (04/26/2018 11:54 AM CDT) Digoxin Lvl 0.5 (L) 0.8 - 2.0 ng/mL [facility] Specimen Blood Performing Organization Address [facility] Phone Number [address] [address] CENTER Basic Metabolic Panel (04/26/2018 11:54 AM CDT)Only the most recent of2 resultswithin the time period is included. Sodium 135 (L) 136 - 145 meq/L [facility] Potassium 5.4 (H)Comment: Specimen 3.5 - 5.1 meq/L [facility] slightly hemolyzed [facility] Chloride 106 98 - 107 meq/L [facility] CO2 20 (L) 22 - 29 meq/L [facility] BUN 31 (H) 7 - 21 mg/dL [facility] Creatinine 1.00Comment: Specimen 0.57 - 1.25 mg/dL [facility] slightly hemolyzed [facility] Glucose 185 (H) 70 - 105 mg/dL [facility] Calcium 9.5 8.4 - 10.2 mg/dL [facility] EGFR 60Comment: ESTIMATED GFR IS mL/min/1.73 sq m [facility] NOT ACCURATE CREATININE [facility] CENTER CLEARANCE IN PREDICTING GLOMERULAR FILTRATION RATE. ESTIMATED GFR IS NOT APPLICABLE FOR DIALYSIS PATIENTS. Specimen Blood Performing Organization Address City/State/Zipcode Phone Number [facility] [address] [place] [address] [phone] CENTER CBC (Hemogram only) (01/09/2018 5:23 AM CDT) WBC 6.0 3.5 - 10.5 K/L [facility] RBC 6.40 (H) 3.93 - 5.22 M/L [facility] Hemoglobin 21.3 (H) 11.2 - 15.7 GM/DL [facility] Hematocrit 64.3 (H) 34.1 - 44.9 % [facility] MCV 100.5 (H) 79.4 - 94.8 fL [facility] MCH 33.3 (H) 25.6 - 32.2 pg [facility] MCHC 33.1 32.2 - 35.5 GM/DL [facility] RDW 17.5 (H) 11.7 - 14.4 % [facility] Platelets 184 150 - 450 K/CU MM [facility] MPV 10.2 9.4 - 12.3 fL [facility] nRBC 0 0 - 0 /100 WBC [facility] Specimen Blood - Arm, Right Performing Organization Address [facility] Phone Number [address] [address] [phone] CENTER Phosphorus (01/08/2018 7:44 AM CDT) Phosphorus 4.1Comment: Specimen slightly 2.3 - 4.7 mg/dL [facility] Spec[facility] Blood - Arm, Left Performing Organization Address [facility] Phone Number [address] [address] [phone] [place] Comprehensive metabolic panel (01/08/2018 7:44 AM CDT) Protein, Total 7.5Comment: Specimen 6.0 - 8.3 gm/dL [facility] slightly hemolyzed [facility] Albumin 3.5Comment: Specimen 3.5 - 5.0 g/dL [facility] slightly hemolyzed [facility] Alkaline Phosphatase 223 (H) 40 - 150 U/L [facility] Total Bilirubin 1.4 (H)Comment: Specimen 0.2 - 1.2 mg/dL [facility] slightly hemolyzed [facility] Sodium 135 (L) 136 - 145 meq/L [facility] Potassium 5.2 (H)Comment: Specimen 3.5 - 5.1 meq/L [facility] slightly hemolyzed [facility] Chloride 102 98 - 107 meq/L [facility] CO2 21 (L) 22 - 29 meq/L [facility] BUN 31 (H) 7 - 21 mg/dL [facility] Creatinine 1.06Comment: Specimen 0.57 - 1.25 mg/dL [facility] slightly hemolyzed [facility] Glucose 113 (H) 70 - 105 mg/dL [facility] Calcium 9.5 8.4 - 10.2 mg/dL [facility] AST 40 (H)Comment: Specimen 5 - 34 U/L [facility] slightly hemolyzed [facility] ALT 66 (H)Comment: Specimen 6 - 55 U/L [facility] slightly hemolyzed [facility] EGFR 56Comment: ESTIMATED GFR mL/min/1.[address] [facility] IS NOT ACCURATE [facility] CREATININE CLEARANCE IN PREDICTING GLOMERULAR FILTRATION RATE. ESTIMATED GFR IS NOT APPLICABLE FOR DIALYSIS PATIENTS. Specimen Blood - Arm, Left Performing Organization Address City/State/Zipcode Phone Number [facility] [address] [place] [address] [phone] CENTER after 10/09/2017 Insurance Payer Benefit Plan / Group Subscriber ID Type Phone Address MEDICARE MEDICARE A B xxxxxxxxxxx Medicare (Home) [place] [address] Advance Directives For more information, please contact:[facility] [place], [place] [phone] Code Status Date Activated Date Inactivated Comments Full Code 04/26/2018 5:16 PM 04/27/2018 1:33 PM This code status was determined by: Patient Full Code 01/08/2018 6:31 AM 01/09/2018 2:01 PM This code status was determined by: Patient Full Code 11/02/2014 1:12 PM 11/04/2014 2:15 PM This code status was determined by: Patient
--- OUTSIDE RECORDS SUMMARY | 2018-10-10 18:37 | XMS REPORT ---
:1975 [facility] Address [address] [place] [address] Care Team Providers Name Role Phone GEORGINA [...] Reference Range Comments DIGOXIN LEVEL (BEAKER) (test cfbw=581) 0.5 ng/mL 0.8-2.0 TSH/FREE T4 IF [id number] 12:51:00 Test Item Value Reference Range Comments THYROID STIMULATING HORMONE (BEAKER) (test 2.04 uIU/mL 0.35-4.94 wzkl=593) TROPONIN [id number] 12:36:00 Test Item Value Reference Range Comments TROPONIN I (BEAKER) (test qhol=175) < ng/mL 0.00-0.03 Troponin I (TnI) levels [...] NATRIURETIC PEPTIDE (BEAKER) (test 1527 pg/mL 0-100 wizs=237) [id number] 12:28:00 Test Item Value Reference Range Comments MAGNESIUM (BEAKER) (test 2.1 mg/dL 1.6-2.6 Specimen slightly hemolyzed bwdz=239) BASIC METABOLIC [id number] 12:28:00 Test Item Value Reference Range Comments SODIUM (BEAKER) (test 135 meq/L 136-145 auto=271) POTASSIUM (BEAKER) (test 5.4 meq/L 3.5-5.1 Specimen slightly gjii=668) hemolyzed CHLORIDE (BEAKER) (test 106 meq/L 98-107 ghuf=440) CO2 (BEAKER) (test 20 meq/L 22-29 fckn=413) BLOOD UREA NITROGEN 31 mg/dL 7-21 (BEAKER) (test sspl=117) CREATININE (BEAKER) (test 1.00 mg/dL 0.57-1.25 Specimen slightly ymsz=880) hemolyzed GLUCOSE RANDOM (BEAKER) 185 mg/dL 70-105 (test fayr=233) CALCIUM (BEAKER) (test 9.5 mg/dL 8.4-10.2 dcol=875) EGFR (BEAKER) (test 60 mL/min/1.73 sq m ESTIMATED GFR IS NOT xqmj=1091) ACCURATE CREATININE CLEARANCE IN PREDICTING GLOMERULAR FILTRATION RATE. ESTIMATED GFR IS NOT APPLICABLE FOR DIALYSIS PATIENTS. CBC W/PLT COUNT & AUTO [id number] 12:22:00 Test Item Value Reference Range Comments WHITE BLOOD CELL COUNT (BEAKER) (test lckr=444) 6.6 K/ L 3.5-10.5 RED BLOOD CELL COUNT (BEAKER) (test tbgj=913) 7.02 M/ L 3.93-5.22 HEMOGLOBIN (BEAKER) (test vzlk=766) 22.8 GM/DL 11.2-15.7 HEMATOCRIT (BEAKER) (test kyfd=372) 68.7 % 34.1-44.9 MEAN CORPUSCULAR VOLUME (BEAKER) (test ryxg=773) 97.9 fL 79.4-94.8 MEAN CORPUSCULAR HEMOGLOBIN (BEAKER) (test 32.5 pg 25.6-32.2 olbg=838) MEAN CORPUSCULAR HEMOGLOBIN CONC (BEAKER) (test 33.2 GM/DL 32.2-35.5 uvub=171) RED CELL DISTRIBUTION WIDTH (BEAKER) (test 16.9 % 11.7-14.4 qdag=137) PLATELET COUNT (BEAKER) (test vsxd=880) 183 K/CU MM 150-450 MEAN PLATELET VOLUME (BEAKER) (test vcle=392) 10.0 fL 9.4-12.3 NUCLEATED RED BLOOD CELLS (BEAKER) (test 0 /100 WBC 0-0 vghf=012) NEUTROPHILS RELATIVE PERCENT (BEAKER) (test 67 % epzo=107) LYMPHOCYTES RELATIVE PERCENT (BEAKER) (test 23 % zwxj=601) MONOCYTES RELATIVE PERCENT (BEAKER) (test 7 % ccvx=771) EOSINOPHILS RELATIVE PERCENT (BEAKER) (test 1 % kjvy=179) BASOPHILS RELATIVE PERCENT (BEAKER) (test 2 % pdky=765) NEUTROPHILS ABSOLUTE COUNT (BEAKER) (test 4.43 K/ L 1.56-6.13 zzcp=559) LYMPHOCYTES ABSOLUTE COUNT (BEAKER) (test 1.48 K/ L 1.18-3.74 xyys=072) MONOCYTES ABSOLUTE COUNT (BEAKER) (test 0.44 K/ L 0.24-0.36 kkfc=805) EOSINOPHILS ABSOLUTE COUNT (BEAKER) (test 0.07 K/ L 0.04-0.36 gqhv=014) BASOPHILS ABSOLUTE COUNT (BEAKER) (test 0.13 K/ L 0.01-0.08 htdg=333) IMMATURE GRANULOCYTES-RELATIVE PERCENT (BEAKER) 1 % 0-1 (test dtlo=4028) [id number] 12:21:00 Test Item Value Reference Range Comments PROTIME (BEAKER) (test xxuc=450) 20.3 seconds 11.7-14.7 INR (BEAKER) (test ngum=691) 1.7 <=5.9 PARTIAL THROMBOPLASTIN TIME (BEAKER) (test 39.1 seconds 22.5-36.0 bgvq=364) RECOMMENDED COUMADIN/WARFARIN INR THERAPY RANGESSTANDARD DOSE: 2.0 - 3.0 Includes: PROPHYLAXIS forvenous thrombosis, systemic embolization; TREATMENT for venous thrombosis and/or pulmonary embolus.HIGH RISK: Target INR is 2.5-3.5 for patients with mechanical heart valves.RAD, CHEST, 1 VIEW, NON [id number] 12:19:00Reason for exam:->chest painIs the patient [...] [place] Verified Date/Time: 04/26/2018 12:19:57 Reading Location: [address] Radiology Reading Room Electronically signed by: YOLANDA CHAMPION M.D. on 06/2018 12:19 [id number] 07:13:00 Test Item Value Reference Range Comments MAGNESIUM (BEAKER) (test 2.1 mg/dL 1.6-2.6 Specimen slightly hemolyzed gnvu=016) BASIC METABOLIC [id number] 07:13:00 Test Item Value Reference Range Comments SODIUM (BEAKER) (test 133 meq/L 136-145 phqj=501) POTASSIUM (BEAKER) (test 4.5 meq/L 3.5-5.1 Specimen slightly dgwb=159) hemolyzed CHLORIDE (BEAKER) (test 103 meq/L 98-107 gqza=425) CO2 (BEAKER) (test 23 meq/L 22-29 uvtt=796) BLOOD UREA NITROGEN 32 mg/dL 7-21 (BEAKER) (test qzfo=623) CREATININE (BEAKER) (test 0.84 mg/dL 0.57-1.25 Specimen slightly wnih=337) hemolyzed GLUCOSE RANDOM (BEAKER) 105 mg/dL 70-105 (test dbwu=009) CALCIUM (BEAKER) (test 9.1 mg/dL 8.4-10.2 qdds=522) EGFR (BEAKER) (test 74 mL/min/1.73 sq m ESTIMATED GFR IS NOT nthh=3917) ACCURATE CREATININE CLEARANCE IN PREDICTING GLOMERULAR FILTRATION RATE. ESTIMATED GFR IS NOT APPLICABLE FOR DIALYSIS PATIENTS. CBC (HEMOGRAM ONLY)2018-01-09 06:04:00 Test Item Value Reference Range Comments WHITE BLOOD CELL COUNT (BEAKER) (test bgsp=547) 6.0 K/ L 3.5-10.5 RED BLOOD CELL COUNT (BEAKER) (test fdtx=398) 6.40 M/ L 3.93-5.22 HEMOGLOBIN (BEAKER) (test oxma=365) 21.3 GM/DL 11.2-15.7 HEMATOCRIT (BEAKER) (test ezlj=858) 64.3 % 34.1-44.9 MEAN CORPUSCULAR VOLUME (BEAKER) (test lanf=507) 100.5 fL 79.4-94.8 MEAN CORPUSCULAR HEMOGLOBIN (BEAKER) (test 33.3 pg 25.6-32.2 xdtb=565) MEAN CORPUSCULAR HEMOGLOBIN CONC (BEAKER) (test 33.1 GM/DL 32.2-35.5 skqs=304) RED CELL DISTRIBUTION WIDTH (BEAKER) (test 17.5 % 11.7-14.4 qvax=837) PLATELET COUNT (BEAKER) (test tyrs=193) 184 K/CU MM 150-450 MEAN PLATELET VOLUME (BEAKER) (test htqz=063) 10.2 fL 9.4-12.3 NUCLEATED RED BLOOD CELLS (BEAKER) (test 0 /100 WBC 0-0 fnwh=589) [id number] 08:59:00 Test Item Value Reference Range Comments MAGNESIUM (BEAKER) (test 2.1 mg/dL 1.6-2.6 Specimen slightly hemolyzed rutp=000) [id number] 08:59:00 Test Item Value Reference Range Comments PHOSPHORUS (BEAKER) (test 4.1 mg/dL 2.3-4.7 Specimen slightly hemolyzed vhfl=566) COMPREHENSIVE METABOLIC [id number] 08:59:00 Test Item Value Reference Range Comments TOTAL PROTEIN (BEAKER) 7.5 gm/dL 6.0-8.3 Specimen slightly (test mxow=719) hemolyzed ALBUMIN (BEAKER) (test 3.5 g/dL 3.5-5.0 Specimen slightly wflh=6639) hemolyzed ALKALINE PHOSPHATASE 223 U/L 40-150 (BEAKER) (test iljl=702) BILIRUBIN TOTAL (BEAKER) 1.4 mg/dL 0.2-1.2 Specimen slightly (test fjze=244) hemolyzed SODIUM (BEAKER) (test 135 meq/L 136-145 stup=677) POTASSIUM (BEAKER) (test 5.2 meq/L 3.5-5.1 Specimen slightly glgk=044) hemolyzed CHLORIDE (BEAKER) (test 102 meq/L 98-107 tidn=487) CO2 (BEAKER) (test 21 meq/L 22-29 qfbk=027) BLOOD UREA NITROGEN 31 mg/dL 7-21 (BEAKER) (test lawx=493) CREATININE (BEAKER) (test 1.06 mg/dL 0.57-1.25 Specimen slightly eahq=161) hemolyzed GLUCOSE RANDOM (BEAKER) 113 mg/dL 70-105 (test kbyo=049) CALCIUM (BEAKER) (test 9.5 mg/dL 8.4-10.2 yinz=198) AST (SGOT) (BEAKER) (test 40 U/L 5-34 Specimen slightly eecb=452) hemolyzed ALT (SGPT) (BEAKER) (test 66 U/L 6-55 Specimen slightly ndly=392) hemolyzed EGFR (BEAKER) (test 56 mL/min/1.73 sq m ESTIMATED GFR IS NOT resl=0173) ACCURATE CREATININE CLEARANCE IN PREDICTING GLOMERULAR FILTRATION RATE. ESTIMATED GFR IS NOT APPLICABLE FOR DIALYSIS PATIENTS. CBC W/PLT COUNT & AUTO [id number] 07:20:00 Test Item Value Reference Range Comments WHITE BLOOD CELL COUNT (BEAKER) (test gzkw=474) 6.9 K/ L 3.5-10.5 RED BLOOD CELL COUNT (BEAKER) (test kius=738) 7.06 M/ L 3.93-5.22 HEMOGLOBIN (BEAKER) (test ppkw=041) 22.8 GM/DL 11.2-15.7 HEMATOCRIT (BEAKER) (test banw=882) 69.9 % 34.1-44.9 MEAN CORPUSCULAR VOLUME (BEAKER) (test ftxc=854) 99.0 fL 79.4-94.8 MEAN CORPUSCULAR HEMOGLOBIN (BEAKER) (test 32.3 pg 25.6-32.2 clkl=577) MEAN CORPUSCULAR HEMOGLOBIN CONC (BEAKER) (test 32.6 GM/DL 32.2-35.5 adcw=885) RED CELL DISTRIBUTION WIDTH (BEAKER) (test 17.7 % 11.7-14.4 pirr=465) PLATELET COUNT (BEAKER) (test ably=171) 217 K/CU MM 150-450 MEAN PLATELET VOLUME (BEAKER) (test qzur=053) 10.1 fL 9.4-12.3 NUCLEATED RED BLOOD CELLS (BEAKER) (test 0 /100 WBC 0-0 mzff=391) NEUTROPHILS RELATIVE PERCENT (BEAKER) (test 77 % gfxj=561) LYMPHOCYTES RELATIVE PERCENT (BEAKER) (test 11 % gozb=871) MONOCYTES RELATIVE PERCENT (BEAKER) (test 10 % rcdd=522) EOSINOPHILS RELATIVE PERCENT (BEAKER) (test 1 % mjyf=825) BASOPHILS RELATIVE PERCENT (BEAKER) (test 2 % aevl=311) NEUTROPHILS ABSOLUTE COUNT (BEAKER) (test 5.28 K/ L 1.56-6.13 rkkq=418) LYMPHOCYTES ABSOLUTE COUNT (BEAKER) (test 0.72 K/ L 1.18-3.74 luwv=130) MONOCYTES ABSOLUTE COUNT (BEAKER) (test 0.66 K/ L 0.24-0.36 kwdg=155) EOSINOPHILS ABSOLUTE COUNT (BEAKER) (test 0.04 K/ L 0.04-0.36 eflj=734) BASOPHILS ABSOLUTE COUNT (BEAKER) (test 0.12 K/ L 0.01-0.08 yvfu=882) IMMATURE GRANULOCYTES-RELATIVE PERCENT (BEAKER) 1 % 0-1 (test fcek=[id number])
--- NOTE | 2018-10-10 20:11 | RAD REPORT ---
EXAM DESCRIPTION: US - Extremity Venous Uni Ltd - 10/10/2018 8:03 pm CLINICAL HISTORY: Right arm pain and swelling COMPARISON: None. TECHNIQUE: Real-time sonographic evaluation of the right upper extremity deep venous systems was per formed. FINDINGS: Normal compressibility, flow augmentation, phasic flow and spontaneous flow are identified in the right upper extremity deep venous system. No intraluminal filling defects seen. Internal jugu lar and subclavian veins are normal as well. IMPRESSION: No DVT in the right upper extremity.
--- NOTE | 2018-10-10 20:20 | ER ---
Nurse's Notes [facility] Name: Tanya Solo Age: 43 yrs Sex: Female : 1975 Arrival Date: 10/10/2018 Time: 18:36 Bed 15 Private MD: Diagnosis: Pain in right arm Presentation: 10/10 18:47 Presenting complaint: Patient states: right arm pain that began Wednesday. Pt states "I aa5 am worried that I have a blood clot because I've had them before". Transition of care: patient was not received from another setting of care. Onset of symptoms was September 2018. Risk Assessment: Do you want to hurt yourself or someone else? Patient reports no desire to harm self or others. Care prior to arrival: None. 18:47 Method Of Arrival: Ambulatory aa5 18:47 Acuity: JOSE L 3 aa5 20:25 Initial Sepsis Screen: Does the patient meet any 2 criteria? No. Patient's initial aj1 sepsis screen is negative. Does the patient have a suspected source of infection? No. Patient's initial sepsis screen is negative. 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 - Social history:: Smoking status: Patient/guardian denies using tobacco. - Ebola Screening: : No symptoms or risks identified at this time. Screenin:10 Abuse screen: Denies threats or abuse. Denies injuries from another. Nutritional aj1 screening: No deficits noted. Tuberculosis screening: No symptoms or risk factors identified. 21:00 Fall Risk None identified. aj1 Assessment: 19:10 General: Appears in no apparent distress. uncomfortable, Behavior is calm, cooperative, aj1 appropriate for age. Pain: Complains of pain in right arm Pain does not radiate. Pain currently is 8 out of 10 on a pain scale. Quality of pain is described as aching, Pain began 2-3 days ago. Is continuous. Neuro: Level of Consciousness is awake, alert, obeys commands, Oriented to person, place, time, situation. Cardiovascular: Denies chest pain, Patient's skin is warm and dry. Patient has clubbed fingers, O2 sat in the low 80's, patient states that her normal O2 sat is between 75-82% on room air because of her cardiac history. Respiratory: Airway is patent Respiratory effort is even, unlabored, Respiratory pattern is regular, symmetrical. GI: No signs and/or symptoms were reported involving the gastrointestinal system. : EENT: No signs and/or symptoms were reported regarding the EENT system. Derm: No signs and/or symptoms reported regarding the dermatologic system. Skin is pink, warm \\T\\ dry. normal. Musculoskeletal: Circulation, motion, and sensation intact. Range of motion: intact in all extremities. 20:50 Reassessment: Patient appears in no apparent distress at this time. No changes from aj1 previously documented assessment. Patient and/or family updated on plan of care and expected duration. Pain level reassessed. Patient is alert, oriented x 3, equal unlabored respirations, skin warm/dry/pink. Vital Signs: 18:49 BP 109 / 64; Pulse 84; Resp 18 S; Temp 97.2(TE); Pulse Ox 83% on R/A; Weight 63.05 kg aa5 (R); Height 5 ft. 1 in. (154.94 cm) (R); Pain 7/10; 19:10 BP 107 / 67; Pulse 81; Resp 20; Pulse Ox 81% on R/A; aj1 20:59 BP 108 / 62; Pulse 88; Resp 20; Pulse Ox 81% on R/A; aj1 18:49 Body Mass Index 26.26 (63.05 kg, 154.94 cm) aa5 18:49 Pt states "80s is good for me (refers to O2 saturation)" aa5 ED Course: 18:36 Patient arrived in ED. mr 18:47 Arm band placed on. aa5 18:48 Triage completed. aa5 19:04 Snow Blas, RN is Primary Nurse. aj1 19:10 Patient has correct armband on for positive identification. Bed in low position. Call aj light in reach. Side rails up X 1. 19:10 No provider procedures requiring assistance completed. aj1 19:25 Ladonna Orozco FNP-C [facility]. snw 19:25 Estevan He MD is Attending Physician. snw 20:03 US Extremity Venous Unilateral Ltd In Process Unspecified. EDMS 21:00 Patient did not have IV access during this emergency room visit. aj1 Administered Medications: 20:42 Drug: fentaNYL (PF) 25 mcg Route: IM; Site: left deltoid; aj1 21: Follow up: Response: No adverse reaction; Pain is decreased aj1 20:42 Drug: Decadron - Dexamethasone 10 mg {Note: Given PO per orders.} Route: IVP; Site: aj1 Other; : Follow up: Response: No adverse reaction aj1 Outcome: : Discharge ordered by . snw 21:00 Discharged to home ambulatory. aj1 21:00 Condition: good 21:00 Discharge instructions given to patient, Instructed on discharge instructions, follow up and referral plans. medication usage, Demonstrated understanding of instructions, follow-up care, medications, Prescriptions given X 1. 21:01 Patient left the ED. aj1 Signatures: Dispatcher [employer] EDNC Snow Blas RN RN aj1 Ladonna Orozco FNP-C SHIP SUPERINTENDENT-Gertrudis Agnieszka Terrazas Rayna Rincon, RN RN aa5
--- NOTE | 2018-10-10 20:21 | EDPHYS ---
Physician Documentation [facility] Name: Tanya Solo Age: 43 yrs Sex: Female : 1975 Arrival Date: 10/10/2018 Time: 18:36 Bed 15 Private MD: ED Physician Estevan He HPI: 10/11 02:57 This 43 yrs old Female presents to ER via Ambulatory with complaints of Blood snw clot. 02:57 The patient or guardian complains of pain, that is acute. The complaints affect the snw anterior aspect of right shoulder, right bicep and right antecubital area. Context: The problem was sustained at an unknown location, resulted from possible from multiple iv placements over the past week. Onset: The symptoms/episode began/occurred gradually. Modifying factors: The symptoms are alleviated by nothing. Associated signs and symptoms: The patient has no apparent associated signs or symptoms. Severity of symptoms: At their worst the symptoms were moderate, in the emergency department the symptoms are unchanged. The patient has experienced a previous episode, hx of DVT in right arm. The patient has been recently seen by a physician: The patient has been recently been admitted at [facility], and transfer to another facility. Pt without complaints of palpitations, chest pain since discharge several days ago. hx of dextrocardia. 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 - Social history:: Smoking status: Patient/guardian denies using tobacco. - Ebola Screening: : No symptoms or risks identified at this time. ROS: 10/11 02:56 Constitutional: Negative for fever, chills, and weight loss, Eyes: Negative for injury, snw pain, redness, and discharge, ENT: Negative for injury, pain, and discharge, Neck: Negative for injury, pain, and swelling, Cardiovascular: Negative for chest pain, palpitations, and edema, Respiratory: Negative for shortness of breath, cough, wheezing, and pleuritic chest pain, Abdomen/GI: Negative for abdominal pain, nausea, vomiting, diarrhea, and constipation, Back: Negative for injury and pain, : Negative for injury, bleeding, discharge, and swelling, Skin: Negative for injury, rash, and discoloration, Neuro: Negative for headache, weakness, numbness, tingling, and seizure. MS/extremity: Positive for tenderness, of the right lateral neck down to right ac space. Skin: Positive for ecchymosis. Exam: 01:37 Constitutional: This is a well developed, well nourished patient who is awake, alert, snw and in no acute distress. Head/Face: Normocephalic, atraumatic. Eyes: Pupils equal round and reactive to light, extra-ocular motions intact. Lids and lashes normal. Conjunctiva and sclera are non-icteric and not injected. Cornea within normal limits. Periorbital areas with no swelling, redness, or edema. ENT: Nares patent. No nasal discharge, no septal abnormalities noted. Tympanic membranes are normal and external auditory canals are clear. Oropharynx with no redness, swelling, or masses, exudates, or evidence of obstruction, uvula midline. Mucous membranes moist. Neck: Trachea midline, no thyromegaly or masses palpated, and no cervical lymphadenopathy. Supple, full range of motion without nuchal rigidity, or vertebral point tenderness. No Meningismus. Chest/axilla: Normal chest wall appearance and motion. Nontender with no deformity. No lesions are appreciated. Respiratory: Lungs have equal breath sounds bilaterally, clear to auscultation and percussion. No rales, rhonchi or wheezes noted. No increased work of breathing, no retractions or nasal flaring. Abdomen/GI: Soft, non-tender, with normal bowel sounds. No distension or tympany. No guarding or rebound. No evidence of tenderness throughout. Back: No spinal tenderness. No costovertebral tenderness. Full range of motion. Neuro: Awake and alert, GCS 15, oriented to person, place, time, and situation. Cranial nerves II-XII grossly intact. Motor strength 5/5 in all extremities. Sensory grossly intact. Cerebellar exam normal. Normal gait. Psych: Awake, alert, with orientation to person, place and time. Behavior, mood, and affect are within normal limits. 01:37 Cardiovascular: Rate: normal, Rhythm: regular, Pulses: no pulse deficits are appreciated, Heart sounds: murmur, crescendo, grade 3 over 6, Edema: is not appreciated, JVD: is not appreciated. 01:37 Cardiovascular: dextrocardia, severe clubbing to fingers. 01:37 Skin: injury, contusion(s), that are deep, of the medial arm and ac space and bicep area with ecchymosis s/p iv last week.. Vital Signs: 10/10 18:49 BP 109 / 64; Pulse 84; Resp 18 S; Temp 97.2(TE); Pulse Ox 83% on R/A; Weight 63.05 kg aa5 (R); Height 5 ft. 1 in. (154.94 cm) (R); Pain 7/10; 19:10 BP 107 / 67; Pulse 81; Resp 20; Pulse Ox 81% on R/A; aj1 20:59 BP 108 / 62; Pulse 88; Resp 20; Pulse Ox 81% on R/A; aj1 18:49 Body Mass Index 26.26 (63.05 kg, 154.94 cm) aa5 18:49 Pt states "80s is good for me (refers to O2 saturation)" aa5 MDM: 19:31 Patient medically screened. snw 10/11 01:40 Data reviewed: vital signs, nurses notes. Data interpreted: Pulse oximetry: on room air snw is 81 %. Interpretation: norm for pt. Counseling: I had a detailed discussion with the patient and/or guardian regarding: the historical points, exam findings, and any diagnostic results supporting the discharge/admit diagnosis, radiology results, the need for outpatient follow up, to return to the emergency department if symptoms worsen or persist or if there are any questions or concerns that arise at home. Response to treatment: the patient's symptoms have mildly improved after treatment. Special discussion: Based on the history and exam findings, there is no indication for further emergent testing or inpatient evaluation. 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 I discussed with the patient/guardian the need to see the primary care provider for further evaluation of the symptoms. ED course: pt has recent iv starts and hospitalization, previous DVT in right arm. US negative for DVT today. Encouraged pt to use warm compresses to area of iv start and follow up with PCP. 10/10 19:26 Order name: US Extremity Venous Unilateral Ltd; Complete Time: 20:16 snw Administered Medications: 10/10 20:42 Drug: fentaNYL (PF) 25 mcg Route: IM; Site: left deltoid; aj1 21:01 Follow up: Response: No adverse reaction; Pain is decreased aj1 20:42 Drug: Decadron - Dexamethasone 10 mg {Note: Given PO per orders.} Route: IVP; Site: aj1 Other; 21:01 Follow up: Response: No adverse reaction aj1 Disposition: 10/10/18 20:19 Discharged to Home. Impression: Pain in right arm. - Condition is Stable. - Discharge Instructions: Phlebitis, Heat Therapy. - Prescriptions for Ultram 50 mg Oral Tablet - take 1 tablet by ORAL route every 6 hours As needed; 12 tablet. - Medication Reconciliation Form, Thank You Letter, Antibiotic Education, Prescription Opioid Use form. - Follow up: Private Physician; When: as scheduled 10/19/18; Reason: Recheck today's complaints, Continuance of care, Re-evaluation by your physician. Follow up: Emergency Department; When: As needed; Reason: Worsening of condition. Signatures: Dispatcher [employer] Snow Lane RN RN aj1 Ladonna Orozco, RECRUITER MANAGER-C RECRUITER MANAGER-Csnw Rayna Rincon RN RN aa5 Corrections: (The following items were deleted from the chart) 21:01 20:19 10/10/2018 20:19 Discharged to Home. Impression: Pain in right arm. Condition is aj1 Stable. Forms are Medication Reconciliation Form, Thank You Letter, Antibiotic Education, Prescription Opioid Use. Follow up: Private Physician; When: as scheduled 10/19/18; Reason: Recheck today's complaints, Continuance of care, Re-evaluation by your physician. Follow up: Emergency Department; When: As needed; Reason: Worsening of condition. snw
[2018-10-10] MEDS ORDERED: FENTANYL CITR 100 MCG/2 ML ONE (20:45)
[2018-10-10] MEDS ORDERED: DEXAMETHASONE 4 MG/ML VIAL ONE (20:46)
[2018-10-10 21:21] VITALS: TEMP 97.2
[2018-10-10 21:23] VITALS: O2SAT 81
[2018-10-10 21:24] VITALS: BP 108/62
== END 2018-10-10 21:01 | disposition home or self-care (01) ==
LOC: ER 18:33
DX: M79.601 Pain in right arm (principal); I10 Essential (primary) hypertension; Q25.5 Atresia of pulmonary artery; Z88.1 Allergy status to other antibiotic agents; Z91.048 Other nonmedicinal substance allergy status
CPT/HCPCS: 93971; J3010; 96372; 96374; 99283

== ENCOUNTER 2018-11-27 14:33 | Emergency (ER) | payer OTHER ==
--- OUTSIDE RECORDS SUMMARY | 2018-11-27 14:36 | XMS REPORT | Clinical Summary ---
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, [...] Dai MD Dextrocardia; Isaiah Gomes [place] [address] [place] [address]; MD Oziel Pulmonary atresia; Complete A-V canal, right dominant - unrepaired; SOB (shortness of breath) 04/26/2018 Orders Only General Internal Medicine 01/08/2018 - Hospital Encounter Cardiac Intensive Terry, Atrial flutter, 01/09/2018 Care Niko Ojeda MD unspecified type (HCC) 01/08/2018 Orders Only General Internal Medicine after 11/26/2017 Immunizations Name Dates Previously Given Next Due [...] 236 ms QTC Calculation(Bazett) 336 ms R Garvin 235 degrees T Garvin 57 degrees Suspect arm lead reversal, interpretation [...] 402 ms QTC Calculation(Bazett) 414 ms P Garvin 60 degrees R Garvin -42 degrees T Garvin 39 degrees Normal sinus rhythm Left axis [...] 206 ms QTC Calculation(Bazett) 357 ms R Garvin 71 degrees T Garvin 232 degrees Undetermined rhythm Low voltage QRS [...] 380 ms QTC Calculation(Bazett) 404 ms P Garvin 56 degrees R Garvin -29 degrees T Garvin 107 degrees Sinus rhythm with 1st degree [...] 12-LEAD Routine 01/08/2018 6:39 AM CDT after 11/26/2017 Results RHYTHM STRIP - SCAN (04/28/2018 11:50 AM CDT) Narrative Performed At ECG 12 lead (04/27/2018 6:00 AM CDT)Only the most recent of5 resultswithin the time period is included. Narrative Performed At Ventricular Rate 122 BPM GE MUSE Atrial Rate 122 BPM QRS Duration 136 ms Q-T Interval 236 ms QTC Calculation(Bazett) 336 ms R Garvin 235 degrees T Garvin 57 degrees Suspect arm lead reversal, interpretation [...] 236 ms QTC Calculation(Bazett) 336 ms R Garvin 235 degrees T Garvin 57 degrees Suspect arm lead reversal, interpretation [...] to verify the correct patient, procedure, equipment, residential support specialist and site/side marked as required. [...] sedation Date/Time: 04/26/2018 1:35 PM Performed by: GEORIGNA NINA Authorized by: GEORGINA NINA Consent: Consent [...] Preoxygenation:Nasal cannula Sedation:Methohexital Intra-procedure monitoring:Blood pressure monitoring, bus driver/monitor, continuous pulse oximetry, frequent vital sign checks and frequent LOC assessments Intra-procedure events: none Post Sedation Evaluation: Respiration: airway patent and returned to pre-procedure baselinsMental Status: returned to pre-procedure baseline. Cardiovascular Function: returned to pre-procedure baseline and post-procedural bus driver/monitor reviewed The following have been reviewed and [...] MD Report Verified Date/Time:04/26/2018 12:19:57 Reading Location: [address] Radiology Reading Room Procedure Note [...] Report Verified Date/Time: 04/26/2018 12:19:57 Reading Location: [address] Radiology Reading Room Performing Organization Address City/[facility] Phone Number GE RIS TSH/Free T4 If Indicated (04/26/2018 11:54 AM CDT) TSH 2.04 0.35 - 4.94 uIU/mL [facility] Specimen Blood Performing Organization Address [facility] Phone Number [address] [address] CENTER PT/aPTT (04/26/2018 11:54 AM CDT) Protime 20.3 (H) 11.7 - 14.7 seconds [facility] INR 1.7 <=5.9 [facility] PTT 39.1 (H) 22.5 - 36.0 seconds [facility] Specimen Blood Narrative Performed At [facility] RECOMMENDED COUMADIN/WARFARIN INR THERAPY RANGES STANDARD DOSE: 2.0 - 3.0 Includes: PROPHYLAXIS for venous thrombosis, systemic embolization; TREATMENT for venous thrombosis and/or pulmonary embolus. HIGH RISK: Target INR is 2.5-3.5 for patients with mechanical heart valves. Performing Organization Address [facility] Phone Number [address] [address] CENTER CBC with platelet count + automated diff (04/26/2018 11:54 AM CDT)Only the most recent of2 resultswithin the time period is included. WBC 6.6 3.5 - 10.5 K/L [facility] RBC 7.02 (H) 3.93 - 5.22 M/L [facility] Hemoglobin 22.8 (H) 11.2 - 15.7 GM/DL [facility] Hematocrit 68.7 (H) 34.1 - 44.9 % [facility] MCV 97.9 (H) 79.4 - 94.8 fL [facility] MCH 32.5 (H) 25.6 - 32.2 pg [facility] MCHC 33.2 32.2 - 35.5 GM/DL [facility] RDW 16.9 (H) 11.7 - 14.4 % [facility] Platelets 183 150 - 450 K/CU MM [facility] MPV 10.0 9.4 - 12.3 fL [facility] nRBC 0 0 - 0 /100 WBC [facility] % Neutros 67 % [facility] % Lymphs 23 % [facility] % Monos 7 % [facility] % Eos 1 % [facility] % Baso 2 % [facility] # Neutros 4.43 1.56 - 6.13 K/L [facility] # Lymphs 1.48 1.18 - 3.74 K/L [facility] # Monos 0.44 (H) 0.24 - 0.36 K/L [facility] # Eos 0.07 0.04 - 0.36 K/L [facility] # Baso 0.13 (H) 0.01 - 0.08 K/L [facility] Immature Granulocytes-Relative 1 0 - 1 % [facility] Specimen Blood Performing Organization Address City/State/Zipcode Phone Number [facility] [address] [place] [address] CENTER Troponin I (04/26/2018 11:54 AM CDT) Troponin I <0.01 0.00 - 0.03 ng/mL [facility] Specimen Blood Narrative Performed At [facility] Troponin I (TnI) levels must be interpreted [...] disease, and persistent tachyarrhythmia. Performing Organization Address [facility] Phone Number [address] [address] CENTER B-type Natriuretic Factor (BNP) (04/26/2018 11:54 AM CDT) BNP 1,527 (H) 0 - 100 pg/mL [facility] Specimen Blood Performing Organization Address [facility] Phone Number [address] [address] CENTER Magnesium (04/26/2018 11:54 AM CDT)Only the most recent of3 resultswithin the time period is included. Magnesium 2.1Comment: Specimen slightly 1.6 - 2.6 mg/dL [facility] hemolyzed [facility] Specimen Blood Performing Organization Address [facility] Phone Number [address] [address] CENTER Digoxin level (04/26/2018 11:54 AM CDT) Digoxin Lvl 0.5 (L) 0.8 - 2.0 ng/mL [facility] Specimen Blood Performing Organization Address [facility] Phone Number [address] [address] [phone] CENTER Basic Metabolic Panel (04/26/2018 11:54 AM CDT)Only the most recent of2 resultswithin the time period is included. Sodium 135 (L) 136 - 145 meq/L [facility] Potassium 5.4 (H)Comment: Specimen 3.5 - 5.1 meq/L [facility] slightly hemolyzed [facility] Chloride 106 98 - 107 meq/L [facility] CO2 20 (L) 22 - 29 meq/L [facility] BUN 31 (H) 7 - 21 mg/dL [facility] Creatinine 1.00Comment: Specimen 0.57 - 1.25 mg/dL [facility] slightly hemolyzed [facility] Glucose 185 (H) 70 - 105 mg/dL [facility] Calcium 9.5 8.4 - 10.2 mg/dL [facility] EGFR 60Comment: ESTIMATED GFR IS mL/min/1.73 sq m [facility] NOT ACCURATE CREATININE [facility] CENTER CLEARANCE IN PREDICTING GLOMERULAR FILTRATION RATE. ESTIMATED GFR IS NOT APPLICABLE FOR DIALYSIS PATIENTS. Specimen Blood Performing Organization Address City/State/Zipcode Phone Number [facility] [address] [place] [address] [phone] CENTER CBC (Hemogram only) (01/09/2018 5:23 AM CDT) WBC 6.0 3.5 - 10.5 K/L [facility] RBC 6.40 (H) 3.93 - 5.22 M/L [facility] Hemoglobin 21.3 (H) 11.2 - 15.7 GM/DL [facility] Hematocrit 64.3 (H) 34.1 - 44.9 % [facility] MCV 100.5 (H) 79.4 - 94.8 fL [facility] MCH 33.3 (H) 25.6 - 32.2 pg [facility] MCHC 33.1 32.2 - 35.5 GM/DL [facility] RDW 17.5 (H) 11.7 - 14.4 % [facility] Platelets 184 150 - 450 K/CU MM [facility] MPV 10.2 9.4 - 12.3 fL [facility] nRBC 0 0 - 0 /100 WBC [facility] Specimen Blood - Arm, Right Performing Organization Address [facility] Phone Number [address] [address] [phone] CENTER Phosphorus (01/08/2018 7:44 AM CDT) Phosphorus 4.1Comment: Specimen slightly 2.3 - 4.7 mg/dL [facility] Spec[facility] Blood - Arm, Left Performing Organization Address [facility] Phone Number [address] [address] [phone] ARIEL Comprehensive metabolic panel (01/08/2018 7:44 AM CDT) Protein, Total 7.5Comment: Specimen 6.0 - 8.3 gm/dL [facility] slightly hemolyzed [facility] Albumin 3.5Comment: Specimen 3.5 - 5.0 g/dL [facility] slightly hemolyzed [facility] Alkaline Phosphatase 223 (H) 40 - 150 U/L [facility] Total Bilirubin 1.4 (H)Comment: Specimen 0.2 - 1.2 mg/dL [facility] slightly hemolyzed [facility] Sodium 135 (L) 136 - 145 meq/L [facility] Potassium 5.2 (H)Comment: Specimen 3.5 - 5.1 meq/L [facility] slightly hemolyzed [facility] Chloride 102 98 - 107 meq/L [facility] CO2 21 (L) 22 - 29 meq/L [facility] BUN 31 (H) 7 - 21 mg/dL [facility] Creatinine 1.06Comment: Specimen 0.57 - 1.25 mg/dL [facility] slightly hemolyzed [facility] Glucose 113 (H) 70 - 105 mg/dL [facility] Calcium 9.5 8.4 - 10.2 mg/dL [facility] AST 40 (H)Comment: Specimen 5 - 34 U/L [facility] slightly hemolyzed [facility] ALT 66 (H)Comment: Specimen 6 - 55 U/L [facility] slightly hemolyzed [facility] EGFR 56Comment: ESTIMATED GFR mL/min/1.73 sq m [facility] IS NOT ACCURATE [facility] CREATININE CLEARANCE IN PREDICTING GLOMERULAR FILTRATION RATE. ESTIMATED GFR IS NOT APPLICABLE FOR DIALYSIS PATIENTS. Specimen Blood - Arm, Left Performing Organization Address City/State/Zipcode Phone Number [facility] [address] [place] [address] [phone] CENTER after 11/26/2017 Insurance Payer Benefit Plan / Group Subscriber ID Type Phone Address MEDICARE MEDICARE A B xxxxxxxxxxx Medicare (Home) [place] [address] Advance Directives For more information, please contact:[facility] [place], [place] [phone] Code Status Date Activated Date Inactivated Comments Full Code 04/26/2018 5:16 PM 04/27/2018 1:33 PM This code status was determined by: Patient Full Code 01/08/2018 6:31 AM 01/09/2018 2:01 PM This code status was determined by: Patient Full Code 11/02/2014 1:12 PM 11/04/2014 2:15 PM This code status was determined by: Patient
--- OUTSIDE RECORDS SUMMARY | 2018-11-27 14:36 | XMS REPORT ---
:1975 Author Organization [facility] Address [address] [place] [address] Care Team Providers Name Role Phone CONCETTAGEORGINA Ballesteros TASIA Unavailable Unavailable ADENIKE GARCIA Unavailable Unavailable Problems This patient has no known problems. Allergies, Adverse Reactions, Alerts This patient has no known allergies or adverse reactions. Medications This patient has no known medications. Results Test Description Test Time Test Comments Text Results Atomic Results Result Comments DIGOXIN LEVEL 2018-04-26 12:51:00 Test Item Value Reference Range Comments DIGOXIN LEVEL (BEAKER) (test rczv=428) 0.5 ng/mL 0.8-2.0 TSH/FREE T4 IF [id number] 12:51:00 Test Item Value Reference Range Comments THYROID STIMULATING HORMONE (BEAKER) (test 2.04 uIU/mL 0.35-4.94 znnw=871) TROPONIN [id number] 12:36:00 Test Item Value Reference Range Comments TROPONIN I (BEAKER) (test tbeh=473) < ng/mL 0.00-0.03 Troponin I (TnI) levels [...] NATRIURETIC PEPTIDE (BEAKER) (test 1527 pg/mL 0-100 qckg=091) [id number] 12:28:00 Test Item Value Reference Range Comments MAGNESIUM (BEAKER) (test 2.1 mg/dL 1.6-2.6 Specimen slightly hemolyzed wvuz=904) BASIC METABOLIC [id number] 12:28:00 Test Item Value Reference Range Comments SODIUM (BEAKER) (test 135 meq/L 136-145 tnwe=595) POTASSIUM (BEAKER) (test 5.4 meq/L 3.5-5.1 Specimen slightly npkj=326) hemolyzed CHLORIDE (BEAKER) (test 106 meq/L 98-107 bhaw=720) CO2 (BEAKER) (test 20 meq/L 22-29 zqeo=494) BLOOD UREA NITROGEN 31 mg/dL 7-21 (BEAKER) (test kgzj=773) CREATININE (BEAKER) (test 1.00 mg/dL 0.57-1.25 Specimen slightly nobi=930) hemolyzed GLUCOSE RANDOM (BEAKER) 185 mg/dL 70-105 (test ilmn=916) CALCIUM (BEAKER) (test 9.5 mg/dL 8.4-10.2 fxwn=866) EGFR (BEAKER) (test 60 mL/min/1.73 sq m ESTIMATED GFR IS NOT lnoi=5071) ACCURATE CREATININE CLEARANCE IN PREDICTING GLOMERULAR FILTRATION RATE. ESTIMATED GFR IS NOT APPLICABLE FOR DIALYSIS PATIENTS. CBC W/PLT COUNT & AUTO [id number] 12:22:00 Test Item Value Reference Range Comments WHITE BLOOD CELL COUNT (BEAKER) (test twom=360) 6.6 K/ L 3.5-10.5 RED BLOOD CELL COUNT (BEAKER) (test dkqt=197) 7.02 M/ L 3.93-5.22 HEMOGLOBIN (BEAKER) (test egyr=348) 22.8 GM/DL 11.2-15.7 HEMATOCRIT (BEAKER) (test kawp=825) 68.7 % 34.1-44.9 MEAN CORPUSCULAR VOLUME (BEAKER) (test dpzz=435) 97.9 fL 79.4-94.8 MEAN CORPUSCULAR HEMOGLOBIN (BEAKER) (test 32.5 pg 25.6-32.2 jopj=545) MEAN CORPUSCULAR HEMOGLOBIN CONC (BEAKER) (test 33.2 GM/DL 32.2-35.5 twwt=074) RED CELL DISTRIBUTION WIDTH (BEAKER) (test 16.9 % 11.7-14.4 pmga=723) PLATELET COUNT (BEAKER) (test tvwy=456) 183 K/CU MM 150-450 MEAN PLATELET VOLUME (BEAKER) (test aljv=486) 10.0 fL 9.4-12.3 NUCLEATED RED BLOOD CELLS (BEAKER) (test 0 /100 WBC 0-0 qnph=869) NEUTROPHILS RELATIVE PERCENT (BEAKER) (test 67 % yxza=032) LYMPHOCYTES RELATIVE PERCENT (BEAKER) (test 23 % uhyl=358) MONOCYTES RELATIVE PERCENT (BEAKER) (test 7 % kncg=860) EOSINOPHILS RELATIVE PERCENT (BEAKER) (test 1 % ghmx=708) BASOPHILS RELATIVE PERCENT (BEAKER) (test 2 % bexl=230) NEUTROPHILS ABSOLUTE COUNT (BEAKER) (test 4.43 K/ L 1.56-6.13 naqu=326) LYMPHOCYTES ABSOLUTE COUNT (BEAKER) (test 1.48 K/ L 1.18-3.74 mbxa=215) MONOCYTES ABSOLUTE COUNT (BEAKER) (test 0.44 K/ L 0.24-0.36 oxpe=543) EOSINOPHILS ABSOLUTE COUNT (BEAKER) (test 0.07 K/ L 0.04-0.36 zejg=452) BASOPHILS ABSOLUTE COUNT (BEAKER) (test 0.13 K/ L 0.01-0.08 jrpa=159) IMMATURE GRANULOCYTES-RELATIVE PERCENT (BEAKER) 1 % 0-1 (test cjdd=7837) [id number] 12:21:00 Test Item Value Reference Range Comments PROTIME (BEAKER) (test pbse=159) 20.3 seconds 11.7-14.7 INR (BEAKER) (test xovn=407) 1.7 <=5.9 PARTIAL THROMBOPLASTIN TIME (BEAKER) (test 39.1 seconds 22.5-36.0 fbkd=059) RECOMMENDED COUMADIN/WARFARIN INR THERAPY RANGESSTANDARD DOSE: 2.0 - 3.0 Includes: PROPHYLAXIS forvenous thrombosis, systemic embolization; TREATMENT for venous thrombosis and/or pulmonary embolus.HIGH RISK: Target INR is 2.5-3.5 for patients with mechanical heart valves.RAD, CHEST, 1 VIEW, NON [id number] 12:19:00Reason for exam:->chest painIs the patient [...] [place] Verified Date/Time: 04/26/2018 12:19:57 Reading Location: [address] Radiology Reading Room Electronically signed by: YOLANDA CHAMPION M.D. on 06/2018 12:19 [id number] 07:13:00 Test Item Value Reference Range Comments MAGNESIUM (BEAKER) (test 2.1 mg/dL 1.6-2.6 Specimen slightly hemolyzed oxxq=296) BASIC METABOLIC [id number] 07:13:00 Test Item Value Reference Range Comments SODIUM (BEAKER) (test 133 meq/L 136-145 yyhm=285) POTASSIUM (BEAKER) (test 4.5 meq/L 3.5-5.1 Specimen slightly qkru=720) hemolyzed CHLORIDE (BEAKER) (test 103 meq/L 98-107 jgyc=770) CO2 (BEAKER) (test 23 meq/L 22-29 npsn=996) BLOOD UREA NITROGEN 32 mg/dL 7-21 (BEAKER) (test bgyc=638) CREATININE (BEAKER) (test 0.84 mg/dL 0.57-1.25 Specimen slightly ixkd=209) hemolyzed GLUCOSE RANDOM (BEAKER) 105 mg/dL 70-105 (test gicq=439) CALCIUM (BEAKER) (test 9.1 mg/dL 8.4-10.2 sjvh=804) EGFR (BEAKER) (test 74 mL/min/1.73 sq m ESTIMATED GFR IS NOT ttoh=1227) ACCURATE CREATININE CLEARANCE IN PREDICTING GLOMERULAR FILTRATION RATE. ESTIMATED GFR IS NOT APPLICABLE FOR DIALYSIS PATIENTS. CBC (HEMOGRAM ONLY)2018-01-09 06:04:00 Test Item Value Reference Range Comments WHITE BLOOD CELL COUNT (BEAKER) (test djow=955) 6.0 K/ L 3.5-10.5 RED BLOOD CELL COUNT (BEAKER) (test degh=264) 6.40 M/ L 3.93-5.22 HEMOGLOBIN (BEAKER) (test doir=479) 21.3 GM/DL 11.2-15.7 HEMATOCRIT (BEAKER) (test ingm=951) 64.3 % 34.1-44.9 MEAN CORPUSCULAR VOLUME (BEAKER) (test wbbc=160) 100.5 fL 79.4-94.8 MEAN CORPUSCULAR HEMOGLOBIN (BEAKER) (test 33.3 pg 25.6-32.2 cncf=127) MEAN CORPUSCULAR HEMOGLOBIN CONC (BEAKER) (test 33.1 GM/DL 32.2-35.5 yksi=158) RED CELL DISTRIBUTION WIDTH (BEAKER) (test 17.5 % 11.7-14.4 fgaf=647) PLATELET COUNT (BEAKER) (test bgej=937) 184 K/CU MM 150-450 MEAN PLATELET VOLUME (BEAKER) (test dlrv=225) 10.2 fL 9.4-12.3 NUCLEATED RED BLOOD CELLS (BEAKER) (test 0 /100 WBC 0-0 ogzw=991) [id number] 08:59:00 Test Item Value Reference Range Comments MAGNESIUM (BEAKER) (test 2.1 mg/dL 1.6-2.6 Specimen slightly hemolyzed diry=293) [id number] 08:59:00 Test Item Value Reference Range Comments PHOSPHORUS (BEAKER) (test 4.1 mg/dL 2.3-4.7 Specimen slightly hemolyzed wpxa=428) COMPREHENSIVE METABOLIC [id number] 08:59:00 Test Item Value Reference Range Comments TOTAL PROTEIN (BEAKER) 7.5 gm/dL 6.0-8.3 Specimen slightly (test lwkz=729) hemolyzed ALBUMIN (BEAKER) (test 3.5 g/dL 3.5-5.0 Specimen slightly qtef=7436) hemolyzed ALKALINE PHOSPHATASE 223 U/L 40-150 (BEAKER) (test oygk=618) BILIRUBIN TOTAL (BEAKER) 1.4 mg/dL 0.2-1.2 Specimen slightly (test gkpr=686) hemolyzed SODIUM (BEAKER) (test 135 meq/L 136-145 zvkf=835) POTASSIUM (BEAKER) (test 5.2 meq/L 3.5-5.1 Specimen slightly pplt=846) hemolyzed CHLORIDE (BEAKER) (test 102 meq/L 98-107 vyup=651) CO2 (BEAKER) (test 21 meq/L 22-29 pxwm=507) BLOOD UREA NITROGEN 31 mg/dL 7-21 (BEAKER) (test qilb=857) CREATININE (BEAKER) (test 1.06 mg/dL 0.57-1.25 Specimen slightly siqj=028) hemolyzed GLUCOSE RANDOM (BEAKER) 113 mg/dL 70-105 (test utit=013) CALCIUM (BEAKER) (test 9.5 mg/dL 8.4-10.2 uymh=574) AST (SGOT) (BEAKER) (test 40 U/L 5-34 Specimen slightly idip=931) hemolyzed ALT (SGPT) (BEAKER) (test 66 U/L 6-55 Specimen slightly jjgm=693) hemolyzed EGFR (BEAKER) (test 56 mL/min/1.73 sq m ESTIMATED GFR IS NOT orvl=1240) ACCURATE CREATININE CLEARANCE IN PREDICTING GLOMERULAR FILTRATION RATE. ESTIMATED GFR IS NOT APPLICABLE FOR DIALYSIS PATIENTS. CBC W/PLT COUNT & AUTO [id number] 07:20:00 Test Item Value Reference Range Comments WHITE BLOOD CELL COUNT (BEAKER) (test yggv=976) 6.9 K/ L 3.5-10.5 RED BLOOD CELL COUNT (BEAKER) (test sxtd=269) 7.06 M/ L 3.93-5.22 HEMOGLOBIN (BEAKER) (test sbih=667) 22.8 GM/DL 11.2-15.7 HEMATOCRIT (BEAKER) (test kdpx=958) 69.9 % 34.1-44.9 MEAN CORPUSCULAR VOLUME (BEAKER) (test cjyn=429) 99.0 fL 79.4-94.8 MEAN CORPUSCULAR HEMOGLOBIN (BEAKER) (test 32.3 pg 25.6-32.2 nkrd=044) MEAN CORPUSCULAR HEMOGLOBIN CONC (BEAKER) (test 32.6 GM/DL 32.2-35.5 wpwz=951) RED CELL DISTRIBUTION WIDTH (BEAKER) (test 17.7 % 11.7-14.4 johx=552) PLATELET COUNT (BEAKER) (test cgbv=452) 217 K/CU MM 150-450 MEAN PLATELET VOLUME (BEAKER) (test tfhw=895) 10.1 fL 9.4-12.3 NUCLEATED RED BLOOD CELLS (BEAKER) (test 0 /100 WBC 0-0 ygjs=427) NEUTROPHILS RELATIVE PERCENT (BEAKER) (test 77 % dhvi=707) LYMPHOCYTES RELATIVE PERCENT (BEAKER) (test 11 % isub=851) MONOCYTES RELATIVE PERCENT (BEAKER) (test 10 % pufe=936) EOSINOPHILS RELATIVE PERCENT (BEAKER) (test 1 % chcc=263) BASOPHILS RELATIVE PERCENT (BEAKER) (test 2 % vkir=505) NEUTROPHILS ABSOLUTE COUNT (BEAKER) (test 5.28 K/ L 1.56-6.13 vbbu=468) LYMPHOCYTES ABSOLUTE COUNT (BEAKER) (test 0.72 K/ L 1.18-3.74 wsnw=650) MONOCYTES ABSOLUTE COUNT (BEAKER) (test 0.66 K/ L 0.24-0.36 ywcz=407) EOSINOPHILS ABSOLUTE COUNT (BEAKER) (test 0.04 K/ L 0.04-0.36 vzee=938) BASOPHILS ABSOLUTE COUNT (BEAKER) (test 0.12 K/ L 0.01-0.08 rilz=525) IMMATURE GRANULOCYTES-RELATIVE PERCENT (BEAKER) 1 % 0-1 (test ktrj=3061)
[2018-11-27 15:29] LABS: Absolute Lymphocytes (CBC) 1.2 K/uL (0.7-4.9); Absolute Monocytes 0.8 K/uL (0.1-1.3); Basophils % 1.2 % (0-1.3); Eosinophils % 2.1 % (0-4.4); Lymphocytes % 14.5 % (15.3-44.8); Monocytes % 9.4 % (3.3-12.3); RBC Red Blood Cell Count 6.94 M/uL (3.86-4.86)
[2018-11-27 15:42] LABS: Arterial Blood Carboxyhemoglob 1.4 % (0-1.5); Blood Gas Oxyhemoglobin 81.9 % (94-97); Blood O2 Saturation 83.5 % (92-98.5)
[2018-11-27] MEDS ORDERED: ALBUTEROL 2.5 MG/3 ML NEB SOL ONE (15:45)
[2018-11-27] MEDS ORDERED: IPRATROPIUM BROM 0.5MG/2.5ML ONE (15:45)
[2018-11-27 15:52] LABS: Albumin 3.2 g/dL (3.4-5.0); Bilirubin Direct 0.3 mg/dL (0-0.2); Bilirubin Total 1.4 mg/dL (0.2-1.0); Protein, Total 7.6 g/dL (6.4-8.2); Troponin (Emerg Dept Use Only) 0.05 ng/mL (0.0-0.045)
[2018-11-27 16:01] LABS: Potassium 5.1 mmol/L (3.5-5.1)
[2018-11-27 16:09] LABS: Blood Morphology Comment NOTED (NOT SEEN); Macrocytosis 1+; Platelet Estimate ADEQ; Platelets, Giant NOTED; Urine White Blood Cell Casts OK
[2018-11-27 16:52] LABS: Protime INR 1.35
[2018-11-27] MEDS ORDERED: ASPIRIN 81 MG CHEWABLE TABLET ONE (16:59)
--- NOTE | 2018-11-27 17:19 | ER ---
Nurse's Notes [facility] Name: Tanya Solo Age: 43 yrs Sex: Female : 1975 Arrival Date: 11/27/2018 Time: 14:34 Bed 27 Private MD: Diagnosis: Chest pain, unspecified;Shortness of breath Presentation: 11/27 14:39 Presenting complaint: Patient states: "I just had a heart cath on November [address] Pt c/o left sided chest pain and left arm pain that began this morning. Transition of care: patient was not received from another setting of care. Onset of symptoms was November 27, 2018. Risk Assessment: Do you want to hurt yourself or someone else? Patient reports no desire to harm self or others. Care prior to arrival: None. 14:39 Method Of Arrival: Wheelchair [facility] 14:39 Acuity: JOSE L 2 aa 16:08 Initial Sepsis Screen: Does the patient meet any 2 criteria? No. Patient's initial rv sepsis screen is negative. Does the patient have a suspected source of infection? No. Patient's initial sepsis screen is negative. Triage Assessment: 16:08 General: Appears in no apparent distress. uncomfortable, Behavior is calm, cooperative. rv Respiratory: Reports shortness of breath Onset: The symptoms/episode began/occurred this morning, the patient has mild shortness of breath. 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 - Social history:: Smoking status: Patient/guardian denies using tobacco. - Ebola Screening: : No symptoms or risks identified at this time. Screenin:08 Abuse screen: Denies threats or abuse. Denies injuries from another. Nutritional rv screening: No deficits noted. Tuberculosis screening: No symptoms or risk factors identified. Fall Risk None identified. Assessment: 16:07 General: Appears in no apparent distress. uncomfortable, Behavior is calm, cooperative. rv Pain: Complains of pain in chest Pain radiates to left arm. Neuro: Level of Consciousness is awake, alert, obeys commands, Oriented to person, place, time, situation. Cardiovascular: Rhythm is regular. Respiratory: Airway is patent Respiratory effort is unlabored, Breath sounds with wheezes bilaterally. GI: No signs and/or symptoms were reported involving the gastrointestinal system. : No signs and/or symptoms were reported regarding the genitourinary system. EENT: No signs and/or symptoms were reported regarding the EENT system. Derm: Bruising that is dark purple, on left antecubital area. Musculoskeletal: No signs and/or symptoms reported regarding the musculoskeletal system. 17:30 Reassessment: Patient appears in no apparent distress at this time. Patient and/or rv family updated on plan of care and expected duration. Pain level reassessed. Patient is alert, oriented x 3, equal unlabored respirations, skin warm/dry/pink. Patient states feeling better. Patient states symptoms have improved. Vital Signs: 14:41 BP 120 / 65; Pulse 83; Resp 20 S; Temp 97.8(TE); Pulse Ox 83% on R/A; Weight 61.23 kg; aa5 15:30 BP 118 / 71 RA; Pulse 81; Resp 24 S; Pulse Ox 85% on 3 lpm NC; rv 16:30 BP 124 / 81 RA Supine; Pulse 79; Resp 19 S; Pulse Ox 82% on 3 lpm NC; rv 17:30 BP 121 / 79 RA Supine; Pulse 83; Resp 21 S; Pulse Ox 85% on 3 lpm NC; rv 18:00 BP 119 / 68 RA Supine; Pulse 86; Resp 18 S; Pulse Ox 85% on 3 lpm NC; rv 14:41 Pt reports O2 sat around 80% is her baseline aa5 ED Course: 14:34 Patient arrived in ED. as 14:39 Arm band placed on. aa5 14:40 Triage completed. aa5 14:57 Jacky Adorno, NIKKI is Primary Nurse. rv 15:08 Chriss Ramirez PA is PHCP. cp 15:08 Chriss Kelly MD is Attending Physician. cp 15:22 Basic Metabolic Panel Sent. rv 15:22 CBC with Diff Sent. rv 15:40 Inserted saline lock: 20 gauge in right antecubital area, using aseptic technique. rv Blood collected. 15:40 Initial lab(s) drawn, by ED staff, sent to lab. jp3 16:10 Patient has correct armband on for positive identification. Bed in low position. Call rv light in reach. Side rails up X 1. engine monitor on. Pulse ox on. NIBP on. 16:30 XRAY Chest (1 view) In Process Unspecified. EDMS 16:40 Lab(s) recollected, by me, sent to lab. jp3 16:47 initiated a transfer with Jerod at the [facility] transfer center. eb 16:51 PT-INR Sent. jp3 17:[address] Stark the emergency room doctor from [facility] with Chriss De La Fuente for patient eb transfer consultation. 17:10 administrative approval given by Jerod Simpson network development coordinator/ Dr. Juan Stark eb has accepted the patient in transfer/ patient is going to the [facility] ER/ report to be called to [phone]. 18:13 No provider procedures requiring assistance completed. Patient transferred, IV remains rv in place. Administered Medications: 15:43 Drug: Albuterol - atroVENT (3:1) (2.5 mg - 0.5 mg) 3 ml Route: Nebulizer; rv 18:11 Follow up: Response: Marked relief of symptoms rv 17:40 Drug: fentaNYL (PF) 25 mcg Route: IVP; Site: right antecubital; ca1 18:12 Follow up: Response: Pain is decreased rv 17:45 Drug: Lasix 20 mg Route: IVP; Site: right antecubital; rv 18:12 Follow up: Response: No adverse reaction rv 18:12 Not Given (Patient Refused): Aspirin Chewable Tablet 324 mg PO once; 81 mg tablets x 4 rv Outcome: 17:19 ER care complete, transfer ordered by MD. kearns 18:13 Transferred by ground EMS to [facility], Transfer form completed. X-rays rv sent w/ patient. 18:13 Condition: stable 18:13 Discharge instructions given to patient, family, Instructed on the need for transfer, Demonstrated understanding of instructions. 18:13 Patient left the ED. rv Signatures: Dispatcher [employer] EDLiz [place] Audri, RN RN aa5 Chriss Ramirez PA PA cp Botello, Elizabeth eb Vicente, Ronaldo, RN RN rv Ponce Lyles jp3 Jania Carr RN RN ca1 Corrections: (The following items were deleted from the chart) 16:11 16:10 Bladder scan completed. 0 ml rv rv
--- NOTE | 2018-11-27 17:19 | EDPHYS ---
Physician Documentation [facility] Name: Tanya Solo Age: 43 yrs Sex: Female : 1975 Arrival Date: 11/27/2018 Time: 14:34 Bed 27 Private MD: ED Physician Chriss Kelly HPI: 11/27 15:20 This 43 yrs old Female presents to ER via Wheelchair with complaints of cp Shortness Of Breath, Arm Pain, Neck Pain, >24Hrs Old. 15:20 The patient has shortness of breath at rest. cp 15:20 Onset: The symptoms/episode began/occurred this morning. Duration: The symptoms are cp continuous, and are steadily getting worse. The patient or guardian reports chest pain that is located primarily in the anterior chest wall, left upper chest. 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 - Social history:: Smoking status: Patient/guardian denies using tobacco. - Ebola Screening: : No symptoms or risks identified at this time. ROS: 15:25 Constitutional: Negative for body aches, chills, fever, poor PO intake. cp 15:25 Eyes: Negative for injury, pain, redness, and discharge. cp 15:25 Neck: Negative for pain with movement, pain at rest, stiffness. 15:25 Cardiovascular: Positive for chest pain, of the left upper chest, Negative for edema. 15:25 Respiratory: Positive for shortness of breath, at rest. Negative for cough. 15:25 Abdomen/GI: Negative for abdominal pain, nausea, vomiting, and diarrhea. 15:25 Skin: Negative for cellulitis, rash. 15:25 Neuro: Negative for altered mental status, dizziness, headache, weakness. 15:25 All other systems are negative. Exam: 14:55 ECG was reviewed by the Attending Physician. cp 15:30 Constitutional: The patient appears in no acute distress, alert, awake, cp non-diaphoretic, non-toxic, well developed, well nourished. 15:30 Head/Face: Normocephalic, atraumatic. cp 15:30 Eyes: Periorbital structures: appear normal, Pupils: equal, round, and reactive to light and accomodation, Extraocular movements: intact throughout, Conjunctiva: normal, no exudate, no injection, Sclera: no appreciated abnormality, Lids and lashes: appear normal, bilaterally. 15:30 ENT: External ear(s): are unremarkable, Ear canal(s): are normal, clear, TM's: bulging, is not appreciated, bilaterally, dullness, bilaterally, erythema, is not appreciated, bilaterally, Nose: is normal, Mouth: Lips: moist, Oral mucosa: moist, Posterior pharynx: Airway: no evidence of obstruction, patent, Tonsils: are normal in appearance, Uvula: midline, swelling, is not appreciated, erythema, is not appreciated. 15:30 Neck: ROM/movement: is normal, is supple, without pain, no range of motions limitations, no nuchal rigidity. 15:30 Chest/axilla: Inspection: normal, Palpation: is normal, no crepitus, no tenderness. 15:30 Cardiovascular: Rate: normal, Rhythm: regular, Edema: is not appreciated, JVD: is not appreciated. 15:30 Respiratory: mild respiratory distress is noted, Respirations: labored breathing, that is mild, Breath sounds: decreased breath sounds, that are mild, throughout, stridor, is not appreciated, wheezing: is not appreciated. 15:30 Abdomen/GI: Inspection: abdomen appears normal, Bowel sounds: active, all quadrants, Palpation: abdomen is soft and non-tender, in all quadrants. 15:30 Back: ROM is normal. 15:30 Skin: no rash present. 15:30 Neuro: Orientation: to person, place \T\ time. Mentation: is normal, Cerebellar function: is grossly normal, Motor: moves all fours, strength is normal, Sensation: is normal. Vital Signs: 14:41 BP 120 / 65; Pulse 83; Resp 20 S; Temp 97.8(TE); Pulse Ox 83% on R/A; Weight 61.23 kg; aa5 15:30 BP 118 / 71 RA; Pulse 81; Resp 24 S; Pulse Ox 85% on 3 lpm NC; rv 16:30 BP 124 / 81 RA Supine; Pulse 79; Resp 19 S; Pulse Ox 82% on 3 lpm NC; rv 17:30 BP 121 / 79 RA Supine; Pulse 83; Resp 21 S; Pulse Ox 85% on 3 lpm NC; rv 18:00 BP 119 / 68 RA Supine; Pulse 86; Resp 18 S; Pulse Ox 85% on 3 lpm NC; rv 14:41 Pt reports O2 sat around 80% is her baseline aa5 MDM: 15:08 Patient medically screened. cp 17:15 The patient was not given aspirin in the Emergency Department. Aspirin not given, cp patient refused. 17:15 Data reviewed: vital signs, nurses notes, lab test result(s), EKG, radiologic studies, cp plain films. Response to treatment: the patient's symptoms have mildly improved after treatment. Physician consultation: was contacted at 17:10, regarding regarding transfer, to [facility]. patient's condition, DR Stark, ER physician \T\[facility], will accept patient as transfer. 11/27 15:16 Order name: Basic Metabolic Panel cp 11/27 15:16 Order name: CBC with Diff cp 11/27 15:16 Order name: LFT's; Complete Time: 16:41 cp 11/27 15:16 Order name: Magnesium; Complete Time: 16:41 cp 11/27 15:16 Order name: NT PRO-BNP; Complete Time: 16:41 cp 11/27 15:16 Order name: PT-INR; Complete Time: 17:04 cp 11/27 15:16 Order name: Troponin (emerg Dept Use Only); Complete Time: 16:41 cp 11/27 15:16 Order name: XRAY Chest (1 view); Complete Time: 17:27 cp 11/27 15:16 Order name: ABG; Complete Time: 16:41 cp 11/27 15:18 Order name: Basic Metabolic Panel; Complete Time: 16:41 EDMS 11/27 15:18 Order name: CBC with Automated Diff; Complete Time: 16:41 EDMS 11/27 15:38 Order name: CBC Smear Scan; Complete Time: 16:41 EDMS 11/27 15:16 Order name: EKG; Complete Time: 15:18 cp 11/27 15:16 Order name: Cardiac monitoring; Complete Time: 15:18 cp 11/27 15:16 Order name: EKG - Nurse/Tech; Complete Time: 15:18 cp 11/27 15:16 Order name: IV Saline Lock; Complete Time: 15:22 cp 11/27 15:16 Order name: Labs collected and sent; Complete Time: 15:22 cp 11/27 15:16 Order name: O2 Per Protocol; Complete Time: 15:18 cp 11/27 15:16 Order name: O2 Sat Monitoring; Complete Time: 15:18 cp EC:55 Rate is 77 beats/min. Rhythm is regular. LA interval is prolonged at 214 msec. QRS cp interval is prolonged at 110 msec. QT interval is normal. Interpreted by me. Reviewed by me. Administered Medications: 15:43 Drug: Albuterol - atroVENT (3:1) (2.5 mg - 0.5 mg) 3 ml Route: Nebulizer; rv 18:11 Follow up: Response: Marked relief of symptoms rv 17:40 Drug: fentaNYL (PF) 25 mcg Route: IVP; Site: right antecubital; ca1 18:12 Follow up: Response: Pain is decreased rv 17:45 Drug: Lasix 20 mg Route: IVP; Site: right antecubital; rv 18:12 Follow up: Response: No adverse reaction rv 18:12 Not Given (Patient Refused): Aspirin Chewable Tablet 324 mg PO once; 81 mg tablets x 4 rv Disposition: 11/28 09:05 Co-signature as Attending Physician, Chriss Kelly MD I agree with the assessment and lavinia plan of care. Disposition: 11/27/18 17:19 Transfer ordered to [facility]. Diagnosis are Chest pain, unspecified, Shortness of breath. - Reason for transfer: Higher level of care. - Accepting physician is DR Stark. - Condition is Stable. - Problem is new. - Symptoms have improved. Signatures: Dispatcher [employer] Chriss Ortiz MD MD cha Calderon, Audri, RN RN aa5 Chriss Ramirez PA PA cp Vicente, Ronaldo, RN RN rv Jania Carr RN RN ca1 Corrections: (The following items were deleted from the chart) 11/27 18:13 17:19 11/27/2018 17:19 Transfer ordered to [facility]. rv Diagnosis is Chest pain, unspecified; Shortness of breath. Reason for transfer: Higher level of care. Accepting physician is DR Stark. Condition is Stable. Problem is new. Symptoms have improved. cp
--- NOTE | 2018-11-27 17:23 | RAD REPORT ---
EXAM DESCRIPTION: RAD - Chest Single View - 11/27/2018 4:29 pm CLINICAL HISTORY: Chest pain, shortness of breath, history recent cardiac catheterization at [facility], known dextrocardia COMPARISON: October 03, 2018 TECHNIQUE: AP portable chest image was obtained 1622 hours . FINDINGS: Lung volumes normal. Dextrocardia noted. Aortic arch is on the left. Enlarged left pulmona ry artery stable. Trachea is midline. Heart size is upper normal, stable. No abnormal upper lobe vasc ular engorgement. Diffusely prominent interstitial markings are present. These are fractionally increased over comparis on. Interval is minimal but could indicate viral infiltrate or edema. No focal consolidation. No magalie urable pleural effusion and no pneumothorax. No acute bony abnormality seen. No acute aortic findings suspected. IMPRESSION: Prominent interstitial markings fractionally increased over or already prominent baselin e pattern. Mild edema or infiltrate superimposed on chronic disease suspected. No pneumothorax, mass or focal consolidation. No pleural fluid.
[2018-11-27 18:25] VITALS: TEMP 97.8
[2018-11-27 18:30] VITALS: O2SAT 85
[2018-11-27 18:32] VITALS: BP 119/68
[2018-11-27] MEDS ORDERED: FENTANYL CITR 100 MCG/2 ML ONE (20:14)
--- NOTE | 2018-11-28 05:53 | EKG ---
Test Date: 2018-11-27 Test Time: 14:50:39 Inspector Repairer: SOHEILA MEASUREMENT RESULTS: Intervals: Rate: 77 IN: 214 QRSD: 110 QT: 386 QTc: 436 [place]: P: 60 IN: 214 QRS: -69 T: 85 INTERPRETIVE STATEMENTS: Sinus rhythm with 1st degree AV block Right atrial enlargement Left axis deviation Right bundle branch block Inferior infarct, age undetermined Abnormal ECG Compared to ECG 10/27/2018 11:54:58 Left-axis deviation now present Right bundle-branch block now present Sinus bradycardia no longer present Incomplete right bundle-branch block no longer present Electronically Signed On 11-28-18 05:52:45 CDT by Ari Alanis
== END 2018-11-27 18:13 | disposition designated cancer center or children's hospital (05) ==
LOC: ER 14:33
DX: R07.9 Chest pain, unspecified (principal); I10 Essential (primary) hypertension; Z88.1 Allergy status to other antibiotic agents; Z91.048 Other nonmedicinal substance allergy status
CPT/HCPCS: 93005; 85025; 80048; 36415; 83735; 85610; 80076; 84484; 83880; 71045; 94640; 82805; 96375; 96374; 99285; J3010

== ENCOUNTER 2021-05-17 13:27 | Emergency (ER) | payer OTHER ==
[2021-05-17 14:38] LABS: Basophils % 1.8 % (0-1.3); Hematocrit 45.7 % (36.0-45.0); Lymphocytes % 16.7 % (15.3-44.8); MPV 7.6 fL (7.6-11.3); RBC Red Blood Cell Count 5.58 M/uL (3.86-4.86)
--- NOTE | 2021-05-17 14:57 | RAD REPORT ---
EXAM DESCRIPTION: RAD - Chest Single View - 05/17/2021 2:42 pm CLINICAL HISTORY: rapid heart rate COMPARISON: Chest Single View dated 11/27/2018; Chest Single View dated 10/03/2018; Chest Single View dated 04/23/2018; Chest Single View dated 01/07/2018; Abdomen Pelvis Wo Contrast dated 10/16/2020 FINDINGS: Lines: None. Lungs: Prominence of the pulmonary interstitium. Enlarged pulmonary artery. Pleural: No significant pleural effusions or pneumothorax. Cardiac: Dextrocardia again noted. Bones: No acute fractures. Other: IMPRESSION: Chronic prominence of the pulmonary interstitium in the setting of enlarged main pulmona ry artery may reflect sequela of chronic pulmonary artery hypertension. No definite acute process daily ntified
[2021-05-17] MEDS ORDERED: NA CHLORIDE 0.9% 500 ML ONE (15:09)
[2021-05-17 15:27] LABS: CKMB Creatine Kinase MB 1.3 ng/mL (1.0-3.6)
--- NOTE | 2021-05-17 16:27 | ER ---
Nurse's Notes [facility] Name: Ana Solo Age: 45 yrs Sex: Female : 1975 Arrival Date: 05/17/2021 Time: 13:31 Bed 7 Private MD: Diagnosis: Primary pulmonary hypertension Presentation: 05/17 13:38 Chief complaint: Palpitations and SOB x 1 hour. Coronavirus screen: At this time, the hb client does not indicate any symptoms associated with coronavirus-19. Ebola Screen: No symptoms or risks identified at this time. Initial Sepsis Screen: Does the patient meet any 2 criteria? No. Patient's initial sepsis screen is negative. Does the patient have a suspected source of infection? No. Patient's initial sepsis screen is negative. Risk Assessment: Do you want to hurt yourself or someone else? Patient reports no desire to harm self or others. Onset of symptoms was May 17, 2021. 13:38 Method Of Arrival: Wheelchair 13:38 Acuity: JOSE L 2 hb Triage Assessment: 14:31 General: Appears in no apparent distress. Behavior is calm, cooperative. 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 - Social history:: Smoking status: Patient denies any tobacco usage or history of. - Family history:: not pertinent. Screenin:26 Abuse screen: Denies threats or abuse. Denies injuries from another. Nutritional tw5 screening: No deficits noted. Tuberculosis screening: No symptoms or risk factors identified. 16:53 Fall Risk None identified. tw5 Assessment: 14:00 General: Reports "My oxygen level is usually in the 70's and 80's at home" She further tw5 states that she wears 3 L usually. She states " I woke up took my medication and I was fine. I took a shower, still fine. 14:26 General: Reports "Around 1205 I started feeling palpitations, so I gave myself some tw5 extra oxygen and I check my pulse and it was high and my oxygen level was lower than normal. At that point I decided to come in." Patient also reports that her heart is located on her right side. Cardiovascular: Parent/caregiver reports patient has had lightheadedness, palpitations, shortness of breath. Cardiovascular: Rhythm is sinus tachycardia with unifocal PVCs. 14:31 Pain: Complains of pain in right arm. tw5 14:48 Reassessment: Patient appears in no apparent distress at this time. tw5 14:49 Pain: Complains of pain in chest and right arm Pain currently is 3 out of 10 on a pain tw5 scale. 15:29 Reassessment: Patient states symptoms have improved. General: Appears in no apparent tw5 distress. Behavior is calm, cooperative, appropriate for age. Cardiovascular: Rhythm is sinus rhythm with unifocal PVCs. 16:25 Reassessment: Patient states symptoms have improved. General: Appears in no apparent tw5 distress. Behavior is calm, cooperative, appropriate for age. 16:53 Reassessment: Patient appears in no apparent distress at this time. Patient states tw5 symptoms have improved. General: Reports "I am feeling much bettter, just ready to go home.". Vital Signs: 13:38 BP 89 / 63; Pulse 109; Resp 24; Temp 98.3; Pulse Ox 85% on R/A; Weight 48.9 kg (M); hb Height 5 ft. (152.40 cm); Pain 0/10; 14:20 BP 96 / 65; Pulse 106; Resp 22; Temp 98.3; Pulse Ox 87% on 3 lpm NC; Pain 0/10; tw5 14:48 BP 89 / 63; Pulse 106; Resp 18; Pulse Ox 88% on 3 lpm NC; Pain 3/10; tw5 15:29 BP 94 / 50; Pulse 74; Resp 14; Pulse Ox 87% on 3 lpm NC; Pain 3/10; tw5 16:25 BP 93 / 60; Pulse 76; Resp 14; Pulse Ox 87% on 3 lpm NC; Pain 0/10; tw5 16:53 BP 100 / 57; Pulse 72; Resp 18; Temp 98.5; Pulse Ox 86% on 3 lpm NC; Pain 0/10; tw5 13:38 Body Mass Index 21.05 (48.90 kg, 152.40 cm) hb ED Course: 13:31 Patient arrived in ED. mr 13:40 Triage completed. hb 13:40 Arm band placed on. hb 13:45 Estevan He MD is Attending Physician. ma2 13:50 Bernadette Santos is Primary Nurse. tw5 13:58 EKG done, by ED staff, reviewed by Estevan He MD. em1 14:00 Patient has correct armband on for positive identification. Placed in gown. Bed in low tw5 position. Call light in reach. Side rails up X 1. 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 Pulse ox on. NIBP on. Door closed. Noise minimized. Lights dimmed. tw5 14:05 Inserted saline lock: 20 gauge in right antecubital area, using aseptic technique. tw5 14:20 ED physician to see patient. tw5 14:20 No apparent distress. tw5 14:20 Awaiting lab results. tw5 14:20 COVID swab sent to lab. Inserted saline lock: 20 gauge in left wrist, using aseptic tw5 technique. 14:22 X-ray(s) taken. tw5 14:31 Oxygen administration via nasal cannula \\T\\ 3L/min Response to oxygen therapy: symptoms tw5 improved. 14:33 XRAY Chest (1 view) Sent. tw5 14:41 XRAY Chest (1 view) In Process Unspecified. EDMS 14:49 Warm blanket given. Assisted to bedside commode. tw5 16:53 No provider procedures requiring assistance completed. IV discontinued, intact, tw5 bleeding controlled, No redness/swelling at site. Administered Medications: 14:37 CANCELLED (Duplicate Order): NS 0.9% 1000 ml IV at 1 bolus Per protocol; 1000 mL bolus tw5 14:47 Drug: NS 0.9% 500 ml Route: IV; Rate: bolus; Site: right antecubital; tw5 15:49 Follow up: Response: No adverse reaction; IV Status: Completed infusion tw5 Outcome: 16:27 Discharge ordered by . ma2 16:53 Discharged to home ambulatory, with family. tw5 16:53 Condition: stable 16:53 Discharge instructions given to patient. 16:57 Patient left the ED. tw5 Signatures: Dispatcher [employer] Agnieszka Tapia, Delon em1 Georgina Bautista, RN RN Estevan Chavez MD MD ma2 Bernadette Santos Corrections: (The following items were deleted from the chart) 14:31 14:26 Pain: Denies pain.
--- NOTE | 2021-05-17 16:27 | EDPHYS ---
Physician Documentation [facility] Name: Ana Solo Age: 45 yrs Sex: Female : 1975 Arrival Date: 05/17/2021 Time: 13:31 Bed 7 Private MD: ED Physician Estevan He HPI: 05/17 15:06 This 45 yrs old Female presents to ER via Wheelchair with complaints of Rapid ma2 Heart Rate. 15:06 The patient has shortness of breath at rest. Onset: The symptoms/episode began/occurred ma2 gradually, 3 hour(s) ago. Associated signs and symptoms: Pertinent negatives: diaphoresis, hemoptysis, loss of consciousness, numbness in extremities. Severity of symptoms: At their worst the symptoms were moderate in the emergency department the symptoms are unchanged. The patient has experienced similar episodes in the past. 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 - Social history:: Smoking status: Patient denies any tobacco usage or history of. - Family history:: not pertinent. ROS: 15:06 Constitutional: Negative for fever, chills, and weight loss. ma2 15:06 All other systems are negative. Exam: 15:06 Constitutional: This is a well developed, well nourished patient who is awake, alert, ma2 and in no acute distress. Head/Face: Normocephalic, atraumatic. Eyes: Pupils equal round and reactive to light, extra-ocular motions intact. Lids and lashes normal. Conjunctiva and sclera are non-icteric and not injected. Cornea within normal limits. Periorbital areas with no swelling, redness, or edema. ENT: Nares patent. No nasal discharge, no septal abnormalities noted. Tympanic membranes are normal and external auditory canals are clear. Oropharynx with no redness, swelling, or masses, exudates, or evidence of obstruction, uvula midline. Mucous membranes moist. Neck: Trachea midline, no thyromegaly or masses palpated, and no cervical lymphadenopathy. Supple, full range of motion without nuchal rigidity, or vertebral point tenderness. No Meningismus. Chest/axilla: Normal chest wall appearance and motion. Nontender with no deformity. No lesions are appreciated. Cardiovascular: Regular rate and rhythm with a normal S1 and S2. No gallops, murmurs, or rubs. Normal PMI, no JVD. No pulse deficits. Respiratory: Patient has hypoxemia, SPO2 is 88 on 3 L, lungs have equal breath sounds bilaterally, clear to auscultation and percussion. No rales, rhonchi or wheezes noted. No increased work of breathing, no retractions or nasal flaring. Abdomen/GI: Soft, non-tender, with normal bowel sounds. No distension or tympany. No guarding or rebound. No evidence of tenderness throughout. Back: No spinal tenderness. No costovertebral tenderness. Full range of motion. Skin: Warm, dry with normal turgor. Normal color with no rashes, no lesions, and no evidence of cellulitis. MS/ Extremity: Pulses equal, no cyanosis. Neurovascular intact. Full, normal range of motion. Neuro: Awake and alert, GCS 15, oriented to person, place, time, and situation. Cranial nerves II-XII grossly intact. Motor strength 5/5 in all extremities. Sensory grossly intact. Cerebellar exam normal. Normal gait. Vital Signs: 13:38 BP 89 / 63; Pulse 109; Resp 24; Temp 98.3; Pulse Ox 85% on R/A; Weight 48.9 kg (M); hb Height 5 ft. (152.40 cm); Pain 0/10; 14:20 BP 96 / 65; Pulse 106; Resp 22; Temp 98.3; Pulse Ox 87% on 3 lpm NC; Pain 0/10; tw5 14:48 BP 89 / 63; Pulse 106; Resp 18; Pulse Ox 88% on 3 lpm NC; Pain 3/10; tw5 15:29 BP 94 / 50; Pulse 74; Resp 14; Pulse Ox 87% on 3 lpm NC; Pain 3/10; tw5 16:25 BP 93 / 60; Pulse 76; Resp 14; Pulse Ox 87% on 3 lpm NC; Pain 0/10; tw5 16:53 BP 100 / 57; Pulse 72; Resp 18; Temp 98.5; Pulse Ox 86% on 3 lpm NC; Pain 0/10; tw5 13:38 Body Mass Index 21.05 (48.90 kg, 152.40 cm) hb MDM: 13:56 Patient medically screened. ma2 15:06 Differential diagnosis: Anemia Anxiety Reaction asthma, reactive airway disease. ks2 16:25 Data reviewed: vital signs, nurses notes. Counseling: I had a detailed discussion with ilia the patient and/or guardian regarding: the historical points, exam findings, and any diagnostic results supporting the discharge/admit diagnosis, the presence of at least one elevated blood pressure reading (>120/80) during this emergency department visit, the need for outpatient follow up. ED course: Heart rate improved to 70 bpm after 500 NS. SPO2 is 88 at 3 L oxygen via nasal cannula. This oxygen saturation are baseline. She is on 3 L oxygen at home. All symptom has resolved, work-up is within normal limits... 16:27 ED course: Patient is on Eliquis, for right upper arm DVT, EKG shows right heart ma2 strain, [id number], although this pattern is consistent with atrial fibrillation, however PE cannot be ruled out, I offered admission, given that she has pulmonary hypertension and high risk. Recommendation is low threshold for admission/observation. However patient does not want to be admitted. She would like to go home, as her symptom has improved. And she will follow up with primary care doctor in 2 days. She will return to ER if her symptoms worsen.. 05/17 13:39 Order name: CBC with Diff; Complete Time: 14:59 ks2 05/17 13:58 Order name: Blood Culture Adult (2) ks2 05/17 13:58 Order name: CPK; Complete Time: 15:57 ma2 05/17 13:58 Order name: Ckmb; Complete Time: 15:57 ma2 05/17 13:58 Order name: D-Dimer; Complete Time: 14:59 ma2 05/17 13:58 Order name: Lipase; Complete Time: 15:57 ks2 05/17 13:58 Order name: Ptt, Activated; Complete Time: 14:59 ks2 05/17 13:39 Order name: XRAY Chest (1 view); Complete Time: 14:59 ma2 05/17 13:39 Order name: EKG; Complete Time: 13:40 ma2 05/17 13:39 Order name: Cardiac monitoring; Complete Time: 14:32 ma2 05/17 13:39 Order name: EKG - Nurse/Tech; Complete Time: 13:57 ma2 05/17 13:39 Order name: IV Saline Lock; Complete Time: 14:33 ma2 05/17 13:39 Order name: Labs collected and sent; Complete Time: 14:33 ma2 05/17 13:39 Order name: O2 Per Protocol; Complete Time: 14:33 ma2 05/17 13:39 Order name: O2 Sat Monitoring; Complete Time: 14:33 ma2 05/17 15:17 Order name: Oxygen: HFNC; Complete Time: 15:34 ma2 05/17 16:06 Order name: SARS-COV-2 RT PCR; Complete Time: 16:27 EDMS Administered Medications: 14:37 CANCELLED (Duplicate Order): NS 0.9% 1000 ml IV at 1 bolus Per protocol; 1000 mL bolus tw5 14:47 Drug: NS 0.9% 500 ml Route: IV; Rate: bolus; Site: right antecubital; tw5 15:49 Follow up: Response: No adverse reaction; IV Status: Completed infusion tw5 Disposition Summary: 05/17/21 16:27 Discharge Ordered Location: Home ma2 Condition: Stable ma2 Diagnosis - Primary pulmonary hypertension ma2 Followup: ma2 - With: Private Physician - When: Tomorrow - Reason: Continuance of care Discharge Instructions: - Discharge Summary Sheet ma2 - Pulmonary Hypertension ma2 Forms: - Medication Reconciliation Form ma2 - Thank You Letter ma2 - Antibiotic Education ma2 - Prescription Opioid Use ma2 Signatures: Dispatcher [employer] EDMS Georgina Bautista RN RN Estevan Chavez MD MD ma2 Bernadette Santos tw5 Corrections: (The following items were deleted from the chart) 14:36 14:00 CORONAVIRUS+MR.LAB.BRZ ordered. EDMS EDMS 14:37 13:41 NS 0.9% 1000 ml IV at 1 bolus Per protocol; 1000 mL bolus ordered. ma2 tw5 15:17 13:58 Chest For PE Angio+CT.RAD.BRZ ordered. EDMS EDMS
[2021-05-17 17:12] VITALS: BP 100/57; TEMP 98.5; O2SAT 86
== END 2021-05-17 16:57 | disposition home or self-care (01) ==
LOC: ER 13:27
DX: I27.0 Primary pulmonary hypertension (principal); I50.9 Heart failure, unspecified; Z79.01 Long term (current) use of anticoagulants; Z20.822 Contact with and (suspected) exposure to COVID-19; Z88.1 Allergy status to other antibiotic agents; Z91.048 Other nonmedicinal substance allergy status
CPT/HCPCS: 87040 ×2; 85025; 36415; 82550; 85379; 85730; 82553; 83690; 71045; 96360; 99285; U0003; J7040

== ENCOUNTER 2021-09-11 18:33 | Emergency (ER) | payer OTHER ==
--- OUTSIDE RECORDS SUMMARY | 2021-09-11 18:39 | XMS REPORT | Continuity of Care Document ---
:1975 Author Organization [facility] t Address [address] [place] [address] Care Team Providers Name Role Phone YARON DAVIS Primary Care Physician Unavailable NORA ALEGRIA Attending Clinician Unavailable CHAY FLOYD Attending Clinician Unavailable Farzad PADILLA Attending Clinician Unavailable NICOLE CABAN Attending Clinician Unavailable Rhett FERMIN Attending Clinician Unavailable YARON DAVIS Attending Clinician Unavailable MANNY Attending Clinician Unavailable DALIA MARES Attending Clinician Unavailable TRICIA FINE Attending Clinician Unavailable SAMMI DUNLAP Attending Clinician Unavailable TASIA HYLTON Attending Clinician Unavailable LOU GARCIA Attending Clinician Unavailable Rhett FERMIN Admitting Clinician Unavailable LOU GARCIA Admitting Clinician Unavailable Payers Payer Name Policy Type Policy Number Effective Date Expiration Date Farzad morales [facility]/MEDICARE [id number] 2021 COMPLETE 00:00:00 [facility] [id number] 2021 ONLY 00:00:00 MEDICARE PART A \\T\\ [id number] B - MEDICARE [facility]P [facility] [id number] [facility] COVID19 [facility] [id number] MEDICARE A B [id number] 1998 00:00:00 CDC REVIEW [id number] 2020 00:00:00 Problems Condition Condition Condition Status Onset Resolution Last Treating Co mments Source Name Details Category Date Date Treatment Clinician Date Other Other Disease Active 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 combined combined 0 Colleg e systolic systolic 00:00: of and and 00 Medicin diastolic diastolic e congestive congestive heart heart failure failure (HCCode) (HCCode) Hypervolem Hypervolem Disease Active [facility] ia ia 05-14 [place] 00:00: of 00 Medicin e MALKA (acute MALKA (acute Disease Active [facility] kidney kidney 05-13 [place] injury) injury) 00:00: of (HCCode) (HCCode) 00 Medici n e Hyperkalem Hyperkalem Disease Active [facility] ia ia 05-13 [place] 00:00: of 00 Medicin e Pulmonary Pulmonary Disease Active [facility] HTN, HTN, 825 [employer] secondary secondary 00:00: t & Plan: o f 00 Formattin Medicin g of this e note might be different from the original. Her last cath was [address] Menjivar. She had normal RPA pressure, but LPA pressure of 68/40, mean=50, so I suspect this is higher now.Plan: 1. 6 min walk to evnm Fxnl Class2. Consider repeat cath to eval PA pressure, PVR3. After, consider her for pulm vasodilat or tx MENORRHAGI MENORRHAGI Disease Active [facility] A A 3-11 College 00:00: of 00 Medicin e UTERINE UTERINE Disease Active [facility] ENLARGEMEN ENLARGEMEN -11 Co llege T T 00:00: of 00 Medicin e SCREENING SCREENING Disease Active [facility] FOR FOR 10-24 College MALIGNANT MALIGNANT 00:00: of NEOPLASM NEOPLASM 00 Medici n OF THE OF THE e CERVIX CERVIX ROUTINE ROUTINE Disease Active [facility] GYNECOLOGI GYNECOLOGI -11 Co llege FRANCESCO FRANCESCO 00:00: of EXAMINATIO EXAMINATIO 00 Me dicin N N e CONTRACEPT CONTRACEPT Disease Active [facility] DIOGENES DIOGENES 826 [place] COUNSELING COUNSELING 00:00: of NEC NEC 00 Medicin e INTRAUTERI INTRAUTERI Disease Active B glenis NE NE 09-12 College 00:00: of 00 Medicin e Disease Active [facility] EXAMINATON EXAMINATON 1-17 Co llege OR TEST, OR TEST, 00:00: of UNCONFIRME UNCONFIRME 00 Me dicin D D e DIZZINESS DIZZINESS Disease Active [facility] 9-25 College 00:00: of 00 Medicin e CHEST CHEST Disease Active 2005-[address] [facility] PAIN, PAIN, 2-13 [place] ATYPICAL ATYPICAL 00:00: of 00 Medicin e COMMON COMMON Disease Active [facility] VENTRICLE, VENTRICLE, 03-17 Co llege CONGENITAL CONGENITAL 00:00: of 00 Medicin e CYANOSIS CYANOSIS Disease Active [facility] 03-17 [facility] 00:00: t & Plan: of 00 Formattin Medicin g of this e note might be different from the original. This continues to be a chronic problem. She has this for years, but tolerates this well.Plan :1. Stay well hydrated2 . She has not had polycythe jassi/hyper viscosity syndrome yet DEXTROCARD DEXTROCARD Disease Active Yvonne galvin [place] 03-17 [place] 00:00: of 00 Medicin e DEFECT, DEFECT, Disease Active [facility] CONGENITAL CONGENITAL 03-17 [facility] , , 00:00: t & Plan: of ENDOCARDIA ENDOCARDIA 00 Formattin Medicin L CUSHION L CUSHION g of this e NEC NEC note might be different from the original. Chronic problem.H er AV-valves are regurgita nt, but tolerable . ATRESIA, ATRESIA, Disease Active [facility] CONGENITAL CONGENITAL 03-17 [facility] , , 00:00: t & Plan: of PULMONARY PULMONARY 00 Formattin M edicin VALVE VALVE g of this e note might be different from the original. Main issue. Has W-Ramos shunt but is chronical ly cyanotic with some of the sequelae. HX, HX, Disease Active [facility] PERSONAL, PERSONAL, 03-17 [place] MAJOR MAJOR 00:00: of CARDIOVASC CARDIOVASC 00 Me dickai SNIDER e SURGERY SURGERY TRANSPOSIT TRANSPOSIT Disease Active Yvonne galvin ION GREAT ION GREAT 03-17 [place] VESSEL, VESSEL, 00:00: of COMPLETE, COMPLETE, 00 Medi gisella CNGN CNGN e CHF CHF Disease Active [facility] 03-17 [place] 00:00: of 00 Medicin e PALPITATIO PALPITATIO Disease Active B glenis NS NS 03-17 [place] 00:00: of 00 Medicin e Allergies, Adverse Reactions, Alerts Allergy Allergy Status Severity Reaction(s) Onset Inactive Treating Comm ents Source Name Type Date Date Clinician ALLOPURI Allergy Active Low Rash [facility] NOL 6-04 ANALOGUE 00:00: S 00 Allopuri Propensi Active Rash [facility] nol ty to 03-16 [place] adverse 00:00: of reaction 00 Medicin s to e drug IODINE Allergy Active [facility] SHELLFIS Allergy Active Itching [facility] H 3-20 CONTAINI 00:00: NG 00 PRODUCTS SHELLFIS Allergy Active High Itching [facility] CON[facility]I 00:[facility] Medical NG 00 [place] PRODUCTS Shellfis Propensi Active [facility] h ty to 26 [place] adverse 00:00: of reaction 00 Medicin s to e food AMOXICIL Allergy Active Nausea [facility] [place] Amoxil Propensi Active GI [facility] ty to 513 [place] adverse 00:00: of reaction 00 Medicin s to e drug Social History Social Habit Start Date Stop Date Quantity Comments Source Exposure to Not sure [facility] Colleteresa marquez of SARS-CoV-2 (event) Medici ne Sex Assigned At 1975 [address] [facility] Co llege of 00:00:00 00:00:00 Medicine Smoking Status Start Date Stop Date Source Never smoker [facility] o f Medicine Medications Ordered Filled Start Stop Current Ordering Indication Dosage Frequency Signature Comments Components Source Medication Medication Date Date Medication? Clinician (SIG) Name Name allopurinol 2020-08 Yes 100mg Take 1 Harvey samy (ZYLOPRIM) 0-15 Tablet by [place] 100 MG 00:00: mouth of tablet 00 daily. Medicin e ursodiol Yes TAKE 1 Vin (ACTIGALL) 9-09 CAPSULE BY Col lege 300 MG 00:00: MOUTH of capsule 00 TWICE Medicin DAILY e Ferrous Yes 1{tbl} Take [address] [facility] Gluconate 4-02 Tablet by [facility] ge 324 (37.5 00:00: mouth two of Fe) MG TABS 00 times Medicin daily. e linaCLOtide Yes 145ug Take 145 B aylor (LINZESS) 3-16 mcg by [place] 145 MCG 00:00: mouth of CAPS 00 daily. Medicin e metolazone 2019-08- No 1{tbl} Take 1 [facility] (ZAROXOLYN) 2-18 10-15 Tablet by Nv llege 2.5 MG 00:00: 00:00 mouth of tablet 00 :00 every 3 Medicin days. e midodrine 2019-08 Yes 2.5mg Take 2.5 Harvey samy (PROAMATINE 1-13 mg by [place] ) 2.5 MG 00:00: mouth 3 of tablet 00 times Medicin daily. e Apixaban 2019-08 Yes 2.5mg Take 2.5 [facility] (ELIQUIS) 5 0-30 mg by [place] MG TABS 00:00: mouth two of 00 times Medicin daily. e metoprolol 2019-08 Yes 50mg Take 50 mg B a[facility]or (TOPROL-XL) 0-21 by mouth [place] 50 MG XL 00:00: two times of tablet 00 daily. Medicin e bumetanide 2019-08 Yes 2mg Take 1 Tab B a[facility] (BUMEX) 2 0-09 by mouth Ariasg e MG tablet 00:00: two times of 00 daily. Medicin e spironolact 2019-08 Yes TAKE 1 [facility] one 0-09 TABLET BY [place] (ALDACTONE) 00:00: MOUTH of 25 MG 00 TWICE Medicin tablet DAILY . e Esomeprazol 2019-08 Yes 5mg Take 5 mg B aylor e Magnesium 0-03 by mouth [place] 5 MG PACK 00:00: daily. of 00 Medicin e Sildenafil Yes 20mg Take 20 mg [facility] Citrate 20 9-01 by mouth 3 Col [facility] MG TABS 00:00: times of 00 daily. Medicin e penicillin Yes TAKE 1 [facility] r v potassium 4-14 TABLET BY Col [facility] (VEETID) 00:00: MOUTH of 250 MG 00 EVERY DAY Medicin tablet e Vital Signs Vital Name Observation Time Observation Value Comments Source HEIGHT 2021-08-22 20:46:00 152.4 cm WEIGHT 2021-08-22 20:46:00 53.615 kg Systolic blood 2021-05-30 13:49:00 84 mm[Hg] [facility] pressure Medicine Diastolic blood 2021-05-30 13:49:00 49 mm[Hg] [facility] Medicine Heart rate 2021-05-30 13:49:00 62 /min [facility] ollege of [facility] Body height 2021-05-30 13:49:00 154.9 cm [facility] ollege of [facility] Body weight 2021-05-30 13:49:00 49.624 kg [facility] ollege of Medicine BMI 2021-05-30 13:49:00 20.67 [facility] HEIGHT 2021-04-16 14:17:00 154.9 cm WEIGHT 2021-04-16 14:17:00 50.621 kg HEIGHT 2021-04-02 07:43:00 154.9 cm WEIGHT 2021-04-02 07:43:00 49.896 kg HEIGHT 2021-04-02 07:43:00 154.9 cm WEIGHT 2021-04-02 07:43:00 49.896 kg WEIGHT 2021-03-31 08:22:00 51.03 kg HEIGHT 2021-03-31 08:22:00 154.9 cm WEIGHT 2021-03-31 08:22:00 51.03 kg HEIGHT 2021-03-31 08:22:00 154.9 cm HEIGHT 2021-03-12 09:06:00 154.9 cm WEIGHT 2021-03-12 09:06:00 49.941 kg HEIGHT 2021-03-12 09:06:00 154.9 cm WEIGHT 2021-03-12 09:06:00 49.941 kg HEIGHT 2021-01-22 13:36:00 154.9 cm WEIGHT 2021-01-22 13:36:00 51.71 kg HEIGHT 2021-01-22 13:36:00 154.9 cm WEIGHT 2021-01-22 13:36:00 51.71 kg HEIGHT 2020-03-06 00:00:00 154.9 cm WEIGHT 2020-03-06 00:00:00 59.512 kg HEIGHT 2020-01-18 00:00:00 154.9 cm WEIGHT 2020-01-18 00:00:00 60.782 kg HEIGHT 2020-01-18 00:00:00 154.9 cm WEIGHT 2020-01-18 00:00:00 60.782 kg Procedures Procedure Date / Time Performing Clinician Source Performed COMPREHENSIVE METABOLIC 2021-05-30 14:48:00 David Padilla [facility] PTH INTACT 2021-05-30 14:48:00 David Padilla [facility] PHOSPHORUS 2021-05-30 14:48:00 David Padilla [facility] CBC W/AUTO DIFF WITH 2021-05-30 14:48:00 David Padilla [facility] URINALYSIS AUTO W/SCOPE 2021-05-30 14:48:00 David Padilla [facility] RANDOM URINE 2021-05-30 14:48:00 David Padilla [facility] PROTEIN/CREATININE Medicine Plan of Care Planned Activity Planned Date Details Comments Source Future Scheduled 2021-05-31 Screening for Vin [facility] of Test 16:40:05 malignant neoplasm Medicine of colon (procedure) [code = 816822697] Future Scheduled 2021-05-31 Screening for Vin [facility]ge of Test 16:40:05 malignant neoplasm Medicine of breast (procedure) [code = 461351400] Future Scheduled 2021-05-31 TETANUS SHOT (ADULT) [facility] of [facility] 16:40:05 [code = TETANUS SHOT Medicin e (ADULT)] Future Scheduled 2021-05-31 Screening [address] [facility] Col lege of Test 16:40:05 malignant neoplasm Medicine of cervix (procedure) [code = 927380877] Future Scheduled 2021-05-31 MEDICARE AWV [facility] [place] of Test 16:40:05 (Initial) [code = Medicine MEDICARE AWV (Initial)] Future Scheduled 2021-05-31 COVID-19 Vaccine (2 [facility] [employer] of Test 16:40:05 - Pfizer 2-dose Medicine series) [code = COVID-19 Vaccine (2 - Pfizer 2-dose series)] Future Scheduled 2021-05-31 FLU VACCINE > 6 [facility] of Test 16:40:05 MONTHS [code = FLU Medicine VACCINE > 6 MONTHS] Encounters Start End Encounter Admission Attending Care Care Encounter Source Date/Time Date/Time Type Type Clinicians Facility Department ID 2022-04-17 2022-04-17 Outpatient EL [facility] [id number] [facility] 00:00:00 00:00:00 2021-08-23 2021-08-23 Emergency ER BRUSAGERALDINEI, [facility] Emergency [id number] [facility] 01:03:00 01:40:00 DOUG 2021-07-02 2021-07-02 Outpatient EL SLE SLE [id number] [facility] 12:56:38 23:59:00 2021-07-02 2021-07-02 Outpatient EL SLE SLE [id number] [facility] 12:56:27 23:59:00 2021-07-02 2021-07-02 Outpatient EL MARIEL SLE SLE [id number] [facility] 13:33:40 13:33:40 [facility] 2021-07-02 2021-07-02 Outpatient EL MARIEL SLE SLE [id number] [facility] 12:11:02 12:55:00 [facility] 2021-05-30 2021-05-30 Office CORNELL PADILLA [id number] [facility] 08:47:46 09:39:52 Visit DAVID AMBULATOR [id number] College Y [id number] Medi gisella 335 e 2021-04-23 2021-04-23 Outpatient MEE [facility] SLE [id number] [facility] 00:00:00 00:00:00 BHAMIDIPATI 2021-04-23 2021-04-23 Outpatient EL MEE [facility] SLE [id number] [facility] 00:00:00 00:00:00 BHAMIDIPATI 2021-04-16 2021-04-16 Outpatient EL [facility] SLE [id number] [facility] 00:00:00 00:00:00 2021-04-16 2021-04-16 Outpatient EL [facility]H SLEH [id number] [facility] 00:00:00 00:00:00 2021-04-16 2021-04-16 Outpatient EL [facility]H SLEH [id number] [facility] 00:00:00 00:00:00 2021-04-15 2021-04-15 Outpatient EL [facility] SLEH [id number] [facility] 00:00:00 00:00:00 2021-04-02 2021-04-02 Outpatient CHOLANKERIL SLEH SLEH [id number] SLEH 00:00:00 00:00:00 , CORIE 2021-03-31 2021-03-31 Outpatient EL SLEH SLEH [id number] [facility] 00:00:00 00:00:00 2021-03-27 2021-03-27 Outpatient BECKY FLOYD, SLEH SLEH [id number] SLEH 00:00:00 00:00:00 PEÑA 2021-03-14 2021-03-14 Outpatient BECKY FLOYD, SLEH SLEH [id number] [facility]H 00:00:00 00:00:00 PEÑA 2021-03-12 2021-03-12 Outpatient MARIEL, SLEH SLEH [id number] [facility]H 00:00:00 00:00:00 PEÑA 2021-03-12 2021-03-12 Outpatient EL SLEH SLEH [id number] [facility]H 00:00:00 00:00:00 2021-03-12 2021-03-12 Outpatient SLEH SLEH [id number] [facility]H 00:00:00 00:00:00 2021-03-12 2021-03-12 Outpatient MANNY, SLEH SLEH [id number] [facility]H 00:00:00 00:00:00 JUNIOR 2021-03-12 2021-03-12 Outpatient COSMOSabas, SLEH SLEH [id number] [facility] 00:00:00 00:00:00 IBAN 2021-03-12 2021-03-12 Outpatient EL SLEH SLEH [id number] SLEH 00:00:00 00:00:00 2021-03-052021-03-05 Outpatient MARIEL SLEH SLEH [id number] [facility] 00:00:00 00:00:00 PEÑA 2021-03-05 2021-03-05 Outpatient EL MARIEL SLEH SLEH [id number] [facility]H 00:00:00 00:00:00 PEÑA 2021-03-05 2021-03-05 Outpatient BECKY FLOYD SLEH SLEH [id number] [facility]H 00:00:00 00:00:00 PEÑA 2021-02-28 2021-02-28 Outpatient MARIEL SLEH SLEH [id number] [facility] 00:00:00 00:00:00 PEÑA 2021-02-28 2021-02-28 Outpatient MARIEL SLEH SLEH [id number] [facility]H 00:00:00 00:00:00 [facility] 2021-02-28 2021-02-28 Outpatient MARIEL SLEH SLEH [id number] SLEH 00:00:00 00:00:00 [facility] 2021-02-28 2021-02-28 Outpatient MARIEL SLEH SLEH [id number] [facility] 00:00:00 00:00:00 [facility] 2021-02-28 2021-02-28 Outpatient MARIEL SLEH SLEH [id number] [facility]H 00:00:00 00:00:00 [facility] 2021-02-28 2021-02-28 Outpatient BECKY FLOYD SLE[facility] SLEH [id number] [facility]H 00:00:00 00:00:00 PEÑA 2021-02-27 2021-02-27 Outpatient MARIEL SLE[facility] SLEH [id number] [facility] 00:00:00 00:00:00 [facility] 2021-02-27 2021-02-27 Outpatient BECKY FLOYD SLE[facility] SLEH [id number] [facility] 00:00:00 00:00:00 [facility] 2021-02-27 2021-02-27 Outpatient BECKY SLEH SLEH [id number] SLEH 00:00:00 00:00:00 2021-01-22 2021-01-22 Outpatient MARIEL SLEH SLEH [id number] [facility]H 00:00:00 00:00:00 PEÑA 2021-01-22 2021-01-22 Outpatient MARIEL, SLE SLEH [id number] SLEH 00:00:00 00:00:00 PEÑA 2021-01-22 2021-01-22 Outpatient SLEH SLEH [id number] SLEH 00:00:00 00:00:00 2021-01-22 2021-01-22 Outpatient SLEH SLEH [id number] [facility]H 00:00:00 00:00:00 2021-01-22 2021-01-22 Outpatient SLEH SLEH [id number] SLEH 00:00:00 00:00:00 2021-01-22 2021-01-22 Outpatient SLEH SLEH [id number] SLEH 00:00:00 00:00:00 2021-01-22 2021-01-22 Outpatient BECKY SLEFavian SLEH [id number] SLEH 00:00:00 00:00:00 2020-11-15 2020-11-15 Outpatient BECKY FINE SLE SLE [id number] SLEH 00:00:00 00:00:00 SALMAAN 2020-10-28 2020-10-28 Outpatient BABATUNDE SLE SLEH [id number] SLEH 00:00:00 00:00:00 SALMAAN 2020-04-23 2020-04-23 Outpatient BECKY DUNLAP SLE SLE [id number] SLEH 00:00:00 00:00:00 SHI 2020-04-08 2020-04-08 Outpatient BECKY DUNLAP SLE SLE [id number] [facility]H 00:00:00 00:00:00 SHI 2020-03-06 2020-03-06 Outpatient BECKY DUNLAP SLE SLE [id number] [facility]H 00:00:00 00:00:00 SHI 2020-01-18 2020-01-18 Outpatient BECKY DUNLAP SLE SLE [id number] SLEH 00:00:00 00:00:00 SHI Results Test Description Test Time Test Comments Results Result Sourc e Comments RAD, CHEST, 2 2021-07-02 COVID-19 virus- VIEWS 15:59:00 Screened -CLEARReferring: Dr[facility] Am[facility]lung KALEY SKAGGS transplant DINORA : evaluation 1975 Sex: F *FINAL REPORT CLINICAL HISTORY: lung transplant evaluation TECHNIQUE: 2 views of the chest COMPARISON: 02/28/2021 IMPRESSION: Coarsened bilateral interstitial lung markings are again seen without lobar consolidation or pleural effusions. Dextrocardia is again seen with cardiomegaly. Signed: [facility] Verified Date/Time: 07/02/2021 15:59:09 Reading Location: [facility] Radiology Reading Room REHENSIVE METABOLIC PANEL 2021-07-02 15:54:41 Test Item Value Reference Range Interpretation Comme nts TOTAL PROTEIN (BEAKER) 8.2 gm/dL 6.0-8.3 (test code = 770) ALBUMIN (BEAKER) (test code 4.3 g/dL 3.5-5.0 = 1145) ALKALINE PHOSPHATASE 171 U/L 40-150 H (BEAKER) (test code = 346) BILIRUBIN TOTAL (BEAKER) 1.8 mg/dL 0.2-1.2 H (test code = 377) SODIUM (BEAKER) (test code 138 meq/L 136-145 = 381) POTASSIUM (BEAKER) (test 3.4 meq/L 3.5-5.1 L code = 379) CHLORIDE (BEAKER) (test 99 meq/L 98-107 code = 382) CO2 (BEAKER) (test code = 24 meq/L 22-29 355) BLOOD UREA NITROGEN 74 mg/dL 7-21 H (BEAKER) (test code = 354) CREATININE (BEAKER) (test 2.22 mg/dL 0.57-1.25 H code = 358) GLUCOSE RANDOM (BEAKER) 118 mg/dL 70-105 H (test code = 652) CALCIUM (BEAKER) (test code 10.0 mg/dL 8.4-10.2 = 697) AST (SGOT) (BEAKER) (test 24 U/L 5-34 code = 353) ALT (SGPT) (BEAKER) (test 18 U/L 6-55 code = 347) EGFR (BEAKER) (test code = 24 mL/min/1.73 sq m ESTIMATED GFR IS NOT 1092) ACCURATE CRE ATININE CLEARANCE IN MO EDICTING GLOMERULAR FILT RATION RATE. ESTIMATED GFR IS NOT APPLICABLE FOR DIALYSIS PATIENTS. Manual Tester ID - BSCBC W/PLT COUNT & AUTO [id number] 15:40:57 Test Item Value Reference Range Interpretation Comments WHITE BLOOD CELL COUNT (BEAKER) 5.4 K/ L 3.5-10.5 (test code = 775) RED BLOOD CELL COUNT (BEAKER) 5.45 M/ L 3.93-5.22 H (test code = 761) HEMOGLOBIN (BEAKER) (test code = 14.1 GM/DL 11.2-15.7 410) HEMATOCRIT (BEAKER) (test code = 47.3 % 34.1-44.9 H 411) MEAN CORPUSCULAR VOLUME (BEAKER) 86.8 fL 79.4-94.8 (test code = 753) MEAN CORPUSCULAR HEMOGLOBIN 25.9 pg 25.6-32.2 (BEAKER) (test code = 751) MEAN CORPUSCULAR HEMOGLOBIN CONC 29.8 GM/DL 32.2-35.5 L (BEAKER) (test code = 752) RED CELL DISTRIBUTION WIDTH 20.4 % 11.7-14.4 H (BEAKER) (test code = 412) PLATELET COUNT (BEAKER) (test 187 K/CU MM 150-450 code = 756) MEAN PLATELET VOLUME (BEAKER) 10.2 fL 9.4-12.3 (test code = 754) NUCLEATED RED BLOOD CELLS 0 /100 WBC 0-0 (BEAKER) (test code = 413) NEUTROPHILS RELATIVE PERCENT 61 % (BEAKER) (test code = 429) LYMPHOCYTES RELATIVE PERCENT 23 % (BEAKER) (test code = 430) MONOCYTES RELATIVE PERCENT 12 % (BEAKER) (test code = 431) EOSINOPHILS RELATIVE PERCENT 2 % (BEAKER) (test code = 432) BASOPHILS RELATIVE PERCENT 2 % (BEAKER) (test code = 437) NEUTROPHILS ABSOLUTE COUNT 3.25 K/ L 1.56-6.13 (BEAKER) (test code = 670) LYMPHOCYTES ABSOLUTE COUNT 1.24 K/ L 1.18-3.74 (BEAKER) (test code = 414) MONOCYTES ABSOLUTE COUNT (BEAKER) 0.65 K/ L 0.24-0.36 H (test code = 415) EOSINOPHILS ABSOLUTE COUNT 0.09 K/ L 0.04-0.36 (BEAKER) (test code = 416) BASOPHILS ABSOLUTE COUNT (BEAKER) 0.11 K/ L 0.01-0.08 H (test code = 417) IMMATURE GRANULOCYTES-RELATIVE 0 % 0-1 PERCENT (BEAKER) (test code = 2801) PTH [id number] 14:31:33 Test Item Value Reference Range Interpretation Comments PARATHYROID HORMONE 94 PG/ML 15-65 H Unless INTACT (test code = Otherwis e Indicated, 2731-8) All Testing Per formed At: [facility], [address] [place] [address] Laboratory Dire ctor: Hakan mccollum M.D. [place] Num dana [id number] Cap Accreditation N o. [id number] Lab Interpretation Abnormal (test code = 70472-2) [facility]/[id number] 10:13:13 Test Item Value Reference Range Interpretation Comments URINE PROTEIN (test NOT ESTAB MG/DL Reference code = 2888-6) interval for random urine samples h as not been establ ished. CREATININE URINE NOT ESTAB MG/DL Re ference (test code = 2161-8) interva l for random urine samples h as not been establ ished. CALC SEE BELOW MG/G CREAT $$$$$ PROTEIN/CREATININE INTERPRET DIOGENES (test code = 88462-8) INFORM ATION $$$$$NKF ADULT AND CHILD NORMAL RANGE . . . . . .MG/G CREAT <200AAFP (6-24 MONTHS) N ORMAL RANGE . . .MG/G CREAT <500NEPHROTIC R JANET PROTEINURIA (AP PROX) . . . .MG/G CREAT >2-3,000 NKF NO RMAL RANGES PREFERRE D FOR FIRST MORNING V OID, BUT NON-FIRSTMORNIN G SPECIMENS ARE ACCEPTABLE. FO R ASSESSMENT OF NON-FIRSTMORNIN G SPECIMENS, MELONY TIONAL INTERPRETIVE INFORMATION PROVIDEDBELOW: AGE MALE FEM ABHI (MG/G CREAT) (MG /G CREAT) 7-9 <220 <300 10-12 <220 <340 13-15 <150 <39 0 16-17 <190 <350 Refs: National Kid[employer] K/DO QI 2001. [facility] Chris and [facility] Sulaiman; Proteinur ia in Children. Amer. Fam. Phys. 2010; 8 2(6): 645-651. [place] Sl ev et al. Pediatric R eference Intervals for Random Urine Calcium, Phosphorus and Total Protein. Pedi atr Nephrol. 2010; 25:7937-3479. Unless Otherwis e Indicated, All Testing Performed At: [facility], [address] [place] [address] Pull Tab Dealer: Hakan Schaefer M.D. CLIA Number [id number] [facility] [id number] [facility]PRE[facility] METABOL[facility] [id number] 10:11:21 Test Item Value Reference Range Interpretation Comments GLUCOSE (test code = See_Comment [Autom ated message] 5145-7) The system [employer] generated this result transmitted ref erence range: 70 - 99 MG/DL. The reference r janet was not used to interpret this result as normal/abnor mal. BLOOD UREA NITROGEN See_Comment H [Automa bibi message] (test code = 3091-6) The s tem which generated this result transmitted ref erence range: 6 - 20 M G/DL. The reference r janet was not used to interpret this result as normal/abnor mal. CREATININE (test code = See_Comment H [Au tomated message] 2160-0) The system [employer] generated this result transmitted ref erence range: 0.60 - 1 .30 MG/DL. The refe rence range was not u sed to interpret this result as normal/abnor mal. EGFR AA (test code = See_Comment L [Autom ated message] 46225-3) The system [employer] generated this result transmitted ref erence range: >60 ML/MIN/1.73. Th e reference range was not used to int erpret this result as normal/abnormal . EGFR (test code = See_Comment L [Automate d message] 57379-0) The system [facility] generated this result transmitted ref erence range: >60 ML/MIN/1.73. Th e reference range was not used to int erpret this result as normal/abnormal . BUN/CREAT RATIO (test See_Comment H [Auto mated message] code = 3097-3) The system [facility] generated this result transmitted ref erence range: 6 - 28 R ATIO. The reference r janet was not used to interpret this result as normal/abnor mal. SODIUM (test code = See_Comment [Automa bibi message] 2951-2) The system [employer] generated this result transmitted ref erence range: 133 - 14 6 MEQ/L. The refe rence range was not u sed to interpret this result as normal/abnor mal. POTASSIUM (test code = See_Comment [Aut omated message] 3633-3) The system [employer] generated this result transmitted ref erence range: 3.5 - 5. 4 MEQ/L. The refe rence range was not u sed to interpret this result as normal/abnor mal. CHLORIDE (test code = See_Comment L [Auto mated message] 4935-0) The system [facility] generated this result transmitted ref erence range: 95 - 107 MEQ/L. The reference r janet was not used to interpret this result as normal/abnor mal. CO2 (test code = See_Comment [Automated message] 1963-8) The system [facility] generated this result transmitted ref erence range: 19 - 31 MEQ/L. The reference r janet was not used to interpret this result as normal/abnor mal. CALCIUM (test code = See_Comment [Autom ated message] 13053-7) The system [facility] generated this result transmitted ref erence range: 8.5 - 10 .5 MG/DL. The refe rence range was not u sed to interpret this result as normal/abnor mal. PROTEIN TOTAL (test See_Comment H [Automa bibi message] code = 2885-2) The system [facility] generated this result transmitted ref erence range: 6.1 - 8. 3 G/DL. The reference r janet was not used to interpret this result as normal/abnor mal. ALBUMIN (test code = See_Comment [Autom ated message] 69847-2) The system [facility] generated this result transmitted ref erence range: 3.5 - 5. 2 G/DL. The reference r janet was not used to interpret this result as normal/abnor mal. GLOBULINS, SERUM, TOTAL See_Comment [Au tomated message] (test code = 55884-5) The sy stem which generated this result transmitted ref erence range: 1.9 - 3. 7 G/DL. The reference r janet was not used to interpret this result as normal/abnor mal. A/G RATIO (test code = See_Comment [Aut omated message] 1759-0) The system [facility] generated this result transmitted ref erence range: 1.0 - 2. 6 RATIO. The refe rence range was not u sed to interpret this result as normal/abnor mal. BILIRUBIN TOTAL (test See_Comment H [Auto mated message] code = 1975-2) The system [facility] generated this result transmitted ref erence range: <=1.2 MG /DL. The reference r janet was not used to interpret this result as normal/abnor mal. ALKALINE PHOSPHATASE 183 U/L 40-120 H (test code = 6768-6) AST (SGOT) (test code = 20 U/L 9-40 1920-8) ALT (SGPT) (test code = 12 U/L 5-40 Unless 1744-2) Otherwise Indic ated, All Testing Per formed At: [facility], [address] [place] [address] Laboratory Dire ctor: Hakan mccollum M.D. CLIA Num dana [id number] Cap Accreditation N o. [id number] Lab Interpretation Abnormal (test code = 26600-4) [id number] 10:10:54 Test Item Value Reference Range Interpretation Comments PHOSPHORUS (test code = See_Comment H Unless 2777-1) Otherwise Indic ated, All Testing Per formed At: [facility], [address] [facility], [place] [address] Laboratory Dire ctor: Hakan mccollum M.D. CLIA Num dana [id number] Cap Accreditation N o. [id number] [Auto mated message] The sy stem which generated this result transmit bibi reference range : 2.5 - 4.5 MG/DL. The reference range was not used to int erpret this result as normal/abnormal . Lab Interpretation Abnormal (test code = 38717-7) [facility] AUT[facility] [id number] 08:53:16 Test Item Value Reference Range Interpretation Comments COLOR UA (test code = YELLOW YELLOW-STRAW 5778-6) CLARITY UA (test code = CLEAR CLEAR 5767-9) SPECIFIC GRAVITY UA 1.005-1.035 (test code = 5811-5) LEUKOCYTE ESTERASE UA TRACE NEGATIVE A (test code = 5799-2) NITRITE UA (test code = NEGATIVE NEGATIVE 5802-4) PH UA (test code = 5.0-9.0 5803-2) PROTEIN UA (test code = NEGATIVE NEGATIVE 27639-5) GLUCOSE UA (test code = NEGATIVE NEGATIVE 5792-7) KETONES UA (test code = NEGATIVE NEGATIVE 5797-6) UROBILINOGEN UA (test See_Comment [Auto mated message] code = 67292-9) The system [facility] generated this result transmitted ref erence range: <=2.0 M G/DL. The reference r janet was not used to interpret this result as normal/abnor mal. BILIRUBIN UA (test code NEGATIVE NEGATIVE = 5770-3) OCCULT BLOOD UA (test NEGATIVE NEGATIVE code = 5794-3) WBC UA (test code = 5-10 See_Comment A [Automa bibi message] 14368-1) The system [employer] generated this result transmitted ref erence range: 0 - 5 / HPF. The reference r janet was not used to interpret this result as normal/abnor mal. RBC UA (test code = 0-2 See_Comment [Automa bibi message] 51075-3) The system [employer] generated this result transmitted ref erence range: 0 - 5 / HPF. The reference r janet was not used to interpret this result as normal/abnor mal. EPITHELIAL CELLS (test 5-10 See_Comment [Aut omated message] code = 88317-8) [facility] this result transmitted ref erence range: 0 - 10 /HPF. The reference r janet was not used to interpret this result as normal/abnor mal. BACTERIA (test code = NONE SEEN NONE SEEN 89646-7) HYALINE CASTS (test MANY NONE-TRACE A Unless code = 73258-3) Otherwise In dicated, All Testing Per formed At: [facility], [address] [facility] [place] [address] Laboratory Dire ctor: Hakan mccollum M.D. CLI A Number [id number] [place] [id number] Lab Interpretation Abnormal (test code = 18056-3) [facility] W/AUTO DIFF WITH [id number] 08:50:44 Test Item Value Reference Range Interpretation Comments WHITE BLOOD CELL COUNT See_Comment [Aut omated message] (test code = 50780-7) The sy stem which generated this result transmitted ref erence range: 3.5 - 11 .0 K/UL. The refer ence range was not u sed to interpret this result as normal/abnor mal. RED BLOOD CELL COUNT See_Comment H [Autom ated message] (test code = 30780-9) The sy stem which generated this result transmitted ref erence range: 3.80 - 5 .40 M/UL. The refer ence range was not u sed to interpret this result as normal/abnor mal. HEMOGLOBIN (test code = See_Comment [Au tomated message] 718-7) The system [facility] generated this result transmitted ref erence range: 11.5 - 1 5.5 G/DL. The refer ence range was not u sed to interpret this result as normal/abnor mal. HEMATOCRIT (test code = 45.3 % 34.0-45.0 H 27427-7) MEAN CORPUSCULAR VOLUME 83.1 fL 80.0-99.0 (test code = 69251-7) MEAN CORPUSCULAR 26.2 PG 25.0-33.0 HEMOGLOBIN (test code = 00704-5) MEAN CORPUSCULAR See_Comment [Automated message] HEMOGLOBIN CONC (test The sy stem which code = 85843-3) generated th is result transmitted ref erence range: 31 - 36 G/DL. The reference r janet was not used to interpret this result as normal/abnor mal. RED CELL DISTRIBUTION 18.5 % 11.5-15.0 H WIDTH (test code = 85441-7) NEUTROPHILS % (test 61.2 % 40.0-75.0 code = 46453-3) LYMPHOCYTES % (test 21.6 % 20.0-45.0 code = 20832-9) MONOCYTES % (test code 11.9 % 4.0-12.0 = 82841-8) EOSINOPHILS % (test 2.8 % 0.0-7.0 code = 25095-3) BASOPHILS % (test code 1.9 % 0.0-2.0 = 85954-0) IMMATURE GRANULOCYTES 0.6 % 0.0-1.0 (test code = 58873-8) NUCLEATED RBC'S See_Comment Unl ess MYELOPEROX STAIN (test Other carroen Indicated, code = 82238-9) All Testing Performed At: [facility], [address] [place] [address] Laboratory Dire ctor: Hakan mccollum M.D. CLIA Num dana [id number] Cap Accreditation N o. [id number] [Auto mated message] The sy stem which generated this result transmit bibi reference range : 0.00 - 0.11 K/UL. Th e reference range was not used to int erpret this result as normal/abnormal . PLATELET COUNT (test See_Comment [Autom ated message] code = 36469-0) The system [facility] generated this result transmitted ref erence range: 130 - 40 0 K/UL. The reference r janet was not used to interpret this result as normal/abnor mal. NEUTROPHILS ABSOLUTE See_Comment [Autom ated message] COUNT (test code = The syste m which 68166-3) generated this result transmitted ref erence range: 1.50 - 7 .50 K/UL. The refer ence range was not u sed to interpret this result as normal/abnor mal. LYMPHOCYTES ABSOLUTE See_Comment [Autom ated message] COUNT (test code = The syste m which 64220-0) generated this result transmitted ref erence range: 1.00 - 4 .00 K/UL. The refer ence range was not u sed to interpret this result as normal/abnor mal. MONOCYTES ABSOLUTE See_Comment [Automat ed message] COUNT (test code = The syste m which 90613-7) generated this result transmitted ref erence range: 0.20 - 1 .00 K/UL. The refer ence range was not u sed to interpret this result as normal/abnor mal. BASOPHILS ABSOLUTE See_Comment [Automat ed message] COUNT (test code = The syste m which 98177-9) generated this result transmitted ref erence range: 0.00 - 0 .20 K/UL. The refer ence range was not u sed to interpret this result as normal/abnor mal. IMMATURE GRANS (ABS) See_Comment [Autom ated message] (test code = 9987) The syste m which generated this result transmitted ref erence range: 0.00 - 0 .10 K/UL. The refer ence range was not u sed to interpret this result as normal/abnor mal. Lab Interpretation Abnormal (test code = 20431-8) [facility], PELVIS, WITH [id number] 14:53:00COVID-19 virus- Screened -CLEARReferring: Dr. Amol Tyson for Exam:->kidney [facility]evaluation [facility] 1975 Sex: FFINAL REPORT US, PELVIS, WITH DOPPLER CLINICAL HISTORY: kidney tra nsplant evaluation COMPARISON: CT abdomen pelvis 02/28/2021. TECHNIQUE: Real time grayscale, color, and spectral Doppler evaluation was performed of the common and external iliac arteries and veins, andinferior abdominal aorta and IVC. FINDINGS: Murguia-scale images demonstrate mild atherosclerosis. Distal abdominal aorta measures up to 1.6 cm. Right common iliac artery measures 1.0 cm. Left common iliac artery measures 0.96 cm. Right external iliac artery measures 0.66 cm. Left external iliac artery measures 0.67 cm. The visualized bilateral common and external iliac veins are patent and unremarkable. IMPRESSION: Patent bilateral common and external iliac arteries and veins. Signed: Yazmin Whitley Verified Date/Time: 04/23/2021 14:53:46 US, ABDOMINAL, [id number] 13:32:00COVID-19 virus- Screened -CLEARReferring: Dr. Amol Tyson for Exam:->ckd, assess kidneys [facility] 1975 Sex: FFINAL REPORT US, ABDOMINAL, COMPLETE CLINICAL HISTORY: CKD, assess kidneys COMPARISON: CT abdomen and pelvis 02/28/2021. TECHNIQUE: Real time grayscale and color Doppler images of the abdominal organs were obtained using a curved transducer. FINDINGS: Pancreas: Partially visualized and unremarkable. Liver: Normal in size and homogeneous in echogenicity. Focal liverlesions: None. Portal vein: Normal, hepatopetal flow. Normal diameter main portal vein. Bile ducts: Normal in caliber. Gallbladder: Mild gallbladder wall thickening circumferentially. Gallstones. Normal gallbladder distention. Negative sonographic Fitzpatrick's sign Kidneys: Normal in size with normal cortical thickness and echogenicity. No hydronephrosis. Spleen: Mildly enlarged. Ascites: None in the upper abdomen. Visualized aorta and IVC: Unremarkable. MEASUREMENTS:Liver: 15 cm Common Duct: 4.6 mm Right Kidney: 10.5 cm Left Kidney: 10.7 cmSpleen: 12.1 cm Maximum Diameter Aorta: 2.2 cm IMPRESSION: 1.Gallstones and mild gallbladder wall thickening, correlate for any signs or symptoms of acute cholecystitis. Negative sonographic Fitzpatrick sign and no biliary ductal dilation. 2.Mild splenomegaly. 3.Nohydronephrosis and sonographically unremarkable kidneys. Signed: Yazmin Whitleyepedyta Verified Date/Time: 04/23/2021 13:32:17 PROTEIN ELECTROPHORESIS, [id number] 14:36:00 Test Item Value Reference Range Interpretation Comments ALBUMIN FRACTION 3.9 gm/dL 3.5-5.5 (BEAKER) (test code = 405) ALPHA 1 FRACTION 0.3 gm/dL 0.2-0.4 (BEAKER) (test code = 389) ALPHA 2 FRACTION 0.7 gm/dL 0.5-0.9 (BEAKER) (test code = 390) BETA FRACTION 1.4 gm/dL 0.6-1.1 H (BEAKER) (test code = 392) GAMMA GLOBULIN 1.6 gm/dL 0.7-1.7 FRACTION (BEAKER) (test code = 391) INTERPRETATION-119 Beta globulins (BEAKER) (test code = increased. This suggests 2615) an increase in transferrin or C3. [id number] Tamir Davenport M.D. (BEAKER) (test code = (electonic signature) 2616) PROTEIN TOTAL SERUM, 7.9 gm/dL 6.0-8.3 SPEP (BEAKER) (test code = 2660) Manual Tester ID - BSURINE [id number] 09:08:00 Test Item Value Reference Range Interpretation Comments CULTURE (BEAKER) (test ESCHERICHIA COLI A 8 0-89,000 col/mL code = 1095) Escherichia col i Amikacin (test code = S 1) Ampicillin + Sulbactam S (test code = 6) Aztreonam (test code = S 32) Cefepime (test code = S 51) Cefoxitin (test code = S 68) Ceftazidime (test code S = 27) Ceftriaxone (test code S = 52) Ertapenem (test code = S 38) Gentamicin (test code S = 18) Levofloxacin (test S code = 22) Meropenem (test code = S 34) Nitrofurantoin (test S code = 23) Piperacillin + S Tazobactam (test code = 29) Tetracycline (test S code = 2) Tobramycin (test code S = 25) Trimethoprim + S Sulfamethoxazole (test code = 47) HEPATIC FUNCTION [id number] 17:07:00 Test Item Value Reference Range Interpretation Comments TOTAL PROTEIN (BEAKER) (test code = 8.2 gm/dL 6.0-8.3 770) ALBUMIN (BEAKER) (test code = 1145) 4.2 g/dL 3.5-5.0 BILIRUBIN TOTAL (BEAKER) (test code 1.9 mg/dL 0.2-1.2 H = 377) BILIRUBIN DIRECT (BEAKER) (test 1.0 mg/dL 0.1-0.5 H code = 706) ALKALINE PHOSPHATASE (BEAKER) (test 186 U/L 40-150 H code = 346) AST (SGOT) (BEAKER) (test code = 23 U/L 5-34 353) ALT (SGPT) (BEAKER) (test code = 22 U/L 6-55 347) Manual Tester ID - [id number] 17:07:00 Test Item Value Reference Range Interpretation Comments PHOSPHORUS (BEAKER) (test code = 5.3 mg/dL 2.3-4.7 H 604) Manual Tester ID - BSURIC [id number] 17:07:00 Test Item Value Reference Range Interpretation Comments URIC ACID (BEAKER) (test code = 17.4 mg/dL 2.6-7.2 H 773) Manual Tester ID - BSHEPATIC FUNCTION [id number] 17:07:00 Test Item Value Reference Range Interpretation Comments TOTAL PROTEIN (BEAKER) (test code = 8.2 gm/dL 6.0-8.3 770) ALBUMIN (BEAKER) (test code = 1145) 4.2 g/dL 3.5-5.0 BILIRUBIN TOTAL (BEAKER) (test code 1.9 mg/dL 0.2-1.2 H = 377) BILIRUBIN DIRECT (BEAKER) (test 1.0 mg/dL 0.1-0.5 H code = 706) ALKALINE PHOSPHATASE (BEAKER) (test 181 U/L 40-150 H code = 346) AST (SGOT) (BEAKER) (test code = 23 U/L 5-34 353) ALT (SGPT) (BEAKER) (test code = 22 U/L 6-55 347) Manual Tester ID - [id number] 17:07:00 Test Item Value Reference Range Interpretation Comments PHOSPHORUS (BEAKER) (test code = 5.2 mg/dL 2.3-4.7 H 604) Manual Tester ID - BSURIC [id number] 17:07:00 Test Item Value Reference Range Interpretation Comments URIC ACID (BEAKER) (test code = 17.4 mg/dL 2.6-7.2 H 773) Manual Tester ID - BSGAMMA GLUTAMYL TRANSFERASE (GGT)[id number] 17:07:00 Test Item Value Reference Range Interpretation Comments GAMMA GLUTAMYL TRANSFERASE (BEAKER) 56 U/L 9-64 (test code = 364) Manual Tester ID - BSURINALYSIS W/ [id number] 17:00:00 Test Item Value Reference Range Interpretation Comments COLOR (BEAKER) (test code = 470) Light Yellow CLARITY (BEAKER) (test code = Clear 469) SPECIFIC GRAVITY UA (BEAKER) 1.008 1.001-1.035 (test code = 468) PH UA (BEAKER) (test code = 467) 5.0 5.0-8.0 PROTEIN UA (BEAKER) (test code = Negative Negative 464) GLUCOSE UA (BEAKER) (test code = Negative Negative 365) KETONES UA (BEAKER) (test code = Negative Negative 371) BILIRUBIN UA (BEAKER) (test code Negative Negative = 462) BLOOD UA (BEAKER) (test code = Negative Negative 461) NITRITE UA (BEAKER) (test code = Negative Negative 465) LEUKOCYTE ESTERASE UA (BEAKER) Negative Negative (test code = 466) UROBILINOGEN UA (BEAKER) (test 0.2 mg/dL 0.2-1.0 code = 463) RBC UA (BEAKER) (test code = < /HPF 519) WBC UA (BEAKER) (test code = < /HPF 520) BACTERIA (BEAKER) (test code = None Seen 517) SQUAMOUS EPITHELIAL (BEAKER) < /HPF (test code = 516) HYALINE CASTS (BEAKER) (test 9 /LPF code = 514) CRYSTALS, URINE (BEAKER) (test None Seen code = 1521) SOURCE(BEAKER) (test code = 2795) Manual Tester ID - [auto]Manual Tester ID - techPT/[id number] 16:56:00 Test Item Value Reference Range Interpretation Comments PROTIME (BEAKER) (test 18.0 seconds 11.9-14.2 H code = 759) INR (BEAKER) (test 1.51 See_Comment [Automat ed code = 370) message] The sy stem which generated this result transmitted reference range : <=5.90. The reference range was not used to interpret this result as normal/abnormal . PARTIAL THROMBOPLASTIN 32.3 seconds 22.5-36.0 TIME (BEAKER) (test code = 760) RECOMMENDED COUMADIN/WARFARIN INR THERAPY RANGESSTANDARD DOSE: 2.0 - 3.0 Includes: PROPHYLAXIS forvenous thrombosis, systemic embolization; TREATMENT for venous thrombosis and/or pulmonary embolus.HIGH RISK: Target INR is 2.5-3.5 for patients with mechanical heart valves.ANG, TRANSCATHETER [id number] 10:14:00COD virus- Screened -CLEARReferring: Dr. Amol Ballesteros SweattWith pressure measurementsWith pressures measurementsSpecify Organ:->LiverReason for Exam:->concern for cirrhosis transplant clearance for lung [facility] 1975 Sex: FFINAL REPORT Transjugular liver biopsy. History: Lung transplant evaluation, concern for cirrhosis. Modality: Fluoroscopy. Sedation: Versed 1 mg and fentanyl 50 mcg was given intravenously for conscious sedation. Vital signs were monitored throughout the procedure by a nurse, and remained stable. Physician intra-service time was 30 min. Byproducts Pump Operator: Damian Cordoba MD. Division Manager: None. Approach: Right internal jugular vein Estimated blood loss: < 5 cc. Specimen: Four 19-gauge core specimens placed within formalin and sent to pathology. Fluoroscopy Time: 3.1 min.ReferenceAir Kerma (Ka, r): 20.6 mGy. Technique: Informed written consent was obtained. Discussion of risks, benefits, and alternatives were made with the patient. The patient expressed understanding and agreedto proceed. A universal timeout was performed prior to starting the procedure. All elements maximal sterile barrier technique was utilized for this procedure, including utilization of sterile scrub solution for skin prep, a large sterile sheet to cover the areas of the patient that were not prepped,and hand hygiene, mask, head covering, and sterile gown for performing radiologist and scrub technologist. Ultrasound evaluation showed a patent and compressible right internal jugular vein, which waspunctured under direct real-time ultrasound guidance with a micropuncture needle. An ultrasound image was saved to PACS. A 0.018 inch wire was placed through the needle into the right atrium. A 4 Bermudian micropuncture sheath was placed. A 0.035 inch J-wire was placed through the micropuncture sheathand the sheath was exchanged for a 9 Bermudian sheath. A 5 Bermudian angled tip catheter was used to select the right hepatic vein. Venogram was performed. Pressures were obtained through the catheter with measurements as follows: wedged hepatic - 20 mmHg, free hepatic - 16, and right atrium - 15. A long metal reinforced 7 Bermudian sheath was placed through the 9 Bermudian sheath into the right hepatic vein. Along 19-gauge core biopsy needle was then placed through sheath with 4 core samples obtained within the liver. The needle and sheath were removed. Hemostasis was obtained with manual compression. The patient tolerated the procedure well and left the department in the same condition. Findings: Venogram demonstrates patent right hepatic vein and intrahepatic IVC. Impression: Successful, uncomplicated transjugular liver biopsy, using fluoroscopic guidance and conscious sedation. HVPG 4 mmHg. Signed: Damian CordobaMDReport Verified Date/Time: 04/03/2021 10:14:44 Reading Location: [facility] P048 Angio Body Reading Room TISSUE [id number] 10:07:00Surgical Pathology Report Case: [id number] Authorizing Provider: Corie Fermin MD Collected: 04/02/2021 10:20 AM Ordering Location: [facility] Radiology Angio Received: 04/02/2021 02:20 PM Pathologist: Mahnaz Zuniga MD Specimen: Biopsy, Liver LIVER, RANDOM NEEDLE CORE BIOPSY, ULTRASOUND-GUIDED: - LIVER PARENCHYMA WITH MODERATE ZONE 3 SINUSOIDAL DILATATIONAND CONGESTION - ZONE 3 PERISINUSOIDAL FIBROSIS AND PORTAL PERIPORTAL FIBROSIS (STAGE 1-2) - NO S IGNIFICANT STEATOSIS, LOBULAR INFLAMMATION, NECROSIS OR PORTAL INFLAMMATION - SEE COMMENT Signing Pathologist Direct Phone Line: [phone] signed by Mahnaz Zuniga MD on 04/03/2021 at 10:07 [place] this 46-year-old female with AST 22, ALT 15, alkaline phosphatase 153, total bilirubin 1.5, direct 0.5, and under evaluation for lung transplant, the findings are suggestive of stage 1-2 fibrosis and may be related to cardiac causes. The staging is done based on congestive hepatic fibrosis score (see ref.)Reference: Erica WETZEL et al. Congestive hepatic fibrosis score: a novel histologic assessment of clinical severity. Modern Path[employer] (2014) 27, [id number] x 4Elevated labsLiver Part A. Received in formalin labeled with the patient's information and "transjugular liver biopsy" are four dodd needle core biopsies, 1.0 to 1.2 cm in length, all measuring 0.1 cm in diameter.Submitted in toto in cassette A1 following filtration. MP/ewThere are two to three thin liver cores with adequate number of portal triads (approximately 10) with vaguely nodular parenchyma with centrivenular sinusoidal dilatation and congestion. The portal triads are small with no significant portal inflammation or interface hepatitis. The bile ducts at the portal triads are preserved. No bile duct destruction, granuloma or loss noted. The lobules show minimal lobular inflammation. No significant steatosis is noted. Trichrome stain shows perisinusoidal fibrosis in a zone-3 and mild portal periportal fibrosis (stage 1-2). PAS-D stain shows similar kind of findings.Iron stain is negative for increased iron. Reticulin stains shows preserved architecture with 1 to 2 cell layer thick hepatocyte trabeculae. The interpretation of this case included the use of immunohistochemistry or special stains.Control Slides Examined: In-house known positive controls were evaluated along with the test tissue. These control slides run alongside of the patients sample show appropriate staining. Internal positiveand negative controls when available are evaluated Immunohistochemistry technical testing was performed at [facility], Pathology Laboratory where it was developed and its performance characteristics were determined. It has not been cleared or approved by the U.S. Food and Drug Administration. The FDA has determined that such clearance or approval is not necessary. The test is used for clinical purposes. It should not be regarded as investigational or for research. This laboratory is certified under the Clinical Laboratory Improvement Amendments of 1988 (CLIA-88) as qualified to perform high complexity clinical laboratory testing. SARS-COV2/RT-PCR ([facility])2021-03-31 15:17:00 Test Item Value Reference Range Interpretation Comments SARS-COV2/RT-PCR (test Negative Not Detected, Negative, code = 3384880) See external report for linked test SARS-COV-2 PERFORMING LAB [facility] (test code = 5981913) Negative result for this test determines that SARS-CoV-2 RNA was not present in the specimen above the Limit of Detection (LOD). However, Negative results do not preclude SARS-CoV-2 infection and should not be used as the sole basis for treatment or patient management decisions. Negative results mustbe combined with clinical observations, patient history, and epidemiological information. A false negative result may occur if a specimen is improperly collected, transported or handled. A false negative result should be considered if patient's recent exposures or clinical presentation indicate that COVID-19 (SARS-CoV-2) is likely and diagnostic tests for other causes of illness are negative. Re-testing should be considered in cases of suspected false negatives.The limit of detection for this assay is 800 copies/mL.This SARS CoV-2 test is a real-time RT-PCR test intended for the qualitative detection of nucleic acid from SARS-CoV-2 in a nasopharyngeal swab specimen collected from individuals susp ected of COVID-19 by their healthcare provider.This test has not been Food and Drug Administration (FDA) cleared or approved. This is a modified version of an approved Emergency Use Authorization (EUA) and is in the process of review by the FDA. Once authorized by the FDA, the issued EUA will be effective until the declaration that circumstances exist justifying the authorization of the emergency use of in vitro diagnostic tests for detection and/or diagnosis of COVID-19 is terminated under Section 564(b)(2) of the Act or the EUA is revoked under Section 564(g) of the Act.Fact Sheet for Healthcare Providers:https://www.[employer]/sites/default/files/product/documents/Fact_Shee d_HN_Zybertzra_Akko_ZLYB-JpS-2.pdfFact Sheet for Healthcare Patients:https://www.[employer]/sites/default/files/product/ documents/Bjud_Pfipl_Xgpxwnar_Nuyy_ZHSN-AvQ-2.pdfPerforming Laboratory:[place] [address], [place] [address]TYVCD GAS, ARTERIAL 2021-03-12 12:48:00 Test Item Value Reference Range Interpretation Comments PH ARTERIAL (BEAKER) (test code = 7.50 7.35-7.45 H 383) PCO2 ARTERIAL (BEAKER) (test code 31 mm Hg 35-45 L = 384) PO2 ARTERIAL (BEAKER) (test code = 47 mm Hg 80-90 L 385) O2 SATURATION ARTERIAL (BEAKER) 86.8 % 96.0-97.0 L (test code = 386) HCO3 ARTERIAL (BEAKER) (test code 23 mmol/L 21-29 = 388) BASE EXCESS ARTERIAL (BEAKER) 0.9 mmol/L -2.0-3.0 (test code = 387) PATIENT TEMPERATURE (BEAKER) (test 37.0 code = 1818) FIO2 (BEAKER) (test code = 1819) 21.0 COMPREHENSIVE METABOLIC [id number] 09:45:00 Test Item Value Reference Range Interpretation Comments TOTAL PROTEIN 8.3 gm/dL 6.0-8.3 (BEAKER) (test code = 770) ALBUMIN (BEAKER) 4.0 g/dL 3.5-5.0 (test code = 1145) ALKALINE PHOSPHATASE 189 U/L 40-150 H (BEAKER) (test code = 346) BILIRUBIN TOTAL 1.6 mg/dL 0.2-1.2 H (BEAKER) (test code = 377) SODIUM (BEAKER) (test 134 meq/L 136-145 L code = 381) POTASSIUM (BEAKER) 3.7 meq/L 3.5-5.1 (test code = 379) CHLORIDE (BEAKER) 97 meq/L 98-107 L (test code = 382) CO2 (BEAKER) (test 24 meq/L 22-29 code = 355) BLOOD UREA NITROGEN 80 mg/dL 7-21 H (BEAKER) (test code = 354) CREATININE (BEAKER) 2.31 mg/dL 0.57-1.25 H (test code = 358) GLUCOSE RANDOM 106 mg/dL 70-105 H (BEAKER) (test code = 652) CALCIUM (BEAKER) 9.8 mg/dL 8.4-10.2 (test code = 697) AST (SGOT) (BEAKER) 23 U/L 5-34 (test code = 353) ALT (SGPT) (BEAKER) 15 U/L 6-55 (test code = 347) EGFR (BEAKER) (test 23 mL/min/1.73 ESTIMA BIBI GFR IS code = 1092) sq m NOT ACCURATE CREATININE CLEARANCE IN PREDICTING GLOMERULAR FILTRATION RATE . ESTIMATED GFR I S NOT APPLICABLE FOR DIALYSIS PATIEN TS. Manual Tester ID - BSCBC W/PLT COUNT & AUTO [id number] 09:25:00 Test Item Value Reference Range Interpretation Comments WHITE BLOOD CELL COUNT (BEAKER) 6.1 K/ L 3.5-10.5 (test code = 775) RED BLOOD CELL COUNT (BEAKER) 5.26 M/ L 3.93-5.22 H (test code = 761) HEMOGLOBIN (BEAKER) (test code = 14.1 GM/DL 11.2-15.7 410) HEMATOCRIT (BEAKER) (test code = 46.0 % 34.1-44.9 H 411) MEAN CORPUSCULAR VOLUME (BEAKER) 87.5 fL 79.4-94.8 (test code = 753) MEAN CORPUSCULAR HEMOGLOBIN 26.8 pg 25.6-32.2 (BEAKER) (test code = 751) MEAN CORPUSCULAR HEMOGLOBIN CONC 30.7 GM/DL 32.2-35.5 L (BEAKER) (test code = 752) RED CELL DISTRIBUTION WIDTH 20.0 % 11.7-14.4 H (BEAKER) (test code = 412) PLATELET COUNT (BEAKER) (test 165 K/CU MM 150-450 code = 756) MEAN PLATELET VOLUME (BEAKER) 10.0 fL 9.4-12.3 (test code = 754) NUCLEATED RED BLOOD CELLS 0 /100 WBC 0-0 (BEAKER) (test code = 413) NEUTROPHILS RELATIVE PERCENT 67 % (BEAKER) (test code = 429) LYMPHOCYTES RELATIVE PERCENT 17 % (BEAKER) (test code = 430) MONOCYTES RELATIVE PERCENT 12 % (BEAKER) (test code = 431) EOSINOPHILS RELATIVE PERCENT 3 % (BEAKER) (test code = 432) BASOPHILS RELATIVE PERCENT 1 % (BEAKER) (test code = 437) NEUTROPHILS ABSOLUTE COUNT 4.06 K/ L 1.56-6.13 (BEAKER) (test code = 670) LYMPHOCYTES ABSOLUTE COUNT 1.01 K/ L 1.18-3.74 L (BEAKER) (test code = 414) MONOCYTES ABSOLUTE COUNT (BEAKER) 0.73 K/ L 0.24-0.36 H (test code = 415) EOSINOPHILS ABSOLUTE COUNT 0.17 K/ L 0.04-0.36 (BEAKER) (test code = 416) BASOPHILS ABSOLUTE COUNT (BEAKER) 0.07 K/ L 0.01-0.08 (test code = 417) IMMATURE GRANULOCYTES-RELATIVE 0 % 0-1 PERCENT (BEAKER) (test code = 2801) PULMONARY QUANT DIFFERENTIAL FUNCT WITH [id number] 17:19:00COVID-19 virus- Screened -CLEAR Referring: Dr. Amol Gallardo Unlisted Reason for Exam - Click Yesand Enter Reason Below->Yes Unlisted Reason for Exam->lung [facility] : 1975 Sex: FFINAL REPORT PROCEDURE: V/Q LUNG SCAN w/differential quantitative perfusion CPT CODE: [id number] INDICATION: Pulmonary hypertension PROTOCOL: 4.3 mCi of Tc-99m MAA was then injected intravenously through the left antecubital fossa, and static perfusion images were obtained in multiple projections. Relative tracer distributions were determined using the geometric mean method for the anterior and posterior projections. FINDINGS: Perfusion: Traceris unevenly distributed with most tracer accumulation in the left lung espinal. Pulmonary artery flowis divided 46% to the left lung (10, 19, and 16% to the upper, mid, and lower lung espinal respectively) and 54% to the right lung (12, 23, and 19% to the upper, mid, and lower lung espinal respectively). Renal activity is present consistent with a right to left shunt, however the head was not imaged therefore radiopharmaceutical breakdown cannot be completely excluded. IMPRESSION: 1. Uneven tracer distribution with 54% in the right and 46% in the left lung espinal. Signed: Cristopher Underwood MDReport V erified Date/Time: 03/05/2021 17:19:50 Reading Location: [address] [address] Med Reading Room [place], [id number] 12:21:00COVID-19 virus- Screened - CLEARReferring: Dr. Amol Tyson for Exam:->pre lung transplant [facility] : 1975 Sex: FFINAL REPORT EXAM: Esophagram was performed with sodium carbonateand barium. INDICATION: 45-year-old woman with pulmonary hypertension, congenital heart disease, andpretransplant evaluation for lung transplant. COMPARISON: Chest CT 01/22/2021. FINDINGS:Swallow: Swallowing mechanism is grossly normal. Esophagus is normally distensible and the mucosa is normal in appearance. Esophageal motility is within normal limits. Gastroesophageal junction: No hiatal hernia. Nogastroesophageal reflux. Visualized portions of the stomach and proximal small bowel are unremarkable. Fluoroscopy time: 1.3 minutesNumber of images: 35 IMPRESSION:Unremarkable esophagram. Signed: Trey Faustin MDReport Verified Date/Time: 03/05/2021 12:21:30 [place], SNIFF TEST, WITH [id number] 12:18:00[facility] : 1975 Sex: FFINAL REPORT EXAM: Sniff test INDICATION: 45-year-old woman with p ulmonary hypertension, congenital heart disease, and pretransplant evaluation for lung transplant. COMPARISON: Chest CT 01/22/2021. FINDINGS: Fluoroscopic evaluation of diaphragmatic movement was performed. Both hemidiaphragms move in unison, with normal excursion on inspiration and expiration. Fluoroscopy time: 0.8 minutesNumber of images: 0 IMPRESSION:No evidence of diaphragmatic paralysis. Signed:Trey Faustin MDReport Verified Date/Time: 03/05/2021 12:18:31 HERPES VIRUS ANTIBODY, [id number] 07:17:00 Test Item Value Reference Range Interpretation Comments HERPES VIRUS IGG (BEAKER) (test code Positive = 1807) HSV 1 IGG = POSITIVEHSV 2 IGG = NEGATIVETOXOPLASMA GONDII ANTIBODY, IGG 2021-03-03 13:43:00 Test Item Value Reference Range Interpretation Comments TOXOPLASMA GONDII IGG QUANTITATIVE < IU/mL <10.0 (BEAKER) (test code = 3428) Toxoplasma Gondii IgG Result Interpretation: </= 9.9 IU/mL Normal 10-11 IU/mL Equivocal >/= 12 IU/mL PositiveHEPATITIS C PCR, QUANTITATIVE 2021-02-28 19:06:00 Test Item Value Reference Range Interpretation Comments HCV RESULT COMPONENT HCV RNA not detected HCV RNA not detected (BEAKER) (test code = 2699) This test uses a Real-Time Polymerase Chain Reaction (RT-PCR) methodology and was performed using [employer] Ampliprep/AMAURY TaqMan HCV test kit version 2.0 ([employer]Reportable range for this assay is 15 - 100,000,000 IU per mL (1.18 - 8.00 Log IU/mL).[id number] 15:27:00 Test Item Value Reference Range Interpretation Comments RPR SCREEN (BEAKER) (test code = Nonreactive Nonreactive 420) CRYPTOCOCCAL [id number] 15:16:00 Test Item Value Reference Range Interpretation Comments CRYPTOCOCCAL ANTIGEN, SERUM Negative Negative, Interference (BEAKER) (test code = 1828) VARICELLA ZOSTER ANTIBODY, [id number] 14:13:00 Test Item Value Reference Range Interpretation Comments VARICELLA ZOSTER IGG (AL) (BEAKER) 4.0 (test code = 3197) VARICELLA ZOSTER RESULT INTERPRETATIONS: <=0.8 Al Nonreactive: Presumed non-immune to VZV 0.9-1.0 Al Equivocal >=1.1 Al Reactive: Presumed immune to VZVRAD, CHEST, 2 [id number] 13:11:00COVID- 19 virus- Screened -CLEARReferring: Dr. Amol Tyson for Exam:- >lung [facility] evaluation [facility] : 1975 Sex: FFINAL REPORT EXAMINATION: RAD, CHEST, 2 VIEWS INDICATION: lung transplant evaluation COMPARISON: April 26, 2018. CT scan 01/22/2021 FINDINGS:TUBES and LINES: None. LUNGS: Lungs are well inflated. Mild chronic appearing change in the lungs. There is no evidence of pneumonia or pulmonary edema. PLEURA: No pleural effusion or pneumothorax. HEART AND MEDIASTINUM: Dextrocardia . The heart appears enlarged. The cardiomediastinal silhouette is otherwise unremarkable. BONES AND SOFT TISSUES: No acute osseous lesion. Soft tissues are unremarkable. UPPER ABDOMEN: No free air under the diaphragm. IMPRESSION: Dextrocardia with apparent cardiomegaly.No acute thoracic abnormality. Signed: Danuta Morin MDReport Verified Date/Time: 02/28/2021 13:11:47 Reading Location: [facility] Reading Room [address] [place] [address] Electronically signed by: DANUTA MORIN on02/28/2021 01:11 PMRAD, BONE DENSITY [id number] 13:05:00COVID19 virus- Screened -CLEARReferring: Dr. Amol yTson for Exam:->pre lung transplant evaluation [facility] : 1975 Sex: FFINAL REPORT Exam: Bone mineral density study. History: Osteopenia. Comparison: None Discussion: Evaluation of the left hip and lumbar spine was performed utilizingHamilton Insurance GroupA Hologic bone densitometer. The study is technically adequate. Left hip total bone mineral density: 0.896gm/cm2, T-score is -0.5, Z- score is -0.3. Left hip femoral neck bone mineral density: 0.714gm/cm2, T-score is -1.4, Z-score is -0.9. Lumbar spine total bone mineral density:0.759gm/cm2, T-score is-2.6, Z-score is -2.0. Impression:1. Osteopenia of the left hip, fracture risk is increased2. Osteoporosis of the lumbar spine, fracture risk is high Least significant change (LSC) for bone mineral density as provided by rn vascular is 0.023 g/cm2 for lumbar spine and 0.027 g/cm2 for total hip. 10 - year fracture risk per WHO Fracture Risk Assessment Tool (FRAX) for:Not reported because some T-scores at or below -2.5 The patient's fracture risk is compared to an age-matched control. Medical evaluation for secondary causes of low bone bone mineral density may be appropriate. Correlate clinically for the necessity and timing of the next bone mineral density study. Signed: Danuta Morin Verified Date/Time: 02/28/2021 13:05:53 Reading Location: [facility] Room [address] [place] [address] RAD, MANDIBLE, MIN 4 [id number] 13:04:00COVID-19 virus- Screened - CLEARReferring: Dr. Amol Tyson for Exam:->lung transplant ev aluationHE[facility]ALES : 1975 Sex: FFINAL REPORT Radiographs of the mandible HISTORY: Lung transplant evaluationCOMPARISON: None available. FINDINGS:Bones:No acute displaced fracture. Osseous alignment is within normal limits. Joints:Scattered degenerative change. No osseous erosion. Soft tissues:Dental fillings. IMPRESSION: No acute radiographic abnormality. Signed: Danuta Morin Verified Date/Time: 02/28/2021 13:04:41 Reading Location: [facility] Reading Room [address] [place] [address] CT, [id number] 12:59:00COVID-19 virus- Screened -CLEARReferring: Dr. Amol Tyson for Exam:->lung transplant evaluation [facility] : 1975 Sex: FFINAL REPORT CT of the abdomen and pelvis, without contrast Clinical History: Unlisted Reason for Examlung transplant evaluation Technique: CT of the abdomen and pelvis is performed without intravenous contrast administration. This exam was performed according to our departmental dose optimization program which includes automated exposure control, adjustment of themA and/or kV according to patient's size and/or use of iterative reconstructive technique. Comparison Film: None Discussion: Status post extracardiac and cardiomegaly. Mild degree of septal thickeningis noted at the lung bases. The IVC and hepatic veins are enlarged, likely reflecting right-sided cardiac dysfunction. Liver has a mildly nodular contour, concerning for cirrhosis. No discrete liver lesion is identified on this noncontrast exam. No biliary ductal dilatation. There is a small amount oflayering hyperdensity in the gallbladder, which may reflect sludge or tiny stones. The spleen is mildly enlarged, and measures 13.1 cm axially. The pancreas, adrenal glands appear unremarkable. Kidneysdemonstrate no hydronephrosis, contour deforming lesion, or radiopaque stone. No evidence of bowel obstruction, or abnormal bowel wall thickening. Appendix is not identified. There is a small area of fat stranding the right lower quadrant. In the pelvis, bladder, uterus and adnexa are unremarkable. Bilateral tubal occlusive devices are present. There is presacral hazy soft tissue density/stranding inthe fat. No ascites, free air, or adenopathy. Bony structures demonstrate mild degenerative changes.A lucency in the L1 vertebral body with a thin sclerotic rim and striated appearance centrally may represent a hemangioma. Impression: Cirrhotic morphology of liver. Mild splenomegaly. Sludge or small stones within the gallbladder. There are small foci of nonspecific fat stranding the right lower quadrant, and presacral region, of uncertain etiology or significance. Findings may reflect fat necrosis,a neoplastic process is less likely. This finding is amenable to follow-up. Signed: Benji Astorgaort Verified Date/Time: 02/28/2021 12:59:21 Reading Location: [address] Consult Reading Room CYTOMEGALOVIRUS ANTIBODY, [id number] 11:33:00 Test Item Value Reference Range Interpretation Comments CYTOMEGALOVIRUS, IGG (nPicker) Negative Negative, Equivocal (test code = 3429) CMV IgG Result Interpretation: </= 0.8 Al Negative 0.9-1.0 Al Equivocal >/=1.1 Al PositiveEBV ANTIBODY, [id number] 11:33:00 Test Item Value Reference Range Interpretation Comments BERKLEY COX VIRAL CAPSID Positive Negative, Equivocal A ANTIGEN IGG (nPicker) (test code = 3415) Berkley Cox Viral Capsid Antigen IgG Result Interpretation: </= 0.8 Al Negative 0.9-1.0 Al Equivocal >/= 1.1 Al PositiveHEPATITIS A ANTIBODY, IGG 2021-02-27 11:31:00 Test Item Value Reference Range Interpretation Comments HEPATITIS A IGG ANTIBODY (nPicker) Reactive Nonreactive A (test code = 2797) Manual Tester ID - PIAYA LVITAMIN D, [id number] 11:28:00 Test Item Value Reference Range Interpretation Comments VITAMIN D 25-OH (nPicker) (test 15.3 ng/mL 6.6-49.9 code = 2764) Effective 05/26/2017: Reference Range ChangeNew: 6.6-49.9 ng/mL Previous: 13.0-47.8 ng/mLRecommended Vitamin D Target Range: 30.0-40.0 ng/mLOperator ID - PIAYA LTSH/FREE T4 IF [id number] 11:28:00 Test Item Value Reference Range Interpretation Comments THYROID STIMULATING HORMONE 3.233 uIU/mL 0.350-4.940 (nPicker) (test code = 772) Manual Tester ID - PIAYA LHIV-1 ANTIGEN WITH HIV-1/2 [id number] 11:28:00 Test Item Value Reference Range Interpretation Comments HIV-1 ANTIGEN WITH HIV 1\\T\\2 Nonreactive Nonreactive ANTIBODY (2) (nPicker) (test code = 2586) Manual Tester ID - PIAYA LHEPATITIS B SURFACE [id number] 11:27:00 Test Item Value Reference Range Interpretation Comments HEPATITIS B SURFACE ANTIBODY 125.2 mIU/mL <8.0 H (nPicker) (test code = 647) Manual Tester ID - PIAYA LHEPATITIS B CORE ANTIBODY, [id number] 11:27:00 Test Item Value Reference Range Interpretation Comments HEPATITIS B CORE TOTAL ANTIBODY Nonreactive Nonreactive (BEAKER) (test code = 497) Manual Tester ID - MARÍA MISHRAEPATITIS PANEL, [id number] 11:27:00 Test Item Value Reference Range Interpretation Comments HEPATITIS A IGM ANTIBODY (BEAKER) Nonreactive Nonreactive (test code = 498) HEPATITIS B CORE IGM ANTIBODY Nonreactive Nonreactive (BEAKER) (test code = 645) HEPATITIS C ANTIBODY (BEAKER) Nonreactive Nonreactive (test code = 367) HEPATITIS B SURFACE ANTIGEN (2) Nonreactive Nonreactive (BEAKER) (test code = 2585) Manual Tester ID - MARÍA MISHRAEPATITIS B SURFACE [id number] 11:27:00 Test Item Value Reference Range Interpretation Comments HEPATITIS B SURFACE ANTIGEN (2) Nonreactive Nonreactive (BEAKER) (test code = 2585) Specimen is considered negative for HBsAg.HEMOGLOBIN [id number] 11:19:00 Test Item Value Reference Range Interpretation Comments HEMOGLOBIN A1C (BEAKER) (test code = 6.3 % 4.3-6.1 H 368) COMPREHENSIVE METABOLIC [id number] 11:05:00 Test Item Value Reference Range Interpretation Comments TOTAL PROTEIN 7.8 gm/dL 6.0-8.3 (BEAKER) (test code = 770) ALBUMIN (BEAKER) 3.9 g/dL 3.5-5.0 (test code = 1145) ALKALINE PHOSPHATASE 155 U/L 40-150 H (BEAKER) (test code = 346) BILIRUBIN TOTAL 2.3 mg/dL 0.2-1.2 H (BEAKER) (test code = 377) SODIUM (BEAKER) (test 132 meq/L 136-145 L code = 381) POTASSIUM (BEAKER) 4.3 meq/L 3.5-5.1 (test code = 379) CHLORIDE (BEAKER) 95 meq/L 98-107 L (test code = 382) CO2 (BEAKER) (test 24 meq/L 22-29 code = 355) BLOOD UREA NITROGEN 89 mg/dL 7-21 H (BEAKER) (test code = 354) CREATININE (BEAKER) 2.19 mg/dL 0.57-1.25 H (test code = 358) GLUCOSE RANDOM 96 mg/dL 70-105 (BEAKER) (test code = 652) CALCIUM (BEAKER) 9.7 mg/dL 8.4-10.2 (test code = 697) AST (SGOT) (BEAKER) 21 U/L 5-34 (test code = 353) ALT (SGPT) (BEAKER) 13 U/L 6-55 (test code = 347) EGFR (BEAKER) (test 24 mL/min/1.73 ESTIMA BIBI GFR IS code = 1092) sq m NOT ACCURATE CREATININE CLEARANCE IN PREDICTING GLOMERULAR FILTRATION RATE . ESTIMATED GFR I S NOT APPLICABLE FOR DIALYSIS PATIEN TS. Manual Tester ID - PIAYA LSpecimen slightly ictericCOMPREHENSIVE METABOLIC PANEL 2021-02-27 11:04:00 Test Item Value Reference Range Interpretation Comments TOTAL PROTEIN 7.8 gm/dL 6.0-8.3 (BEAKER) (test code = 770) ALBUMIN (BEAKER) 3.8 g/dL 3.5-5.0 (test code = 1145) ALKALINE PHOSPHATASE 152 U/L 40-150 H (BEAKER) (test code = 346) BILIRUBIN TOTAL 2.2 mg/dL 0.2-1.2 H (BEAKER) (test code = 377) SODIUM (BEAKER) (test 130 meq/L 136-145 L code = 381) POTASSIUM (BEAKER) 4.4 meq/L 3.5-5.1 (test code = 379) CHLORIDE (BEAKER) 95 meq/L 98-107 L (test code = 382) CO2 (BEAKER) (test 22 meq/L 22-29 code = 355) BLOOD UREA NITROGEN 84 mg/dL 7-21 H (BEAKER) (test code = 354) CREATININE (BEAKER) 2.04 mg/dL 0.57-1.25 H (test code = 358) GLUCOSE RANDOM 98 mg/dL 70-105 (BEAKER) (test code = 652) CALCIUM (BEAKER) 9.5 mg/dL 8.4-10.2 (test code = 697) AST (SGOT) (BEAKER) 21 U/L 5-34 (test code = 353) ALT (SGPT) (BEAKER) 13 U/L 6-55 (test code = 347) EGFR (BEAKER) (test 26 mL/min/1.73 ESTIMA BIBI GFR IS code = 1092) sq m NOT ACCURATE CREATININE CLEARANCE IN PREDICTING GLOMERULAR FILTRATION RATE . ESTIMATED GFR I S NOT APPLICABLE FOR DIALYSIS PATIEN TS. Manual Tester ID - PIRIMA LSpecimen slightly ictericLIPID [id number] 11:03:00 Test Item Value Reference Range Interpretation Comments TRIGLYCERIDES (BEAKER) (test code = 92 mg/dL 540) CHOLESTEROL (BEAKER) (test code = 117 mg/dL 631) HDL CHOLESTEROL (BEAKER) (test code 34 mg/dL = 976) LDL CHOLESTEROL CALCULATED (BEAKER) 65 mg/dL (test code = 633) Triglyceride Reference Range: Low Risk <150 Borderline 150-199 High Risk 200-499 Very High Risk >=500Cholesterol Reference Range: Low Risk <200 Borderline 200-239 High Risk >240HDL Cholesterol Reference Range: Low Risk >=60 High Risk <40LDL Cholesterol Reference Range: Optimal <100 Near Optimal 100-129 Borderline 130-159 High 160-189 Very High >=190 Manual Tester ID - PIAYALSpecimen slightly ictericURINALYSIS W/ [id number] 11:02:00 Test Item Value Reference Range Interpretation Comments COLOR (BEAKER) (test code = 470) Yellow CLARITY (BEAKER) (test code = 469) Clear SPECIFIC GRAVITY UA (BEAKER) (test 1.012 1.001-1.035 code = 468) PH UA (BEAKER) (test code = 467) 6.0 5.0-8.0 PROTEIN UA (BEAKER) (test code = Negative Negative 464) GLUCOSE UA (BEAKER) (test code = Negative Negative 365) KETONES UA (BEAKER) (test code = Negative Negative 371) BILIRUBIN UA (BEAKER) (test code = Negative Negative 462) BLOOD UA (BEAKER) (test code = 461) Negative Negative NITRITE UA (BEAKER) (test code = Negative Negative 465) LEUKOCYTE ESTERASE UA (BEAKER) Negative Negative (test code = 466) UROBILINOGEN UA (BEAKER) (test code 0.2 mg/dL 0.2-1.0 = 463) RBC UA (BEAKER) (test code = 519) 0 /HPF WBC UA (BEAKER) (test code = 520) 2 /HPF BACTERIA (BEAKER) (test code = 517) None Seen SQUAMOUS EPITHELIAL (BEAKER) (test 3 /HPF code = 516) HYALINE CASTS (BEAKER) (test code = 14 /LPF 514) CRYSTALS, URINE (BEAKER) (test code None Seen = 1521) SOURCE(BEAKER) (test code = 2795) Manual Tester ID - [auto]Manual Tester ID - techCBC W/PLT COUNT & AUTO DIFFERENTIAL 2021-02-27 10:47:00 Test Item Value Reference Range Interpretation Comments WHITE BLOOD CELL COUNT (BEAKER) 6.0 K/ L 3.5-10.5 (test code = 775) RED BLOOD CELL COUNT (BEAKER) 5.53 M/ L 3.93-5.22 H (test code = 761) HEMOGLOBIN (BEAKER) (test code = 14.8 GM/DL 11.2-15.7 410) HEMATOCRIT (BEAKER) (test code = 47.9 % 34.1-44.9 H 411) MEAN CORPUSCULAR VOLUME (BEAKER) 86.6 fL 79.4-94.8 (test code = 753) MEAN CORPUSCULAR HEMOGLOBIN 26.8 pg 25.6-32.2 (BEAKER) (test code = 751) MEAN CORPUSCULAR HEMOGLOBIN CONC 30.9 GM/DL 32.2-35.5 L (BEAKER) (test code = 752) RED CELL DISTRIBUTION WIDTH 20.8 % 11.7-14.4 H (BEAKER) (test code = 412) PLATELET COUNT (BEAKER) (test 164 K/CU MM 150-450 code = 756) MEAN PLATELET VOLUME (BEAKER) 10.0 fL 9.4-12.3 (test code = 754) NUCLEATED RED BLOOD CELLS 0 /100 WBC 0-0 (BEAKER) (test code = 413) NEUTROPHILS RELATIVE PERCENT 66 % (BEAKER) (test code = 429) LYMPHOCYTES RELATIVE PERCENT 18 % (BEAKER) (test code = 430) MONOCYTES RELATIVE PERCENT 11 % (BEAKER) (test code = 431) EOSINOPHILS RELATIVE PERCENT 3 % (BEAKER) (test code = 432) BASOPHILS RELATIVE PERCENT 2 % (BEAKER) (test code = 437) NEUTROPHILS ABSOLUTE COUNT 3.95 K/ L 1.56-6.13 (BEAKER) (test code = 670) LYMPHOCYTES ABSOLUTE COUNT 1.06 K/ L 1.18-3.74 L (BEAKER) (test code = 414) MONOCYTES ABSOLUTE COUNT (BEAKER) 0.67 K/ L 0.24-0.36 H (test code = 415) EOSINOPHILS ABSOLUTE COUNT 0.18 K/ L 0.04-0.36 (BEAKER) (test code = 416) BASOPHILS ABSOLUTE COUNT (BEAKER) 0.09 K/ L 0.01-0.08 H (test code = 417) IMMATURE GRANULOCYTES-RELATIVE 1 % 0-1 PERCENT (BEAKER) (test code = 2801) COMPREHENSIVE METABOLIC [id number] 14:37:00 Test Item Value Reference Range Interpretation Comments TOTAL PROTEIN 7.8 gm/dL 6.0-8.3 (BEAKER) (test code = 770) ALBUMIN (BEAKER) 4.0 g/dL 3.5-5.0 (test code = 1145) ALKALINE PHOSPHATASE 173 U/L 40-150 H (BEAKER) (test code = 346) BILIRUBIN TOTAL 2.1 mg/dL 0.2-1.2 H (BEAKER) (test code = 377) SODIUM (BEAKER) (test 133 meq/L 136-145 L code = 381) POTASSIUM (BEAKER) 4.6 meq/L 3.5-5.1 (test code = 379) CHLORIDE (BEAKER) 98 meq/L 98-107 (test code = 382) CO2 (BEAKER) (test 23 meq/L 22-29 code = 355) BLOOD UREA NITROGEN 80 mg/dL 7-21 H (BEAKER) (test code = 354) CREATININE (BEAKER) 2.52 mg/dL 0.57-1.25 H (test code = 358) GLUCOSE RANDOM 90 mg/dL 70-105 (BEAKER) (test code = 652) CALCIUM (BEAKER) 9.6 mg/dL 8.4-10.2 (test code = 697) AST (SGOT) (BEAKER) 23 U/L 5-34 (test code = 353) ALT (SGPT) (BEAKER) 19 U/L 6-55 (test code = 347) EGFR (BEAKER) (test 20 mL/min/1.73 ESTIMA BIBI GFR IS code = 1092) sq m NOT ACCURATE CREATININE CLEARANCE IN PREDICTING GLOMERULAR FILTRATION RATE . ESTIMATED GFR I S NOT APPLICABLE FOR DIALYSIS PATIEN TS. Manual Tester ID - BSSpecimen slightly ictericCBC W/PLT COUNT & AUTO DIFFERENTIAL 2021-01-22 14:25:00 Test Item Value Reference Range Interpretation Comments WHITE BLOOD CELL COUNT (BEAKER) 4.8 K/ L 3.5-10.5 (test code = 775) RED BLOOD CELL COUNT (BEAKER) 5.32 M/ L 3.93-5.22 H (test code = 761) HEMOGLOBIN (BEAKER) (test code = 14.3 GM/DL 11.2-15.7 410) HEMATOCRIT (BEAKER) (test code = 47.2 % 34.1-44.9 H 411) MEAN CORPUSCULAR VOLUME (BEAKER) 88.7 fL 79.4-94.8 (test code = 753) MEAN CORPUSCULAR HEMOGLOBIN 26.9 pg 25.6-32.2 (BEAKER) (test code = 751) MEAN CORPUSCULAR HEMOGLOBIN CONC 30.3 GM/DL 32.2-35.5 L (BEAKER) (test code = 752) RED CELL DISTRIBUTION WIDTH 21.2 % 11.7-14.4 H (BEAKER) (test code = 412) PLATELET COUNT (BEAKER) (test 188 K/CU MM 150-450 code = 756) MEAN PLATELET VOLUME (BEAKER) 10.0 fL 9.4-12.3 (test code = 754) NUCLEATED RED BLOOD CELLS 0 /100 WBC 0-0 (BEAKER) (test code = 413) NEUTROPHILS RELATIVE PERCENT 64 % (BEAKER) (test code = 429) LYMPHOCYTES RELATIVE PERCENT 20 % (BEAKER) (test code = 430) MONOCYTES RELATIVE PERCENT 11 % (BEAKER) (test code = 431) EOSINOPHILS RELATIVE PERCENT 3 % (BEAKER) (test code = 432) BASOPHILS RELATIVE PERCENT 2 % (BEAKER) (test code = 437) NEUTROPHILS ABSOLUTE COUNT 3.10 K/ L 1.56-6.13 (BEAKER) (test code = 670) LYMPHOCYTES ABSOLUTE COUNT 0.95 K/ L 1.18-3.74 L (BEAKER) (test code = 414) MONOCYTES ABSOLUTE COUNT (BEAKER) 0.52 K/ L 0.24-0.36 H (test code = 415) EOSINOPHILS ABSOLUTE COUNT 0.12 K/ L 0.04-0.36 (BEAKER) (test code = 416) BASOPHILS ABSOLUTE COUNT (BEAKER) 0.10 K/ L 0.01-0.08 H (test code = 417) IMMATURE GRANULOCYTES-RELATIVE 0 % 0-1 PERCENT (BEAKER) (test code = 2801) CT, CHEST, WITHOUT [id number] 14:08:00COVID-19 virus- Screened - CLEARReferring: Dr. Amol Ballesteros SweattUnlisted Reason for Exam - Click Yes and Enter Reason Below->YesUnlisted Reason for Exam->r06.02 sob [facility] : 1975 Sex: FFINAL REPORT CT Chest without contrast History: Shortness of breath Comparison: none Technique: serial axial imaging was performed without intravenous contrast as perdepartmental protocol. Multiplanar images are reconstructed and reviewed when indicated. This CT examination is performed using one or more of the following dose reduction techniques: Automated exposure control, adjustment of the mA and /or kV according to patient size, and/or use of iterative reconstruction technique. Findings:No mediastinal lymphadenopathy. No definite hilar enlargement. Dextrocardia is noted. No pericardial effusion. No thoracic aortic aneurysm. Normal caliber of main pulmonary trunk. Patent central airways. No pleural effusion or pneumothorax. Scattered nonspecific mild peripheral groundglass densities within the right lung. The left lung is clear. Small volume ascites within the partially imaged upper abdomen. Suspected cholelithiasis within the partially imaged gallbladder. No aggressive osseous lesion. Benign-appearing lucent lesion at L1 with, with sclerotic margination. Impression: 1. Scattered nonspecific mild peripheral groundglass densities withinthe right lung. These may represent areas of partial atelectasis. However, clinical correlation is required to exclude an atypical infectious process.2. Dextrocardia.3. Increased caliber of the inferior vena cava may be related to elevated right heart pressures.4. Partial visualization of small volumeascites. Signed: Attila Schmitt MDReport Verified Date/Time: 01/22/2021 14:08:18 Reading Location:[facility] Reading Room MR, ABDOMEN, [id number] 09:07:00COVID-19 virus- Screened -CLEAR Referring: Dr. Amol Gallardo Abd pain, elevated LFTs W MRCP Unlisted Reason for Exam - Click Yes and Enter Reason Below->Yes Unlisted Reason for Exam->Abdominalpain, unspecified abdominal location [facility] 1975 Sex: FFINAL REPORT TECHNIQUE: MRI of the abdomen WITHOUT and WITH intrav enous contrast. INDICATION: Abdominal pain. COMPARISON: None. FINDINGS: LOWER THORAX: Dextrocardia with cardiomegaly.. There is a trace right-sided pleural effusion with basilar atelectasis. LIVER: There is mild periportal edema with delayed portal venous enhancement.. No focal hepatic lesions. BILIARY: Gallbladder is contracted with mild gallbladder wall thickening. There is cholelithiasis. No biliary ductal dilatation or filling defect.SPLEEN: No splenomegaly.PANCREAS: No focal masses or ductal dilatation. ADRENALS: No adrenal nodules.KIDNEYS/URETERS: No hydronephrosis or solid mass lesions. SVITLANA TONEUM/RETROPERITONEUM: Small volume ascites..LYMPH NODES: No lymphadenopathy.VESSELS: Mild atherosclerotic changes are noted in the abdominal aorta and branch vessels. No evidence of aneurysmal dilation. There is conventional hepatic arterial anatomy. There is dilation of the IVC and hepatic veins.. Portal vein, splenic vein and superior mesenteric vein are patent. GI TRACT: No distention or wall thickening. BONES AND SOFT TISSUES: Unremarkable. IMPRESSION:Passive hepatic congestion with small volume ascites. No focal liver lesion. Dextrocardia with cardiomegaly. Trace right-sided pleural effusion. Cholelithiasis. Signed: Gianluca Booth MDReport Verified Date/Time: 11/18/2020 09:07:56 Reading Location: [facility] Diagnostic Imaging Reading Room - [place] [address] RAD, ABDOMEN/KUB, 1 VIEW [id number] 11:21:00COVID-19 virus- Screened -CLEARReferring: Dr. Amol Tyson for Exam:->adominal pain, unspecified abdominal location [facility] : 1975 Sex: FFINAL REPORT EXAM: RAD, ABDOMEN/KUB, 1 VIEW AP HISTORY: Abdominalpain COMPARISON: Chest radiograph 04/26/2018 DISCUSSION: Lines/Tubes: None. Bowel: Nonobstructive bowel gas pattern. Few thickened bowel goldsmith in the left upper abdominal quadrant. Mildly prominent stool burden. Other: No evidence of pneumoperitoneum given exam limitations. No abnormal calcifications.Tubal occlusion wires in the pelvis. Bones: No acute osseous abnormality. Chest: Dextrocardia. Smallright pleural effusion with right lung base hazy opacity. IMPRESSION: 1. Nonobstructive bowel gas pattern with few thickened bowel goldsmith in the left upper abdominal quadrant. Finding is nonspecific however can be seen with enteritis. If clinical concern persists, consider further evaluation with CT abdomen and pelvis with contrast. 2. Small right pleural effusion with right lung base hazy opacity. Recommend dedicated chest radiographs for further evaluation. Signed: Wilmer Mishra MDReport VerifiedDate/Time: 10/28/2020 11:21:52 HEPATITIS A ANTIBODY, [id number] 13:59:00 Test Item Value Reference Range Interpretation Comments HEPATITIS A IGG ANTIBODY (BEAKER) Reactive Nonreactive A (test code = 2797) Manual Tester ID - AAHAMIDHEPATITIS B SURFACE [id number] 13:54:00 Test Item Value Reference Range Interpretation Comments HEPATITIS B SURFACE ANTIGEN (2) Nonreactive Nonreactive (BEAKER) (test code = 2585) Specimen is considered negative for HBsAg.HEPATITIS B SURFACE [id number] 13:54:00 Test Item Value Reference Range Interpretation Comments HEPATITIS B SURFACE ANTIBODY 95.3 mIU/mL <8.0 H (BEAKER) (test code = 647) Manual Tester ID - AAHAMIDHEPATITIS C [id number] 13:54:00 Test Item Value Reference Range Interpretation Comments HEPATITIS C ANTIBODY (BEAKER) Nonreactive Nonreactive (test code = 367) Manual Tester ID - AAHAMIDHEPATITIS B CORE ANTIBODY, [id number] 13:54:00 Test Item Value Reference Range Interpretation Comments HEPATITIS B CORE TOTAL ANTIBODY Nonreactive Nonreactive (BEAKER) (test code = 497) Manual Tester ID - AAHAMIDBASIC METABOLIC [id number] 13:40:00 Test Item Value Reference Range Interpretation Comments SODIUM (BEAKER) 133 meq/L 136-145 L (test code = 381) POTASSIUM (BEAKER) 4.5 meq/L 3.5-5.1 (test code = 379) CHLORIDE (BEAKER) 102 meq/L 98-107 (test code = 382) CO2 (BEAKER) (test 24 meq/L 22-29 code = 355) BLOOD UREA NITROGEN 29 mg/dL 7-21 H (BEAKER) (test code = 354) CREATININE (BEAKER) 1.26 mg/dL 0.57-1.25 H (test code = 358) GLUCOSE RANDOM 90 mg/dL 70-105 (BEAKER) (test code = 652) CALCIUM (BEAKER) 9.2 mg/dL 8.4-10.2 (test code = 697) EGFR (BEAKER) (test 46 mL/min/1.73 ESTIMA BIBI GFR IS code = 1092) sq m NOT ACCURATE CREATININE CLEARANCE IN PREDICTING GLOMERULAR FILTRATION RATE . ESTIMATED GFR I S NOT APPLICABLE FOR DIALYSIS PATIEN TS. Manual Tester ID - AAHAMIDSpecimen slightly ictericHEPATIC FUNCTION [id number] 13:40:00 Test Item Value Reference Range Interpretation Comments TOTAL PROTEIN (BEAKER) (test code = 7.5 gm/dL 6.0-8.3 770) ALBUMIN (BEAKER) (test code = 1145) 3.8 g/dL 3.5-5.0 BILIRUBIN TOTAL (BEAKER) (test code 2.5 mg/dL 0.2-1.2 H = 377) BILIRUBIN DIRECT (BEAKER) (test 1.3 mg/dL 0.1-0.5 H code = 706) ALKALINE PHOSPHATASE (BEAKER) (test 124 U/L 40-150 code = 346) AST (SGOT) (BEAKER) (test code = 32 U/L 5-34 353) ALT (SGPT) (BEAKER) (test code = 30 U/L 6-55 347) Manual Tester ID - AAHAMIDSpecimen slightly ictericCBC W/PLT COUNT & AUTO [id number] 13:34:00 Test Item Value Reference Range Interpretation Comments WHITE BLOOD CELL COUNT 6.1 K/ L 3.5-10.5 (BEAKER) (test code = 775) RED BLOOD CELL COUNT 5.94 M/ L 3.93-5.22 H (BEAKER) (test code = 761) HEMOGLOBIN (BEAKER) (test 20.2 GM/DL 11.2-15.7 H code = 410) HEMATOCRIT (BEAKER) (test 60.6 % 34.1-44.9 H Re run to confirm code = 411) MEAN CORPUSCULAR VOLUME 102.0 fL 79.4-94.8 H (BEAKER) (test code = 753) MEAN CORPUSCULAR 34.0 pg 25.6-32.2 H HEMOGLOBIN (BEAKER) (test code = 751) MEAN CORPUSCULAR 33.3 GM/DL 32.2-35.5 HEMOGLOBIN CONC (BEAKER) (test code = 752) RED CELL DISTRIBUTION 15.1 % 11.7-14.4 H WIDTH (BEAKER) (test code = 412) PLATELET COUNT (BEAKER) 145 K/CU MM 150-450 L (test code = 756) MEAN PLATELET VOLUME 9.9 fL 9.4-12.3 (BEAKER) (test code = 754) NUCLEATED RED BLOOD CELLS 0 /100 WBC 0-0 (BEAKER) (test code = 413) NEUTROPHILS RELATIVE 59 % PERCENT (BEAKER) (test code = 429) LYMPHOCYTES RELATIVE 27 % PERCENT (BEAKER) (test code = 430) MONOCYTES RELATIVE 9 % PERCENT (BEAKER) (test code = 431) EOSINOPHILS RELATIVE 3 % PERCENT (BEAKER) (test code = 432) BASOPHILS RELATIVE 2 % PERCENT (BEAKER) (test code = 437) NEUTROPHILS ABSOLUTE 3.55 K/ L 1.56-6.13 COUNT (BEAKER) (test code = 670) LYMPHOCYTES ABSOLUTE 1.65 K/ L 1.18-3.74 COUNT (BEAKER) (test code = 414) MONOCYTES ABSOLUTE COUNT 0.57 K/ L 0.24-0.36 H (BEAKER) (test code = 415) EOSINOPHILS ABSOLUTE 0.19 K/ L 0.04-0.36 COUNT (BEAKER) (test code = 416) BASOPHILS ABSOLUTE COUNT 0.09 K/ L 0.01-0.08 H (BEAKER) (test code = 417) IMMATURE 0 % 0-1 GRANULOCYTES-RELATIVE PERCENT (BEAKER) (test code = 2801) DIGOXIN [id number] 12:51:00 Test Item Value Reference Range Interpretation Comments DIGOXIN LEVEL (BEAKER) (test code = 0.5 ng/mL 0.8-2.0 L 669) TSH/FREE T4 IF [id number] 12:51:00 Test Item Value Reference Range Interpretation Comments THYROID STIMULATING HORMONE 2.04 uIU/mL 0.35-4.94 (BEAKER) (test code = 772) TROPONIN [id number] 12:36:00 Test Item Value Reference Range Interpretation Comments TROPONIN I (BEAKER) (test code = 397) < ng/mL 0.00-0.03 Troponin I (TnI) levels [...] disease, and persistent tachyarrhythmia.B-TYPE NATRIURETIC FACTOR (BNP) 2018-04-26 12:36:00 Test Item Value Reference Range Interpretation Comments B-TYPE NATRIURETIC PEPTIDE 1527 pg/mL 0-100 H (BEAKER) (test code = 700) [id number] 12:28:00 Test Item Value Reference Range Interpretation Comments MAGNESIUM (BEAKER) 2.1 mg/dL 1.6-2.6 Specimen slightly (test code = 627) hemolyzed BASIC METABOLIC [id number] 12:28:00 Test Item Value Reference Range Interpretation Comments SODIUM (BEAKER) 135 meq/L 136-145 L (test code = 381) POTASSIUM (BEAKER) 5.4 meq/L 3.5-5.1 H Specimen slightly (test code = 379) hemolyzed CHLORIDE (BEAKER) 106 meq/L 98-107 (test code = 382) CO2 (BEAKER) (test 20 meq/L 22-29 L code = 355) BLOOD UREA NITROGEN 31 mg/dL 7-21 H (BEAKER) (test code = 354) CREATININE (BEAKER) 1.00 mg/dL 0.57-1.25 Specimen slightly (test code = 358) hemolyzed GLUCOSE RANDOM 185 mg/dL 70-105 H (BEAKER) (test code = 652) CALCIUM (BEAKER) 9.5 mg/dL 8.4-10.2 (test code = 697) EGFR (BEAKER) (test 60 mL/min/1.73 ESTIMA BIBI GFR IS code = 1092) sq m NOT ACCURATE CREATININE CLEARANCE IN PREDICTING GLOMERULAR FILTRATION RATE . ESTIMATED GFR I S NOT APPLICABLE FOR DIALYSIS PATIEN TS. CBC W/PLT COUNT & AUTO [id number] 12:22:00 Test Item Value Reference Range Interpretation Comments WHITE BLOOD CELL COUNT (BEAKER) 6.6 K/ L 3.5-10.5 (test code = 775) RED BLOOD CELL COUNT (BEAKER) 7.02 M/ L 3.93-5.22 H (test code = 761) HEMOGLOBIN (BEAKER) (test code = 22.8 GM/DL 11.2-15.7 H 410) HEMATOCRIT (BEAKER) (test code = 68.7 % 34.1-44.9 H 411) MEAN CORPUSCULAR VOLUME (BEAKER) 97.9 fL 79.4-94.8 H (test code = 753) MEAN CORPUSCULAR HEMOGLOBIN 32.5 pg 25.6-32.2 H (BEAKER) (test code = 751) MEAN CORPUSCULAR HEMOGLOBIN CONC 33.2 GM/DL 32.2-35.5 (BEAKER) (test code = 752) RED CELL DISTRIBUTION WIDTH 16.9 % 11.7-14.4 H (BEAKER) (test code = 412) PLATELET COUNT (BEAKER) (test 183 K/CU MM 150-450 code = 756) MEAN PLATELET VOLUME (BEAKER) 10.0 fL 9.4-12.3 (test code = 754) NUCLEATED RED BLOOD CELLS 0 /100 WBC 0-0 (BEAKER) (test code = 413) NEUTROPHILS RELATIVE PERCENT 67 % (BEAKER) (test code = 429) LYMPHOCYTES RELATIVE PERCENT 23 % (BEAKER) (test code = 430) MONOCYTES RELATIVE PERCENT 7 % (BEAKER) (test code = 431) EOSINOPHILS RELATIVE PERCENT 1 % (BEAKER) (test code = 432) BASOPHILS RELATIVE PERCENT 2 % (BEAKER) (test code = 437) NEUTROPHILS ABSOLUTE COUNT 4.43 K/ L 1.56-6.13 (BEAKER) (test code = 670) LYMPHOCYTES ABSOLUTE COUNT 1.48 K/ L 1.18-3.74 (BEAKER) (test code = 414) MONOCYTES ABSOLUTE COUNT (BEAKER) 0.44 K/ L 0.24-0.36 H (test code = 415) EOSINOPHILS ABSOLUTE COUNT 0.07 K/ L 0.04-0.36 (BEAKER) (test code = 416) BASOPHILS ABSOLUTE COUNT (BEAKER) 0.13 K/ L 0.01-0.08 H (test code = 417) IMMATURE GRANULOCYTES-RELATIVE 1 % 0-1 PERCENT (BEAKER) (test code = 2801) [id number] 12:21:00 Test Item Value Reference Range Interpretation Comments PROTIME (BEAKER) (test code = 20.3 seconds 11.7-14.7 H 759) INR (BEAKER) (test code = 370) 1.7 <=5.9 PARTIAL THROMBOPLASTIN TIME 39.1 seconds 22.5-36.0 H (BEAKER) (test code = 760) RECOMMENDED COUMADIN/WARFARIN INR THERAPY RANGESSTANDARD DOSE: 2.0 - 3.0 Includes: PROPHYLAXIS forvenous thrombosis, systemic embolization; TREATMENT for venous thrombosis and/or pulmonary embolus.HIGH RISK: Target INR is 2.5-3.5 for patients with mechanical heart valves.RAD, CHEST, 1 VIEW, NON [id number] 12:19:00Reason for exam:->chest painIs the patient ?->UnknownFINAL REPORT Chest x-ray Clinical History: chest pain [...] Mild increase in pulmonary vascular congestion.Dextrocardia. Signed: Agnieszka Champion Verified Date/Time: 04/26/2018 12:19:57 Reading Location: [address] Radiology Reading Room MAGNESIUM 2018-01-09 07:13:00 Test Item Value Reference Range Interpretation Comments MAGNESIUM (BEAKER) 2.1 mg/dL 1.6-2.6 Specimen slightly (test code = 627) hemolyzed BASIC METABOLIC [id number] 07:13:00 Test Item Value Reference Range Interpretation Comments SODIUM (BEAKER) 133 meq/L 136-145 L (test code = 381) POTASSIUM (BEAKER) 4.5 meq/L 3.5-5.1 Specimen slightly (test code = 379) hemolyzed CHLORIDE (BEAKER) 103 meq/L 98-107 (test code = 382) CO2 (BEAKER) (test 23 meq/L 22-29 code = 355) BLOOD UREA NITROGEN 32 mg/dL 7-21 H (BEAKER) (test code = 354) CREATININE (BEAKER) 0.84 mg/dL 0.57-1.25 Specimen slightly (test code = 358) hemolyzed GLUCOSE RANDOM 105 mg/dL 70-105 (BEAKER) (test code = 652) CALCIUM (BEAKER) 9.1 mg/dL 8.4-10.2 (test code = 697) EGFR (BEAKER) (test 74 mL/min/1.73 ESTIMA BIBI GFR IS code = 1092) sq m NOT ACCURATE CREATININE CLEARANCE IN PREDICTING GLOMERULAR FILTRATION RATE . ESTIMATED GFR I S NOT APPLICABLE FOR DIALYSIS PATIEN TS. CBC (HEMOGRAM ONLY)2018-01-09 06:04:00 Test Item Value Reference Range Interpretation Comments WHITE BLOOD CELL COUNT (BEAKER) 6.0 K/ L 3.5-10.5 (test code = 775) RED BLOOD CELL COUNT (BEAKER) 6.40 M/ L 3.93-5.22 H (test code = 761) HEMOGLOBIN (BEAKER) (test code = 21.3 GM/DL 11.2-15.7 H 410) HEMATOCRIT (BEAKER) (test code = 64.3 % 34.1-44.9 H 411) MEAN CORPUSCULAR VOLUME (BEAKER) 100.5 fL 79.4-94.8 H (test code = 753) MEAN CORPUSCULAR HEMOGLOBIN 33.3 pg 25.6-32.2 H (BEAKER) (test code = 751) MEAN CORPUSCULAR HEMOGLOBIN CONC 33.1 GM/DL 32.2-35.5 (BEAKER) (test code = 752) RED CELL DISTRIBUTION WIDTH 17.5 % 11.7-14.4 H (BEAKER) (test code = 412) PLATELET COUNT (BEAKER) (test 184 K/CU MM 150-450 code = 756) MEAN PLATELET VOLUME (BEAKER) 10.2 fL 9.4-12.3 (test code = 754) NUCLEATED RED BLOOD CELLS 0 /100 WBC 0-0 (BEAKER) (test code = 413) [id number] 08:59:00 Test Item Value Reference Range Interpretation Comments MAGNESIUM (BEAKER) 2.1 mg/dL 1.6-2.6 Specimen slightly (test code = 627) hemolyzed [id number] 08:59:00 Test Item Value Reference Range Interpretation Comments PHOSPHORUS (BEAKER) 4.1 mg/dL 2.3-4.7 Specimen slightly (test code = 604) hemolyzed COMPREHENSIVE METABOLIC [id number] 08:59:00 Test Item Value Reference Range Interpretation Comments TOTAL PROTEIN 7.5 gm/dL 6.0-8.3 Specimen sligh tly (BEAKER) (test code = hemoly zed 770) ALBUMIN (BEAKER) 3.5 g/dL 3.5-5.0 Specimen sl ightly (test code = 1145) hemolyzed ALKALINE PHOSPHATASE 223 U/L 40-150 H (BEAKER) (test code = 346) BILIRUBIN TOTAL 1.4 mg/dL 0.2-1.2 H Specimen sli ghtly (BEAKER) (test code = hemoly zed 377) SODIUM (BEAKER) (test 135 meq/L 136-145 L code = 381) POTASSIUM (BEAKER) 5.2 meq/L 3.5-5.1 H Specimen slightly (test code = 379) hemolyzed CHLORIDE (BEAKER) 102 meq/L 98-107 (test code = 382) CO2 (BEAKER) (test 21 meq/L 22-29 L code = 355) BLOOD UREA NITROGEN 31 mg/dL 7-21 H (BEAKER) (test code = 354) CREATININE (BEAKER) 1.06 mg/dL 0.57-1.25 Specimen slightly (test code = 358) hemolyzed GLUCOSE RANDOM 113 mg/dL 70-105 H (BEAKER) (test code = 652) CALCIUM (BEAKER) 9.5 mg/dL 8.4-10.2 (test code = 697) AST (SGOT) (BEAKER) 40 U/L 5-34 H Specimen slightly (test code = 353) hemolyzed ALT (SGPT) (BEAKER) 66 U/L 6-55 H Specimen slightly (test code = 347) hemolyzed EGFR (BEAKER) (test 56 mL/min/1.73 ESTIMA BIBI GFR IS code = 1092) sq m NOT ACCURATE CREATININE CLEARANCE IN PREDICTING GLOMERULAR FILTRATION RATE . ESTIMATED GFR I S NOT APPLICABLE FOR DIALYSIS PATIEN TS. CBC W/PLT COUNT & AUTO [id number] 07:20:00 Test Item Value Reference Range Interpretation Comments WHITE BLOOD CELL COUNT (BEAKER) 6.9 K/ L 3.5-10.5 (test code = 775) RED BLOOD CELL COUNT (BEAKER) 7.06 M/ L 3.93-5.22 H (test code = 761) HEMOGLOBIN (BEAKER) (test code = 22.8 GM/DL 11.2-15.7 H 410) HEMATOCRIT (BEAKER) (test code = 69.9 % 34.1-44.9 H 411) MEAN CORPUSCULAR VOLUME (BEAKER) 99.0 fL 79.4-94.8 H (test code = 753) MEAN CORPUSCULAR HEMOGLOBIN 32.3 pg 25.6-32.2 H (BEAKER) (test code = 751) MEAN CORPUSCULAR HEMOGLOBIN CONC 32.6 GM/DL 32.2-35.5 (BEAKER) (test code = 752) RED CELL DISTRIBUTION WIDTH 17.7 % 11.7-14.4 H (BEAKER) (test code = 412) PLATELET COUNT (BEAKER) (test 217 K/CU MM 150-450 code = 756) MEAN PLATELET VOLUME (BEAKER) 10.1 fL 9.4-12.3 (test code = 754) NUCLEATED RED BLOOD CELLS 0 /100 WBC 0-0 (BEAKER) (test code = 413) NEUTROPHILS RELATIVE PERCENT 77 % (BEAKER) (test code = 429) LYMPHOCYTES RELATIVE PERCENT 11 % (BEAKER) (test code = 430) MONOCYTES RELATIVE PERCENT 10 % (BEAKER) (test code = 431) EOSINOPHILS RELATIVE PERCENT 1 % (BEAKER) (test code = 432) BASOPHILS RELATIVE PERCENT 2 % (BEAKER) (test code = 437) NEUTROPHILS ABSOLUTE COUNT 5.28 K/ L 1.56-6.13 (BEAKER) (test code = 670) LYMPHOCYTES ABSOLUTE COUNT 0.72 K/ L 1.18-3.74 L (BEAKER) (test code = 414) MONOCYTES ABSOLUTE COUNT (BEAKER) 0.66 K/ L 0.24-0.36 H (test code = 415) EOSINOPHILS ABSOLUTE COUNT 0.04 K/ L 0.04-0.36 (BEAKER) (test code = 416) BASOPHILS ABSOLUTE COUNT (BEAKER) 0.12 K/ L 0.01-0.08 H (test code = 417) IMMATURE GRANULOCYTES-RELATIVE 1 % 0-1 PERCENT (BEAKER) (test code = 2801)
[2021-09-11] MEDS ORDERED: SUCCINYLCHOLINE 20 MG/ML (10 ML) IV ONE (19:08)
[2021-09-11] MEDS ORDERED: ETOMIDATE 20 MG/10 ML VIAL IV ONE (19:09)
[2021-09-11] MEDS ORDERED: propofoL 1,000 MG/100 ML VIAL IV ONE (19:15)
[2021-09-11] MEDS ORDERED: RSI MEDICATION KIT IV ONE (19:17)
[2021-09-11 19:27] LABS: Absolute Lymphocytes (CBC) 1.6 K/uL (0.7-4.9); Hematocrit 43.2 % (36.0-45.0); Lymphocytes % 20.6 % (15.3-44.8); MPV 7.9 fL (7.6-11.3); RBC Red Blood Cell Count 5.25 M/uL (3.86-4.86)
[2021-09-11 19:31] LABS: Protime INR 2.62
--- NOTE | 2021-09-11 19:39 | RAD REPORT ---
EXAM DESCRIPTION: Ronak Single View09/11/2021 7:34 pm CLINICAL HISTORY: Device placement endotracheal tube placement IMPRESSION: An endotracheal tube has been inserted with its tip at the level of the aortic arch. .
[2021-09-11 19:58] LABS: Urine Blood 1+ (Negative); Urine Glucose Negative (Negative); Urine Protein 1+ (Negative); Urine Specific Gravity 1.015 (1.005-1.030); Urine pH 5.5 (5.0-7.0)
[2021-09-11 20:01] LABS: Arterial Blood Carboxyhemoglob 1.4 % (0-1.5); Blood Gas Oxyhemoglobin 82.2 % (94-97); Blood O2 Saturation 84.2 % (92-98.5)
[2021-09-11 20:12] LABS: Albumin 3.3 g/dL (3.4-5.0); Bilirubin Direct 0.6 mg/dL (0-0.2); Bilirubin Total 1.4 mg/dL (0.2-1.0); Potassium 4.3 mmol/L (3.5-5.1); Protein, Total 7.7 g/dL (6.4-8.2)
[2021-09-11 20:16] LABS: Troponin High Sensitivity 18.1 pg/mL (<58.9)
[2021-09-11 20:20] LABS: Urine Specific Gravity/Preg 1.015 (1.005-1.030)
[2021-09-11 20:23] LABS: White Blood Cell Scan OK (OK)
[2021-09-11 20:24] LABS: Anisocytosis 1+; Blood Morphology Comment NOTED (NOT SEEN); Platelet Estimate ADEQ
[2021-09-11 20:30] LABS: SARS-COV-2 RT PCR POSITIVE (NEGATIVE)
--- NOTE | 2021-09-11 20:46 | EDPHYS ---
Physician Documentation [facility] Name: Ana Solo Age: 45 yrs Sex: Female : 1975 Arrival Date: 09/11/2021 Time: 18:53 Bed 2 Private MD: ED Physician Jesus Alberto Hardy HPI: 09/11 19:40 This 45 yrs old Female presents to ER via EMS with complaints of COUGHING UP pkl BLOOD. 19:40 The patient or guardian reports cough, difficulty breathing. Onset: The pkl symptoms/episode began/occurred 3 day(s) ago. Patient started coughing up blood this afternoon. Historical: - Allergies: 18:55 Amoxicillin; bp 18:55 Iodine; bp 18:55 Allopurinol; bp - Home Meds: 18:55 Spironolactone Oral [Active]; bp - PMHx: 18:55 Blood clot to right arm; Congestive heart failure; dexticardia; Dextrocardia; Gout; bp Hypertension; Rosacea; Singular Ventroculat Pulmonaryu Atresia; - Immunization history:: Adult Immunizations up to date. - Social history:: Smoking status: Patient denies any tobacco usage or history of. ROS: 19:40 Eyes: Negative for injury, pain, redness, and discharge. pkl 19:40 ENT: Negative for acute changes. 19:40 Neck: Negative for stiffness. 19:40 Cardiovascular: Negative for chest pain. 19:40 Respiratory: Positive for cough, blood. 19:40 Abdomen/GI: Negative for abdominal pain, nausea, vomiting, and diarrhea. 19:40 Back: Negative for acute changes. 19:40 : Negative for urinary symptoms. 19:40 MS/extremity: Negative for acute changes. 19:40 Skin: Negative for rash. 19:40 Neuro: Negative for loss of consciousness. Exam: 19:40 Head/Face: Normocephalic, atraumatic. Eyes: Pupils equal round and reactive to light, pkl extra-ocular motions intact. Lids and lashes normal. Conjunctiva and sclera are non-icteric and not injected. Cornea within normal limits. Periorbital areas with no swelling, redness, or edema. ENT: Nares patent. No nasal discharge, no septal abnormalities noted. Tympanic membranes are normal and external auditory canals are clear. Oropharynx with no redness, swelling, or masses, exudates, or evidence of obstruction, uvula midline. Mucous membranes moist. Neck: Trachea midline, no thyromegaly or masses palpated, and no cervical lymphadenopathy. Supple, full range of motion without nuchal rigidity, or vertebral point tenderness. No Meningismus. Chest/axilla: Normal chest wall appearance and motion. Nontender with no deformity. No lesions are appreciated. Cardiovascular: Regular rate and rhythm with a normal S1 and S2. No gallops, murmurs, or rubs. Normal PMI, no JVD. No pulse deficits. 19:40 Respiratory: severe repiratory distress is noted, Respirations: labored breathing, Breath sounds: rales, that are moderate, are scattered. 19:40 Abdomen/GI: Bowel sounds: normal, Palpation: abdomen is soft and non-tender, in all quadrants. 19:40 Back: Exam negative for acute changes. 19:40 : Exam negative for acute changes. 19:40 Musculoskeletal/extremity: Exam is negative for acute changes. 19:40 Skin: Exam negative for rash. 19:40 Neuro: Mentation: responsive to voice slow to respond, Cranial nerves: grossly normal, Motor: moves all fours. Vital Signs: 18:54 Pulse Ox 59% on 15% Non-rebreather mask; bp 18:54 BP 122 / 73; Pulse 127; Resp 32; Pulse Ox 57% on R/A; mk 19:00 BP 136 / 77; Pulse 144; Resp 30; Pulse Ox 77% on BVM; Weight 65.77 kg (R); mk 19:10 BP 127 / 90; Pulse 145; Resp 26; Pulse Ox 67% on BVM; mk 19:16 BP 136 / 74; Pulse 151; Resp 32; Pulse Ox 79% on ETT ambu; mk 19:30 BP 111 / 71; Pulse 132; Resp 24; Pulse Ox 90% on 100% FiO2 ETT vent; mk 19:45 BP 116 / 76; Pulse 126; Resp 25; Pulse Ox 84% on 100% FiO2 ETT vent; mk 19:51 Temp 99.3(R); ld1 20:00 BP 112 / 75; Pulse 121; Resp 25; Pulse Ox 87% on 100% FiO2 ETT vent; mk 20:15 BP 99 / 67; Pulse 118; Resp 26; Pulse Ox 83% on 100% FiO2 ETT vent; mk 20:30 BP 92 / 76; Pulse 115; Resp 26; Pulse Ox 100% on ETT vent; mk 20:45 BP 94 / 70; Pulse 115; Resp 25; Pulse Ox 86% on 100% FiO2 ETT vent; mk 21:00 BP 91 / 68; Pulse 118; Resp 25; Pulse Ox 84% on 100% FiO2 ETT vent; mk 21:15 BP 97 / 65; Pulse 114; Resp 26; Pulse Ox 100% on 100% FiO2 ETT vent; mk Adebayo Coma Score: 19:00 Eye Response: to pain(2). Verbal Response: none(1). Motor Response: localizes pain(5). mk Total: 8. 19:16 Eye Response: none(1). Verbal Response: none(1). Motor Response: none(1). Total: 3. mk 19:30 Eye Response: none(1). Verbal Response: none(1). Motor Response: none(1). Total: 3. mk 20:00 Eye Response: to pain(2). Verbal Response: none(1). Motor Response: localizes pain(5). mk Total: 8. 20:30 Eye Response: to pain(2). Verbal Response: none(1). Motor Response: localizes pain(5). mk Total: 8. 21:00 Eye Response: to pain(2). Verbal Response: none(1). Motor Response: localizes pain(5). mk Total: 8. MDM: 19:24 Patient medically screened. pkl 20:41 Data reviewed: vital signs, nurses notes, lab test result(s), EKG, radiologic studies. [facility] ED course: Talked to Dr. Sabillon, transfer to [facility]. 09/11 19:13 Order name: Basic Metabolic Panel bp 09/11 19:13 Order name: CBC with Diff; Complete Time: 20:34 bp 09/11 19:13 Order name: LFT's; Complete Time: 20:24 bp 09/11 19:13 Order name: Magnesium; Complete Time: 20:24 bp 09/11 19:13 Order name: NT PRO-BNP; Complete Time: 20:24 bp 09/11 19:13 Order name: PT-INR; Complete Time: 19:50 bp 09/11 19:13 Order name: Troponin HS; Complete Time: 20:24 bp 09/11 19:13 Order name: Type And Screen; Complete Time: 20:00 bp 09/11 19:13 Order name: Basic Metabolic Panel; Complete Time: 20:24 EDMS 09/11 19:18 Order name: COVID-19/FLU A+B (Document "Date of Onset" if Symptomatic) 09/11 19:19 Order name: COVID-19/FLU A+B; Complete Time: 20:34 EDMS 09/11 19:26 Order name: Blood Culture Adult (2) pkl 09/11 19:26 Order name: Lactate; Complete Time: 20:15 pkl 09/11 19:26 Order name: Procalcitonin; Complete Time: 20:34 pkl 09/11 19:13 Order name: XRAY Chest (1 view); Complete Time: 19:50 bp 09/11 19:13 Order name: EKG; Complete Time: 19:14 bp 09/11 19:13 Order name: Cardiac monitoring; Complete Time: 19:24 bp 09/11 19:13 Order name: EKG - Nurse/Tech; Complete Time: 19:45 bp 09/11 19:13 Order name: IV Saline Lock; Complete Time: 19:13 bp 09/11 19:27 Order name: Blood Culture EDMS 09/11 19:46 Order name: ABG; Complete Time: 20:15 pkl 09/11 19:57 Order name: Urine Dipstick-Ancillary; Complete Time: 20:00 EDMS 09/11 20:06 Order name: Urine --Ancillary (enter results) mw2 09/11 20:06 Order name: Urine --Ancillary; Complete Time: 20:24 EDMS 09/11 20:24 Order name: CBC Smear Scan; Complete Time: 20:34 EDMS 09/11 19:13 Order name: Labs collected and sent; Complete Time: 19:13 bp 09/11 19:13 Order name: O2 Per Protocol; Complete Time: 19:13 bp 09/11 19:13 Order name: O2 Sat Monitoring; Complete Time: 19:13 bp 09/11 19:31 Order name: Mora; Complete Time: 19:58 pkl 09/11 19:31 Order name: Urine Dipstick-Ancillary (obtain specimen); Complete Time: 19:58 pkl Administered Medications: 19:20 Drug: Propofol 5 mcg/kg/min Route: IV; Rate: calculated rate; Site: right antecubital; mk 19:30 Follow up: Rate change 15 mcg/kg/min mk 19:40 Follow up: Rate change 25 mcg/kg/min mk 20:49 Follow up: Rate change 20 mcg/kg/min mk 21:10 Follow up: Response: No adverse reaction mk 19:20 Drug: Propofol 5 mcg/kg/min Route: IV; Rate: calculated rate; Site: right antecubital; mk 19:20 Drug: Propofol 5 mcg/kg/min Route: IV; Rate: calculated rate; Site: right antecubital; mk 19:58 Drug: NS 0.9% 1000 ml Route: IV; Rate: 75 ml/hr; Site: right forearm; ld1 20:37 Follow up: Rate change 25 ml/hr; IV Status: Infusion continued; notified RN to mk decrase fluids from 75cc/h to 25cc/h d/t concern for pulmonary edema 20:55 Drug: Lasix (furosemide) 20 mg Route: IVP; Site: right forearm; mk 21:10 Follow up: Response: No adverse reaction Disposition Summary: 09/11/21 20:45 Transfer Ordered Transfer Location: [facility] pkl Reason: Higher level of care pkl Condition: Stable pkl Problem: new pkl Symptoms: are unchanged pkl Accepting Physician: Dr. Sabillon(09/12/21 00:29) tw5 Diagnosis - Acute respiratory distress. Hemoptysis. Covid pneumonia pkl Forms: - Medication Reconciliation Form pkl - SBAR form pkl Signatures: Dispatcher [employer] EDJesus Alberto Ford MD MD pkl Krish Hoffmann, RN RN bp Arabella Smiley RN RN ld1 Bernadette Santos tw5 Aide Davis RN RN mk Corrections: (The following items were deleted from the chart) 20:03 19:32 C-REACTIVE PROTEIN+C.LAB.BRZ ordered. EDMS EDMS 21:36 20:45 Dr. Sabillon pkl 09/12 00:29 09/11 21:36 Dr. Sabillon tw5
--- NOTE | 2021-09-11 20:46 | ER ---
Nurse's Notes [facility] Name: Ana Solo Age: 45 yrs Sex: Female : 1975 Arrival Date: 09/11/2021 Time: 18:53 Bed 2 Private MD: Diagnosis: Acute respiratory distress. Hemoptysis. Covid pneumonia Presentation: 09/11 18:54 Chief complaint: EMS states: COUGHING UP BLOOD SINCE THIS AFTERNOON. Coronavirus bp screen: At this time, the client does not indicate any symptoms associated with coronavirus-19. Ebola Screen: No symptoms or risks identified at this time. Initial Sepsis Screen: Does the patient meet any 2 criteria? Altered Mental Status. No. Patient's initial sepsis screen is negative. Does the patient have a suspected source of infection? No. Patient's initial sepsis screen is negative. Risk Assessment: Do you want to hurt yourself or someone else? Patient reports no desire to harm self or others. Onset of symptoms was September 11, 2021. 18:54 Method Of Arrival: EMS: [facility] bp 18:54 Acuity: JOSE L 2 bp 18:54 Care prior to arrival: IV initiated. 20 GA, in the left antecubital area. bp Triage Assessment: 18:55 General: Appears distressed, uncomfortable, ill, Behavior is uncooperative. Pain: bp Unable to use pain scale. Does not appear to understand pain scale. EENT: No deficits noted. Neuro: Level of Consciousness is confused, lethargic, Oriented to none. Cardiovascular: No deficits noted. Respiratory: Reports shortness of breath HEMOPTYSIS. GI: No signs and/or symptoms were reported involving the gastrointestinal system. : No signs and/or symptoms were reported regarding the genitourinary system. Derm: No deficits noted. Musculoskeletal: No deficits noted. Historical: - Allergies: 18:55 Amoxicillin; bp 18:55 Iodine; bp 18:55 Allopurinol; bp - Home Meds: 18:55 Spironolactone Oral [Active]; bp - PMHx: 18:55 Blood clot to right arm; Congestive heart failure; dexticardia; Dextrocardia; Gout; bp Hypertension; Rosacea; Singular Ventroculat Pulmonaryu Atresia; - Immunization history:: Adult Immunizations up to date. - Social history:: Smoking status: Patient denies any tobacco usage or history of. Screenin:58 Abuse screen: Denies threats or abuse. Denies injuries from another. Nutritional bp screening: No deficits noted. Tuberculosis screening: No symptoms or risk factors identified. Fall Risk None identified. Assessment: 18:58 General: PT HYPOXIC. MD AT B/S. SPOUSE REFUSING NRB MASK AND INTUBATION, INSISTING ON bp NC ONLY. PT AGITATED, PULLING OFF MONITORING. 19:00 General: Appears distressed, Behavior is drowsy. Pain: Unable to use pain scale. mk Patient appears agitated. Neuro: Level of Consciousness is obtunded, Oriented to none Weakness Cardiovascular: Heart tones S1 S2 present Capillary refill < 3 seconds in bilateral fingers toes JVD is present bilaterally Patient's skin is warm and dry. Pulses are 2+ in right radial artery, right dorsalis pedis artery, left radial artery and left dorsalis pedis artery Rhythm is. Respiratory: Airway is patent Trachea midline Respiratory effort is even, labored, with nasal flaring, with retractions, weak, Respiratory pattern is symmetrical, tachypnea. GI: Abdomen is distended, Abd is soft and non tender X 4 quads. : No signs and/or symptoms were reported regarding the genitourinary system. Derm: Skin is intact, is healthy with good turgor, Skin is dry, Skin temperature is warm. Musculoskeletal: Circulation, motion, and sensation intact. Capillary refill < 3 seconds, in bilateral fingers. toes. Range of motion: intact in all extremities. 19:30 Neuro: Level of Consciousness is obtunded, Oriented to intubated, unable to assess. Cardiovascular: Heart tones S1 S2 Capillary refill < 3 seconds. 19:30 Respiratory: Airway via oral intubation Trachea midline Respiratory effort is even, mk Respiratory pattern is regular, symmetrical, mechanical. 20:00 Reassessment: No changes from previously documented assessment. 21:00 Reassessment: No changes from previously documented assessment. 09/12 00:37 Neuro:. Vital Signs: 09/11 18:54 Pulse Ox 59% on 15% Non-rebreather mask; bp 18:54 BP 122 / 73; Pulse 127; Resp 32; Pulse Ox 57% on R/A; mk 19:00 BP 136 / 77; Pulse 144; Resp 30; Pulse Ox 77% on BVM; Weight 65.77 kg (R); mk 19:10 BP 127 / 90; Pulse 145; Resp 26; Pulse Ox 67% on BVM; mk 19:16 BP 136 / 74; Pulse 151; Resp 32; Pulse Ox 79% on ETT ambu; mk 19:30 BP 111 / 71; Pulse 132; Resp 24; Pulse Ox 90% on 100% FiO2 ETT vent; mk 19:45 BP 116 / 76; Pulse 126; Resp 25; Pulse Ox 84% on 100% FiO2 ETT vent; mk 19:51 Temp 99.3(R); ld1 20:00 BP 112 / 75; Pulse 121; Resp 25; Pulse Ox 87% on 100% FiO2 ETT vent; mk 20:15 BP 99 / 67; Pulse 118; Resp 26; Pulse Ox 83% on 100% FiO2 ETT vent; mk 20:30 BP 92 / 76; Pulse 115; Resp 26; Pulse Ox 100% on ETT vent; mk 20:45 BP 94 / 70; Pulse 115; Resp 25; Pulse Ox 86% on 100% FiO2 ETT vent; mk 21:00 BP 91 / 68; Pulse 118; Resp 25; Pulse Ox 84% on 100% FiO2 ETT vent; mk 21:15 BP 97 / 65; Pulse 114; Resp 26; Pulse Ox 100% on 100% FiO2 ETT vent; mk Adebayo Coma Score: 19:00 Eye Response: to pain(2). Verbal Response: none(1). Motor Response: localizes pain(5). mk Total: 8. 19:16 Eye Response: none(1). Verbal Response: none(1). Motor Response: none(1). Total: 3. mk 19:30 Eye Response: none(1). Verbal Response: none(1). Motor Response: none(1). Total: 3. mk 20:00 Eye Response: to pain(2). Verbal Response: none(1). Motor Response: localizes pain(5). mk Total: 8. 20:30 Eye Response: to pain(2). Verbal Response: none(1). Motor Response: localizes pain(5). mk Total: 8. 21:00 Eye Response: to pain(2). Verbal Response: none(1). Motor Response: localizes pain(5). mk Total: 8. ED Course: 18:53 Patient arrived in ED. bp 18:55 Triage completed. bp 18:55 Arm band placed on. bp 18:58 Patient has correct armband on for positive identification. Bed in low position. Call bp light in reach. Side rails up X2. Adult w/ patient. 18:58 Maintain EMS IV. Dressing intact. Good blood return noted. Site clean \T\ dry. Gauge \T\ bp site: 20 GAUGE LEFT AC. 19:02 Krish Hoffmann, RN is Primary Nurse. bp 19:15 Assisted provider with intubation using 7.5 mm ETT via oral route. ET tube secured at mk 23cm at the lips. Intubated by Jesus Alberto Hardy MD Placement verified by CO2 detector w/ + color change, auscultating bilateral breath sounds, CXR, Patient tolerated well. 19:20 Inserted saline lock: 18 gauge in right antecubital area, using aseptic technique. mk forearm, using aseptic technique. 19:24 Jesus Alberto Hardy MD is Attending Physician. pkl 19:26 Magnesium Sent. mk 19:26 NT PRO-BNP Sent. mk 19:26 PT-INR Sent. mk 19:26 Troponin HS Sent. mk 19:26 LFT's Sent. mk 19:26 CBC with Diff Sent. mk 19:26 XRAY Chest (1 view) Sent. mk 19:26 Basic Metabolic Panel Sent. mk 19:32 NGT: inserted 16 Fr. via right nare. verified placement of air over stomach, Placement ld1 verified by X-ray, to intermittent suction. Patient tolerated well. 19:32 [address] etomidate and marquis given at 1910, intubated at 1915. mk 19:34 XRAY Chest (1 view) In Process Unspecified. EDMS 19:51 Mora cath inserted, using sterile technique, 16 Fr., by vt, balloon inflated, to ld1 gravity drainage, urine specimen collected. 20:08 initiated a transfer with Georgina from [facility] Transfer Center. mw2 20:[address] Hardy with the Doctor from [facility]. mw2 20:32 [facility] needs a 30 minute extension on the transfer. mw2 20:40 administrative approval given by Georgina Dickens/ patient has been accepted to [facility] bed mw2 2410/ Ramandeep Torres accepted the patient in transfer/ report to be called to [phone]. 21:30 Patient transferred, IV remains in place. mk 09/12 00:28 Primary Nurse role handed off by Krish Hoffmann, RN tw5 03:26 Notified ED physician of a critical lab result(s). notified MD of critical lactic of mk 2.4. Administered Medications: 09/11 19:20 Drug: Propofol 5 mcg/kg/min Route: IV; Rate: calculated rate; Site: right antecubital; mk 19:30 Follow up: Rate change 15 mcg/kg/min mk 19:40 Follow up: Rate change 25 mcg/kg/min mk 20:49 Follow up: Rate change 20 mcg/kg/min mk 21:10 Follow up: Response: No adverse reaction mk 19:20 Drug: Propofol 5 mcg/kg/min Route: IV; Rate: calculated rate; Site: right antecubital; mk 19:20 Drug: Propofol 5 mcg/kg/min Route: IV; Rate: calculated rate; Site: right antecubital; mk 19:58 Drug: NS 0.9% 1000 ml Route: IV; Rate: 75 ml/hr; Site: right forearm; ld1 20:37 Follow up: Rate change 25 ml/hr; IV Status: Infusion continued; MD notified RN to mk decrase fluids from 75cc/h to 25cc/h d/t concern for pulmonary edema 20:55 Drug: Lasix (furosemide) 20 mg Route: IVP; Site: right forearm; mk 21:10 Follow up: Response: No adverse reaction mk Intake: Outcome: 20:45 ER care complete, transfer ordered by . pkdiana 21:30 Instructed on the need for transfer. mk 21:36 Patient left the ED. 09/12 00:23 Transferred mk critical 00:29 Patient left the ED. tw5 Signatures: Dispatcher [employer] EDMS Jesus Alberto Hardy MD MD pkKrish Salgado, RN RN bp Laurence Carlson mw2 Arabella Smiley RN RN ld1 Bernadette Santos tw5 Aide Davis RN RN mk Corrections: (The following items were deleted from the chart) 09/11 22:10 19:16 BP 111 / 71; Pulse 132bpm; Resp 24bpm; Pulse Ox 90% FiO2 100% vent; mk 09/12 00:32 09/11 20:00 Reassessment: No changes from previously documented assessment. Patient mk and/or family updated on plan of care and expected duration. Pain level reassessed. Patient is alert, oriented x 3, equal unlabored respirations, skin warm/dry/pink. 09/12 00:37 09/11 19:00 BP 136 / 77; Pulse 144bpm; Resp 30bpm; Pulse Ox 77% BVM; [facility] 09/12 00:42 00:33 Neuro: Level of Consciousness is obtunded, Oriented to intubated, unable to mk assess. 00:33 Cardiovascular: Heart tones S1 S2 Capillary refill < 3 seconds [facility]
[2021-09-11] MEDS ORDERED: FUROSEMIDE 20 MG/ 2ML VIAL ONE (20:47)
[2021-09-11 22:27] VITALS: TEMP 99.3
[2021-09-12 00:56] VITALS: BP 97/65; O2SAT 100
== END 2021-09-12 00:29 | disposition designated cancer center or children's hospital (05) ==
LOC: ER 18:33
DX: U07.1 COVID-19 (principal); J12.82 Pneumonia due to coronavirus disease 2019; R04.2 Hemoptysis; I50.9 Heart failure, unspecified; I10 Essential (primary) hypertension; Z88.1 Allergy status to other antibiotic agents; Z88.8 Allergy status to other drugs, medicaments and biological substances; Z91.048 Other nonmedicinal substance allergy status
CPT/HCPCS: 93005; 87040 ×2; 85025; 80048; 36415; 86900; 83735; 86850; 81025; 85610; 86901; 80076; 83605; 81003; 84484; 84145; 83880; 0240U; 71045; 82805; 31500; 51702; 99291; 99292; J1940; J0330; J2704

== ENCOUNTER 2024-08-21 16:39 | Emergency (ER) | payer OTHER ==
[2024-08-21 17:18] LABS: PT Prothrombin Time 22.9 SECONDS (9.4-12.5); PTT, Activated Partial Thromb 27.3 SECONDS (24.3-36.9); Protime INR 2.09
[2024-08-21 17:27] LABS: Albumin 2.9 g/dL (3.4-5.0); Albumin/Globulin Ratio 0.8 (1.1-1.8); Anion Gap 11.7 mEq/L (5.0-15.0); Bilirubin Total 1.5 mg/dL (0.2-1.0); Globulin 3.8 g/dL (2.3-3.5); Potassium 3.7 mEq/L (3.5-5.1); Protein, Total 6.7 g/dL (6.4-8.2)
[2024-08-21] MEDS ORDERED: MIDODRINE HCL 5 MG TABLET ONE (17:42)
[2024-08-21] MEDS ORDERED: CEFTRIAXONE 1000 MG/VIAL ONE (17:42)
[2024-08-21] MEDS ORDERED: NA CHLORIDE 0.9% 50 ML ONE (17:43)
--- NOTE | 2024-08-21 17:47 | RAD REPORT ---
Procedure: Chest Single View HISTORY: Shortness of breath COMPARISON: 2021 FINDINGS: The lungs appear clear of acute infiltrate. No significant pleural effusion noted. The heart is mildly to moderately enlarged. Dextrocardia is present. IMPRESSION: No acute abnormality is displayed.
[2024-08-21 17:57] LABS: Absolute Lymphocytes (CBC) 0.4 K/uL (0.7-4.9); Absolute Monocytes 1.2 K/uL (0.1-1.3); Basophils % 0.3 % (0-1.3); Eosinophils % 0.2 % (0-4.4); Hematocrit 34.4 % (36.0-45.0); Hemoglobin 11.3 g/dL (12.0-15.0); Lymphocytes % 5.1 % (15.3-44.8); MCH 34.3 pg (27.0-35.0); MCHC 32.8 g/dL (32.0-36.0); MCV 104.8 fL (80-100); MPV 8.1 fL (7.6-11.3); Monocytes % 14.1 % (3.3-12.3); Neutrophils % 80.3 % (41.7-73.7); Nucleated RBC Absolute Count 0.1 (0-0); Platelets 265 thou/uL (152-406); RBC Red Blood Cell Count 3.28 M/uL (3.86-4.86); Red Cell Distribution Width 16.7 % (12.1-15.2)
--- NOTE | 2024-08-21 18:04 | ER ---
Nurse's Notes [facility] Name: Tanya Solo Age: 48 yrs Sex: Female : 1975 Arrival Date: 08/21/2024 Time: 16:39 Bed 18 Private MD: Diagnosis: Dyspnea, unspecified Presentation: 08/21 17:15 Chief complaint: EMS states: they were called to urgent care for a patient complaining ap3 of worsening shortness of breath, dizziness, nausea that had started Wednesday08/19/24. patient states she is usually on home o2 PRN, however she has been out for 2 days. Coronavirus screen: Client presents with at least one sign or symptom that may indicate coronavirus-19. Ebola Screen: No symptoms or risks identified at this time. Initial Sepsis Screen: Does the patient meet any 2 criteria? No. Patient's initial sepsis screen is negative. Does the patient have a suspected source of infection? No. Patient's initial sepsis screen is negative. Risk Assessment: Do you want to hurt yourself or someone else? Patient reports no desire to harm self or others. Onset of symptoms was August 19, 2024. Care prior to arrival: Medication(s) given: Normal saline infusion, zofran 4 mg, IV initiated. 20 GA, in the right forearm. 17:15 Method Of Arrival: EMS: [facility] ap3 17:15 Acuity: JOSE L 2 ap3 Triage Assessment: 17:18 General: Appears distressed, Behavior is cooperative, appropriate for age. Pain: Denies ap3 pain. Neuro: Level of Consciousness is awake, alert, obeys commands, Oriented to person, place, time, situation. Cardiovascular: Patient's skin is warm and dry. Respiratory: Reports shortness of breath Airway is patent Respiratory effort is even, labored, Respiratory pattern is regular, symmetrical, Onset: The symptoms/episode began/occurred gradually, the patient has moderate shortness of breath. GI: Reports nausea. PHARMACY STUDENT: 18:05 LMP N/A - Post-menopause, Not ap3 Historical: - Allergies: 17:18 Allopurinol; ap3 17:18 Iodine; ap3 - PMHx: 17:18 Blood clot to right arm; Congestive heart failure; dexticardia; Dextrocardia; ap3 Hypertension; Rosacea; Singular Ventroculat Pulmonaryu Atresia; Gout; - Immunization history:: Adult Immunizations unknown. - Infectious Disease History:: Denies. - Social history:: Smoking status: unknown. Screenin:18 Abuse screen: Denies threats or abuse. Nutritional screening: No deficits noted. ap3 Tuberculosis screening: No symptoms or risk factors identified. 18:03 [facility] ED Fall Risk Assessment (Adult) History of falling in the last 3 months, ap3 including since admission No falls in past 3 months (0 pts) Confusion or Disorientation No (0 pts) Intoxicated or Sedated No (0 pts) Impaired Gait No (0 pts) Mobility Assist Device Used Yes (1 pt) Altered Elimination No (0 pt) Score/Fall Risk Level 0 - 2 = Low Risk Oriented to surroundings, Maintained a safe environment, Educated pt \T\ family on fall prevention, incl call for assistance when getting out of bed, Assessed \T\ reinforced patient's understanding of fall precautions, Hourly rounding (assess needs \T\ fall precautionary measures) done, Used ambulatory aids as needed (educated on \T\ assisted with), Used gait belt as appropriate. Assessment: 18:04 Respiratory: Airway is patent Respiratory effort is even, unlabored, Respiratory ap3 pattern is regular, symmetrical, Breath sounds are clear in left posterior upper lobe, right posterior upper lobe and left posterior lower lobe Breath sounds with crackles in right posterior lower lobe. 18:05 Cardiovascular: Rhythm is. ap3 Vital Signs: 17:15 BP 102 / 48; Pulse 87; Resp 18; Pulse Ox 78% on R/A; ap3 17:43 BP 104 / 62; Pulse 84; Resp 17; Pulse Ox 72% on R/A; ap3 ED Course: 16:52 Patient arrived in ED. ec2 16:53 Ray Gaines MD is Attending Physician. ec2 17:13 Jenniffer Varner, NIKKI is Primary Nurse. ap3 17:13 EKG done, by ED staff, reviewed by Ray Gaines MD. ap3 17:14 Inserted saline lock: 20 gauge in left antecubital area, using aseptic technique. Blood ap3 collected. Flushed with 10 mL NS. 17:14 Patient has correct armband on for positive identification. Bed in low position. Call ap3 light in reach. Side rails up X2. Client placed on continuous cardiac and pulse oximetry monitoring. NIBP monitoring applied. surveillance monitor on. Pulse ox on. NIBP on. 17:18 Triage completed. ap3 17:19 Arm band placed on right wrist. ap3 17:21 Chest Single View XRAY In Process Unspecified. EDMS 18:04 No provider procedures requiring assistance completed. ap3 18:05 Provided Education on: medications prior to administration . ap3 18:14 IV discontinued, intact, bleeding controlled, No redness/swelling at site. Pressure ap3 dressing applied. Administered Medications: 17:51 Drug: Rocephin IV 1 grams IV at bolus once; Given slow IV push per pharmacy ap3 instructions Route: IV; Rate: bolus; Site: left antecubital; 18:03 Follow up: IV Status: Completed infusion ap3 17:51 Drug: midodrine 5 mg PO once Route: PO; ap3 18:03 Follow up: Response: No adverse reaction ap3 Medication: 18:04 VIS not applicable for this client. ap3 Outcome: 18:04 Discharge ordered by . ec2 18:13 Discharged to home via wheelchair, with family, ap3 18:13 Condition: good 18:13 Discharge instructions given to patient, family, Instructed on discharge instructions, follow up and referral plans. medication usage, 18:13 Demonstrated understanding of instructions, follow-up care, medications, Prescriptions given X 2, 18:17 Patient left the ED. ap3 Signatures: Dispatcher [employer] Jenniffer Obando RN RN ap3 Ray Gaines MD MD ec2 Corrections: (The following items were deleted from the chart) 17:52 17:18 Allergies: Amoxicillin; ap3 ap3
--- NOTE | 2024-08-21 18:04 | EDPHYS ---
Physician Documentation [facility] Name: Tanya Solo Age: 48 yrs Sex: Female : 1975 Arrival Date: 08/21/2024 Time: 16:39 Bed 18 Private MD: ED Physician Ray Gaines HPI: 08/21 17:01 This 48 yrs old Female presents to ER via Unassigned with complaints of sob. ec2 17:01 Patient arrives today for evaluation of shortness of breath. Patient with a history of ec2 ESRD, CHF arrives today with progressive shortness of breath. No chest discomfort. Reports that she been having some cough and cold symptoms as well. No vomiting, no diarrhea.. 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 - Infectious Disease History:: Denies. - Social history:: Smoking status: unknown. ROS: 17:02 Constitutional: as per hpi ec2 Exam: 17:02 Constitutional: GEN: NAD Head: atraumatic Eyes: EOMI Ears: External ears are ec2 normal. CV: regular rate, lower extremity edema LUNGS: Scattered rales multiple lung espinal, tachypnea ABD: non-distended SKIN: no evidence of rashes MSK: no evidence of trauma Vital Signs: 17:15 BP 102 / 48; Pulse 87; Resp 18; Pulse Ox 78% on R/A; ap3 17:43 BP 104 / 62; Pulse 84; Resp 17; Pulse Ox 72% on R/A; ap3 MDM: 16:53 Medical Screening Exam initiated ec2 17:02 Data reviewed: vital signs, nurses notes. ED course: Patient arrives today for ec2 evaluation of shortness of breath. Examination yields cardiopulmonary findings as above. Will obtain a septic workup, empirically treat with antibiotics, start the patient on BiPAP given the patient's work of breathing.. 17:14 ED course: After placing patient on BiPAP, patient stated that she has congenital heart ec2 disease and her baseline oxygenation is 70 to 75%. Physical examination yields the patient has marked clubbing in the bilateral hands, will hold off on additional oxygenation at this time.. 17:18 ED course: Patient with history of single ventricular pulmonary atresia, dextrocardia. ec2 18:03 ED course: Testing is unremarkable. On reassessment patient with improvement in ec2 respiratory status, no significant work of breathing. Again I discussed the patient's congenital disease and patient reiterated her normal oxygen saturations are 70-75%. Will discharge home, suspect viral infection., Possible early pneumonia, given the patient's poor respiratory status baseline, her pulmonary hypertension as well as her cardiac disease, although empirically started on antibiotic coverage. Will discharge home. Return precautions given.. 08/21 16:53 Order name: Blood Culture Adult (2) ec2 08/21 16:53 Order name: CBC with Diff; Complete Time: 17:59 2 08/21 16:53 Order name: CMP; Complete Time: 17:47 2 08/21 16:53 Order name: Lactate w/ 2H reflex if indic.; Complete Time: 17:47 ec2 08/21 16:53 Order name: Protime (+inr); Complete Time: 17:47 ec2 08/21 16:53 Order name: Ptt, Activated; Complete Time: 17:47 ec2 08/21 16:54 Order name: Influenza Screen (a \T\ B) 2 08/21 16:54 Order name: SARS RAPID ec2 08/21 16:53 Order name: Chest Single View XRAY; Complete Time: 17:47 ec2 08/21 16:53 Order name: EKG; Complete Time: 16:53 ec2 08/21 16:53 Order name: Accucheck; Complete Time: 17:38 ec2 08/21 16:53 Order name: Cardiac monitoring; Complete Time: 17:13 ec2 08/21 16:53 Order name: EKG - Nurse/Tech; Complete Time: 17:13 ec2 08/21 16:53 Order name: IV Saline Lock - Large Bore; Complete Time: 17:13 ec2 08/21 16:53 Order name: Labs collected and sent; Complete Time: 17:13 ec2 08/21 16:53 Order name: O2 Per Protocol; Complete Time: 17:13 ec 08/21 16:53 Order name: O2 Sat Monitoring; Complete Time: 17:13 ec2 08/21 16:53 Order name: Vital Signs; Complete Time: 17:13 ec2 Administered Medications: 17:51 Drug: Rocephin IV 1 grams IV at bolus once; Given slow IV push per pharmacy ap3 instructions Route: IV; Rate: bolus; Site: left antecubital; 18:03 Follow up: IV Status: Completed infusion ap3 17:51 Drug: midodrine 5 mg PO once Route: PO; ap3 18:03 Follow up: Response: No adverse reaction ap3 Disposition Summary: 08/21/24 18:04 Discharge Ordered Notes: Location: Home ec2 Condition: Stable ec2 Diagnosis - Dyspnea, unspecified ec2 Followup: ec2 - With: Private Physician - When: - Reason: Re-evaluation by your physician Discharge Instructions: - Discharge Summary Sheet ec2 - Shortness of Breath, Adult, [id number] ec2 Forms: - Medication Reconciliation Form ec2 - Antibiotic Education ec2 - Prescription Opioid Use ec2 - Patient Portal Instructions ec2 - Leadership Thank You Letter ec2 Prescriptions: - Augmentin 875-125 mg Oral Tablet - take 1 tablet ORAL route every 12 hours for 10 days; 20 tablet; Refills: 0, ec2 Product Selection Permitted - Zofran 4 mg Oral Tablet - take 1 tablet ORAL route every 12 hours As needed; 20 tablet; Refills: 0, ec2 Product Selection Permitted Signatures: Dispatcher [employer] Jenniffer Obando RN RN ap3 Ray Gaines MD MD ec2 Corrections: (The following items were deleted from the chart) 16:53 16:53 BLOOD CULTURE*+BA.LAB.BRZ ordered. EDMS EDMS 16:53 16:53 CBC+H.LAB.BRZ ordered. EDMS EDMS 16:53 16:53 COMPREHENSIVE METABOLIC PANEL+C.LAB.BRZ ordered. EDMS EDMS 16:53 16:53 LACTATE+C.LAB.BRZ ordered. EDMS EDMS 16:53 16:53 PROTIME (+INR)+COAG.LAB.BRZ ordered. EDMS EDMS 16:54 16:53 PTT, ACTIVATED+COAG.LAB.BRZ ordered. EDMS EDMS 17:52 17:18 Allergies: Amoxicillin; ap3 ap3
[2024-08-21 18:16] LABS: SARS-CoV-2 Antigen CONTROL BLUE LINE VIS/BG OK; SARS-CoV-2 Antigen Rapid Res Negative (Negative)
[2024-08-21 18:47] VITALS: BP 104/62; O2SAT 72
--- NOTE | 2024-08-28 11:07 | EKG ---
Test Date: 2024-08-21 Test Time: 17:10:57 Cap Coverer: ALP MEASUREMENT RESULTS: Intervals: Rate: 89 DC: QRSD: 118 QT: 384 QTc: 467 Hortense: P: DC: QRS: 256 T: -75 INTERPRETIVE STATEMENTS: Age and gender specific ECG analysis Atrial fibrillation Right bundle branch block Septal infarct, age undetermined Lateral infarct, possibly acute Marked ST abnormality, possible inferior subendocardial injury ACUTE MA Abnormal ECG Compared to ECG 09/11/2021 19:37:03 ST (T wave) deviation now present Supraventricular tachycardia no longer present T-wave abnormality no longer present Possible ischemia no longer present Myocardial infarct finding still present Electronically Signed On 08-28-24 10:59:09 APICULTURIST by Sriram Barber
== END 2024-08-21 18:17 | disposition home or self-care (01) ==
LOC: ER 16:39
DX: R06.00 Dyspnea, unspecified (principal); Q24.0 Dextrocardia; I10 Essential (primary) hypertension; I50.9 Heart failure, unspecified; Z11.52 Encounter for screening for COVID-19; Z86.718 Personal history of other venous thrombosis and embolism
CPT/HCPCS: 93005; 87040; 85025; 36415; 85610; 83605; 85730; 80053; 87804 ×2; 71045; 96374; 99285; 87811; J0696